=== PATIENT | female | born 1965 | race Two or more races ===

== ENCOUNTER 2020-08-03 12:34 | Inpatient (IN) | payer MEDICAID, OTHER ==
[~2020-08-03] VITALS: Ht 162.6 cm; Wt 56.2 kg
[2020-08-03] MEDS ORDERED: CALCIUM GLUC 4.65meq/50ml D5AE 50 ML IV ONE ×2 (13:00→14:00)
[2020-08-03 13:38] LABS: Basophils # (auto) 0.1 10 ^3/uL (0-0.2); Basophils % (auto) 0.8 % (0.0-2.0); Eosinophils # (auto) 0.1 10 ^3/uL (0-0.8); Eosinophils % (auto) 1.8 % (0.0-7.0); Hematocrit 29.5 % (36.0-46.0); Hemoglobin 10.2 g/dL (12.2-16.2); Lymphocytes # (auto) 1.1 10 ^3/uL (0.4-5.4); Lymphocytes % (auto) 14.4 % (10.0-50.0); Mean Corpuscular Hemoglobin 32.1 pg (28.0-32.0); Mean Corpuscular Hgb Conc. 34.4 g/dL (32.0-36.0); Mean Corpuscular Volume 93.3 fL (80.0-100.0); Monocytes # (auto) 0.3 10 ^3/uL (0-1.3); Monocytes % (auto) 4.4 % (0.0-12.0); Neutrophils # (auto) 5.7 10 ^3/uL (1.6-8.6); Neutrophils % (auto) 78.6 % (37.0-80.0); Nucleated Red Blood Cells % 0.1 %; Platelet Count (auto) 243 10^3/uL (140-450); Red Blood Cells 3.16 10^6/uL (4.0-5.20); Red Cell Distribution Width 13.4 % (11.8-14.3); White Blood Cell 7.3 10^3/uL (4.4-10.8)
[2020-08-03 13:45] LABS: Albumin 2.8 g/dL (3.4-5.0); Anion Gap 8 (5-15); Blood Urea Nitrogen 67 mg/dL (7-18); Calcium 8.3 mg/dL (8.5-10.1); Carbon Dioxide 32 mmol/L (21-32); Chloride 90 mmol/L (98-107); Glucose 251 mg/dL (74-106); Magnesium 3.6 mg/dL (1.6-2.6); Sodium 130 mmol/L (136-145)
[2020-08-03] MEDS ORDERED: DOPamine 1600MCG/ML D5W 250 ML IV ONE (13:45)
[2020-08-03 13:51] LABS: Alanine Aminotransferase 95 U/L (13-56); Alkaline Phosphatase 195 U/L (45-117); Aspartate Aminotransferase 140 U/L (15-37); BUN/Creatinine Ratio 8.8; Bilirubin, Total 0.4 mg/dL (0.2-1.0); GFR African American 7 mL/min; GFR Non-African American 6 mL/min; Lactic Acid w/Reflex 2.3 mmol/L (0.4-2.0); Phosphorus 6.3 mg/dL (2.5-4.90); Total Protein 6.8 g/dL (6.4-8.2)
[2020-08-03 13:56] LABS: INR 1.08 (0.9-1.15)
[2020-08-03 13:59] LABS: Potassium 6.8 mmol/L (3.5-5.1)
[2020-08-03] MEDS ORDERED: SODIUM CHLORIDE 0.9% 1,000 ML IV ONE (14:00)
[2020-08-03] MEDS ORDERED: InsuLIN REG 1unit/0.01ml Soln (100units/ml) IV ONE (14:00)
[2020-08-03] MEDS ORDERED: SODIUM BICARBONATE 8.4 % INJ 50ML VIAL IV ONE (14:00)
[2020-08-03] MEDS ORDERED: ATROPINE SULF 1 MG/10ml SYR IV ONE (14:00)
[2020-08-03] MEDS ORDERED: InsuLIN REG 1unit/0.01ml Soln (100units/ml) SC ONE (15:45)
[2020-08-03] MEDS ORDERED: cloNIDine HCL 0.1 MG TAB PO ONE (18:00)
[2020-08-03] MEDS ORDERED: hydrALAZINE HCL 20 MG/ML VL IV ONE (20:45)
[2020-08-03] MEDS ORDERED: MORPHINE SULF INJ 2 MG/ML SYRINGE 1ML IV PRN (21:15)
[2020-08-03] MEDS ORDERED: NITROGLYCERIN 0.4 MG SL TAB SL PRN (21:15)
[2020-08-03] MEDS ORDERED: DEXTROSE (50%) 50ML SYRG IV PRN (21:15)
[2020-08-03] MEDS: InsuLIN REG 1unit/0.01ml Soln (100units/ml) SC SCH (22:00)
[2020-08-03] MEDS: ACCU-CHEK COMFORT CURVE STRIP VI SCH (22:28)
[2020-08-03 23:21] LABS: BUN/Creatinine Ratio 7.8; Calcium 8.9 mg/dL (8.5-10.1); Potassium 4.4 mmol/L (3.5-5.1)
[2020-08-04] MEDS: hydrALAZINE HCL 20 MG/ML VL IV SCH ×4 (00:08→17:26)
[2020-08-04] MEDS: ACCU-CHEK COMFORT CURVE STRIP VI SCH ×4 (06:00→21:00)
[2020-08-04] MEDS: InsuLIN REG 1unit/0.01ml Soln (100units/ml) SC SCH ×4 (06:00→20:59)
[2020-08-04 06:49] LABS: Basophils # (auto) 0.1 10 ^3/uL (0-0.2); Basophils % (auto) 1.8 % (0.0-2.0); Eosinophils # (auto) 0.1 10 ^3/uL (0-0.8); Eosinophils % (auto) 1.3 % (0.0-7.0); Hemoglobin 11.2 g/dL (12.2-16.2); Lymphocytes # (auto) 1.3 10 ^3/uL (0.4-5.4); Lymphocytes % (auto) 24.8 % (10.0-50.0); Mean Corpuscular Hemoglobin 31.4 pg (28.0-32.0); Mean Corpuscular Hgb Conc. 33.8 g/dL (32.0-36.0); Mean Corpuscular Volume 92.9 fL (80.0-100.0); Monocytes # (auto) 0.5 10 ^3/uL (0-1.3); Monocytes % (auto) 9.7 % (0.0-12.0); Neutrophils # (auto) 3.2 10 ^3/uL (1.6-8.6); Neutrophils % (auto) 62.4 % (37.0-80.0); Nucleated Red Blood Cells % 0.2 %; Platelet Count (auto) 268 10^3/uL (140-450); Red Blood Cells 3.55 10^6/uL (4.0-5.20); Red Cell Distribution Width 13.6 % (11.8-14.3); White Blood Cell 5.2 10^3/uL (4.4-10.8)
[2020-08-04 07:07] LABS: Albumin 3.2 g/dL (3.4-5.0); Calcium 8.4 mg/dL (8.5-10.1); Potassium 4.6 mmol/L (3.5-5.1)
[2020-08-04 07:12] LABS: BUN/Creatinine Ratio 7.6; Bilirubin, Total 0.4 mg/dL (0.2-1.0); Total Protein 7.9 g/dL (6.4-8.2)
[2020-08-04] MEDS: PANTOPRAZOLE 40 MG TAB PO SCH (08:39)
[2020-08-04] MEDS: ACETAMINOPHEN 325 MG TAB PO PRN (10:31)
[2020-08-04] MEDS ORDERED: SODIUM BICARBONATE 8.4% INJ 50ML SYRINGE IV ONE (12:49)
[2020-08-04] MEDS ORDERED: CALCIUM CHLOR(10%) 100MG/ML 10ML SYRINGE IV ONE (12:49)
[2020-08-04] MEDS ORDERED: ATROPINE SULF 1 MG/10ml SYR IV ONE (12:49)
[2020-08-04] MEDS ORDERED: DOPamine 1600mCg/ml 400MG/250ml NSorD5 KIT/BAG IV ONE (12:49)
[2020-08-05] MEDS: hydrALAZINE HCL 20 MG/ML VL IV SCH ×4 (00:41→18:00)
[2020-08-05] MEDS: ACETAMINOPHEN 325 MG TAB PO PRN (03:09)
[2020-08-05] MEDS: ONDANSETRON HCL 4 MG/2 ML VIAL IV PRN ×2 (03:10→10:33)
[2020-08-05 04:17] VITALS: BP 116/56
[2020-08-05] MEDS ORDERED: HYDR10TA26 PO (04:43)
[2020-08-05] MEDS ORDERED: ASPI-543 PO (04:43)
[2020-08-05] MEDS ORDERED: CARV25TA55 PO (04:43)
[2020-08-05 05:21] VITALS: BP 116/56
[2020-08-05] MEDS: ACCU-CHEK COMFORT CURVE STRIP VI SCH ×4 (06:57→22:00)
[2020-08-05] MEDS ORDERED: SODIUM CHL 0.9% 1000 ML BAG XX ONE (07:00)
[2020-08-05] MEDS: InsuLIN REG 1unit/0.01ml Soln (100units/ml) SC SCH ×4 (07:00→22:00)
[2020-08-05 09:00] VITALS: BP 131/62
[2020-08-05] MEDS: PANTOPRAZOLE 40 MG TAB PO SCH (10:33)
[2020-08-05] MEDS ORDERED: ADENOSINE 47 MG in GIVE UN-DILUTED 0 ML IV STA (10:50)
[2020-08-05 13:30] VITALS: BP 144/70
[2020-08-05 16:46] VITALS: BP 111/58
[2020-08-05 22:30] VITALS: BP 139/75
[2020-08-06 06:00] VITALS: BP 140/65
[2020-08-06] MEDS: hydrALAZINE HCL 20 MG/ML VL IV SCH ×3 (06:00→12:00)
[2020-08-06] MEDS: InsuLIN REG 1unit/0.01ml Soln (100units/ml) SC SCH ×3 (07:00→17:00)
[2020-08-06] MEDS: ACCU-CHEK COMFORT CURVE STRIP VI SCH ×3 (07:00→17:00)
[2020-08-06 08:49] VITALS: BP 130/62
[2020-08-06] MEDS: ACETAMINOPHEN 325 MG TAB PO PRN (10:50)
[2020-08-06] MEDS: PANTOPRAZOLE 40 MG TAB PO SCH (10:50)
[2020-08-06 12:56] VITALS: BP 149/71
[2020-08-06 14:07] LABS: BUN/Creatinine Ratio 6.7; Calcium 7.7 mg/dL (8.5-10.1); Potassium 5.3 mmol/L (3.5-5.1)
[2020-08-06 17:00] VITALS: BP 181/83
[2020-08-06 18:00] VITALS: BP 116/58
[2020-08-06 18:07] VITALS: BP 130/62
== END 2020-08-06 19:22 | disposition home or self-care (01) | DRG 194 ==
LOC: ER 12:34 → TELE 21:08 → TELE-CENTR 08-05 04:05
PROVIDERS: ADMIT Nurse Practitioner; ATTEND Internal Medicine
PROC: 5A1D70Z Performance of Urinary Filtration, Intermittent, Less than 6 Hours Per Day (ICD-10-PCS; principal; 2020-08-03)
PROC: 5A1D70Z Performance of Urinary Filtration, Intermittent, Less than 6 Hours Per Day (ICD-10-PCS; 2020-08-05)
PROC: 5A1D70Z Performance of Urinary Filtration, Intermittent, Less than 6 Hours Per Day (ICD-10-PCS; 2020-08-06)
DX: I13.2 Hypertensive heart and chronic kidney disease with heart failure and with stage 5 chronic kidney disease, or end stage renal disease (principal); E87.5 Hyperkalemia; I44.2 Atrioventricular block, complete; R00.1 Bradycardia, unspecified; N18.6 End stage renal disease; D63.8 Anemia in other chronic diseases classified elsewhere; E87.1 Hypo-osmolality and hyponatremia; Z20.828 Contact with and (suspected) exposure to other viral communicable diseases; E11.22 Type 2 diabetes mellitus with diabetic chronic kidney disease; Z99.2 Dependence on renal dialysis; E44.0 Moderate protein-calorie malnutrition; I50.31 Acute diastolic (congestive) heart failure; R65.10 Systemic inflammatory response syndrome (SIRS) of non-infectious origin without acute organ dysfunction
CPT/HCPCS: 36415; 71045; 78452; 80048; 80053; 82962; 83605; 83735; 83880; 84100; 84484; 85025; 85610; 87081; 87426; 90935; 93017; 93306; 96365; 96375; 99291; G0378; J0153; J0610; J1815; J2405

== ENCOUNTER 2022-02-14 21:03 | Inpatient (IN) | payer MEDICAID ==
[~2022-02-14] VITALS: Ht 165.1 cm; Wt 56.7 kg
[~2022-02-14 21:03] MED LIST: ASPI-543 PO; CARV25TA55 PO; HYDR10TA26 PO
[2022-02-14 22:50] LABS: Basophils # (auto) 0.1 10 ^3/uL (0-0.2); Basophils % (auto) 1.4 % (0.0-2.0); Eosinophils # (auto) 0.1 10 ^3/uL (0-0.8); Eosinophils % (auto) 2.7 % (0.0-7.0); Hematocrit 34.4 % (36.0-46.0); Hemoglobin 11.6 g/dL (12.2-16.2); Lymphocytes # (auto) 1.2 10 ^3/uL (0.4-5.4); Lymphocytes % (auto) 23.1 % (10.0-50.0); Mean Corpuscular Hemoglobin 32.2 pg (28.0-32.0); Mean Corpuscular Hgb Conc. 33.6 g/dL (32.0-36.0); Mean Corpuscular Volume 95.7 fL (80.0-100.0); Monocytes # (auto) 0.4 10 ^3/uL (0-1.3); Monocytes % (auto) 8.2 % (0.0-12.0); Neutrophils # (auto) 3.4 10 ^3/uL (1.6-8.6); Neutrophils % (auto) 64.6 % (37.0-80.0); Nucleated Red Blood Cells % 0.1 %; Red Blood Cells 3.59 10^6/uL (4.0-5.20); White Blood Cell 5.3 10^3/uL (4.4-10.8)
[2022-02-14] MEDS ORDERED: ATROPINE SULFATE 1 MG/1 ML VIAL ONE (23:11)
[2022-02-14 23:13] LABS: Calcium 8.7 mg/dL (8.5-10.1)
[2022-02-14] MEDS ORDERED: DOPamine 1600MCG/ML D5W 250 ML IV ONE (23:15)
[2022-02-14 23:17] LABS: Albumin 3.1 g/dL (3.4-5.0); BUN/Creatinine Ratio 7.4
[2022-02-14 23:19] LABS: Bilirubin, Total 0.4 mg/dL (0.2-1.0); Total Protein 7.6 g/dL (6.4-8.2)
[2022-02-14 23:23] LABS: Potassium 6.4 mmol/L (3.5-5.1)
[2022-02-14] MEDS ORDERED: CALCIUM GLUC 1,000mg/50ml-NS 50 ML IV ONE (23:30)
[2022-02-14] MEDS ORDERED: FUROSEMIDE 20 MG/2 ML VIAL IV ONE (23:30)
[2022-02-14] MEDS ORDERED: DEXTROSE (50%) 50ML SYRG IV ONE (23:30)
[2022-02-14] MEDS ORDERED: ALBUTEROL SULF 2.5 MG/0.5ML(0.5%) NEB SOLN NEB ONE (23:30)
[2022-02-14] MEDS ORDERED: SODIUM ZIRCONIUM CYCL 10 GM PAK PO ONE (23:30)
[2022-02-14] MEDS ORDERED: ATROPINE SULF 1 MG/10ml SYR IV ONE (23:30)
[2022-02-14] MEDS ORDERED: InsuLIN REG 1unit/0.01ml Soln (100units/ml) IV ONE (23:30)
[2022-02-14] MEDS ORDERED: SODIUM BICARBONATE 8.4 % INJ 50ML VIAL IV ONE (23:45)
[2022-02-15] MEDS ORDERED: cloNIDine HCL 0.1 MG TAB PO ONE
[2022-02-15] MEDS ORDERED: cloNIDine HCL 0.1 MG TAB ONE (00:11)
[2022-02-15] MEDS ORDERED: hydrALAZINE HCL 20 MG/ML VL IV ONE (01:00)
[2022-02-15] MEDS ORDERED: NITROGLYCERIN 0.4 MG SL TAB SL PRN (04:45)
[2022-02-15] MEDS ORDERED: hydrALAZINE HCL 20 MG/ML VL IV PRN (04:45)
[2022-02-15] MEDS ORDERED: ONDANSETRON HCL 4 MG/2 ML VIAL IV PRN (04:45)
[2022-02-15] MEDS ORDERED: DEXTROSE (50%) 50ML SYRG IV PRN (04:45)
[2022-02-15] MEDS ORDERED: MORPHINE SULFATE INJ 2 MG/ml SYRG IV PRN ×2 (04:45)
[2022-02-15] MEDS ORDERED: hydrALAZINE HCL 10 MG TAB PO SCH (06:00)
[2022-02-15 06:01] LABS: BUN/Creatinine Ratio 8.1; Calcium 8.4 mg/dL (8.5-10.1); Potassium 5.4 mmol/L (3.5-5.1)
[2022-02-15] MEDS: InsuLIN REG 1unit/0.01ml Soln (100units/ml) SC SCH ×4 (06:20→22:00)
[2022-02-15] MEDS: ACCU-CHEK COMFORT CURVE STRIP VI SCH ×4 (06:20→22:00)
[2022-02-15] MEDS: SEVELAMER 800 MG TAB PO SCH ×3 (08:00→18:06)
[2022-02-15] MEDS ORDERED: SODIUM CHL 0.9% 1000 ML BAG XX ONE (08:30)
[2022-02-15] MEDS ORDERED: PATIENTS OWN MEDICATION (Carvedilol 25 MG) PO SCH (10:00)
[2022-02-15] MEDS ORDERED: CARVEDILOL 12.5 MG TAB PO SCH (10:00)
[2022-02-15] MEDS: BENAZEPRIL HCL 10 MG TAB PO SCH (12:46)
[2022-02-15] MEDS: ASPirin-EC 81 mg tab PO SCH ×2 (13:47→22:33)
[2022-02-15] MEDS: hydrALAZINE HCL 25 MG TAB PO SCH ×2 (14:31→22:33)
[2022-02-15 22:24] VITALS: BP 130/62
[2022-02-15 22:30] VITALS: BP 130/62
[2022-02-16 05:00] VITALS: BP 123/57
[2022-02-16] MEDS: hydrALAZINE HCL 25 MG TAB PO SCH ×2 (05:40→14:50)
[2022-02-16] MEDS: InsuLIN REG 1unit/0.01ml Soln (100units/ml) SC SCH ×3 (05:40→16:43)
[2022-02-16] MEDS: ACCU-CHEK COMFORT CURVE STRIP VI SCH ×3 (05:41→16:41)
[2022-02-16] MEDS ORDERED: ADENOSINE 48 MG in GIVE UN-DILUTED 0 ML IV STA ×2 (07:46→07:49)
[2022-02-16 08:00] VITALS: BP 136/63
[2022-02-16] MEDS: SEVELAMER 800 MG TAB PO SCH ×3 (08:00→18:00)
[2022-02-16 08:37] LABS: Basophils # (auto) 0.1 10 ^3/uL (0-0.2); Basophils % (auto) 1.3 % (0.0-2.0); Eosinophils # (auto) 0.2 10 ^3/uL (0-0.8); Hematocrit 33.9 % (36.0-46.0); Lymphocytes % (auto) 20.8 % (10.0-50.0); Mean Corpuscular Hemoglobin 31.1 pg (28.0-32.0); Mean Corpuscular Hgb Conc. 32.5 g/dL (32.0-36.0); Mean Corpuscular Volume 95.7 fL (80.0-100.0); Monocytes # (auto) 0.5 10 ^3/uL (0-1.3); Monocytes % (auto) 10.7 % (0.0-12.0); Neutrophils # (auto) 3.1 10 ^3/uL (1.6-8.6); Neutrophils % (auto) 62.2 % (37.0-80.0); Red Blood Cells 3.55 10^6/uL (4.0-5.20)
[2022-02-16 09:19] VITALS: BP 134/61
[2022-02-16 10:21] LABS: BUN/Creatinine Ratio 6.1; Calcium 8.4 mg/dL (8.5-10.1); Potassium 4.6 mmol/L (3.5-5.1)
[2022-02-16] MEDS: BENAZEPRIL HCL 10 MG TAB PO SCH (10:56)
[2022-02-16] MEDS: ASPirin-EC 81 mg tab PO SCH (10:56)
[2022-02-16 12:00] VITALS: BP 142/64
[2022-02-16 16:00] VITALS: BP 136/59
[2022-02-16 16:57] VITALS: BP 136/59
[2022-02-17] MEDS ORDERED: SODIUM CHL 0.9% 1000 ML BAG XX ONE (07:00)
== END 2022-02-16 18:15 | disposition home or self-care (01) | DRG 201 ==
LOC: ER 21:03 → TELE 02-15 04:38 → TELE-CENTR 02-15 22:10
PROVIDERS: ADMIT Hospitalist; ATTEND Internal Medicine
PROC: 5A1D70Z Performance of Urinary Filtration, Intermittent, Less than 6 Hours Per Day (ICD-10-PCS; principal; 2022-02-15)
DX: R00.1 Bradycardia, unspecified (principal); I12.0 Hypertensive chronic kidney disease with stage 5 chronic kidney disease or end stage renal disease; J90 Pleural effusion, not elsewhere classified; R18.8 Other ascites; N18.6 End stage renal disease; R07.9 Chest pain, unspecified; E87.5 Hyperkalemia; E11.22 Type 2 diabetes mellitus with diabetic chronic kidney disease; T50.905A Adverse effect of unspecified drugs, medicaments and biological substances, initial encounter; J47.9 Bronchiectasis, uncomplicated; J98.11 Atelectasis; Z20.822 Contact with and (suspected) exposure to COVID-19; K44.9 Diaphragmatic hernia without obstruction or gangrene; R91.1 Solitary pulmonary nodule; Y92.89 Other specified places as the place of occurrence of the external cause
CPT/HCPCS: 36415; 70450; 71045; 71250; 78452; 80048; 80053; 82962; 83880; 84132; 84484; 85025; 87340; 90935; 93005; 93017; 93306; 94644; 96365; 96366; 96368; 96372; 96375; 99291; G0378; J0153; J0461; J1815

== ENCOUNTER 2022-08-12 21:45 | Inpatient (IN) | payer MEDICAID ==
[~2022-08-12] VITALS: Ht 162.6 cm; Wt 61.8 kg
[2022-08-12] MEDS ORDERED: InsuLIN REG 1unit/0.01ml Soln (100units/ml) IV ONE (22:15)
[2022-08-12] MEDS ORDERED: InsuLIN REG 1unit/0.01ml Soln (100units/ml) ONE (22:15)
[2022-08-12 22:39] LABS: Basophils # (auto) 0 10 ^3/uL (0-0.2); Basophils % (auto) 0.6 % (0.0-2.0); Eosinophils # (auto) 0.2 10 ^3/uL (0-0.8); Eosinophils % (auto) 4.5 % (0.0-7.0); Hematocrit 36.7 % (36.0-46.0); Hemoglobin 12.3 g/dL (12.2-16.2); Lymphocytes # (auto) 1.2 10 ^3/uL (0.4-5.4); Lymphocytes % (auto) 22.1 % (10.0-50.0); Mean Corpuscular Hemoglobin 32.1 pg (28.0-32.0); Mean Corpuscular Hgb Conc. 33.5 g/dL (32.0-36.0); Mean Corpuscular Volume 95.7 fL (80.0-100.0); Monocytes # (auto) 0.1 10 ^3/uL (0-1.3); Neutrophils # (auto) 3.8 10 ^3/uL (1.6-8.6); Neutrophils % (auto) 70.8 % (37.0-80.0); Nucleated Red Blood Cells % 0.1 %; Red Blood Cells 3.83 10^6/uL (4.0-5.20); Red Cell Distribution Width 13.1 % (11.8-14.3); White Blood Cell 5.4 10^3/uL (4.4-10.8)
[2022-08-12 22:56] LABS: Albumin 3.2 g/dL (3.4-5.0); BUN/Creatinine Ratio 9.1; Calcium 11.9 mg/dL (8.5-10.1)
[2022-08-12 22:59] LABS: Bilirubin, Total 0.5 mg/dL (0.2-1.0); Total Protein 7.5 g/dL (6.4-8.2)
[2022-08-12 23:20] LABS: Potassium 6.4 mmol/L (3.5-5.1)
[2022-08-12] MEDS ORDERED: SODIUM BICARBONATE 8.4 % INJ 50ML VIAL IV ONE (23:30)
[2022-08-12] MEDS ORDERED: ALBUTEROL SULF 2.5 MG/0.5ML(0.5%) NEB SOLN NEB ONE (23:30)
[2022-08-12] MEDS ORDERED: ALBUTEROL MEDNEB 2.5 mg/3ml NEB ONE (23:34)
[2022-08-12] MEDS ORDERED: DOCUSATE SOD 100 MG CAP PO PRN (23:45)
[2022-08-12] MEDS ORDERED: DEXTROSE (50%) 50ML SYRG IV PRN (23:45)
[2022-08-12] MEDS ORDERED: TEMAZEPAM 15 MG CAP PO PRN (23:45)
[2022-08-12] MEDS ORDERED: LORazepam 0.5 MG TAB PO PRN (23:45)
[2022-08-12] MEDS ORDERED: NITROGLYCERIN 0.4 MG SL TAB SL PRN (23:45)
[2022-08-12] MEDS ORDERED: ACETAMINOPHEN 325 MG TAB PO PRN (23:45)
[2022-08-12] MEDS ORDERED: ONDANSETRON HCL 4 MG/2 ML VIAL IV PRN (23:45)
[2022-08-12] MEDS ORDERED: MORPHINE SULFATE INJ 2 MG/ml SYRG IV PRN ×2 (23:45)
[2022-08-13] MEDS: ACCU-CHEK COMFORT CURVE STRIP VI SCH ×6 (00:37→20:19)
[2022-08-13] MEDS: InsuLIN REG 1unit/0.01ml Soln (100units/ml) SC SCH ×6 (00:38→20:00)
[2022-08-13] MEDS: SODIUM CHLORIDE 0.9% 1,000 ML IV SCH ×2 (00:39→04:46)
[2022-08-13] MEDS: HYDROcodone-ACET 5/325MG TAB PO PRN ×2 (03:35→19:52)
[2022-08-13 07:26] LABS: Basophils # (auto) 0.1 10 ^3/uL (0-0.2); Basophils % (auto) 1.1 % (0.0-2.0); Eosinophils # (auto) 0.1 10 ^3/uL (0-0.8); Eosinophils % (auto) 1.7 % (0.0-7.0); Hematocrit 34.3 % (36.0-46.0); Hemoglobin 11.5 g/dL (12.2-16.2); Lymphocytes # (auto) 1.2 10 ^3/uL (0.4-5.4); Mean Corpuscular Hemoglobin 31.5 pg (28.0-32.0); Mean Corpuscular Hgb Conc. 33.4 g/dL (32.0-36.0); Mean Corpuscular Volume 94.3 fL (80.0-100.0); Monocytes # (auto) 0.5 10 ^3/uL (0-1.3); Monocytes % (auto) 8.7 % (0.0-12.0); Neutrophils # (auto) 4.1 10 ^3/uL (1.6-8.6); Neutrophils % (auto) 68.5 % (37.0-80.0); Red Blood Cells 3.64 10^6/uL (4.0-5.20); Red Cell Distribution Width 12.8 % (11.8-14.3)
[2022-08-13 07:45] LABS: BUN/Creatinine Ratio 9.6
[2022-08-13] MEDS ORDERED: SODIUM CHL 0.9% 1000 ML BAG XX ONE (09:30)
[2022-08-13 11:30] LABS: INR 1.06 (0.9-1.15); Partial Thromboplastin Time 30.6 sec (24.6-33.4)
[2022-08-13] MEDS ORDERED: ISOPROTERENOL HCL INJECTION 1 MG in D5W 5% 250 ML IV SCH (12:15)
[2022-08-13] MEDS ORDERED: SODIUM ZIRCONIUM CYCL 10 GM PAK PO ONE (12:15)
[2022-08-13] MEDS ORDERED: SODIUM BICARBONATE 8.4 % INJ 50ML VIAL IV ONE (12:15)
[2022-08-13] MEDS ORDERED: DEXTROSE (50%) 50ML SYRG IV ONE (12:15)
[2022-08-13] MEDS ORDERED: CALCIUM GLUC 1,000mg/50ml-NS 50 ML IV ONE (12:15)
[2022-08-13] MEDS ORDERED: DOPamine 1600MCG/ML D5W 250 ML IV SCH (13:00)
[2022-08-13] MEDS ORDERED: EPOETIN ALFA-EPBX 4,000 UNIT/ML VIAL SC ONE (21:00)
[2022-08-14] MEDS: InsuLIN REG 1unit/0.01ml Soln (100units/ml) SC SCH ×6 (00:48→20:00)
[2022-08-14] MEDS: ACCU-CHEK COMFORT CURVE STRIP VI SCH ×6 (04:00→20:00)
[2022-08-14 05:57] LABS: Basophils # (auto) 0.1 10 ^3/uL (0-0.2); Basophils % (auto) 1.3 % (0.0-2.0); Eosinophils # (auto) 0.2 10 ^3/uL (0-0.8); Eosinophils % (auto) 3.9 % (0.0-7.0); Hematocrit 36.3 % (36.0-46.0); Hemoglobin 11.8 g/dL (12.2-16.2); Lymphocytes # (auto) 0.9 10 ^3/uL (0.4-5.4); Lymphocytes % (auto) 17.2 % (10.0-50.0); Mean Corpuscular Hemoglobin 31.8 pg (28.0-32.0); Mean Corpuscular Hgb Conc. 32.6 g/dL (32.0-36.0); Mean Corpuscular Volume 97.5 fL (80.0-100.0); Monocytes # (auto) 0.5 10 ^3/uL (0-1.3); Monocytes % (auto) 10.3 % (0.0-12.0); Neutrophils # (auto) 3.5 10 ^3/uL (1.6-8.6); Neutrophils % (auto) 67.3 % (37.0-80.0); Nucleated Red Blood Cells % 0.1 %; Red Blood Cells 3.73 10^6/uL (4.0-5.20); White Blood Cell 5.2 10^3/uL (4.4-10.8)
[2022-08-14 06:12] LABS: Anion Gap 6 (5-15); Calcium 8.6 mg/dL (8.5-10.1); Carbon Dioxide 28 mmol/L (21-32); Chloride 99 mmol/L (98-107); Glucose 141 mg/dL (74-106); Potassium 4.2 mmol/L (3.5-5.1); Sodium 133 mmol/L (136-145)
[2022-08-14 06:18] LABS: BUN/Creatinine Ratio 6.7; Blood Urea Nitrogen 28 mg/dL (7-18); GFR African American 14 mL/min; GFR Non-African American 12 mL/min
[2022-08-14] MEDS ORDERED: CALCIUM CHLOR(10%) 100MG/ML 10ML SYRINGE IV ONE (11:25)
[2022-08-14 16:49] VITALS: BP 148/63
[2022-08-14] MEDS ORDERED: GLIP2.5T28 PO (19:06)
[2022-08-14] MEDS ORDERED: AMLO-496 PO (19:06)
[2022-08-14] MEDS ORDERED: SEVE800T20 PO (19:06)
[2022-08-14] MEDS ORDERED: CALC667C PO (19:06)
[2022-08-14] MEDS ORDERED: BENA40TA8 PO (19:06)
[2022-08-14 22:00] VITALS: BP 144/64
[2022-08-15] MEDS: ACCU-CHEK COMFORT CURVE STRIP VI SCH ×4 (04:00→12:10)
[2022-08-15] MEDS: InsuLIN REG 1unit/0.01ml Soln (100units/ml) SC SCH ×4 (04:00→12:12)
[2022-08-15 05:00] VITALS: BP 139/62
[2022-08-15 08:00] VITALS: BP 172/78
[2022-08-15 09:11] VITALS: BP 170/72
[2022-08-15 12:30] VITALS: BP 165/64
[2022-08-15 14:49] VITALS: BP 160/68
== END 2022-08-15 16:23 | disposition home or self-care (01) | DRG 201 ==
LOC: EDUNIT# 21:45 → ER 21:45 → OVERFLOW 23:45 → TELE-CENTR 08-14 15:57
PROVIDERS: ADMIT Hospitalist; ATTEND Student in an Organized Health Care Education/Training Program
PROC: 5A1D70Z Performance of Urinary Filtration, Intermittent, Less than 6 Hours Per Day (ICD-10-PCS; principal; 2022-08-13)
DX: R00.1 Bradycardia, unspecified (principal); I12.0 Hypertensive chronic kidney disease with stage 5 chronic kidney disease or end stage renal disease; E11.22 Type 2 diabetes mellitus with diabetic chronic kidney disease; T44.7X5A Adverse effect of beta-adrenoreceptor antagonists, initial encounter; N25.81 Secondary hyperparathyroidism of renal origin; N18.6 End stage renal disease; Z20.822 Contact with and (suspected) exposure to COVID-19; I16.0 Hypertensive urgency; E87.5 Hyperkalemia; Z79.4 Long term (current) use of insulin; Z99.2 Dependence on renal dialysis; Z82.49 Family history of ischemic heart disease and other diseases of the circulatory system; Y92.89 Other specified places as the place of occurrence of the external cause
CPT/HCPCS: 36415; 71045; 80048; 80053; 82962; 83735; 84443; 84484; 85025; 85610; 85730; 87081; 87426; 90935; 93005; 94640; 96374; 96375; 99291; 99292; G0378; J1815

== ENCOUNTER 2022-09-01 06:15 | Inpatient (IN) | payer MEDICAID, OTHER ==
[2022-09-01] VITALS (14 sets, daily range): BP systolic 111–194; BP diastolic 42–81
[~2022-09-01] VITALS: Ht 154.9 cm; Wt 69.5 kg
[~2022-09-01 06:15] MED LIST changes: +AMLO-496 PO; +BENA40TA8 PO; +CALC667C PO; +GLIP2.5T28 PO; +SEVE800T20 PO
[2022-09-01] MEDS ORDERED: InsuLIN REG 1unit/0.01ml Soln (100units/ml) ONE (06:31)
[2022-09-01] MEDS ORDERED: ONDANSETRON HCL 4 MG/2 ML VIAL ONE (06:31)
[2022-09-01] MEDS ORDERED: ALBUTEROL MEDNEB 2.5 mg/3ml NEB ONE (06:40)
[2022-09-01] MEDS ORDERED: ALBUTEROL SULF 2.5 MG/0.5ML(0.5%) NEB SOLN NEB ONE (06:45)
[2022-09-01] MEDS ORDERED: DEXTROSE (50%) 50ML SYRG IV ONE ×2 (06:45→08:45)
[2022-09-01] MEDS ORDERED: CALCIUM CHL 100MG/ML 1,000 MG in D5W 5% 100 ML IV ONE (06:45)
[2022-09-01] MEDS ORDERED: ATROPINE SULF 1 MG/10ml SYR IV ONE ×4 (06:45→11:00)
[2022-09-01 06:57] LABS: Basophils # (auto) 0.1 10 ^3/uL (0-0.2); Basophils % (auto) 1.1 % (0.0-2.0); Eosinophils # (auto) 0.2 10 ^3/uL (0-0.8); Eosinophils % (auto) 3.6 % (0.0-7.0); Hemoglobin 11.8 g/dL (12.2-16.2); Lymphocytes # (auto) 0.9 10 ^3/uL (0.4-5.4); Lymphocytes % (auto) 17.3 % (10.0-50.0); Mean Corpuscular Hemoglobin 31.3 pg (28.0-32.0); Mean Corpuscular Hgb Conc. 32.9 g/dL (32.0-36.0); Mean Corpuscular Volume 95.3 fL (80.0-100.0); Monocytes # (auto) 0.4 10 ^3/uL (0-1.3); Monocytes % (auto) 7.3 % (0.0-12.0); Neutrophils # (auto) 3.6 10 ^3/uL (1.6-8.6); Neutrophils % (auto) 70.7 % (37.0-80.0); Nucleated Red Blood Cells % 0.1 %; Red Blood Cells 3.78 10^6/uL (4.0-5.20); Red Cell Distribution Width 12.9 % (11.8-14.3)
[2022-09-01 07:08] LABS: Albumin 3.2 g/dL (3.4-5.0); BUN/Creatinine Ratio 10.1; Calcium 8.6 mg/dL (8.5-10.1); Magnesium 3.6 mg/dL (1.6-2.6)
[2022-09-01 07:10] LABS: Bilirubin, Total 0.5 mg/dL (0.2-1.0); Total Protein 7.5 g/dL (6.4-8.2)
[2022-09-01 07:13] LABS: Potassium 6.3 mmol/L (3.5-5.1)
[2022-09-01] MEDS ORDERED: DEXTROSE (50%) 50ML SYRG IV PRN (09:45)
[2022-09-01] MEDS ORDERED: ONDANSETRON HCL 4 MG/2 ML VIAL IV PRN (09:45)
[2022-09-01] MEDS ORDERED: MORPHINE SULFATE INJ 2 MG/ml SYRG IV PRN (09:45)
[2022-09-01] MEDS: HEPARIN SODIUM (PORCINE) 5000 UNITS/ML 1ML VIAL SC SCH ×2 (10:00→12:59)
[2022-09-01] MEDS ORDERED: ATROPINE SULFATE 1 MG/1 ML VIAL ONE ×2 (10:35→10:40)
[2022-09-01] MEDS ORDERED: EPINEPHrine HCL 250 ML IV ONE ×2 (10:44→10:45)
[2022-09-01] MEDS ORDERED: fentaNYL CITRATE 100 MCG/2 ML VL ONE ×2 (10:46→17:51)
[2022-09-01] MEDS ORDERED: D5W/SOD CHLO 0.9% 1,000 ML IV ONE (11:00)
[2022-09-01] MEDS ORDERED: DOPamine 1600MCG/ML D5W 250 ML IV ONE (11:00)
[2022-09-01] MEDS ORDERED: DOPamine 1600MCG/ML D5W 250 ML IV SCH (11:15)
[2022-09-01] MEDS ORDERED: GLUCAGON HYDROCHLORIDE (RDNA) 1 MG VIAL IV ONE ×2 (11:15)
[2022-09-01] MEDS: DOPamine 1600MCG/ML D5W 250 ML IV SCH (11:30)
[2022-09-01] MEDS: ACCU-CHEK COMFORT CURVE STRIP VI SCH ×3 (13:29→20:35)
[2022-09-01] MEDS: InsuLIN REG 1unit/0.01ml Soln (100units/ml) SC SCH ×3 (13:30→20:00)
[2022-09-01] MEDS: CALCIUM ACETATE 667 MG CAP PO SCH ×2 (14:00→22:00)
[2022-09-01] MEDS ORDERED: SEVELAMER 800 MG TAB PO SCH (14:00)
[2022-09-01] MEDS ORDERED: VANCOMYCIN 1GM/250ML 250 ML IV ONE (16:00)
[2022-09-01] MEDS ORDERED: SODIUM CHL 0.9% 1000 ML BAG XX ONE (16:15)
[2022-09-01 17:08] LABS: INR 1.03 (0.9-1.15); Partial Thromboplastin Time 29.9 sec (24.6-33.4)
[2022-09-01] MEDS ORDERED: LIDOCAINE 2%HCL (LOCAL ANESTH.) INJ 20ML MDV ONE (17:43)
[2022-09-01] MEDS ORDERED: VANCOMYCIN HCL 1000 MG VL ONE (17:50)
[2022-09-01] MEDS ORDERED: MIDAZOLAM HCL 2MG/2ML 2ml VIAL (1mg/ml) ONE (17:52)
[2022-09-01] MEDS ORDERED: methylPREDNISolone SOD SUCC 125 MG/2 ML VL ONE (18:05)
[2022-09-01] MEDS ORDERED: diphenhdrAMINE HCL 50 MG/1 ML VL ONE (18:05)
[2022-09-01] MEDS ORDERED: FAMOTIDINE (10MG/ML) 2ML VL IV ONE (18:05)
[2022-09-01] MEDS ORDERED: ceFAZolin 1GM VL ONE ×2 (18:12→18:13)
[2022-09-01] MEDS ORDERED: SODIUM CHL 0.9% 0 ML ONE (18:15)
[2022-09-01] MEDS ORDERED: IODIXANOL 320MG/ML 100ML BTL IV ONE (18:33)
[2022-09-01] MEDS ORDERED: hydrALAZINE HCL 20 MG/ML VL ONE (18:56)
[2022-09-02] MEDS: ACCU-CHEK COMFORT CURVE STRIP VI SCH ×5 (00:01→16:23)
[2022-09-02] MEDS: InsuLIN REG 1unit/0.01ml Soln (100units/ml) SC SCH ×5 (00:02→17:18)
[2022-09-02 01:15] VITALS: BP 157/62
[2022-09-02 05:00] VITALS: BP 116/47
[2022-09-02 05:26] LABS: Basophils # (auto) 0 10 ^3/uL (0-0.2); Basophils % (auto) 0.3 % (0.0-2.0); Eosinophils # (auto) 0 10 ^3/uL (0-0.8); Hematocrit 37.7 % (36.0-46.0); Hemoglobin 12.5 g/dL (12.2-16.2); Lymphocytes # (auto) 0.4 10 ^3/uL (0.4-5.4); Lymphocytes % (auto) 5.8 % (10.0-50.0); Mean Corpuscular Hemoglobin 31.4 pg (28.0-32.0); Monocytes # (auto) 0.1 10 ^3/uL (0-1.3); Monocytes % (auto) 1.3 % (0.0-12.0); Neutrophils # (auto) 6.1 10 ^3/uL (1.6-8.6); Neutrophils % (auto) 92.6 % (37.0-80.0); Nucleated Red Blood Cells % 0.1 %; Red Blood Cells 3.97 10^6/uL (4.0-5.20); White Blood Cell 6.5 10^3/uL (4.4-10.8)
[2022-09-02 05:45] LABS: Albumin 3.2 g/dL (3.4-5.0); BUN/Creatinine Ratio 10.9
[2022-09-02 05:47] LABS: Bilirubin, Total 0.6 mg/dL (0.2-1.0); Total Protein 7.4 g/dL (6.4-8.2)
[2022-09-02] MEDS: CALCIUM ACETATE 667 MG CAP PO SCH ×2 (06:00→15:03)
[2022-09-02 09:00] VITALS: BP 144/66
[2022-09-02] MEDS: SEVELAMER 800 MG TAB PO SCH ×3 (09:51→17:39)
[2022-09-02] MEDS: HEPARIN SODIUM (PORCINE) 5000 UNITS/ML 1ML VIAL SC SCH (09:52)
[2022-09-02] MEDS ORDERED: amLODIPine BESYLATE 5 MG TAB PO SCH (10:00)
[2022-09-02] MEDS ORDERED: ASPirin-EC 81 mg tab PO SCH (10:00)
[2022-09-02] MEDS ORDERED: PANTOPRAZOLE 40 MG/10 ML VIAL INJ IV SCH (10:00)
[2022-09-02] MEDS: DOPamine 1600MCG/ML D5W 250 ML IV SCH (10:01)
[2022-09-02] MEDS ORDERED: SODIUM ZIRCONIUM CYCL 10 GM PAK PO ONE ×2 (11:00→16:30)
[2022-09-02] MEDS ORDERED: ALBUTEROL SULF 2.5 MG/0.5ML(0.5%) NEB SOLN NEB ONE ×2 (11:00→18:42)
[2022-09-02 12:31] LABS: Calcium 8.7 mg/dL (8.5-10.1); Potassium 5.4 mmol/L (3.5-5.1)
[2022-09-02 12:34] LABS: BUN/Creatinine Ratio 9.6
[2022-09-02 12:36] LABS: Bilirubin, Total 0.5 mg/dL (0.2-1.0); Total Protein 7.1 g/dL (6.4-8.2)
[2022-09-02 13:00] VITALS: BP 123/51
[2022-09-02 14:44] LABS: BUN/Creatinine Ratio 9.1; Calcium 8.4 mg/dL (8.5-10.1); Potassium 5.5 mmol/L (3.5-5.1)
[2022-09-02 17:00] VITALS: BP 127/55
[2022-09-02 17:52] VITALS: BP 144/66
[2022-09-03] MEDS ORDERED: SODIUM CHL 0.9% 1000 ML BAG XX ONE (07:00)
== END 2022-09-02 18:43 | disposition home or self-care (01) | DRG 171 ==
LOC: ER 06:15 → EDUNIT# 06:15 → TELE 09:43 → TELE-CENTR 20:46
PROVIDERS: ADMIT Nurse Practitioner Family; ATTEND Internal Medicine
PROC: 0JH606Z Insertion of Pacemaker, Dual Chamber into Chest Subcutaneous Tissue and Fascia, Open Approach (ICD-10-PCS; 2022-09-01)
PROC: 02H63JZ Insertion of Pacemaker Lead into Right Atrium, Percutaneous Approach (ICD-10-PCS; 2022-09-01)
PROC: 02HK3JZ Insertion of Pacemaker Lead into Right Ventricle, Percutaneous Approach (ICD-10-PCS; 2022-09-01)
PROC: 5A1D70Z Performance of Urinary Filtration, Intermittent, Less than 6 Hours Per Day (ICD-10-PCS; principal; 2022-09-02)
DX: I49.5 Sick sinus syndrome (principal); R57.0 Cardiogenic shock; G93.41 Metabolic encephalopathy; E11.649 Type 2 diabetes mellitus with hypoglycemia without coma; D63.1 Anemia in chronic kidney disease; E83.41 Hypermagnesemia; I12.0 Hypertensive chronic kidney disease with stage 5 chronic kidney disease or end stage renal disease; Z20.822 Contact with and (suspected) exposure to COVID-19; E87.1 Hypo-osmolality and hyponatremia; E11.22 Type 2 diabetes mellitus with diabetic chronic kidney disease; K21.9 Gastro-esophageal reflux disease without esophagitis; E87.5 Hyperkalemia; I44.30 Unspecified atrioventricular block; N18.6 End stage renal disease; Z79.4 Long term (current) use of insulin; Z99.2 Dependence on renal dialysis
CPT/HCPCS: 33208; 36415; 36600; 71045; 80048; 80053; 82010; 82805; 82962; 83036; 83605; 83615; 83735; 83880; 84100; 84132; 84443; 84484; 85025; 85610; 85730; 87081; 87426; 87804; 90935; 93005; 93306; 94640; 94644; 96374; 96375; 96376; 97163; 99152; 99153; 99291; C1785; G0378; J0171; J0461; J0690; J1815; J2250; J2405; J3490; J7060; Q9967

== ENCOUNTER 2024-07-27 10:09 | Emergency (ER) | payer MEDICAID ==
[~2024-07-27] VITALS: Ht 165.1 cm; Wt 65.8 kg
[~2024-07-27 10:09] MED LIST changes: -AMLO-496 PO; +AMLO1TAB23 PO; -BENA40TA8 PO; -CARV25TA55 PO; -GLIP2.5T28 PO; +GLIP2.5T9 PO; +HYDR-2792 PO; -HYDR10TA26 PO
[2024-07-27 11:21] LABS: Basophils # (auto) 0.1 10 ^3/uL (0-0.2); Basophils % (auto) 1.3 % (0.0-2.0); Eosinophils # (auto) 0.2 10 ^3/uL (0-0.8); Eosinophils % (auto) 4.1 % (0.0-7.0); Hematocrit 29.6 % (36.0-46.0); Hemoglobin 9.7 g/dL (12.2-16.2); Lymphocytes # (auto) 0.9 10 ^3/uL (0.4-5.4); Lymphocytes % (auto) 18.5 % (10.0-50.0); Mean Corpuscular Hemoglobin 30.4 pg (28.0-32.0); Mean Corpuscular Hgb Conc. 32.8 g/dL (32.0-36.0); Mean Corpuscular Volume 92.8 fL (80.0-100.0); Monocytes # (auto) 0.4 10 ^3/uL (0-1.3); Monocytes % (auto) 8.5 % (0.0-12.0); Neutrophils # (auto) 3.4 10 ^3/uL (1.6-8.6); Neutrophils % (auto) 67.6 % (37.0-80.0); Platelet Count (auto) 293 10^3/uL (140-450); Red Blood Cells 3.19 10^6/uL (4.0-5.20); Red Cell Distribution Width 13.6 % (11.8-14.3); White Blood Cell 5.1 10^3/uL (4.4-10.8)
--- NOTE | 2024-07-27 11:24 | ED.PDOC ---
Eye-HPI HPI Comments HPI: Poor Historian. 58-year-old female accompanied by her daughter at bedside. History obtained from both. Patient is here for evaluation of left eye vision change and periorbital pain status post mechanical fall that happened on . Patient had fell and hit the left side of her temporal/zygomatic region against the flat part of the door. There was no loss of consciousness. Patient denies pain in her actual globe but complains of pain on the zygomatic region with noted bruising and swelling in the area. Patient also specifically complains of vision changes in the left eye as she can only see light when I shine a penlight in her left eye. VITALS: Temp: 98.2F RR: 16 02 sat : 96 % on room air HR: 72 BP: 157/70 PMH: diabetes, dialysis, liver cirrhosis PSH: pacemaker Social history: denies tobacco use, denies ETOH use, denies drug use Medications: Tylenol, aspirin Allergies: nkda REVIEW OF SYSTEMS: CONSTITUTIONAL: Denies acute: fever, diaphoresis, chills, generalized weakness. HEAD: Denies acute: photophobia Eyes: Denies acute: Double vision, eye discharge. EARS: Denies acute: tinnitus, hearing loss, ear discharge, ear pain, THROAT: Denies acute: sore throat, swelling, difficulty swallowing , pain with swallowing, change in voice. NECK: Denies acute: neck pain, neck swelling, stiff neck. HEART: Denies acute : chest pain, palpitations, LUNGS: Denies acute: SOB, wheezing, cough, hemoptysis ABDOMEN: Denies acute: abdominal pain, Nausea, Vomiting, diarrhea, melena , hematemesis, hematochezia SKIN: Denies acute: rash, redness, lesions, itchiness. EXTREMITIES: Denies acute: calf pain, numbness, tingling, weakness, denies pain in extremity. Denies acute: Low back pain. Neuro: Denies acute: focal neurological deficit, motor or sensory focal neurological deficit, tremors, seizure like activity, confusion, dizziness, change in mental status, loss of bowel or bladder function, cauda equina like symptoms. : Denies acute: dysuria, hematuria, flank pain, increase in urinary frequency. PSYCH: Denies acute: hallucination, suicidal ideation, homicidal ideation. FEMALE: Denies acute: abnormal vaginal bleeding, foul odor, unusual discharge. PHYSICAL EXAM: General: Mild acute distress, awake and alert. Head: normocephalic, atraumatic. Noted left periorbital and zygomatic region bruising contusion and minimal swelling. Area is tender to touch. Neck: supple, trachea is midline, no swelling. Throat: Normal phonation. Eyes:, left eye erythema, no purulent discharge, no proptosis, extraocular muscles are intact bilaterally. Pupils are symmetrical. Heart: regular rate, regular rhythm, no significant murmur appreciated. Lungs: no apparent respiratory distress, Able to speak in full sentences. No wheezing, no rhonchi, no crackles. No stridors Clear to auscultation bilaterally. Abdomen: non tender to palpation, non distended, soft, no guarding, no rebound, + bowel sounds. Neuro: Awake, Alert, oriented to name, self, situation, follows commands GCS=15. Speech is normal. Skin: no petechia, no purpura, no cyanosis, non-pale, not jaundice. Lower extremities: --3/4- Pitting edema no deformity, no focal swelling, no calf TTP. Makes eye contact. moves all four extremities. Face: no apparent facial droop. Chief Complaint: Eye Problem Time Seen by MD: 10:19 Primary Care Provider: NILE Sutton Notes: Allergies Allergies: Coded Allergies: NO KNOWN ALLERGIES (Unverified , 08/03/20) Home Meds Reported Medications Sevelamer Hydrochloride (Sevelamer Hydrochloride) 800 Mg Tab, 2 TAB PO TID 08/14/22 Glipizide (Glipizide Er) 2.5 Mg Tab, 1 TAB PO DAILY 08/14/22 Calcium Acetate (Phosphate Bin (Calcium Acetate) 667 Mg Cap, 2 CAP PO TID 08/14/22 Amlodipine Besylate (Amlodipine Besylate) 10 Mg Tab, 1 TAB PO DAILY 08/14/22 Aspirin (Aspir-Low) 81 Mg Tab, 81 MG PO DAILY for 30 Days, MG 08/05/20 Hydralazine Hcl (Hydralazine Hcl) 10 Mg Tab, 0 PO BID for 30 Days, MG 08/05/20 Information Source: Patient, Relative Mode of Arrival: Wheelchair Past Medical History PAST MEDICAL HISTORY: ESRD Surgical History: Denies all surgeries 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 Was a procedure done?: No X-Ray, Labs, Meds, VS Vital Signs Date Time Temp Pulse Resp B/P (MAP) Pulse Ox O2 Delivery O2 Flow Rate FiO2 07/27/24 12:42 99.2 68 18 127/57 (80) 91 99.2 07/27/24 12:42 Room Air* 0 21 07/27/24 10:26 68 07/27/24 10:21 98.2 72 16 157/70 (99) 96 Lab Test 07/27/24 13:51 07/27/24 11:00 Range/Units POC Glucose 484 *H 70-106 mg/dl White Blood Count 5.1 4.4-10.8 10^3/uL Red Blood Count 3.19 L 4.0-5.20 10^6/uL Hemoglobin 9.7 L 12.2-16.2 g/dL Hematocrit 29.6 L 36.0-46.0 % Mean Corpuscular Volume 92.8 80.0-100.0 fL Mean Corpuscular Hemoglobin 30.4 28.0-32.0 pg Mean Corpuscular Hemoglobin Concent 32.8 32.0-36.0 g/dL Red Cell Distribution Width 13.6 11.8-14.3 % Platelet Count 293 140-450 10^3/uL Mean Platelet Volume 8.6 6.9-10.8 fL Neutrophils (%) (Auto) 67.6 37.0-80.0 % Lymphocytes (%) (Auto) 18.5 10.0-50.0 % Monocytes (%) (Auto) 8.5 0.0-12.0 % Eosinophils (%) (Auto) 4.1 0.0-7.0 % Basophils (%) (Auto) 1.3 0.0-2.0 % Neutrophils # (Auto) 3.4 1.6-8.6 10 ^3/uL Lymphocytes # (Auto) 0.9 0.4-5.4 10 ^3/uL Monocytes # (Auto) 0.4 0-1.3 10 ^3/uL Eosinophils # (Auto) 0.2 0-0.8 10 ^3/uL Basophils # (Auto) 0.1 0-0.2 10 ^3/uL Nucleated Red Blood Cells 0.0 % Erythrocyte Sedimentation Rate 79 H 0-20 mm/hr Sodium Level 129 L 136-145 mmol/L Potassium Level 4.2 3.5-5.1 mmol/L Chloride Level 89 L 98-107 mmol/L Carbon Dioxide Level 33 H 20-31 mmol/L Anion Gap 7 5-15 Blood Urea Nitrogen 23 9-23 mg/dL Creatinine 3.77 H 0.550-1.02 mg/dL Glomerular Filtration Rate Calc 13 >90 mL/min BUN/Creatinine Ratio 6.1 L 10.0-20.0 Serum Glucose 569 *H 74-106 mg/dL Calcium Level 9.1 8.7-10.4 mg/dL Total Bilirubin 0.3 0.2-1.0 mg/dL Aspartate Amino Transferase (AST) 13 13-40 U/L Alanine Aminotransferase (ALT) < 9 7-40 U/L Alkaline Phosphatase 146 H 46-116 U/L Total Protein 7.7 5.7-8.2 g/dL Albumin 3.8 3.2-4.8 g/dL Current Medications Medications (Trade) Dose Ordered Sig/Raj Route Start Time Stop Time Status Last Admin Insulin Human Regular (InsuLIN R) 5 units ONCE ONCE IV 07/27/24 13:00 07/27/24 13:18 DC 07/27/24 13:55 [place] [address] Ph: [phone] DIAGNOSTIC IMAGING Diagnostic Imaging Report : [id number] Signed PATIENT: SONG REYEST: [id number] UNIT: [id number] : 1965 LOC: ER ROOM / BED: / AGE / SEX: 58 / F ADM STATUS: REG ER SERVICE 1044 ORDERING PHYSICIAN: VALENTIN AGUIRRE DO PROCEDURE(s): OB1CT - ORBITS WO CONTRAST REASON: fall, Eye injury ORDER NUMBER(s): [id number], ACCESSION NUMBER(s): [id number] CLINICAL INFORMATION: 58 years old, Female; fall, Eye injury. TECHNIQUE: Axial CT images of the orbits were obtained without contrast. Coronal and sagittal reformatted images were obtained, reviewed, and stored. One or more of the following dose reduction techniques were used: Automated exposure control. Adjustment of mA and/or kV according to patient size. CTDIvol = 65.68 mGy DLP = 613.07 mGy-cm COMPARISON: CT brain dated 07/27/2024. Prior CT brain dated 02/15/2022. FINDINGS: Mild right periorbital soft tissue swelling and stranding. Retrobulbar fat is within normal limits. No orbital hematoma. No significant proptosis. Sequelae of postsurgical changes along the lateral aspect of the left globe, unchanged compared to the prior CT exam from 2021. Postsurgical changes are seen with bilateral lens prosthesis in place. The extraocular muscles appear within normal limits. Orbital branch are intact. No evidence of acute fracture. IMPRESSION: 1. Mild soft tissue swelling in the right periorbital region. No orbital hemorrhage or other intraorbital abnormality identified. 2. No orbital wall fracture visualized. 3. Nonacute findings as described above. ATED BY: EFRAIN RANDOLPH DO DICTATED DATE/TIME: 07/27/24 131 SIGNED BY: EFRAIN RANDOLPH DO SIGNED DATE/TIME: 07/27/24 1313 CC: [place] [address] Ph: [phone] DIAGNOSTIC IMAGING Diagnostic Imaging Report : [id number] Signed PATIENT: SONG REYESCCT: [id number] UNIT: [id number] : 1965 LOC: ER ROOM / BED: / AGE / SEX: 58 / F ADM STATUS: REG ER SERVICE 1044 ORDERING PHYSICIAN: VALENTIN AGUIRRE DO PROCEDURE(s): HWOCT - HEAD WITHOUT CONTRAST REASON: fall, Eye injury ORDER NUMBER(s): [id number], ACCESSION NUMBER(s): [id number] CLINICAL INFORMATION: 58 years old, Female; fall, Eye injury. TECHNIQUE: Axial imaging was obtained through the brain without contrast. Coronal and sagittal reformatted images were obtained, reviewed, and stored. Images were reviewed in brain and bone windows. All CT scans at this medical facility are performed using dose modulation techniques as appropriate to a performed exam including the following: Automated exposure control was utilized; adjustment of the MA and/or KV according to patient size; and use of iterative reconstruction technique. CTDIvol = 57.31 mGy DLP = 915.85 mGy-cm COMPARISON: None FINDINGS: There is no acute intracranial hemorrhage or extraaxial fluid collection. No mass effect or midline shift. The ventricles and sulci are within normal limits in size for age. Basal cisterns are patent. The calvarium is unremarkable. Paranasal sinuses and mastoid air cells are clear. IMPRESSION: No CT evidence of acute intracranial abnormality. Refer to the separately dictated CT orbits report performed the same day for findings regarding the orbits. ATED BY: EFRAIN RANDOLPH DO DICTATED DATE/TIME: 07/27/24 130 SIGNED BY: EFRAIN RANDOLPH DO SIGNED DATE/TIME: 07/27/24 130 CC: Time of 1ST Reevaluation: 16:23 (We contacted [facility] but they are at capacity to transfer for higher level of care for ophthalmology evaluation. We contacted [facility]. Still waiting for the guard chief to call back. I updated the patient and the family. The patient at this time wants to leave against medical advice and she said she will drive herself to [facility] on Monday.) Reevaluation 1ST: Unchanged Patient Education/Counseling: Diagnosis, Treatment Family Education/Counseling: Diagnosis, Treatment Additional Information Patient presented with the above HPI.--eye problem -workup was initiated. patient was found with the above mentioned diagnosis. the following medications were ordered: none the following tests were ordered: ESR, CBC, CMP, orbits with contrast only, CT head without contrast, EKG X 1, Patient ED course and VS have been stabilized. Patient has been reassessed in the ED and remained in a stable condition. Patient has been observed in the ED adequate length of time to insure improvement/stability. Escalation of care considered: Consideration of escalation to observation or admission. patient was admitted to the medicine team for further evaluation and treatment of their presentation. patient was DISCHARGED after further evaluation and treatment of their presen tation. All the reports of any imaging studies that were ordered by myself were reviewed by myself. Departure 1 Departure Time of Disposition: 14:12 Impression: Primary Impression: Periorbital contusion of left eye Additional Impressions: Blurred vision, left eye Left against medical advice Disposition: 07 LEFT AGAINST MEDICAL ADVICE Condition: Guarded Additional Instructions: Additional discharge instructions: You MUST follow-up with your primary care/family doctor as soon as possible. If you are unable to see your primary care/family doctor, please return to our emergency room for re-assessment and re-evaluation as soon as possible. Return to the emergency room here in our facility or to the nearest ER [facility] if your symptoms change or worsen. CONSULTATIONS: you MUST Follow-up for consultation as soon as possible with: -ophthalmology as soon as possible. You MUST call the consultants office yourself to make an appointment. You may need to arrange that through your insurance and/or your primary/family doctor. If you are unable to see the internal audit consultant in 1 to 2 days, you must return to our emergency room (or any other ER of your choice) for re-assessment and re- evaluation. Adequate fluid hydration. Below is a copy of your radiological report for follow up: [place] [address] Ph: [phone] DIAGNOSTIC IMAGING Diagnostic Imaging Report : [id number] Signed PATIENT: TRISTA REYES ACCT: [id number] UNIT: [id number] : 1965 LOC: ER ROOM / BED: / AGE / SEX: 58 / F ADM STATUS: REG ER SERVICE 1044 ORDERING PHYSICIAN: VALENTIN AGUIRRE DO PROCEDURE(s): OB1CT - ORBITS WO CONTRAST REASON: fall, Eye injury ORDER NUMBER(s): [id number], ACCESSION NUMBER(s): [id number] CLINICAL INFORMATION: 58 years old, Female; fall, Eye injury. TECHNIQUE: Axial CT images of the orbits were obtained without contrast. Coronal and sagittal reformatted images were obtained, reviewed, and stored. One or more of the following dose reduction techniques were used: Automated exposure control. Adjustment of mA and/or kV according to patient size. CTDIvol = 65.68 mGy DLP = 613.07 mGy-cm COMPARISON: CT brain dated 07/27/2024. Prior CT brain dated 02/15/2022. FINDINGS: Mild right periorbital soft tissue swelling and stranding. Retrobulbar fat is within normal limits. No orbital hematoma. No significant proptosis. Sequelae of postsurgical changes along the lateral aspect of the left globe, unchanged compared to the prior CT exam from 2021. Postsurgical changes are seen with bilateral lens prosthesis in place. The extraocular muscles appear within normal limits. Orbital branch are intact. No evidence of acute fracture. IMPRESSION: 1. Mild soft tissue swelling in the right periorbital region. No orbital hemorrhage or other intraorbital abnormality identified. 2. No orbital wall fracture visualized. 3. Nonacute findings as described above. ATED BY: EFRAIN RANDOLPH DO DICTATED DATE/TIME: 07/27/24 131 SIGNED BY: EFRAIN RANDOLPH DO SIGNED DATE/TIME: 07/27/24 131 CC: [place] [address] Ph: [phone] DIAGNOSTIC IMAGING Diagnostic Imaging Report : [id number] Signed PATIENT: TRISTA REYES ACCT: [id number] UNIT: [id number] : 1965 LOC: ER ROOM / BED: / AGE / SEX: 58 / F ADM STATUS: REG ER SERVICE 1044 ORDERING PHYSICIAN: VALENTIN AGUIRRE DO PROCEDURE(s): HWOCT - HEAD WITHOUT CONTRAST REASON: fall, Eye injury ORDER NUMBER(s): [id number], ACCESSION NUMBER(s): [id number] CLINICAL INFORMATION: 58 years old, Female; fall, Eye injury. TECHNIQUE: Axial imaging was obtained through the brain without contrast. Coronal and sagittal reformatted images were obtained, reviewed, and stored. Images were reviewed in brain and bone windows. All CT scans at this medical facility are performed using dose modulation techniques as appropriate to a performed exam including the following: Automated exposure control was utilized; adjustment of the MA and/or KV according to patient size; and use of iterative reconstruction technique. CTDIvol = 57.31 mGy DLP = 915.85 mGy-cm COMPARISON: None FINDINGS: There is no acute intracranial hemorrhage or extraaxial fluid collection. No mass effect or midline shift. The ventricles and sulci are within normal limits in size for age. Basal cisterns are patent. The calvarium is unremarkable. Paranasal sinuses and mastoid air cells are clear. IMPRESSION: No CT evidence of acute intracranial abnormality. Refer to the separately dictated CT orbits report performed the same day for findings regarding the orbits. ATED BY: EFRAIN RANDOLPH DO DICTATED DATE/TIME: 07/27/24 1303 SIGNED BY: EFRAIN RANDOLPH DO SIGNED DATE/TIME: 07/27/24 1303 CC: Discharged With: Self, Relative I personally scribed for VALENTIN AGUIRRE DO ([email or web address]) on 07/27/24 at 11:24. Electronically submitted by Charly Dickey ([email or web address]). I personally scribed for VALENTIN AGUIRRE DO ([email or web address]) on 07/27/24 at 11:32. Electronically submitted by Charly Dickey ([email or web address]). I personally scribed for VALENTIN AGUIRRE DO ([email or web address]) on 07/27/24 at 11:34. Electronically submitted by Charly Dickey ([email or web address]). I personally scribed for VALENTIN AGUIRRE DO ([email or web address]) on 07/27/24 at 16:28. Electronically submitted by Charly Dickey ([email or web address]). VALENTIN AGUIRRE DO Jul 27, 2024 11:24
[2024-07-27 11:37] LABS: Albumin 3.8 g/dL (3.2-4.8); Anion Gap 7 (5-15); Aspartate Aminotransferase 13 U/L (13-40); BUN/Creatinine Ratio 6.1 (10.0-20.0); Blood Urea Nitrogen 23 mg/dL (9-23); Calcium 9.1 mg/dL (8.7-10.4); Potassium 4.2 mmol/L (3.5-5.1); Total Protein 7.7 g/dL (5.7-8.2)
[2024-07-27 11:41] LABS: Carbon Dioxide 33 mmol/L (20-31); Chloride 89 mmol/L (98-107); Sodium 129 mmol/L (136-145)
[2024-07-27 11:45] LABS: Alanine Aminotransferase < 9 U/L (7-40); Alkaline Phosphatase 146 U/L (46-116); Bilirubin, Total 0.3 mg/dL (0.2-1.0); Glucose 569 mg/dL (74-106)
[2024-07-27 11:57] LABS: Erythrocyte Sedimentation Rate 79 mm/hr (0-20)
[2024-07-27 12:42] VITALS: BP 127/57; PULSE 68; RESP 18; TEMP 99.2; O2SAT 91
--- NOTE | 2024-07-27 13:05 | DVH ---
CLINICAL INFORMATION: 58 years old, Female; fall, Eye injury. TECHNIQUE: Axial imaging was obtained through the brain without contrast. Coronal and sagittal refor matted images were obtained, reviewed, and stored. Images were reviewed in brain and bone windows. A ll CT scans at this medical facility are performed using dose modulation techniques as appropriate to a performed exam including the following: Automated exposure control was utilized; adjustment of the MA and/or KV according to patient size; and use of iterative reconstruction technique. CTDIvol = 57.31 mGy DLP = 915.85 mGy-cm COMPARISON: None FINDINGS: There is no acute intracranial hemorrhage or extraaxial fluid collection. No mass effect o r midline shift. The ventricles and sulci are within normal limits in size for age. Basal cisterns a re patent. The calvarium is unremarkable. Paranasal sinuses and mastoid air cells are clear. IMPRESSION: No CT evidence of acute intracranial abnormality. Refer to the separately dictated CT orbits report p erformed the same day for findings regarding the orbits.
--- NOTE | 2024-07-27 13:16 | DVH ---
CLINICAL INFORMATION: 58 years old, Female; fall, Eye injury. TECHNIQUE: Axial CT images of the orbits were obtained without contrast. Coronal and sagittal reforma tted images were obtained, reviewed, and stored. One or more of the following dose reduction techniqu es were used: Automated exposure control. Adjustment of mA and/or kV according to patient size. CTDIvol = 65.68 mGy DLP = 613.07 mGy-cm COMPARISON: CT brain dated 07/27/2024. Prior CT brain dated 02/15/2022. FINDINGS: Mild right periorbital soft tissue swelling and stranding. Retrobulbar fat is within lenard l limits. No orbital hematoma. No significant proptosis. Sequelae of postsurgical changes along the lateral aspect of the left globe, unchanged compared to the prior CT exam from 2021. Postsurgical dave nges are seen with bilateral lens prosthesis in place. The extraocular muscles appear within normal l imits. Orbital branch are intact. No evidence of acute fracture. IMPRESSION: 1. Mild soft tissue swelling in the right periorbital region. No orbital hemorrhage or other intraorb ital abnormality identified. 2. No orbital wall fracture visualized. 3. Nonacute findings as described above.
[2024-07-27] MEDS: InsuLIN REG 1unit/0.01ml Soln (100units/ml) IV ONE (13:55)
--- NOTE | 2024-07-30 14:45 | ECG ---
[facility] Test Date: 2024-07-27 Test Time: 10:26:07 Pat Name: TRISTA CABALLEROMOYA Department: ER Room: Gender: F Heel Shaper: KAMALJIT : 1965 Requested By: VALENTIN AGUIRRE Order Number: [id number] Reading MD: Measurements Intervals [place] Rate: 68 P: 0 KS: 0 QRS: -178 QRSD: 164 T: -22 QT: 489 QTc: 521 Interpretive Statements Atrial fibrillation RBBB and LPFB Baseline wander in lead(s) V3,V4 Please click the below link to view image of tracing.
== END 2024-07-27 16:25 | disposition left against medical advice (07) ==
LOC: ER 10:09
DX: S00.12XA Contusion of left eyelid and periocular area, initial encounter (principal); H53.8 Other visual disturbances; E11.22 Type 2 diabetes mellitus with diabetic chronic kidney disease; K74.60 Unspecified cirrhosis of liver; N18.6 End stage renal disease; I48.91 Unspecified atrial fibrillation; Z79.84 Long term (current) use of oral hypoglycemic drugs; Z95.0 Presence of cardiac pacemaker; Z99.2 Dependence on renal dialysis; W18.09XA Striking against other object with subsequent fall, initial encounter; Y93.89 Activity, other specified; Y92.89 Other specified places as the place of occurrence of the external cause; Y99.8 Other external cause status
CPT/HCPCS: 36415; 70450; 70480; 80053; 82962; 85025; 85652; 93005; 96374; 99285; J1815

== ENCOUNTER 2024-09-19 17:40 | Inpatient (IN) | payer MEDICAID ==
[~2024-09-19] VITALS: Ht 162.6 cm; Wt 69.5 kg
--- NOTE | 2024-09-19 18:09 | ED.PDOC ---
HPI Comments 58y F who presents to the ED for chief complaint of chest pain. Per daughter, pt was at [facility] and approx 1230 PM today after infusion, pt started to have diffuse chest pressure like pain. Pt states the pain was constant, radiating to the back, with no associated exacerbating or relieving factors. Pt has associated nausea, cough, and shortness of breath but denies any other associated symptoms. Pt daughter states pt has been having productive cough with phlegm for the past 8 days. Pt otherwise denies any other symptoms at this time. Chief Complaint: Chest Pain Time Seen by MD: 18:06 Primary Care Provider: NILE Sutton Notes: Nurses Notes, Medications, Allergies (No allergies to medications) Allergies: Coded Allergies: NO KNOWN ALLERGIES (Unverified , 08/03/20) Home Meds Reported Medications Sevelamer Hydrochloride (Sevelamer Hydrochloride) 800 Mg Tab, 2 TAB PO TID 08/14/22 Glipizide (Glipizide Er) 2.5 Mg Tab, 1 TAB PO DAILY 08/14/22 Calcium Acetate (Phosphate Bin (Calcium Acetate) 667 Mg Cap, 2 CAP PO TID 08/14/22 Amlodipine Besylate (Amlodipine Besylate) 10 Mg Tab, 1 TAB PO DAILY 08/14/22 Aspirin (Aspir-Low) 81 Mg Tab, 81 MG PO DAILY for 30 Days, MG 08/05/20 Hydralazine Hcl (Hydralazine Hcl) 10 Mg Tab, 0 PO BID for 30 Days, MG 08/05/20 Information Source: Patient, Relative Mode of Arrival: Wheelchair Brought in by: daughter Severity: Moderate Timing: Hours Duration: Since onset Prehospital treatment: None Location: Chest (R) Radiation: Neck Quality: Pressure Onset: At Rest Cardiac Risk Factors: HTN, Diabetes PE Risk Factors: None History of: Similar pain in past Modifying Factors: Coughing Associated Signs and Symptoms: N/V Past Medical History PAST MEDICAL HISTORY: DM, ESRD, HTN, Liver Surgical History: Pacemaker INTERNAL MEDICINE SPECIALIST History: Denies all INTERNAL MEDICINE SPECIALIST Hx Family History Family History: Reviewed,noncontributory to illness Social History Smoker: Non-Smoker Alcohol: Denies ETOH Use Drugs: Denies Drug Use Lives In: Home Constitutional: denies: chills, diaphoresis, fatigue, fever, malaise, sweats, weakness, others EENTM: reports: throat pain; denies: blurred vision, double vision, ear bleeding, ear discharge, ear drainage, ear pain, ear ringing, eye pain, eye redness, hearing loss, mouth pain, mouth swelling, nasal discharge, nose bleeding, nose congestion, nose pain, photophobia, tearing, throat swelling, voice changes, others Respiratory: reports: cough; denies: hemoptysis, orthopnea, SOB at rest, shortness of breath, SOB with excertion, stridor, wheezing, others Cardiovascular: reports: chest pain; denies: dizzy spells, diaphoresis, Dyspnea on exertion, edema, irregular heart beat, left arm pain, lightheadedness, palpitations, PND, syncope, others Gastrointestinal: reports: nausea; denies: abdomen distended, abdominal pain, blood streaked bowels, constipated, diarrhea, dysphagia, difficulty swallowing, hematemesis, melena, poor appetite, poor fluid intake, rectal bleeding, rectal pain, vomiting, others Genitourinary: denies: abnormal vagina bleeding, burning, dyspareunia, dysuria, flank pain, frequency, hematuria, incontinence, pain, , vagina discharge, urgency, others Neurological: denies: dizziness, fainting, headache, left sided numbness, left sided weakness, numbness, paresthesia, pre-existing deficit, right sided numbnes s, right sided weakness, seizure, speech problems, tingling, tremors, weakness, others Musculoskeletal: denies: back pain, gout, joint pain, joint swelling, muscle pain, muscle stiffness, neck pain, others Integumetry: denies: bruises, change in color, change in hair/nails, dryness, laceration, lesions, lumps, rash, wounds, others Allergic/Immunocompromised: denies: Difficulty Healing, Frequent Infections, Hives, Itching, others Hematologic/Lymphatic: denies: anemia, blood clots, easy bleeding, easy bruising, swollen glands, others Endocrine: denies: excessive hunger, excessive sweating, excessive thirst, excessive urination, flushing, intolerance to cold, intolerance to heat, unexplained weight gain, unexplained weight loss, others Psychiatric: denies: anxiety, bipolar disorder, depression, hopeless, panic disorder, schizophrenia, sleepless, suicidal, others All Other Systems: Reviewed and Negative Physical Exam General Appearance: Moderate Distress HEENT: Pale Conjuntivae (L), Pale Conjuntivae (R), Pharynx Normal, TMs Normal Neck: Full Range of Motion, Non-Tender, Normal, Normal Inspection Respiratory: Chest Non-Tender, Lungs Clear, No Accessory Muscle Use, No Respiratory Distress, Normal Breath Sounds Cardiovascular: No Edema, No JVD, No Murmur, No Gallop, Normal Peripheral Pulses, Regular Rate/Rhythm Breast Exam: Deferred Gastrointestinal: Distended, Hepatomegaly, Non Tender, No Pulsatile Mass, Normal Bowel Sounds Genitalia: Deferred Pelvic: Deferred Rectal: Deferred Extremities: No calf tenderness, Normal capillary refill, Normal inspection, Normal range of motion, Non-tender, No pedal edema Musculoskeletal : Apperance: Normal Neurologic: Alert, trimmer sawyer II-XII nml as Tested, Motor Weakness, Normal Affect, Normal Mood, No Sensory Deficits Cerebellar Function: Normal Reflexes: Normal Skin: Dry, Pallor, Warm Lymphatic: No Adenopathy EKG EKG : Pulse Rate (adult): 65 Grethel: Normal Cardiac Rhythm: Paced Block: None Hypertrophy: None ST: Normal Was a procedure done? Was a procedure done?: No CP Differential Dx Differential Diagnosis: A-fib, A-Flutter, Angina, Anxiety / Panic Attack, Electrolyte Disorder, Heart Failure, SD, Pulmonary Embolus, PVC's, Renal Failure Differential Diagnosis: HTN Essential, HTN Accelerated X-Ray, Labs, Meds, VS Vital Signs Date Time Temp Pulse Resp B/P (MAP) Pulse Ox O2 Delivery O2 Flow Rate FiO2 09/19/24 18:41 65 09/19/24 18:13 98.7 66 18 148/60 (89) 92 09/19/24 18:09 65 Lab Test 09/19/24 21:17 09/19/24 19:08 09/19/24 18:08 Range/Units Troponin I High Sensitivity Pending 30 27 </=34 ng/L White Blood Count 5.1 4.4-10.8 10^3/uL Red Blood Count 3.34 L 4.0-5.20 10^6/uL Hemoglobin 10.1 L 12.2-16.2 g/dL Hematocrit 30.6 L 36.0-46.0 % Mean Corpuscular Volume 91.9 80.0-100.0 fL Mean Corpuscular Hemoglobin 30.3 28.0-32.0 pg Mean Corpuscular Hemoglobin Concent 33.0 32.0-36.0 g/dL Red Cell Distribution Width 14.4 H 11.8-14.3 % Platelet Count 274 140-450 10^3/uL Mean Platelet Volume 8.9 6.9-10.8 fL Neutrophils (%) (Auto) 75.2 37.0-80.0 % Lymphocytes (%) (Auto) 14.4 10.0-50.0 % Monocytes (%) (Auto) 7.6 0.0-12.0 % Eosinophils (%) (Auto) 1.6 0.0-7.0 % Basophils (%) (Auto) 1.2 0.0-2.0 % Neutrophils # (Auto) 3.8 1.6-8.6 10 ^3/uL Lymphocytes # (Auto) 0.7 0.4-5.4 10 ^3/uL Monocytes # (Auto) 0.4 0-1.3 10 ^3/uL Eosinophils # (Auto) 0.1 0-0.8 10 ^3/uL Basophils # (Auto) 0.1 0-0.2 10 ^3/uL Nucleated Red Blood Cells 0.0 % Sodium Level 125 L 136-145 mmol/L Potassium Level 5.3 H 3.5-5.1 mmol/L Chloride Level 85 L 98-107 mmol/L Carbon Dioxide Level 32 H 20-31 mmol/L Anion Gap 8 5-15 Blood Urea Nitrogen 30 H 9-23 mg/dL Creatinine 4.27 H 0.550-1.02 mg/dL Glomerular Filtration Rate Calc 12 >90 mL/min BUN/Creatinine Ratio 7.0 L 10.0-20.0 Serum Glucose 637 *H 74-106 mg/dL Calcium Level 9.4 8.7-10.4 mg/dL Total Bilirubin 0.2 0.2-1.0 mg/dL Aspartate Amino Transferase (AST) 16 13-40 U/L Alanine Aminotransferase (ALT) < 9 7-40 U/L Alkaline Phosphatase 156 H 46-116 U/L Total Protein 8.4 H 5.7-8.2 g/dL Albumin 4.1 3.2-4.8 g/dL IV Hep-Lock was established The CBC is within normal limits except for anemia with a hemoglobin of 10.1 and hematocrit 30.6 The chemistry panel shows a potassium of 5.3 The BUN is 30 and the creatinine is 4.27 The patient was glucose is elevated at 637 The patient was given insulin IV push The patient was also given calcium as well as sodium bicarbonate for the hyper kalemia The patient was being admitted at this time The patient understands and agrees with the management. Images Reviewed?: Images reviewed and evaluated by me Time of 1ST Reevaluation: 18:40 Reevaluation 1ST: Unchanged Patient Education/Counseling: Diagnosis, Treatment, Prognosis Family Education/Counseling: Diagnosis, Treatment, Prognosis Departure 1 Departure Time of Disposition: 21:28 Impression: Primary Impression: ESRD (end stage renal disease) on dialysis Additional Impressions: Hyperkalemia Uncontrolled diabetes mellitus Qualified Codes: E08.65 - Diabetes mellitus due to underlying condition with hyperglycemia Disposition: ADMITTED INPATIENT Admit to: Tele Condition: Fair Critical Care Note Critical Care Time?: Yes (45 min-critical care time only) Stability Stability form required: Yes Unstable for transfer: Telemetry monitoring (Telemetry monitoring required), ED Physician Assesment (Clinical assesment) Heart Score Heart Score: Heart Score Response (Comments) Value History Moderate Suspicious 1 EKG Repolarization Disturb 1 Age 45-64 1 Risk Factors >3 or Hx ASHD 2 Troponin Normal limit 0 Total 5 I personally scribed for MARI ROSS MD ([email or web address]) on 09/19/24 at 18:09. Electronically submitted by Charly Dickey ([email or web address]). MARI ROSS MD Sep 19, 2024 18:09
[2024-09-19 18:24] LABS: Basophils # (auto) 0.1 10 ^3/uL (0-0.2); Basophils % (auto) 1.2 % (0.0-2.0); Eosinophils # (auto) 0.1 10 ^3/uL (0-0.8); Eosinophils % (auto) 1.6 % (0.0-7.0); Hematocrit 30.6 % (36.0-46.0); Hemoglobin 10.1 g/dL (12.2-16.2); Lymphocytes # (auto) 0.7 10 ^3/uL (0.4-5.4); Lymphocytes % (auto) 14.4 % (10.0-50.0); Mean Corpuscular Hemoglobin 30.3 pg (28.0-32.0); Mean Corpuscular Volume 91.9 fL (80.0-100.0); Monocytes # (auto) 0.4 10 ^3/uL (0-1.3); Monocytes % (auto) 7.6 % (0.0-12.0); Neutrophils # (auto) 3.8 10 ^3/uL (1.6-8.6); Neutrophils % (auto) 75.2 % (37.0-80.0); Platelet Count (auto) 274 10^3/uL (140-450); Red Blood Cells 3.34 10^6/uL (4.0-5.20); Red Cell Distribution Width 14.4 % (11.8-14.3); White Blood Cell 5.1 10^3/uL (4.4-10.8)
[2024-09-19 18:51] LABS: Alanine Aminotransferase < 9 U/L (7-40); Albumin 4.1 g/dL (3.2-4.8); Alkaline Phosphatase 156 U/L (46-116); Anion Gap 8 (5-15); Aspartate Aminotransferase 16 U/L (13-40); Bilirubin, Total 0.2 mg/dL (0.2-1.0); Blood Urea Nitrogen 30 mg/dL (9-23); Calcium 9.4 mg/dL (8.7-10.4); Carbon Dioxide 32 mmol/L (20-31); Chloride 85 mmol/L (98-107); Potassium 5.3 mmol/L (3.5-5.1); Sodium 125 mmol/L (136-145); Total Protein 8.4 g/dL (5.7-8.2)
[2024-09-19 18:52] LABS: Glucose 637 mg/dL (74-106)
--- NOTE | 2024-09-19 18:52 | DVH ---
EXAM: XR Chest, 1 View CLINICAL INDICATION: CHEST PAIN TECHNIQUE: Frontal view of the chest. COMPARISON: CHEST PORTABLE on DOS: 09/01/22, CXRP on DOS: 09/01/22, CHEST PORTABLE on DOS: 08/12/22, CXRP on DOS: 08/12/22, CXRP on DOS: 02/14/22 FINDINGS: LUNGS AND PLEURAL SPACES: See below. HEART: Cardiomegaly with mild congestion. Left cardiac. MEDIASTINUM: Unremarkable. Normal mediastinal contour. BONES/JOINTS: Unremarkable. No acute fracture. OTHER FINDINGS: . . . .. IMPRESSION: Cardiomegaly with mild congestion.
--- NOTE | 2024-09-19 19:12 | DVH ---
Exam: CT CT AB PEL WO CON-NO ORAL OR IV History: pain Comparison Study: None available at time of dictation. TECHNIQUE: Multidetector CT of the abdomen and pelvis without contrast. Axial, coronal and sagittal m ultiplanar reformats were obtained from the axial data set by the technologist. Radiation Dose Information: CT Dose: CTDI volume is 10.62 mGy. Dose-length product is 587.98 mGy*cm FINDINGS: Ground-glass opacities of the lung bases. Moderate cardiomegaly. Large volume ascites. Mild hepatomegaly with no focal hepatic lesions. Spleen, and adrenal glands are unremarkable. No panc reatic masses are noted. Possible sludge within the gallbladder with limited evaluation for perichole cystic inflammatory process given large volume ascites. Moderate atrophy of bilateral kidneys. Bilateral renal extensive vascular calcification is noted. No hydronephrosis bilaterally. Wall thickening of the minimally distended urinary bladder. Uterine wall calcifications are noted. Limited evaluation of bilateral adnexa. Mild wall thickening of the distal esophagus. Mild gastric wall thickening. Mild wall thickening of s mall-bowel loops within the left hemiabdomen. The remainder of the small bowel loops unremarkable. Ap pendix is unremarkable. Large bowel is unremarkable with large amount of fecal material within the as cending and transverse colons. No evidence of intraperitoneal free air. No evidence of aortic aneurysm. Mild atherosclerotic calcification of the aorta and bilateral iliacs . Limited evaluation for lymphadenopathy. Diffuse anasarca. No destructive osseous lesions are noted. IMPRESSION: Large volume ascites. Wall thickening of the urinary bladder. Correlate for cystitis. Mild wall thickening of the distal esophagus which may be due to inadequate distention with esophagit is not excluded. Mild wall thickening of proximal small bowel loops within the left hemiabdomen which may be due to in adequate distention or may be due to the surrounding ascites with enteritis not excluded. Diffuse anasarca. Moderate cardiomegaly with findings suggestive of mild pulmonary edema. Additional findings as above.
[2024-09-19 20:00] VITALS: PULSE 65; RESP 15; O2SAT 100
[2024-09-19] MEDS: SODIUM BICARB 8.4% 50Meq/50ml SYR Vial IV ONE (22:14)
[2024-09-19] MEDS: CALCIUM GLUC 1,000mg/50ml-NS 50 ML IV ONE (22:14)
[2024-09-19] MEDS: SODIUM CHLORIDE 0.9% 500 ML IV ONE (22:20)
[2024-09-19] MEDS: InsuLIN REG 1unit/0.01ml Soln (100units/ml) IV ONE (22:34)
--- NOTE | 2024-09-19 22:58 | DVHHP2 ---
History of Present Illness Reason for Visit: Generalized weakness History of Present Illness The patient is a 58 female with past medical history of DM, end-stage renal disease on hemodialysis, liver disease, and hypertension who presented to [facility] ED with complaint of chest pain. Patient reports symptoms progr essively get worse with diffuse pressure-like chest pain, radiating to the back, associated nausea, cough shortness of breaths, getting worse that prompted this visit. Patient was seen and evaluated in the ED, laboratory data shows WBC 5.1, hemoglobin 10.1, hematocrit 30.6, platelets 274, sodium 125, potassium 5.3, BUN 30, creatinine 4.27, GFR 12, glucose 637, troponin 31. Chest x-ray revealing cardiomegaly with mild congestion. Abdomen/pelvis CT revealing large volume ascites, wall thickening of the urinary bladder correlate for cystitis, mild pulmonary edema. Nephrology will follow the patient, please see medication orders section in the computer. On my assessment, patient denied chest pain, no headache, no dizziness, currently on oxygen, no abdominal pain, no nausea, no vomiting, no fever, no chills. Patient was admitted for further evaluation medical management. Past Medical History DM, ESRD, HTN, Liver Past Surgical History Pacemaker Family History Reviewed, noncontributory to the management of this case. Past Social History The patient lives at home, denies smoking, alcohol or illicit drugs abuse. Review of Systems Constitutional: Yes: Weakness; No: Fever, Chills, Sweats, Malaise, Other Eyes: No: Pain, Vision change, Conjunctivae inflammation, Eyelid inflammation, Other, Redness ENT: Throat pain; No: Ear pain, Ear discharge, Nose pain, Nose discharge, Nose congestion, Mouth pain, Mouth swelling, Throat swelling, Other Respiratory: Cough; No: Dry, Shortness of breath, SOB with excertion, Wheezing, Hemoptysis, Pleuritic Pain, Sputum, Wheezing, Other Cardiovascular: Chest Pain; No: Palpitations, Orthopnea, Paroxysmal Noc. Dyspnea, Edema, Lt Headedness, Other Gastrointestinal: Nausea; No: Vomiting, Abdominal Pain, Diarrhea, Constipation, Melena, Hematochezia, Other Genitourinary: No Dysuria, No Frequency, No Incontinence, No Hematuria, No Retention, No Other Musculoskeletal: No: other, neck pain, shoulder pain, arm pain, back pain, hand pain, leg pain, foot pain Skin: No: Rash, Lesions, Jaundice, Bruising, Other Neurological: No: Weakness, Numbness, Incoordination, Change in speech, Confusion, Seizures, Other Allergies: Coded Allergies: NO KNOWN ALLERGIES (Unverified , 08/03/20) Exam Vital Signs Vital Signs Date Time Temp Pulse Resp B/P (MAP) Pulse Ox O2 Delivery O2 Flow Rate FiO2 09/19/24 18:41 65 09/19/24 18:13 98.7 18 148/60 (89) 92 General Appearance: Alert, Oriented X3, Cooperative, No acute distress HEENT: Atraumatic, PERRLA, EOMI, Mucous membr. moist/pink Respiratory: Normal air movement, Other (Diminished breath sounds) Cardiovascular: Regular rate, Normal S1, Normal S2, No murmurs Abdominal: Normal bowel sounds, Soft, No tenderness, No hepatospenomegaly, No masses Extremities: No clubbing, No cyanosis, No edema, Normal pulses, No tenderness/swelling Skin: No rashes, No breakdown, No significant lesion Neuro: Normal speech, Normal tone, Sensation intact, Cranial nerves 3-12 NL, Reflexes 2+, Other (Generalized weakness) Psych/Mental Status: Mental status NL, Mood NL Labs/Xrays Labs Test 09/19/24 21:51 09/19/24 21:43 09/19/24 21:17 09/19/24 18:08 Range/Units Ammonia 14 11-32 umol/L POC Glucose 538 *H 70-106 mg/dl Troponin I High Sensitivity 31 </=34 ng/L White Blood Count 5.1 4.4-10.8 10^3/uL Red Blood Count 3.34 L 4.0-5.20 10^6/uL Hemoglobin 10.1 L 12.2-16.2 g/dL Hematocrit 30.6 L 36.0-46.0 % Mean Corpuscular Volume 91.9 80.0-100.0 fL Mean Corpuscular Hemoglobin 30.3 28.0-32.0 pg Mean Corpuscular Hemoglobin Concent 33.0 32.0-36.0 g/dL Red Cell Distribution Width 14.4 H 11.8-14.3 % Platelet Count 274 140-450 10^3/uL Mean Platelet Volume 8.9 6.9-10.8 fL Neutrophils (%) (Auto) 75.2 37.0-80.0 % Lymphocytes (%) (Auto) 14.4 10.0-50.0 % Monocytes (%) (Auto) 7.6 0.0-12.0 % Eosinophils (%) (Auto) 1.6 0.0-7.0 % Basophils (%) (Auto) 1.2 0.0-2.0 % Neutrophils # (Auto) 3.8 1.6-8.6 10 ^3/uL Lymphocytes # (Auto) 0.7 0.4-5.4 10 ^3/uL Monocytes # (Auto) 0.4 0-1.3 10 ^3/uL Eosinophils # (Auto) 0.1 0-0.8 10 ^3/uL Basophils # (Auto) 0.1 0-0.2 10 ^3/uL Nucleated Red Blood Cells 0.0 % Sodium Level 125 L 136-145 mmol/L Potassium Level 5.3 H 3.5-5.1 mmol/L Chloride Level 85 L 98-107 mmol/L Carbon Dioxide Level 32 H 20-31 mmol/L Anion Gap 8 5-15 Blood Urea Nitrogen 30 H 9-23 mg/dL Creatinine 4.27 H 0.550-1.02 mg/dL Glomerular Filtration Rate Calc 12 >90 mL/min BUN/Creatinine Ratio 7.0 L 10.0-20.0 Serum Glucose 637 *H 74-106 mg/dL Calcium Level 9.4 8.7-10.4 mg/dL Total Bilirubin 0.2 0.2-1.0 mg/dL Aspartate Amino Transferase (AST) 16 13-40 U/L Alanine Aminotransferase (ALT) < 9 7-40 U/L Alkaline Phosphatase 156 H 46-116 U/L Total Protein 8.4 H 5.7-8.2 g/dL Albumin 4.1 3.2-4.8 g/dL PATIENT: SONG REYEST: [id number] UNIT: [id number] : 1965 LOC: ER ROOM / BED: / AGE / SEX: 58 / F ADM STATUS: REG ER SERVICE [id number] ORDERING PHYSICIAN: MARI ROSS MD PROCEDURE(s): ABPL - CT AB PEL WO CON-NO ORAL OR IV REASON: pain ORDER NUMBER(s): [id number], ACCESSION NUMBER(s): [id number] Exam: CT CT AB PEL WO CON-NO ORAL OR IV History: pain Comparison Study: None available at time of dictation. TECHNIQUE: Multidetector CT of the abdomen and pelvis without contrast. Axial, coronal and sagittal multiplanar reformats were obtained from the axial data set by the technologist. Radiation Dose Information: CT Dose: CTDI volume is 10.62 mGy. Dose-length product is 587.98 mGy*cm FINDINGS: Ground-glass opacities of the lung bases. Moderate cardiomegaly. Large volume ascites. Mild hepatomegaly with no focal hepatic lesions. Spleen, and adrenal glands are unremarkable. No pancreatic masses are noted. Possible sludge within the gallbladder with limited evaluation for pericholecystic inflammatory process given large volume ascites. Moderate atrophy of bilateral kidneys. Bilateral renal extensive vascular calcification is noted. No hydronephrosis bilaterally. Wall thickening of the minimally distended urinary bladder. Uterine wall calcifications are noted. Limited evaluation of bilateral adnexa. Mild wall thickening of the distal esophagus. Mild gastric wall thickening. Mild wall thickening of small-bowel loops within the left hemiabdomen. The remainder of the small bowel loops unremarkable. Appendix is unremarkable. Large bowel is unremarkable with large amount of fecal material within the ascending and transverse colons. No evidence of intraperitoneal free air. No evidence of aortic aneurysm. Mild atherosclerotic calcification of the aorta and bilateral iliacs. Limited evaluation for lymphadenopathy. Diffuse anasarca. No destructive osseous lesions are noted. IMPRESSION: Large volume ascites. Wall thickening of the urinary bladder. Correlate for cystitis. Mild wall thickening of the distal esophagus which may be due to inadequate distention with esophagitis not excluded. Mild wall thickening of proximal small bowel loops within the left hemiabdomen which may be due to inadequate distention or may be due to the surrounding ascites with enteritis not excluded. Diffuse anasarca. Moderate cardiomegaly with findings suggestive of mild pulmonary edema. Additional findings as above. ORDERING PHYSICIAN: MARI ROSS MD PROCEDURE(s): CXRP - CHEST PORTABLE REASON: CHEST PAIN ORDER NUMBER(s): [id number], ACCESSION NUMBER(s): [id number] EXAM: XR Chest, 1 View CLINICAL INDICATION: CHEST PAIN TECHNIQUE: Frontal view of the chest. COMPARISON: CHEST PORTABLE on DOS: 09/01/22, CXRP on DOS: 09/01/22, CHEST PORTABLE on DOS: 08/12/22, CXRP on DOS: 08/12/22, CXRP on DOS: 02/14/22 FINDINGS: LUNGS AND PLEURAL SPACES: See below. HEART: Cardiomegaly with mild congestion. Left cardiac. MEDIASTINUM: Unremarkable. Normal mediastinal contour. BONES/JOINTS: Unremarkable. No acute fracture. OTHER FINDINGS: IMPRESSION: Cardiomegaly with mild congestion. Assessment/Plan Assessment/Plan End-stage renal disease on dialysis Hyperkalemia Uncontrolled diabetes mellitus Diabetes mellitus due to underlying condition with hyperglycemia Plan 1. Admit to telemetry unit 2. Breathing treatment 3. Pain control management 4. Management of fluids and electrolytes 5. Consultation for Nephrology 6. Diagnostic tests abdomen/pelvis CT 7. DVT prophylaxis-on aspirin 8. Repeat labs CBC, CMP in a.m. 9. Continue with current medical management 10. Treatment plan discussed with patient and RN. Patient verbalized understanding. Plan discussed with: Patient, Other (RN) My Orders Orders - PERCY KU DNP Procedure Category Date Status Time Consistent DIET 09/20/24 Verified Carb(Ccho)Diabetes Breakfast Amlodipine Tablet PHA 09/20/24 Verified (Norvasc Tablet) 10:00 Hydralazine Injection PHA 09/19/24 Verified (Apresoline Inject 23:00 * Cardiology Consult CONS 09/19/24 Transmitted 22:51 *[facility] CONS 09/19/24 Transmitted -[place] 22:51 B-Complex W/ C & PHA 09/20/24 Verified Folic Tablet 10:00 Sevelamer (Renagel) PHA 09/20/24 Verified 08:00 Aspirin Tablet PHA 09/20/24 Verified 10:00 Glucose Blood PHA 09/20/24 Verified (Accu-Chek Comfort 00:00 Agressive Insulin Ss PHA 09/20/24 Verified 00:00 Dextrose 50% Syringe PHA 09/19/24 Verified 23:00 Admit ADMIT 09/19/24 Verified 22:51 Allergies KEVIN 09/19/24 Verified 22:51 Code Status CODE 09/19/24 Verified 22:51 Renal DIET 09/20/24 Verified Standard(2gna,3gk,Lopho) Breakfast Sodium Chloride Lock PHA 09/20/24 Verified (Saline Lock Ns) 06:00 Oxygen Per Hour RT 09/19/24 Verified 22:51 Hydrocodone-Acet PHA 09/19/24 Verified 5/325mg Tab (Victor 23:00 Ondansetron Hcl PHA 09/19/24 Verified (Zofran) 23:00 Docusate Sodium PHA 09/19/24 Verified Capsule (Colace 23:00 Fall Risk Precautions KEVIN 09/19/[address] 22:51 Complete Blood Count LAB 09/20/24 Verified 04:00 Comprehensive LAB 09/20/24 Verified Metabolic Panel 04:00 Condition: Serious KEVIN 09/19/24 Verified 22:51 Acetaminophen Tablet PHA 09/19/24 Verified (Tylenol Tablet) 23:00 Sequential KEVIN 09/19/24 Verified Compression Device Nitroglycerin PHA 09/19/24 Verified Sublingual (Ntrostat 23:00 Morphine Sulfate PHA 09/19/24 Verified Injection 23:00 Notify Md Of Changes KEVIN 09/19/24 Verified From Base 22:51 [employer] For [facility] 09/19/24 Verified 24 Hours 22:51 Emergency Dysrhythmia KEVIN 09/19/24 Verified Protocol 22:51 Rhythm Strips Once [facility] 09/19/24 Verified Every Shift 22:51 Oxygen By Nasal RT 09/19/24 Verified Cannula 22:51 Problem List: (1) ESRD (end stage renal disease) on dialysis (2) Hyperkalemia (3) Uncontrolled diabetes mellitus (4) Diabetes mellitus due to underlying condition with hyperglycemia Date of Service: Sep 19, 2024 Billing Provider: PERCY KU DNP Common Visit Codes: 63915-[id number] INP/OBS CARE (HIGH) PERCY KU DNP Sep 19, 2024 22:57
[2024-09-19] MEDS ORDERED: HYDROcodone-ACET 5/325MG TAB PO PRN (23:00)
[2024-09-19] MEDS ORDERED: MORPHINE SULFATE INJ 2 MG/ml SYRG IV PRN (23:00)
[2024-09-19] MEDS ORDERED: ONDANSETRON HCL 4 MG/2 ML VIAL IV PRN (23:00)
[2024-09-19] MEDS ORDERED: NITROGLYCERIN 0.4 MG SL TAB SL PRN (23:00)
[2024-09-20] MEDS: ACCU-CHEK COMFORT CURVE STRIP VI SCH ×2 (01:42→16:00)
[2024-09-20] MEDS: InsuLIN REG 1unit/0.01ml Soln (100units/ml) SC SCH ×3 (01:48→16:00)
[2024-09-20] MEDS: SODIUM CHLOR 0.9% PF (SALINE LOCK) 10ML VIAL/SYR IV SCH (05:06)
[2024-09-20] MEDS: DEXTROSE (50%) 50ML SYRG IV PRN (06:36)
[2024-09-20 07:15] LABS: Basophils # (auto) 0.1 10 ^3/uL (0-0.2); Basophils % (auto) 0.8 % (0.0-2.0); Eosinophils # (auto) 0.1 10 ^3/uL (0-0.8); Eosinophils % (auto) 1.7 % (0.0-7.0); Hematocrit 30.3 % (36.0-46.0); Hemoglobin 10.2 g/dL (12.2-16.2); Lymphocytes # (auto) 1.6 10 ^3/uL (0.4-5.4); Lymphocytes % (auto) 18.6 % (10.0-50.0); Mean Corpuscular Hemoglobin 30.3 pg (28.0-32.0); Mean Corpuscular Hgb Conc. 33.9 g/dL (32.0-36.0); Mean Corpuscular Volume 89.4 fL (80.0-100.0); Monocytes # (auto) 0.8 10 ^3/uL (0-1.3); Monocytes % (auto) 9.5 % (0.0-12.0); Neutrophils # (auto) 6.1 10 ^3/uL (1.6-8.6); Neutrophils % (auto) 69.4 % (37.0-80.0); Platelet Count (auto) 304 10^3/uL (140-450); Red Blood Cells 3.39 10^6/uL (4.0-5.20); Red Cell Distribution Width 14.1 % (11.8-14.3); White Blood Cell 8.8 10^3/uL (4.4-10.8)
[2024-09-20 07:23] LABS: Alanine Aminotransferase 13 U/L (7-40); Albumin 4.4 g/dL (3.2-4.8); Anion Gap 11 (5-15); Aspartate Aminotransferase 14 U/L (13-40); BUN/Creatinine Ratio 7.5 (10.0-20.0); Calcium 10.1 mg/dL (8.7-10.4); Carbon Dioxide 31 mmol/L (20-31)
[2024-09-20 07:24] LABS: Alkaline Phosphatase 123 U/L (46-116); Blood Urea Nitrogen 34 mg/dL (9-23); Chloride 90 mmol/L (98-107); Glucose 56 mg/dL (74-106); Potassium 3.4 mmol/L (3.5-5.1); Sodium 132 mmol/L (136-145)
[2024-09-20 07:25] LABS: Bilirubin, Total 0.3 mg/dL (0.2-1.0); Total Protein 8.8 g/dL (5.7-8.2)
[2024-09-20 08:00] VITALS: PULSE 65; RESP 14; O2SAT 100
[2024-09-20] MEDS: POTASSIUM CHL 20 Meq TABLET PO ONE (08:10)
[2024-09-20] MEDS: MAGNESIUM SULFATE 1GM/100ML 100 ML IV ONE (08:10)
--- NOTE | 2024-09-20 08:20 | ECG ---
[facility] Test Date: 2024-09-19 Test Time: 17:51:29 Pat Name: TRISTA CABALLEROGRIFFIN Department: ER Room: [address] [place] [address] Gender: F D[employer] Department Manager: MARCO : 1965 Requested By: MARI ROSS Order Number: [id number] Reading MD: Duncan Patton Measurements Intervals Bryant Rate: 65 P: 73 SD: 200 QRS: -71 QRSD: 125 T: 116 QT: 483 QTc: 503 Interpretive Statements Ventricular-paced complexes No further rhythm analysis attempted due to paced rhythm Nonspecific IVCD with LAD LVH with secondary repolarization abnormality Anterolateral infarct, age indeterminate Baseline wander in lead(s) V1 Electronically Signed On 09-20-2024 12:11:25 PST by Duncan Patton Please click the below link to view image of tracing.
--- NOTE | 2024-09-20 08:22 | ECG ---
[facility] Test Date: 2024-09-19 Test Time: 18:39:31 Pat Name: TRISTA REYES Department: ED Room: [address] [place] [address] Gender: F Timekeeper: UTE : 1965 Requested By: MARI ROSS Order Number: [id number] Reading MD: Duncan Patton Measurements Intervals [place] Rate: 65 P: 35 NH: 203 QRS: -67 QRSD: 130 T: 118 QT: 487 QTc: 507 Interpretive Statements Sinus rhythm Borderline prolonged NH interval LVH with IVCD, LAD and secondary repol abnrm Inferior infarct, acute (RCA) Anterolateral infarct, old Probable RV involvement, suggest recording right precordial leads Baseline wander in lead(s) III Electronically Signed On 09-20-2024 12:11:29 PST by Duncan Patton Please click the below link to view image of tracing.
[2024-09-20] MEDS: SEVELAMER 800 MG TAB PO SCH (08:36)
[2024-09-20 09:18] LABS: Triglycerides 99 mg/dL (< 150)
[2024-09-20 09:19] LABS: Cholesterol 146 mg/dL (< 200); LDL Cholesterol 77 mg/dL (< 100)
[2024-09-20 09:20] LABS: HDL Cholesterol 44 mg/dL (40-59)
[2024-09-20] MEDS: ASPirin 81 mg TAB PO SCH (09:59)
[2024-09-20] MEDS: B-COMPLEX W/ C & FOLIC ACID(NEPHROVITE TAB) PO SCH (09:59)
[2024-09-20] MEDS: amLODIPine BESYLATE 5 MG TAB PO SCH (09:59)
--- NOTE | 2024-09-20 10:10 | DVHINCON2 ---
Date Seen: Sep 20, 2024 Referring Physician SCOTTY Ocasio Reason for Consultation Hypotension History of Present Illness This is a 58-year-old female patient who presents to the emergency room with chief complaint of chest pain, generalized weakness, and hypotension. The patient reports that she was receiving dialysis when suddenly she began experiencing these symptoms. She describes the chest pain as unprovoked, const ant, pressure-like in nature, midsternal with radiation across her entire chest and wrapping around her upper back. Associated symptoms include shortness of breath. Initial twelve lead electrocardiogram reveals paced rhythm with baseline wander. Initial troponin level of 27ng/L with flat trend thereafter. Significant past medical history includes hypertension, dyslipidemia, presence of permanent pacemaker (Biotronik), end-stage renal disease on hemodialysis, type 2 diabetes mellitus, liver cirrhosis, and GERD. The patient reports following up with a fire operations forester at [facility]. According to the patient and [id number] at bedside, the patient underwent a coronary angiogram with left heart catheterization in June 2024 without catheter based intervention. Past Medical History Past medical history reviewed. No other significant than mentioned above. Past Surgical History Permanent pacemaker insertion on 09/01/2022 Family History: Diabetes mellitus G8 FATHER Family History Family history reviewed. Social History Denies the use of tobacco, alcohol or illicit drugs. Allergies: Coded Allergies: NO KNOWN ALLERGIES (Unverified , 08/03/20) Home Meds Reported Medications Sevelamer Hydrochloride (Sevelamer Hydrochloride) 800 Mg Tab, 2 TAB PO TID 08/14/22 Glipizide (Glipizide Er) 2.5 Mg Tab, 1 TAB PO DAILY 08/14/22 Calcium Acetate (Phosphate Bin (Calcium Acetate) 667 Mg Cap, 2 CAP PO TID 08/14/22 Amlodipine Besylate (Amlodipine Besylate) 10 Mg Tab, 1 TAB PO DAILY 08/14/22 Aspirin (Aspir-Low) 81 Mg Tab, 81 MG PO DAILY for 30 Days, MG 08/05/20 Hydralazine Hcl (Hydralazine Hcl) 10 Mg Tab, 0 PO BID for 30 Days, MG 08/05/20 Home Meds Home medications reviewed. Current Medications Current Medications Medications (Trade) Dose Ordered Sig/Raj Route PRN Reason Start Time Stop Time Status Last Admin Amlodipine Besylate (Norvasc Tablet) 5 mg DAILY PO 09/20/24 10:00 09/20/24 09:59 Hydralazine HCl (Apresoline Injection) 10 mg Q6HP PRN IV SBP>150 09/19/24 23:00 Multivit/Ca Carb/ B Cmplx/FA/Prenat (Nephro-Elie Tablet) 1 tab DAILY PO 09/20/24 10:00 09/20/24 09:59 Sevelamer HCl (Renagel) 800 mg TIDWM PO 09/20/24 08:00 09/20/24 08:36 Aspirin 81 mg DAILY PO 09/20/24 10:00 09/20/24 09:59 Diagnostic Test (Pha) (Accu-Chek Comfort Curve T) 1 strip IQ4HR 09/20/24 00:00 09/20/24 08:11 Insulin Human Regular (InsuLIN R) IQ4HR SC 09/20/24 00:00 09/20/24 07:43 DC 09/20/24 04:30 Dextrose 50 ml UD PRN IV Blood Sugar LESS THAN 60 09/19/24 23:00 09/20/24 06:36 Sodium Chloride (Saline Lock Ns) 10 ml Q8HR IV 09/20/24 06:00 09/20/24 05:06 Acetaminophen/ Hydrocodone Bitart ([place] 5/325MG Tab) 1 tab Q4HP PRN PO MODERATE PAIN (4-6 PAIN SCALE) 09/19/24 23:00 Ondansetron HCl (Zofran) 4 mg Q4HP PRN IV NAUSEA / VOMITING 09/19/24 23:00 Docusate Sodium (Colace Capsule) 100 mg BIDPRN PRN PO FOR CONSTIPATION 09/19/24 23:00 Acetaminophen (Tylenol Tablet) 650 mg Q6HP PRN PO PAIN SCALE 1-3 OR TEMP>100.4 09/19/24 23:00 Nitroglycerin (Ntrostat Sublingual) 0.4 mg Q5MINP PRN SL FOR CHEST PAIN 09/19/24 23:00 Morphine Sulfate 2 mg Q30M PRN IV FOR CHEST PAIN 09/19/24 23:00 Insulin Human Regular (InsuLIN R) IQ4HR SC 09/20/24 08:00 Review of Systems Constitutional: Generalized weakness Ears, Nose, & Throat: No symptom reported Eyes: No symptom reported Neurological: No symptoms reported Pulmonary/Respiratory: No symptoms reported Cardiovascular: Chest pain Gastrointestinal: No symptom reported Genitourinary: No symptom reported Musculoskeletal: No symptom reported Skin: No symptom reported Psychiatric: No symptom reported Endocrine: No symptom reported Hematologic/Lymphatic: No symptom reported Vital Signs Vital Signs Date Time Temp Pulse Resp B/P (MAP) Pulse Ox O2 Delivery O2 Flow Rate FiO2 09/20/24 09:59 152/55 09/20/24 08:00 65 14 100 09/20/24 08:00 Nasal Cannula* 2 28 09/19/24 18:13 98.7 Physical Exam General Appearance: Cooperative. Well-developed. Well-nourished. No acute distress. Pulmonary/Respiratory: Clear, bilateral breaths sounds. Cardiovascular/Chest: Regular rate and rhythm. Peripheral Pulses: 2+ Radial (R). 2+ Radial (L). 2+ Pedal (R). 2+ Pedal (L) Abdominal Exam: Normal bowel sounds. Ankle Exam: Negative ankle edema Lower extremities: Negative lower extremity edema Neuro/Mental Status: A/OX4, coherent. Thoughts/Psych: Normal thought pattern. Appropriate mood and affect. Good judgment and insight. Appearance: No acute distress. Skin Exam: Normal inspection. Normal color. Warm and dry. Labs/Diagnostic Data Labs Test 09/20/24 07:58 09/20/24 06:24 09/19/24 21:51 09/19/24 21:17 Range/Units POC Glucose 165 H 70-106 mg/dl White Blood Count 8.8 # 4.4-10.8 10^3/uL Red Blood Count 3.39 L 4.0-5.20 10^6/uL Hemoglobin 10.2 L 12.2-16.2 g/dL Hematocrit 30.3 L 36.0-46.0 % Mean Corpuscular Volume 89.4 80.0-100.0 fL Mean Corpuscular Hemoglobin 30.3 28.0-32.0 pg Mean Corpuscular Hemoglobin Concent 33.9 32.0-36.0 g/dL Red Cell Distribution Width 14.1 11.8-14.3 % Platelet Count 304 140-450 10^3/uL Mean Platelet Volume 9.0 6.9-10.8 fL Neutrophils (%) (Auto) 69.4 37.0-80.0 % Lymphocytes (%) (Auto) 18.6 10.0-50.0 % Monocytes (%) (Auto) 9.5 0.0-12.0 % Eosinophils (%) (Auto) 1.7 0.0-7.0 % Basophils (%) (Auto) 0.8 0.0-2.0 % Neutrophils # (Auto) 6.1 1.6-8.6 10 ^3/uL Lymphocytes # (Auto) 1.6 0.4-5.4 10 ^3/uL Monocytes # (Auto) 0.8 0-1.3 10 ^3/uL Eosinophils # (Auto) 0.1 0-0.8 10 ^3/uL Basophils # (Auto) 0.1 0-0.2 10 ^3/uL Nucleated Red Blood Cells 0.0 % Sodium Level 132 #L 136-145 mmol/L Potassium Level 3.4 L 3.5-5.1 mmol/L Chloride Level 90 L 98-107 mmol/L Carbon Dioxide Level 31 20-31 mmol/L Anion Gap 11 5-15 Blood Urea Nitrogen 34 H 9-23 mg/dL Creatinine 4.53 H 0.550-1.02 mg/dL Glomerular Filtration Rate Calc 11 >90 mL/min BUN/Creatinine Ratio 7.5 L 10.0-20.0 Serum Glucose 56 L 74-106 mg/dL Calcium Level 10.1 8.7-10.4 mg/dL Magnesium Level 2.8 H 1.6-2.6 mg/dL Total Bilirubin 0.3 0.2-1.0 mg/dL Aspartate Amino Transferase (AST) 14 13-40 U/L Alanine Aminotransferase (ALT) 13 7-40 U/L Alkaline Phosphatase 123 H 46-116 U/L Total Protein 8.8 H 5.7-8.2 g/dL Albumin 4.4 3.2-4.8 g/dL Triglycerides Level 99 < 150 mg/dL Cholesterol Level 146 < 200 mg/dL LDL Cholesterol 77 < 100 mg/dL HDL Cholesterol 44 40-59 mg/dL Thyroid Stimulating Hormone (TSH) 3.11 0.55-4.78 uIU/mL Ammonia 14 11-32 umol/L Troponin I High Sensitivity 31 </=34 ng/L Assessment Chest pain likely in the setting of hypotension History of hypertension Dyslipidemia Presence of permanent pacemaker (Biotronik) End-stage renal disease on hemodialysis Type 2 diabetes mellitus Plan/Recommendation We will continue with the following plan/recommendations (Dr. Gustafson): Patient seen and examined at bedside with . We will proceed with obtaining an echocardiogram to evaluate cardiac function. Plan of care discussed with the patient and MD. Given the patient's clinical presentation, negative troponin level, and unremarkable twelve lead electrocardiogram, doubt ACS. Chest pain likely secondary to decreased perfusion during hypotensive episode. Continue with close cardiac surveillance. At this time, we will continue with medical management. Of note, the patient also mentions recently undergoing a coronary angiogram in June 2024 without catheter based intervention. We will try to obtain records from [facility] to confirm this. Further recommendations per clinical course and progression. Thank you for allowing us to care for this patient. Please call with any questions or concerns. Critical care time spent: 42 minutes This medical document was created using an electronic medical record system with voice recognition software and computerized dictation system. Although this document has been carefully reviewed, there might still be some phonetic and typographical errors. Occasional wrong-word or ``sound-alike substitutions may have occurred due to the inherent limitations of voice recognition software. These areas are purely typographical due to imperfections of the software programs and do not reflect any compromise in the patient's medical care. Please read the chart carefully and recognize, using context, where these substitutions have occurred. Plan discussed with: Patient NYHA Physical activity limitations: NA Date of Service: Sep 20, 2024 Billing Provider: KIMBERLEY BURGESS Cardiology Common Codes: 50712-[id number] INP/OBS CARE (High) Cardiology Consultation Codes: 55634-VGUTHPRNW CONSULT <45MIN KIMBERLEY BURGESS Sep 20, 2024 10:10
[2024-09-20] MEDS ORDERED: DEXTROSE (50%) 50ML SYRG IV PRN ×2 (12:30→12:45)
--- NOTE | 2024-09-20 12:30 | DVHPN2 ---
Reviewed: Care Plan, H&P, Labs, Medications, Previous Orders, Radiology Changes from previous H/P or p: No Changes Eyes: No Pain, No Vision change, No Conjunctivae inflammation, No Eyelid inflammation, No Other, No Redness ENT: No Ear pain, No Ear discharge, No Nose pain, No Nose discharge, No Nose congestion, No Mouth pain, No Mouth swelling; Throat pain; No Throat swelling, No Other Cardiovascular: Chest Pain; No Palpitations, No Orthopnea, No Paroxysmal Noc. Dyspnea, No Edema, No Lt Headedness, No Other Respiratory: Cough; No Dry, No Shortness of breath, No SOB with excertion, No Wheezing, No Hemoptysis, No Pleuritic Pain, No Sputum, No Other Gastrointestinal: Nausea; No Vomiting, No Abdominal Pain, No Diarrhea, No Constipation, No Melena, No Hematochezia, No Other Genitourinary: No Dysuria, No Frequency, No Incontinence, No Hematuria, No Retention, No Other Musculoskeletal: No other, No neck pain, No shoulder pain, No arm pain, No back pain, No hand pain, No leg pain, No foot pain Skin: No Rash, No Lesions, No Jaundice, No Bruising, No Other Objective Vitals Vital Signs Date Time Temp Pulse Resp B/P (MAP) Pulse Ox O2 Delivery O2 Flow Rate FiO2 09/20/24 10:00 65 14 154/59 (90) 100 09/20/24 08:00 Nasal Cannula* 2 28 09/19/24 18:13 98.7 Medications Current Medications Medications Dose Ordered Sig/Raj Route Start Time Stop Time Status Last Admin Dose Admin Amlodipine Besylate 5 mg DAILY PO 09/20/24 10:00 09/20/24 09:59 5 MG Hydralazine HCl 10 mg Q6HP PRN IV 09/19/24 23:00 Multivit/Ca Carb/ B Cmplx/FA/Prenat 1 tab DAILY PO 09/20/24 10:00 09/20/24 09:59 1 TAB Sevelamer HCl 800 mg TIDWM PO 09/20/24 08:00 09/20/24 12:04 800 MG Aspirin 81 mg DAILY PO 09/20/24 10:00 09/20/24 09:59 81 MG Diagnostic Test (Pha) 1 strip IQ4HR 09/20/24 00:00 09/20/24 12:00 1 STRIP Dextrose 50 ml UD PRN IV 09/19/24 23:00 09/20/24 06:36 50 ML Sodium Chloride 10 ml Q8HR IV 09/20/24 06:00 09/20/24 05:06 10 ML Acetaminophen/ Hydrocodone Bitart 1 tab Q4HP PRN PO 09/19/24 23:00 Ondansetron HCl 4 mg Q4HP PRN IV 09/19/24 23:00 Docusate Sodium 100 mg BIDPRN PRN PO 09/19/24 23:00 Acetaminophen 650 mg Q6HP PRN PO 09/19/24 23:00 Nitroglycerin 0.4 mg Q5MINP PRN SL 09/19/24 23:00 Morphine Sulfate 2 mg Q30M PRN IV 09/19/24 23:00 Diagnostic Test (Pha) 1 strip IQ4HR 09/20/24 16:00 UNV Insulin Human Regular IQ4HR SC 09/20/24 16:00 UNV Dextrose 50 ml UD PRN IV 09/20/24 12:30 UNV Insulin Glargine 30 units HS SC 09/20/24 22:00 UNV Laboratory Results Laboratory Tests 09/20/24 06:24 Chemistry Test 09/19/24 18:08 09/20/24 06:24 Albumin 4.1 g/dL (3.2-4.8) 4.4 g/dL (3.2-4.8) Calcium Level 9.4 mg/dL (8.7-10.4) 10.1 mg/dL (8.7-10.4) Total Protein 8.4 g/dL (5.7-8.2) H 8.8 g/dL (5.7-8.2) H Magnesium Level 2.8 mg/dL (1.6-2.6) H Lipid panel Test 09/20/24 06:24 Cholesterol Level 146 mg/dL (< 200) HDL Cholesterol 44 mg/dL (40-59) Triglycerides Level 99 mg/dL (< 150) LFT Test 09/19/24 18:08 09/20/24 06:24 Alanine Aminotransferase (ALT) < 9 U/L (7-40) 13 U/L (7-40) Alkaline Phosphatase 156 U/L (46-116) H 123 U/L (46-116) H Aspartate Amino Transferase (AST) 16 U/L (13-40) 14 U/L (13-40) Total Bilirubin 0.2 mg/dL (0.2-1.0) 0.3 mg/dL (0.2-1.0) HgA1c, TSH Test 09/20/24 06:24 Hemoglobin A1c > 14.0 % A1C (<5.7) H Thyroid Stimulating Hormone (TSH) 3.11 uIU/mL (0.55-4.78) Labs and/or images reviewed: Labs reviewed by me, Image(s) reviewed by me Assessment/Plan Assessment/Plan Acute chest pain rule out coronary artery disease troponin negative x3, cardiology consult, treatment per ACS protocol ESRD on hemodialysis consult for Dr. Bautista Hypertension Uncontrolled diabetes type 2 with blood glucose 534 A1c 14: Aggressive insulin sliding scale Lantus 30 units HS diabetic education Liver disease Time spent 45 minutes Condition guarded Advanced care planning time 20 minutes Patient is full code Plan discussed with: Patient My Orders Orders - ELIZABETH DERAS MD Procedure Category Date Status Time Glucose Blood PHA 09/20/24 Logged (Accu-Chek Comfort 16:00 Insulin R (Human) PHA 09/20/24 Logged (Insulin R) 16:00 Dextrose 50% Syringe PHA 09/20/24 Logged 12:30 Insulin Lantus PHA 09/20/24 Logged (Glargine) (Lantus) 22:00 Date of Service: Sep 20, 2024 Billing Provider: ELIZABETH DERAS MD Common Visit Codes: [id number] INP/OBS CARE(HIGH) Secondary Visit Codes: [id number] CARE PLAN 30 MINUTES ELIZABETH DERAS MD Sep 20, 2024 12:30
--- NOTE | 2024-09-20 15:09 | DVHINCON2 ---
Date of service: Sep 20, [address] White Reason for Consultation Dialysis History of Present Illness 58 Y/O F with history of ESRD on HD via left arm AVF,DM,HTN, and hyperphosphatemia presented with chief complaint of chest pain radiating to the back. Her last dialysis at [facility] was yesterday. Troponin is negative x3. Nephrology consulted for maintenance of dialysis. Past Medical History ESRD on HD DM HTN Hyperphosphatemia Secondary hyperparathyroidism Past Surgical History AVF creation Allergies: Coded Allergies: NO KNOWN ALLERGIES (Unverified , 08/03/20) Home Meds Reported Medications Sevelamer Hydrochloride (Sevelamer Hydrochloride) 800 Mg Tab, 2 TAB PO TID 08/14/22 Glipizide (Glipizide Er) 2.5 Mg Tab, 1 TAB PO DAILY 08/14/22 Calcium Acetate (Phosphate Bin (Calcium Acetate) 667 Mg Cap, 2 CAP PO TID 08/14/22 Amlodipine Besylate (Amlodipine Besylate) 10 Mg Tab, 1 TAB PO DAILY 08/14/22 Aspirin (Aspir-Low) 81 Mg Tab, 81 MG PO DAILY for 30 Days, MG 08/05/20 Hydralazine Hcl (Hydralazine Hcl) 10 Mg Tab, 0 PO BID for 30 Days, MG 08/05/20 Current Medications Current Medications Medications (Trade) Dose Ordered Sig/Raj Route PRN Reason Start Time Stop Time Status Last Admin Amlodipine Besylate (Norvasc Tablet) 5 mg DAILY PO 09/20/24 10:00 09/20/24 09:59 Hydralazine HCl (Apresoline Injection) 10 mg Q6HP PRN IV SBP>150 09/19/24 23:00 Multivit/Ca Carb/ B Cmplx/FA/Prenat (Nephro-Elie Tablet) 1 tab DAILY PO 09/20/24 10:00 09/20/24 09:59 Sevelamer HCl (Renagel) 800 mg TIDWM PO 09/20/24 08:00 09/20/24 12:04 Aspirin 81 mg DAILY PO 09/20/24 10:00 09/20/24 09:59 Diagnostic Test (Pha) (Accu-Chek Comfort Curve T) 1 strip IQ4HR 09/20/24 00:00 09/20/24 12:42 DC 09/20/24 12:00 Insulin Human Regular (InsuLIN R) IQ4HR SC 09/20/24 00:00 09/20/24 07:43 DC 09/20/24 04:30 Dextrose 50 ml UD PRN IV Blood Sugar LESS THAN 60 09/19/24 23:00 09/20/24 12:42 DC 09/20/24 06:36 Sodium Chloride (Saline Lock Ns) 10 ml Q8HR IV 09/20/24 06:00 09/20/24 14:11 Acetaminophen/ Hydrocodone Bitart ([place] 5/325MG Tab) 1 tab Q4HP PRN PO MODERATE PAIN (4-6 PAIN SCALE) 09/19/24 23:00 Ondansetron HCl (Zofran) 4 mg Q4HP PRN IV NAUSEA / VOMITING 09/19/24 23:00 Docusate Sodium (Colace Capsule) 100 mg BIDPRN PRN PO FOR CONSTIPATION 09/19/24 23:00 Acetaminophen (Tylenol Tablet) 650 mg Q6HP PRN PO PAIN SCALE 1-3 OR TEMP>100.4 09/19/24 23:00 Nitroglycerin (Ntrostat Sublingual) 0.4 mg Q5MINP PRN SL FOR CHEST PAIN 09/19/24 23:00 Morphine Sulfate 2 mg Q30M PRN IV FOR CHEST PAIN 09/19/24 23:00 Insulin Human Regular (InsuLIN R) IQ4HR SC 09/20/24 08:00 09/20/24 12:25 DC Diagnostic Test (Pha) (Accu-Chek Comfort Curve T) 1 strip IQ4HR 09/20/24 16:00 09/20/24 12:42 DC Insulin Human Regular (InsuLIN R) IQ4HR SC 09/20/24 16:00 09/20/24 12:42 DC Dextrose 50 ml UD PRN IV Blood Sugar LESS THAN 60 09/20/24 12:30 09/20/24 12:42 DC Insulin Glargine (Lantus) 30 units HS SC 09/20/24 22:00 Diagnostic Test (Pha) (Accu-Chek Comfort Curve T) 1 strip IQ4HR 09/20/24 16:00 Insulin Human Regular (InsuLIN R) IQ4HR SC 09/20/24 16:00 Dextrose 50 ml UD PRN IV Blood Sugar LESS THAN 60 09/20/24 12:45 Family History: Diabetes mellitus G8 FATHER Review of Systems As per HPI, all other systems were reviewed and are negative. H&P Exam Vital Signs/I&O Vital Sign Date Time Temp Pulse Resp B/P (MAP) Pulse Ox O2 Delivery O2 Flow Rate FiO2 09/20/24 12:58 65 14 150/49 (82) 99 09/20/24 08:00 Nasal Cannula* 2 28 09/19/24 18:13 98.7 Physical Exam Gen: NAD, AAOx3 HEENT: NC,AT Cardiac: RRR, no murmur Lungs: crackles lung bases Abd: soft, no distention Ext: no edema + left arm AVF Labs/Diagnostic Data Labs/Diagnostic Data Laboratory Tests Test 09/20/24 07:58 09/20/24 06:56 09/20/24 06:24 09/20/24 05:42 Range/Units POC Glucose 165 H 187 H 50 L 70-106 mg/dl White Blood Count 8.8 # 4.4-10.8 10^3/uL Red Blood Count 3.39 L 4.0-5.20 10^6/uL Hemoglobin 10.2 L 12.2-16.2 g/dL Hematocrit 30.3 L 36.0-46.0 % Mean Corpuscular Volume 89.4 80.0-100.0 fL Mean Corpuscular Hemoglobin 30.3 28.0-32.0 pg Mean Corpuscular Hemoglobin Concent 33.9 32.0-36.0 g/dL Red Cell Distribution Width 14.1 11.8-14.3 % Platelet Count 304 140-450 10^3/uL Mean Platelet Volume 9.0 6.9-10.8 fL Neutrophils (%) (Auto) 69.4 37.0-80.0 % Lymphocytes (%) (Auto) 18.6 10.0-50.0 % Monocytes (%) (Auto) 9.5 0.0-12.0 % Eosinophils (%) (Auto) 1.7 0.0-7.0 % Basophils (%) (Auto) 0.8 0.0-2.0 % Neutrophils # (Auto) 6.1 1.6-8.6 10 ^3/uL Lymphocytes # (Auto) 1.6 0.4-5.4 10 ^3/uL Monocytes # (Auto) 0.8 0-1.3 10 ^3/uL Eosinophils # (Auto) 0.1 0-0.8 10 ^3/uL Basophils # (Auto) 0.1 0-0.2 10 ^3/uL Nucleated Red Blood Cells 0.0 % Sodium Level 132 #L 136-145 mmol/L Potassium Level 3.4 L 3.5-5.1 mmol/L Chloride Level 90 L 98-107 mmol/L Carbon Dioxide Level 31 20-31 mmol/L Anion Gap 11 5-15 Blood Urea Nitrogen 34 H 9-23 mg/dL Creatinine 4.53 H 0.550-1.02 mg/dL Glomerular Filtration Rate Calc 11 >90 mL/min BUN/Creatinine Ratio 7.5 L 10.0-20.0 Serum Glucose 56 L 74-106 mg/dL Hemoglobin A1c > 14.0 H <5.7 % A1C Calcium Level 10.1 8.7-10.4 mg/dL Magnesium Level 2.8 H 1.6-2.6 mg/dL Total Bilirubin 0.3 0.2-1.0 mg/dL Aspartate Amino Transferase (AST) 14 13-40 U/L Alanine Aminotransferase (ALT) 13 7-40 U/L Alkaline Phosphatase 123 H 46-116 U/L Total Protein 8.8 H 5.7-8.2 g/dL Albumin 4.4 3.2-4.8 g/dL Triglycerides Level 99 < 150 mg/dL Cholesterol Level 146 < 200 mg/dL LDL Cholesterol 77 < 100 mg/dL HDL Cholesterol 44 40-59 mg/dL Thyroid Stimulating Hormone (TSH) 3.11 0.55-4.78 uIU/mL Test 09/20/24 04:14 09/20/24 01:39 09/19/24 21:51 09/19/24 21:43 Range/Units POC Glucose 148 H 389 H 538 *H 70-106 mg/dl Ammonia 14 11-32 umol/L Test 09/19/24 21:17 09/19/24 19:08 09/19/24 18:08 Range/Units Troponin I High Sensitivity 31 30 27 </=34 ng/L White Blood Count 5.1 4.4-10.8 10^3/uL Red Blood Count 3.34 L 4.0-5.20 10^6/uL Hemoglobin 10.1 L 12.2-16.2 g/dL Hematocrit 30.6 L 36.0-46.0 % Mean Corpuscular Volume 91.9 80.0-100.0 fL Mean Corpuscular Hemoglobin 30.3 28.0-32.0 pg Mean Corpuscular Hemoglobin Concent 33.0 32.0-36.0 g/dL Red Cell Distribution Width 14.4 H 11.8-14.3 % Platelet Count 274 140-450 10^3/uL Mean Platelet Volume 8.9 6.9-10.8 fL Neutrophils (%) (Auto) 75.2 37.0-80.0 % Lymphocytes (%) (Auto) 14.4 10.0-50.0 % Monocytes (%) (Auto) 7.6 0.0-12.0 % Eosinophils (%) (Auto) 1.6 0.0-7.0 % Basophils (%) (Auto) 1.2 0.0-2.0 % Neutrophils # (Auto) 3.8 1.6-8.6 10 ^3/uL Lymphocytes # (Auto) 0.7 0.4-5.4 10 ^3/uL Monocytes # (Auto) 0.4 0-1.3 10 ^3/uL Eosinophils # (Auto) 0.1 0-0.8 10 ^3/uL Basophils # (Auto) 0.1 0-0.2 10 ^3/uL Nucleated Red Blood Cells 0.0 % Sodium Level 125 L 136-145 mmol/L Potassium Level 5.3 H 3.5-5.1 mmol/L Chloride Level 85 L 98-107 mmol/L Carbon Dioxide Level 32 H 20-31 mmol/L Anion Gap 8 5-15 Blood Urea Nitrogen 30 H 9-23 mg/dL Creatinine 4.27 H 0.550-1.02 mg/dL Glomerular Filtration Rate Calc 12 >90 mL/min BUN/Creatinine Ratio 7.0 L 10.0-20.0 Serum Glucose 637 *H 74-106 mg/dL Calcium Level 9.4 8.7-10.4 mg/dL Total Bilirubin 0.2 0.2-1.0 mg/dL Aspartate Amino Transferase (AST) 16 13-40 U/L Alanine Aminotransferase (ALT) < 9 7-40 U/L Alkaline Phosphatase 156 H 46-116 U/L Total Protein 8.4 H 5.7-8.2 g/dL Albumin 4.1 3.2-4.8 g/dL Assessment Assessment: ESRD on HD DM with hyperglycemia HTN Hyperphosphatemia Secondary hyperparathyroidism Metabolic acidosis Plan: HD today rather than tomorrow due to scheduling difficulty for HD for tomorrow cardiology consult Continue Renvela with meals [place]AN[place] post HD as needed. Plan discussed with: Patient, Other MANDI MORRIS MD Sep 20, 2024 15:09
[2024-09-20] MEDS: SODIUM CHL 0.9% 1000 ML BAG XX ONE (15:12)
[2024-09-20] MEDS ORDERED: ACCU-CHEK COMFORT CURVE STRIP VI SCH (16:00)
[2024-09-20] MEDS ORDERED: InsuLIN REG 1unit/0.01ml Soln (100units/ml) SC SCH (16:00)
[2024-09-20] MEDS: INSULIN LANTUS (GLARGINE) 1 /0.01ml (100units/ml) SC SCH (22:39)
--- NOTE | 2024-09-20 23:29 | DVHINCON2 ---
Date Seen: Sep 20, 2024 Referring Physician SCOTTY Ocasio Reason for Consultation Hypotension History of Present Illness This is a 58-year-old female with a past medical history of hypertension, dyslipidemia, presence of permanent pacemaker (Biotronik), end-stage renal disease on hemodialysis, type 2 diabetes mellitus, liver cirrhosis, and GERD who presented to the ED with complaints of chest pain, generalized weakness, and h ypotension. Patient reports that she was receiving dialysis when suddenly she began experiencing these symptoms. She describes the chest pain as unprovoked, constant, pressure-like in nature, midsternal with radiation across her entire chest and wrapping around her upper back. Associated symptoms include shortness of breath. Initial twelve lead electrocardiogram reveals paced rhythm with baseline wander. Initial troponin level of 27ng/L with flat trend thereafter. Chest x-ray shows cardiomegaly with mild congestion. CT ABD PEL showed large volume ascites. Wall thickening of the urinary bladder. Mild wall thickening of the distal esophagus which may be due to inadequate distention with esophagitis not excluded. Mild wall thickening of proximal small bowel loops within the left hemiabdomen which may be due to inadequate distention or may be due to the surrounding ascites with enteritis not excluded. Diffuse anasarca. Moderate cardiomegaly with findings suggestive of mild pulmonary edema. The patient reports following up with a trommel tender at [facility]. According to the patient and [id number] at bedside, the patient underwent a coronary angiogram with left heart catheterization in June 2024 without catheter based intervention. Patient was admitted to the hospital. I am asked to consult on this patient. Family History: Diabetes mellitus G8 FATHER Allergies: Coded Allergies: NO KNOWN ALLERGIES (Unverified , 08/03/20) Home Meds Reported Medications Sevelamer Hydrochloride (Sevelamer Hydrochloride) 800 Mg Tab, 2 TAB PO TID 08/14/22 Glipizide (Glipizide Er) 2.5 Mg Tab, 1 TAB PO DAILY 08/14/22 Calcium Acetate (Phosphate Bin (Calcium Acetate) 667 Mg Cap, 2 CAP PO TID 08/14/22 Amlodipine Besylate (Amlodipine Besylate) 10 Mg Tab, 1 TAB PO DAILY 08/14/22 Aspirin (Aspir-Low) 81 Mg Tab, 81 MG PO DAILY for 30 Days, MG 08/05/20 Hydralazine Hcl (Hydralazine Hcl) 10 Mg Tab, 0 PO BID for 30 Days, MG 08/05/20 Current Medications Current Medications Medications (Trade) Dose Ordered Sig/Raj Route PRN Reason Start Time Stop Time Status Last Admin Amlodipine Besylate (Norvasc Tablet) 5 mg DAILY PO 09/20/24 10:00 09/20/24 09:59 Hydralazine HCl (Apresoline Injection) 10 mg Q6HP PRN IV SBP>150 09/19/24 23:00 Multivit/Ca Carb/ B Cmplx/FA/Prenat (Nephro-Elie Tablet) 1 tab DAILY PO 09/20/24 10:00 09/20/24 09:59 Sevelamer HCl (Renagel) 800 mg TIDWM PO 09/20/24 08:00 09/20/24 12:04 Aspirin 81 mg DAILY PO 09/20/24 10:00 09/20/24 09:59 Diagnostic Test (Pha) (Accu-Chek Comfort Curve T) 1 strip IQ4HR 09/20/24 00:00 09/20/24 12:42 DC 09/20/24 12:00 Insulin Human Regular (InsuLIN R) IQ4HR SC 09/20/24 00:00 09/20/24 07:43 DC 09/20/24 04:30 Dextrose 50 ml UD PRN IV Blood Sugar LESS THAN 60 09/19/24 23:00 09/20/24 12:42 DC 09/20/24 06:36 Sodium Chloride (Saline Lock Ns) 10 ml Q8HR IV 09/20/24 06:00 09/20/24 14:11 Acetaminophen/ Hydrocodone Bitart (Erwin 5/325MG Tab) 1 tab Q4HP PRN PO MODERATE PAIN (4-6 PAIN SCALE) 09/19/24 23:00 Ondansetron HCl (Zofran) 4 mg Q4HP PRN IV NAUSEA / VOMITING 09/19/24 23:00 Docusate Sodium (Colace Capsule) 100 mg BIDPRN PRN PO FOR CONSTIPATION 09/19/24 23:00 Acetaminophen (Tylenol Tablet) 650 mg Q6HP PRN PO PAIN SCALE 1-3 OR TEMP>100.4 09/19/24 23:00 Nitroglycerin (Ntrostat Sublingual) 0.4 mg Q5MINP PRN SL FOR CHEST PAIN 09/19/24 23:00 Morphine Sulfate 2 mg Q30M PRN IV FOR CHEST PAIN 09/19/24 23:00 Insulin Human Regular (InsuLIN R) IQ4HR SC 09/20/24 08:00 09/20/24 12:25 DC Diagnostic Test (Pha) (Accu-Chek Comfort Curve T) 1 strip IQ4HR 09/20/24 16:00 09/20/24 12:42 DC Insulin Human Regular (InsuLIN R) IQ4HR SC 09/20/24 16:00 09/20/24 12:42 DC Dextrose 50 ml UD PRN IV Blood Sugar LESS THAN 60 09/20/24 12:30 09/20/24 12:42 DC Insulin Glargine (Lantus) 30 units HS SC 09/20/24 22:00 Diagnostic Test (Pha) (Accu-Chek Comfort Curve T) 1 strip IQ4HR 09/20/24 16:00 09/20/24 20:22 Insulin Human Regular (InsuLIN R) IQ4HR SC 09/20/24 16:00 09/20/24 20:20 Dextrose 50 ml UD PRN IV Blood Sugar LESS THAN 60 09/20/24 12:45 Review of Systems Constitutional: Generalized weakness Ears, Nose, & Throat: No symptom reported Eyes: No symptom reported Neurological: No symptoms reported Pulmonary/Respiratory: No symptoms reported Cardiovascular: Chest pain Gastrointestinal: No symptom reported Genitourinary: No symptom reported Musculoskeletal: No symptom reported Skin: No symptom reported Psychiatric: No symptom reported Endocrine: No symptom reported Hematologic/Lymphatic: No symptom reported Vital Signs Vital Signs Date Time Temp Pulse Resp B/P (MAP) Pulse Ox O2 Delivery O2 Flow Rate FiO2 09/20/24 20:00 68 09/20/24 19:30 98.2 16 155/52 (86) 100 98.2 09/20/24 08:00 Nasal Cannula* 2 28 Physical Exam GENERAL: Awake, alert, oriented. LUNGS: Clear. CARDIOVASCULAR: Heart sounds are good. ABDOMEN: Soft. Labs/Diagnostic Data Labs Test 09/20/24 20:17 09/20/24 06:24 09/19/24 21:51 09/19/24 21:17 Range/Units POC Glucose 191 H 70-106 mg/dl White Blood Count 8.8 # 4.4-10.8 10^3/uL Red Blood Count 3.39 L 4.0-5.20 10^6/uL Hemoglobin 10.2 L 12.2-16.2 g/dL Hematocrit 30.3 L 36.0-46.0 % Mean Corpuscular Volume 89.4 80.0-100.0 fL Mean Corpuscular Hemoglobin 30.3 28.0-32.0 pg Mean Corpuscular Hemoglobin Concent 33.9 32.0-36.0 g/dL Red Cell Distribution Width 14.1 11.8-14.3 % Platelet Count 304 140-450 10^3/uL Mean Platelet Volume 9.0 6.9-10.8 fL Neutrophils (%) (Auto) 69.4 37.0-80.0 % Lymphocytes (%) (Auto) 18.6 10.0-50.0 % Monocytes (%) (Auto) 9.5 0.0-12.0 % Eosinophils (%) (Auto) 1.7 0.0-7.0 % Basophils (%) (Auto) 0.8 0.0-2.0 % Neutrophils # (Auto) 6.1 1.6-8.6 10 ^3/uL Lymphocytes # (Auto) 1.6 0.4-5.4 10 ^3/uL Monocytes # (Auto) 0.8 0-1.3 10 ^3/uL Eosinophils # (Auto) 0.1 0-0.8 10 ^3/uL Basophils # (Auto) 0.1 0-0.2 10 ^3/uL Nucleated Red Blood Cells 0.0 % Sodium Level 132 #L 136-145 mmol/L Potassium Level 3.4 L 3.5-5.1 mmol/L Chloride Level 90 L 98-107 mmol/L Carbon Dioxide Level 31 20-31 mmol/L Anion Gap 11 5-15 Blood Urea Nitrogen 34 H 9-23 mg/dL Creatinine 4.53 H 0.550-1.02 mg/dL Glomerular Filtration Rate Calc 11 >90 mL/min BUN/Creatinine Ratio 7.5 L 10.0-20.0 Serum Glucose 56 L 74-106 mg/dL Hemoglobin A1c > 14.0 H <5.7 % A1C Calcium Level 10.1 8.7-10.4 mg/dL Magnesium Level 2.8 H 1.6-2.6 mg/dL Total Bilirubin 0.3 0.2-1.0 mg/dL Aspartate Amino Transferase (AST) 14 13-40 U/L Alanine Aminotransferase (ALT) 13 7-40 U/L Alkaline Phosphatase 123 H 46-116 U/L Total Protein 8.8 H 5.7-8.2 g/dL Albumin 4.4 3.2-4.8 g/dL Triglycerides Level 99 < 150 mg/dL Cholesterol Level 146 < 200 mg/dL LDL Cholesterol 77 < 100 mg/dL HDL Cholesterol 44 40-59 mg/dL Thyroid Stimulating Hormone (TSH) 3.11 0.55-4.78 uIU/mL Ammonia 14 11-32 umol/L Troponin I High Sensitivity 31 </=34 ng/L Assessment Chest pain likely in the setting of hypotension. History of hypertension. Dyslipidemia. Presence of permanent pacemaker (Biotronik). End-stage renal disease on hemodialysis. Type 2 diabetes mellitus. Plan/Recommendation I agree with your ongoing assessment and care of plan. Patient has been seen by Ida Gomez NP on my behalf, her and I discussed the plan with the patient. Telemetry reviewed. We will proceed with obtaining an echocardiogram to evaluate cardiac function. Plan of care discussed with the patient and MD. Given the patient's clinical presentation, negative troponin level, and unremarkable twelve lead electrocardiogram, doubt ACS. Chest pain likely secondary to decreased perfusion during hypotensive episode. Continue with close cardiac surveillance. At this time, we will continue with medical management. Of note, the patient also mentions recently undergoing a coronary angiogram in June 2024 without catheter based intervention. We will try to obtain records from [facility] to confirm this. Additional plan as per the hospital course. Plan discussed with: Patient NYHA Physical activity limitations: NA Date of Service: Sep 20, 2024 Billing Provider: AUDELIA SOL MD Cardiology Common Codes: [id number] INP/OBS CARE (High) Cardiology Consultation Codes: [id number] CONSULT <45MIN AUDELIA SOL MD Sep 20, 2024 22:20
[2024-09-20 23:59] VITALS: BP 128/53; PULSE 65; RESP 18; TEMP 98.6; O2SAT 100
[2024-09-21] VITALS (8 sets, daily range): BP systolic 107–153; BP diastolic 33–56; PULSE 65–68; RESP 16–18; TEMP 97.3–97.9; O2SAT 96–100
[2024-09-21] MEDS: hydrALAZINE HCL 20 MG/ML VL IV PRN (04:18)
--- NOTE | 2024-09-21 09:44 | DVHPN2 ---
Reviewed: Care Plan, H&P, Labs, Medications, Previous Orders, Radiology Changes from previous H/P or p: No Changes Eyes: No Pain, No Vision change, No Conjunctivae inflammation, No Eyelid inflammation, No Other, No Redness ENT: No Ear pain, No Ear discharge, No Nose pain, No Nose discharge, No Nose congestion, No Mouth pain, No Mouth swelling; Throat pain; No Throat swelling, No Other Cardiovascular: Chest Pain; No Palpitations, No Orthopnea, No Paroxysmal Noc. Dyspnea, No Edema, No Lt Headedness, No Other Respiratory: Cough; No Dry, No Shortness of breath, No SOB with excertion, No Wheezing, No Hemoptysis, No Pleuritic Pain, No Sputum, No Other Gastrointestinal: Nausea; No Vomiting, No Abdominal Pain, No Diarrhea, No Constipation, No Melena, No Hematochezia, No Other Genitourinary: No Dysuria, No Frequency, No Incontinence, No Hematuria, No Retention, No Other Musculoskeletal: No other, No neck pain, No shoulder pain, No arm pain, No back pain, No hand pain, No leg pain, No foot pain Skin: No Rash, No Lesions, No Jaundice, No Bruising, No Other Objective Vitals Vital Signs Date Time Temp Pulse Resp B/P (MAP) Pulse Ox O2 Delivery O2 Flow Rate FiO2 09/21/24 08:35 146/67 09/21/24 05:00 97.8 65 16 100 97.8 09/21/24 01:23 Nasal Cannula* 2 28 Intake/Output Intake and Output 09/21/24 07:00 Intake Total 1300 ml Balance 1300 ml Intake Oral 1200 ml IV Total 100 ml # Bowel Movements 1 Medications Current Medications Medications Dose Ordered Sig/Raj Route Start Time Stop Time Status Last Admin Dose Admin Amlodipine Besylate 5 mg DAILY PO 09/20/24 10:00 09/21/24 08:35 5 MG Hydralazine HCl 10 mg Q6HP PRN IV 09/19/24 23:00 09/21/24 04:18 10 MG Multivit/Ca Carb/ B Cmplx/FA/Prenat 1 tab DAILY PO 09/20/24 10:00 09/21/24 08:33 1 TAB Sevelamer HCl 800 mg TIDWM PO 09/20/24 08:00 09/21/24 08:33 800 MG Aspirin 81 mg DAILY PO 09/20/24 10:00 09/21/24 08:33 81 MG Sodium Chloride 10 ml Q8HR IV 09/20/24 06:00 09/21/24 05:16 10 ML Acetaminophen/ Hydrocodone Bitart 1 tab Q4HP PRN PO 09/19/24 23:00 Ondansetron HCl 4 mg Q4HP PRN IV 09/19/24 23:00 Docusate Sodium 100 mg BIDPRN PRN PO 09/19/24 23:00 Acetaminophen 650 mg Q6HP PRN PO 09/19/24 23:00 Nitroglycerin 0.4 mg Q5MINP PRN SL 09/19/24 23:00 Morphine Sulfate 2 mg Q30M PRN IV 09/19/24 23:00 Insulin Glargine 30 units HS SC 09/20/24 22:00 09/20/24 22:39 30 UNITS Diagnostic Test (Pha) 1 strip IQ4HR 09/20/24 16:00 09/21/24 08:38 1 STRIP Insulin Human Regular IQ4HR SC 09/20/24 16:00 09/21/24 00:15 4 UNITS Dextrose 50 ml UD PRN IV 09/20/24 12:45 Laboratory Results Laboratory Tests 09/20/24 06:24 Labs and/or images reviewed: Labs reviewed by me, Image(s) reviewed by me Assessment/Plan Assessment/Plan Acute chest pain rule out coronary artery disease troponin negative x3, cardiology consult, treatment per ACS protocol ESRD on hemodialysis consult for Dr. Bautista Hypertension Uncontrolled diabetes type 2 with blood glucose 534 A1c 14: Aggressive insulin sliding scale Lantus 30 units HS diabetic education Liver disease Time spent 45 minutes Condition guarded Advanced care planning time 20 minutes Patient is full code Plan discussed with: Patient My Orders Orders - ELIZABETH DERAS MD Procedure Category Date Status Time Insulin Lantus PHA 09/20/24 In Process (Glargine) (Lantus) 22:00 Glucose Blood PHA 09/20/24 In Process (Accu-Chek Comfort 16:00 Insulin R (Human) PHA 09/20/24 In Process (Insulin R) 16:00 Dextrose 50% Syringe PHA 09/20/24 In Process 12:45 Date of Service: Sep 21, 2024 Billing Provider: ELIZABETH DERAS MD Common Visit Codes: [id number] INP/OBS CARE(HIGH) ELIZABETH DERAS MD Sep 21, 2024 09:44
--- NOTE | 2024-09-21 13:59 | DVHPN2 ---
Progress Note - Dictate Date Seen: Sep 21, 2024 Medical Necessity Reason Pt with a Central, PICC or Fol: No vital signs Vital Sign Date Time Temp Pulse Resp B/P (MAP) Pulse Ox O2 Delivery O2 Flow Rate FiO2 09/21/24 13:00 97.6 65 17 107/55 (72) 99 97.6 09/21/24 08:00 Room Air* 0 21 Total Intake and Output 09/20/24 09/20/24 09/21/24 15:00 23:00 07:00 Intake Total 100 ml 1200 ml Balance 100 ml 1200 ml medications Current Medications Medications Dose Ordered Sig/Raj Route Start Time Stop Time Status Last Admin Dose Admin Amlodipine Besylate 5 mg DAILY PO 09/20/24 10:00 09/21/24 08:35 5 MG Hydralazine HCl 10 mg Q6HP PRN IV 09/19/24 23:00 09/21/24 04:18 10 MG Multivit/Ca Carb/ B Cmplx/FA/Prenat 1 tab DAILY PO 09/20/24 10:00 09/21/24 08:33 1 TAB Sevelamer HCl 800 mg TIDWM PO 09/20/24 08:00 09/21/24 11:27 800 MG Aspirin 81 mg DAILY PO 09/20/24 10:00 09/21/24 08:33 81 MG Sodium Chloride 10 ml Q8HR IV 09/20/24 06:00 09/21/24 05:16 10 ML Acetaminophen/ Hydrocodone Bitart 1 tab Q4HP PRN PO 09/19/24 23:00 Ondansetron HCl 4 mg Q4HP PRN IV 09/19/24 23:00 Docusate Sodium 100 mg BIDPRN PRN PO 09/19/24 23:00 Acetaminophen 650 mg Q6HP PRN PO 09/19/24 23:00 Nitroglycerin 0.4 mg Q5MINP PRN SL 09/19/24 23:00 Morphine Sulfate 2 mg Q30M PRN IV 09/19/24 23:00 Insulin Glargine 30 units HS SC 09/20/24 22:00 09/20/24 22:39 30 UNITS Diagnostic Test (Pha) 1 strip IQ4HR 09/20/24 16:00 09/21/24 11:29 1 STRIP Insulin Human Regular IQ4HR SC 09/20/24 16:00 2/8/25 11:28 2 UNITS Dextrose 50 ml UD PRN IV 09/20/24 12:45 objective Gen: NAD, AAOx3 HEENT: NC,AT Cardiac: RRR, no murmur Lungs: crackles lung bases Abd: soft, no distention Ext: no edema + left arm AVF laboratory and microbiology Laboratory Tests 09/20/24 06:24 Test 09/20/24 06:24 Range/Units Serum Glucose 56 L 74-106 mg/dL Assessment/Plan Assessment: ESRD on HD DM with hyperglycemia Chest pain r/o ACS HTN Hyperphosphatemia Secondary hyperparathyroidism Metabolic acidosis Plan: s/p HD Monday Next HD on Monday cardiology consult Continue Renvela with meals FRANCHESKA post HD as needed. Plan discussed with: Patient MANDI MORRIS MD Sep 21, 2024 13:59
--- NOTE | 2024-09-21 23:20 | DVHPN2 ---
Progress Note - Dictate Date Seen: Sep 21, 2024 Medical Necessity Reason Pt with a Central, PICC or Fol: No Subjective Patient was seen and evaluated in follow up. Patient is complaining of generalized pain. BS are WNL. Echocardiogram is pending. Telemetry reviewed. vital signs Vital Sign Date Time Temp Pulse Resp B/P (MAP) Pulse Ox O2 Delivery O2 Flow Rate FiO2 09/21/24 21:00 97.3 65 18 145/56 (85) 100 97.3 09/21/24 08:00 Room Air* 0 21 Total Intake and Output 09/20/24 09/20/24 09/21/24 15:00 23:00 07:00 Intake Total 100 ml 1200 ml Balance 100 ml 1200 ml medications Current Medications Medications Dose Ordered Sig/Raj Route Start Time Stop Time Status Last Admin Dose Admin Amlodipine Besylate 5 mg DAILY PO 09/20/24 10:00 09/21/24 08:35 5 MG Hydralazine HCl 10 mg Q6HP PRN IV 09/19/24 23:00 09/21/24 04:18 10 MG Multivit/Ca Carb/ B Cmplx/FA/Prenat 1 tab DAILY PO 09/20/24 10:00 09/21/24 08:33 1 TAB Sevelamer HCl 800 mg TIDWM PO 09/20/24 08:00 09/21/24 17:10 800 MG Aspirin 81 mg DAILY PO 09/20/24 10:00 09/21/24 08:33 81 MG Sodium Chloride 10 ml Q8HR IV 09/20/24 06:00 09/21/24 14:29 10 ML Acetaminophen/ Hydrocodone Bitart 1 tab Q4HP PRN PO 09/19/24 23:00 Ondansetron HCl 4 mg Q4HP PRN IV 09/19/24 23:00 Docusate Sodium 100 mg BIDPRN PRN PO 09/19/24 23:00 Acetaminophen 650 mg Q6HP PRN PO 09/19/24 23:00 Nitroglycerin 0.4 mg Q5MINP PRN SL 09/19/24 23:00 Morphine Sulfate 2 mg Q30M PRN IV 09/19/24 23:00 Insulin Glargine 30 units HS SC 09/20/24 22:00 09/20/24 22:39 30 UNITS Diagnostic Test (Pha) 1 strip IQ4HR 09/20/24 16:00 09/21/24 20:00 1 STRIP Insulin Human Regular IQ4HR SC 09/20/24 16:00 09/21/24 11:28 2 UNITS Dextrose 50 ml UD PRN IV 09/20/24 12:45 objective GENERAL: Awake, alert, oriented. LUNGS: Clear. CARDIOVASCULAR: Heart sounds are good. ABDOMEN: Soft. laboratory and microbiology Laboratory Tests 09/20/24 06:24 Test 09/20/24 06:24 Range/Units Serum Glucose 56 L 74-106 mg/dL Problem List Chest pain likely in the setting of hypotension. History of hypertension. Dyslipidemia. Presence of permanent pacemaker (Biotronik). End-stage renal disease on hemodialysis. Type 2 diabetes mellitus. Assessment/Plan Continued all current supportive medical care. Echocardiogram. Morphine and [place] for pain management. Amlodipine. Aspirin. IV Hydralazine for an SBP >150. Additional plan as per the hospital course. Plan discussed with: Patient AUDELIA SOL MD Sep 21, 2024 22:12
[2024-09-22] VITALS (8 sets, daily range): BP systolic 130–143; BP diastolic 37–65; PULSE 65–69; RESP 17–18; TEMP 97.6–98.7; O2SAT 94–100
--- NOTE | 2024-09-22 00:38 | DVHSR ---
APPROVED REPORT EXAM: Two-dimensional and M-mode echocardiogram with Doppler and color Doppler. Blood Pressure: 133/33 mmHg INDICATION Evaluate cardiac function Surgery/Intervention Pacemaker: RISK FACTORS Height: 5'4", Weight: 147 DIMENSIONS LVDd4.4 (3.8-5.7cm)LA (2D)4.0 (1.9-4.0cm)Aortic Root2.9 (2.0-3.7cm) LVDs2.8 (2.5-4.0cm)LA (MM) (1.9-4.0cm)Aortic Cusp Exc1.5 (1.5-2.0cm) EF (%) 65.0 (55-70%)Rt. Atrium4.5 (1.9-4.0cm)Asc. Aorta cm IVSd1.3 (0.7-1.1cm)RV (D)4.2 (1.8-2.4cm) PWd1.2 (0.7-1.1cm) Mitral Valve MitralMitral Stenosis E wave1.13m/sMV Mean GR.mmHg A wave0.63m/sMV Peak GR.mmHg E/A ratio1.82D MVAcm2 DECEL [id number] 1/2 Timems Aortic Valve Aortic ValveAortic Stenosis V11.08m/Sadie Mean GR.6mmHg V21.74m/Sadie Peak GR.12mmHg LVOT Diameter1.9 (1.8-2.4cm)Doppler AVA1.76cm2 Pulmonic Valve V21.01m/s Tricuspid Valve TR Velocity3.76m/s [id number] Conclusion MILD LVH AND MILD LV DIASTOLIC DYSFUNCTION LV EF IS 65% NORMAL VALVES NO EFFUSION SEVERE PULMONARY HYPERTENSION RVSP IS 65 MM OF HG AND IS VERY HIGH
--- NOTE | 2024-09-22 10:57 | DVHPN2 ---
Reviewed: Care Plan, H&P, Labs, Medications, Previous Orders, Radiology Changes from previous H/P or p: No Changes Eyes: No Pain, No Vision change, No Conjunctivae inflammation, No Eyelid inflammation, No Other, No Redness ENT: No Ear pain, No Ear discharge, No Nose pain, No Nose discharge, No Nose congestion, No Mouth pain, No Mouth swelling; Throat pain; No Throat swelling, No Other Cardiovascular: Chest Pain; No Palpitations, No Orthopnea, No Paroxysmal Noc. Dyspnea, No Edema, No Lt Headedness, No Other Respiratory: Cough; No Dry, No Shortness of breath, No SOB with excertion, No Wheezing, No Hemoptysis, No Pleuritic Pain, No Sputum, No Other Gastrointestinal: Nausea; No Vomiting, No Abdominal Pain, No Diarrhea, No Constipation, No Melena, No Hematochezia, No Other Genitourinary: No Dysuria, No Frequency, No Incontinence, No Hematuria, No Retention, No Other Musculoskeletal: No other, No neck pain, No shoulder pain, No arm pain, No back pain, No hand pain, No leg pain, No foot pain Skin: No Rash, No Lesions, No Jaundice, No Bruising, No Other Objective Vitals Vital Signs Date Time Temp Pulse Resp B/P (MAP) Pulse Ox O2 Delivery O2 Flow Rate FiO2 09/22/24 09:00 98.7 65 17 143/53 (83) 100 98.7 09/22/24 08:05 Room Air* 0 21 Intake/Output Intake and Output 09/22/24 07:00 Intake Total 1095 ml Output Total 0 ml Balance 1095 ml Intake Oral 1095 ml Output Urine Total 0 ml # Voids 2 # Bowel Movements 1 Medications Current Medications Medications Dose Ordered Sig/Raj Route Start Time Stop Time Status Last Admin Dose Admin Amlodipine Besylate 5 mg DAILY PO 09/20/24 10:00 09/22/24 08:49 5 MG Hydralazine HCl 10 mg Q6HP PRN IV 09/19/24 23:00 09/21/24 04:18 10 MG Multivit/Ca Carb/ B Cmplx/FA/Prenat 1 tab DAILY PO 09/20/24 10:00 09/22/24 08:46 1 TAB Sevelamer HCl 800 mg TIDWM PO 09/20/24 08:00 09/22/24 08:47 800 MG Aspirin 81 mg DAILY PO 09/20/24 10:00 09/22/24 08:46 81 MG Sodium Chloride 10 ml Q8HR IV 09/20/24 06:00 09/22/24 05:28 10 ML Acetaminophen/ Hydrocodone Bitart 1 tab Q4HP PRN PO 09/19/24 23:00 Ondansetron HCl 4 mg Q4HP PRN IV 09/19/24 23:00 Docusate Sodium 100 mg BIDPRN PRN PO 09/19/24 23:00 Acetaminophen 650 mg Q6HP PRN PO 09/19/24 23:00 Nitroglycerin 0.4 mg Q5MINP PRN SL 09/19/24 23:00 Morphine Sulfate 2 mg Q30M PRN IV 09/19/24 23:00 Insulin Glargine 30 units HS SC 09/20/24 22:00 09/20/24 22:39 30 UNITS Diagnostic Test (Pha) 1 strip IQ4HR 09/20/24 16:00 09/22/24 08:48 1 STRIP Insulin Human Regular IQ4HR SC 09/20/24 16:00 09/21/24 11:28 2 UNITS Dextrose 50 ml UD PRN IV 09/20/24 12:45 Laboratory Results Laboratory Tests 09/20/24 06:24 Labs and/or images reviewed: Labs reviewed by me, Image(s) reviewed by me Assessment/Plan Assessment/Plan Acute chest pain coronary artery disease ruled out troponin negative x3, cardiology consult by Dr Gustafson appreciated, treatment per ACS protocol ESRD on hemodialysis consult for Dr. Bautista, patient getting dialysis tomorrow Hypertension Uncontrolled diabetes type 2 with blood glucose 534 A1c 14: Aggressive insulin sliding scale Lantus 30 units HS diabetic education Liver disease Time spent 45 minutes Condition guarded Advanced care planning time 20 minutes Patient is full code Plan discussed with: Patient Date of Service: Sep 22, 2024 Billing Provider: ELIZABETH DERAS MD Common Visit Codes: [id number] INP/OBS CARE(HIGH) ELIZABETH DERAS MD Sep 22, 2024 10:57
--- NOTE | 2024-09-22 15:21 | DVHPN2 ---
Progress Note - Dictate Date Seen: Sep 22, 2024 Medical Necessity Reason Pt with a Central, PICC or Fol: No Subjective no new symptoms vital signs Vital Sign Date Time Temp Pulse Resp B/P (MAP) Pulse Ox O2 Delivery O2 Flow Rate FiO2 09/22/24 13:30 98.6 69 17 138/65 (89) 96 98.6 09/22/24 08:05 Room Air* 0 21 Total Intake and Output 09/21/24 09/21/24 09/22/24 15:00 23:00 07:00 Intake Total 625 ml 470 ml Output Total 0 ml Balance 625 ml 470 ml medications Current Medications Medications Dose Ordered Sig/Raj Route Start Time Stop Time Status Last Admin Dose Admin Amlodipine Besylate 5 mg DAILY PO 09/20/24 10:00 09/22/24 08:49 5 MG Hydralazine HCl 10 mg Q6HP PRN IV 09/19/24 23:00 09/21/24 04:18 10 MG Multivit/Ca Carb/ B Cmplx/FA/Prenat 1 tab DAILY PO 09/20/24 10:00 09/22/24 08:46 1 TAB Sevelamer HCl 800 mg TIDWM PO 09/20/24 08:00 09/22/24 11:46 800 MG Aspirin 81 mg DAILY PO 09/20/24 10:00 09/22/24 08:46 81 MG Sodium Chloride 10 ml Q8HR IV 09/20/24 06:00 09/22/24 05:28 10 ML Acetaminophen/ Hydrocodone Bitart 1 tab Q4HP PRN PO 09/19/24 23:00 Ondansetron HCl 4 mg Q4HP PRN IV 09/19/24 23:00 Docusate Sodium 100 mg BIDPRN PRN PO 09/19/24 23:00 Acetaminophen 650 mg Q6HP PRN PO 09/19/24 23:00 Nitroglycerin 0.4 mg Q5MINP PRN SL 09/19/24 23:00 Morphine Sulfate 2 mg Q30M PRN IV 09/19/24 23:00 Insulin Glargine 30 units HS SC 09/20/24 22:00 09/20/24 22:39 30 UNITS Diagnostic Test (Pha) 1 strip IQ4HR 09/20/24 16:00 09/22/24 11:46 1 STRIP Insulin Human Regular IQ4HR SC 09/20/24 16:00 09/21/24 11:28 2 UNITS Dextrose 50 ml UD PRN IV 09/20/24 12:45 objective Gen: NAD, AAOx3 HEENT: NC,AT Cardiac: RRR, no murmur Lungs: crackles lung bases Abd: soft, no distention Ext: no edema + left arm AVF laboratory and microbiology Laboratory Tests 09/20/24 06:24 Test 09/20/24 06:24 Range/Units Serum Glucose 56 L 74-106 mg/dL Assessment/Plan Assessment: ESRD on HD DM with hyperglycemia Chest pain r/o ACS HTN Hyperphosphatemia Secondary hyperparathyroidism Metabolic acidosis Plan: s/p HD Monday Next HD on Monday cardiology consult Continue Renvela with meals FRAN[place]ES[place] post HD as needed. Plan discussed with: Patient MANDI MORRIS MD Sep 22, 2024 15:21
[2024-09-22] MEDS: DOCUSATE SOD 100 MG CAP PO PRN (21:18)
--- NOTE | 2024-09-22 23:21 | DVHPN2 ---
Progress Note - Dictate Date Seen: Sep 22, 2024 Medical Necessity Reason Pt with a Central, PICC or Fol: No Subjective Patient was seen and evaluated in follow up. Patient is complaining of generalized pain. Echocardiogram showed an EF of 65%. BS remain WNL. Telemetry reviewed. vital signs Vital Sign Date Time Temp Pulse Resp B/P (MAP) Pulse Ox O2 Delivery O2 Flow Rate FiO2 09/22/24 13:30 98.6 69 17 138/65 (89) 96 98.6 09/22/24 08:05 Room Air* 0 21 Total Intake and Output 09/21/24 09/21/24 09/22/24 15:00 23:00 07:00 Intake Total 625 ml 470 ml Output Total 0 ml Balance 625 ml 470 ml medications Current Medications Medications Dose Ordered Sig/Raj Route Start Time Stop Time Status Last Admin Dose Admin Amlodipine Besylate 5 mg DAILY PO 09/20/24 10:00 09/22/24 08:49 5 MG Hydralazine HCl 10 mg Q6HP PRN IV 09/19/24 23:00 09/21/24 04:18 10 MG Multivit/Ca Carb/ B Cmplx/FA/Prenat 1 tab DAILY PO 09/20/24 10:00 09/22/24 08:46 1 TAB Sevelamer HCl 800 mg TIDWM PO 09/20/24 08:00 09/22/24 11:46 800 MG Aspirin 81 mg DAILY PO 09/20/24 10:00 09/22/24 08:46 81 MG Sodium Chloride 10 ml Q8HR IV 09/20/24 06:00 09/22/24 05:28 10 ML Acetaminophen/ Hydrocodone Bitart 1 tab Q4HP PRN PO 09/19/24 23:00 Ondansetron HCl 4 mg Q4HP PRN IV 09/19/24 23:00 Docusate Sodium 100 mg BIDPRN PRN PO 09/19/24 23:00 Acetaminophen 650 mg Q6HP PRN PO 09/19/24 23:00 Nitroglycerin 0.4 mg Q5MINP PRN SL 09/19/24 23:00 Morphine Sulfate 2 mg Q30M PRN IV 09/19/24 23:00 Insulin Glargine 30 units HS SC 09/20/24 22:00 09/20/24 22:39 30 UNITS Diagnostic Test (Pha) 1 strip IQ4HR 09/20/24 16:00 09/22/24 11:46 1 STRIP Insulin Human Regular IQ4HR SC 09/20/24 16:00 09/21/24 11:28 2 UNITS Dextrose 50 ml UD PRN IV 09/20/24 12:45 objective GENERAL: Awake, alert, oriented. LUNGS: Clear. CARDIOVASCULAR: Heart sounds are good. ABDOMEN: Soft. laboratory and microbiology Laboratory Tests 09/20/24 06:24 Test 09/20/24 06:24 Range/Units Serum Glucose 56 L 74-106 mg/dL Problem List Chest pain likely in the setting of hypotension. History of hypertension. Dyslipidemia. Presence of permanent pacemaker (Biotronik). End-stage renal disease on hemodialysis. Type 2 diabetes mellitus. Assessment/Plan Continued all current supportive medical care. Morphine and [place] for pain management. Amlodipine. Aspirin. IV Hydralazine for an SBP >150. Additional plan as per the hospital course. Plan discussed with: Patient AUDELIA SOL MD Sep 22, 2024 16:43
[2024-09-23] VITALS (10 sets, daily range): BP systolic 101–163; BP diastolic 44–77; PULSE 64–66; RESP 17–19; TEMP 97.9–98.9; O2SAT 93–100
[2024-09-23] MEDS ORDERED: SODIUM CHL 0.9% 1000 ML BAG XX ONE (07:00)
[2024-09-23 09:00] LABS: Hepatitis B Surface Antigen Negative (Negative)
[2024-09-23 09:18] LABS: Hepatitis C Antibody Negative (Negative)
--- NOTE | 2024-09-23 12:49 | DVHPN2 ---
Reviewed: Care Plan, H&P, Labs, Medications, Previous Orders, Radiology Changes from previous H/P or p: No Changes Eyes: No Pain, No Vision change, No Conjunctivae inflammation, No Eyelid inflammation, No Other, No Redness ENT: No Ear pain, No Ear discharge, No Nose pain, No Nose discharge, No Nose congestion, No Mouth pain, No Mouth swelling; Throat pain; No Throat swelling, No Other Cardiovascular: Chest Pain; No Palpitations, No Orthopnea, No Paroxysmal Noc. Dyspnea, No Edema, No Lt Headedness, No Other Respiratory: Cough; No Dry, No Shortness of breath, No SOB with excertion, No Wheezing, No Hemoptysis, No Pleuritic Pain, No Sputum, No Other Gastrointestinal: Nausea; No Vomiting, No Abdominal Pain, No Diarrhea, No Constipation, No Melena, No Hematochezia, No Other Genitourinary: No Dysuria, No Frequency, No Incontinence, No Hematuria, No Retention, No Other Musculoskeletal: No other, No neck pain, No shoulder pain, No arm pain, No back pain, No hand pain, No leg pain, No foot pain Skin: No Rash, No Lesions, No Jaundice, No Bruising, No Other Objective Vitals Vital Signs Date Time Temp Pulse Resp B/P (MAP) Pulse Ox O2 Delivery O2 Flow Rate FiO2 09/23/24 10:26 98.8 65 17 96 09/23/24 09:00 127/49 (75) 09/23/24 08:25 Room Air* 0 21 Intake/Output Intake and Output 09/23/24 07:00 Intake Total 1475 ml Balance 1475 ml Intake Oral 1475 ml # Voids 5 Medications Current Medications Medications Dose Ordered Sig/Raj Route Start Time Stop Time Status Last Admin Dose Admin Amlodipine Besylate 5 mg DAILY PO 09/20/24 10:00 09/23/24 08:42 5 MG Hydralazine HCl 10 mg Q6HP PRN IV 09/19/24 23:00 09/21/24 04:18 10 MG Multivit/Ca Carb/ B Cmplx/FA/Prenat 1 tab DAILY PO 09/20/24 10:00 09/23/24 08:41 1 TAB Sevelamer HCl 800 mg TIDWM PO 09/20/24 08:00 09/23/24 12:12 800 MG Aspirin 81 mg DAILY PO 09/20/24 10:00 09/23/24 08:41 81 MG Sodium Chloride 10 ml Q8HR IV 09/20/24 06:00 09/22/24 20:37 10 ML Acetaminophen/ Hydrocodone Bitart 1 tab Q4HP PRN PO 09/19/24 23:00 Ondansetron HCl 4 mg Q4HP PRN IV 09/19/24 23:00 Docusate Sodium 100 mg BIDPRN PRN PO 09/19/24 23:00 09/22/24 21:18 100 MG Acetaminophen 650 mg Q6HP PRN PO 09/19/24 23:00 Nitroglycerin 0.4 mg Q5MINP PRN SL 09/19/24 23:00 Morphine Sulfate 2 mg Q30M PRN IV 09/19/24 23:00 Insulin Glargine 30 units HS SC 09/20/24 22:00 09/20/24 22:39 30 UNITS Diagnostic Test (Pha) 1 strip IQ4HR 09/20/24 16:00 09/23/24 12:13 1 STRIP Insulin Human Regular IQ4HR SC 09/20/24 16:00 09/23/24 12:13 3 UNITS Dextrose 50 ml UD PRN IV 09/20/24 12:45 Laboratory Results Laboratory Tests 09/20/24 06:24 Microbiology Microbiology Date/Time Source Procedure Growth Status 09/22/24 03:05 Nose MRSA Screen - Final Complete Labs and/or images reviewed: Labs reviewed by me, Image(s) reviewed by me Assessment/Plan Assessment/Plan Acute chest pain coronary artery disease ruled out troponin negative x3, cardiology consult by Dr Gustafson appreciated, treatment per ACS protocol ESRD on hemodialysis consult for Dr. Bautista, patient getting dialysis tomorrow Hypertension Uncontrolled diabetes type 2 with blood glucose 534 A1c 14: Aggressive insulin sliding scale Lantus 30 units HS diabetic education Liver disease Time spent 45 minutes Condition guarded Advanced care planning time 20 minutes Patient is full code Plan discussed with: Patient Date of Service: Sep 23, 2024 Billing Provider: ELIZABETH DERAS MD Common Visit Codes: [id number] INP/OBS CARE(HIGH) ELIZABETH DERAS MD Sep 23, 2024 12:49
--- NOTE | 2024-09-23 12:53 | DVHDS2 ---
Discharge Summary Date of Admission Sep 19, 2024 at 22:51 Date of Discharge: Sep 23, 2024 Admitting Diagnosis Chest pain Wounds: None Labs/Diagnostic Data: Laboratory Results Test 09/23/24 11:56 09/21/24 06:35 09/20/24 06:24 09/19/24 21:51 POC Glucose 183 mg/dl (70-106) Hepatitis B Surface Antigen Negative (Negative) Hepatitis C Antibody Negative (Negative) White Blood Count 8.8 10^3/uL (4.4-10.8) Red Blood Count 3.39 10^6/uL (4.0-5.20) Hemoglobin 10.2 g/dL (12.2-16.2) Hematocrit 30.3 % (36.0-46.0) Mean Corpuscular Volume 89.4 fL (80.0-100.0) Mean Corpuscular Hemoglobin 30.3 pg (28.0-32.0) Mean Corpuscular Hemoglobin Concent 33.9 g/dL (32.0-36.0) Red Cell Distribution Width 14.1 % (11.8-14.3) Platelet Count 304 10^3/uL (140-450) Mean Platelet Volume 9.0 fL (6.9-10.8) Neutrophils (%) (Auto) 69.4 % (37.0-80.0) Lymphocytes (%) (Auto) 18.6 % (10.0-50.0) Monocytes (%) (Auto) 9.5 % (0.0-12.0) Eosinophils (%) (Auto) 1.7 % (0.0-7.0) Basophils (%) (Auto) 0.8 % (0.0-2.0) Neutrophils # (Auto) 6.1 10 ^3/uL (1.6-8.6) Lymphocytes # (Auto) 1.6 10 ^3/uL (0.4-5.4) Monocytes # (Auto) 0.8 10 ^3/uL (0-1.3) Eosinophils # (Auto) 0.1 10 ^3/uL (0-0.8) Basophils # (Auto) 0.1 10 ^3/uL (0-0.2) Nucleated Red Blood Cells 0.0 % Sodium Level 132 mmol/L (136-145) Potassium Level 3.4 mmol/L (3.5-5.1) Chloride Level 90 mmol/L (98-107) Carbon Dioxide Level 31 mmol/L (20-31) Anion Gap 11 (5-15) Blood Urea Nitrogen 34 mg/dL (9-23) Creatinine 4.53 mg/dL (0.550-1.02) Glomerular Filtration Rate Calc 11 mL/min (>90) BUN/Creatinine Ratio 7.5 (10.0-20.0) Serum Glucose 56 mg/dL (74-106) Hemoglobin A1c > 14.0 % A1C (<5.7) Calcium Level 10.1 mg/dL (8.7-10.4) Magnesium Level 2.8 mg/dL (1.6-2.6) Total Bilirubin 0.3 mg/dL (0.2-1.0) Aspartate Amino Transferase (AST) 14 U/L (13-40) Alanine Aminotransferase (ALT) 13 U/L (7-40) Alkaline Phosphatase 123 U/L (46-116) Total Protein 8.8 g/dL (5.7-8.2) Albumin 4.4 g/dL (3.2-4.8) Triglycerides Level 99 mg/dL (< 150) Cholesterol Level 146 mg/dL (< 200) LDL Cholesterol 77 mg/dL (< 100) HDL Cholesterol 44 mg/dL (40-59) Thyroid Stimulating Hormone (TSH) 3.11 uIU/mL (0.55-4.78) Ammonia 14 umol/L (11-32) Test 09/19/24 21:17 Troponin I High Sensitivity 31 ng/L (</=34) Other Laboratory Tests 09/20/24 06:24 Brief Hx & Hospital Course: 71-year-old female on dialysis history of hypertension diabetes liver disease came in complaining of chest pain troponin negative x3 treated per ACS protocol cardiology consult by Dr. Gustafson no further cardiac workup patient received hemodialysis by Dr. Lily il patient had uncontrolled diabetes with a A1c 14 and blood sugar of 534 patient will put on aggressive sliding scale and also added on Lantus at the time of discharge blood sugars are stable discharged home she will continue all her home medication follow up with the primary Dr and shoe repairman for dialysis Consults/Reason for consult Cardiology Dr. Gustafson Nephrology Operations or Procedures Echocardiogram Hemodialysis Condition at Discharge: Fair Final Diagnosis/Problems List Acute chest pain coronary artery disease ruled out troponin negative x3, cardiology consult by Dr Gustafson appreciated, treatment per ACS protocol ESRD on hemodialysis consult for Dr. Bautista, patient getting dialysis Hypertension Uncontrolled diabetes type 2 with blood glucose 534 A1c 14: Aggressive insulin sliding scale Lantus 30 units HS diabetic education Liver disease Discharge Disposition: Home Discharge Instruct/Medications Diet: Renal Activity: Light activity Follow Up/Referral: Resume all previous home medications Follow up with your primary Follow up with your shoe repairman for Del 35 (Time Taken for discharge summary 35 minutes) Discharge Statement: "Patient was advised to return to the ER or call 911 if any headaches, dizziness, shortness of breath, chest pain, abdominal pain, bleeding, fevers, or worsening of medical condition. Patient was counseled about treatment plan, medications, possible side effects, patientverbalized understanding. All questions were answered to the best of my ability. This discharge took greater then 30 minutes in planning, reviewing documentation, counseling the patient, and discussing with other team members." ASSESSMENT ASSESSMENT Hospital Course Uneventful Assessment Acute chest pain coronary artery disease ruled out troponin negative x3, cardiology consult by Dr Gustafson appreciated, treatment per ACS protocol ESRD on hemodialysis consult for Dr. Bautista, patient getting dialysis Hypertension Uncontrolled diabetes type 2 with blood glucose 534 A1c 14: Aggressive insulin sliding scale Lantus 30 units HS diabetic education Liver disease Date of Service: Sep 23, 2024 Billing Provider: ELIZABETH DERAS MD Common Visit Codes: [id number] DISCH DAY >30min ELIZABETH DERAS MD Sep 23, 2024 12:53
--- NOTE | 2024-09-23 13:17 | DVHPN2 ---
Progress Note - Dictate Date Seen: Sep 23, 2024 Medical Necessity Reason Pt with a Central, PICC or Fol: No Subjective Shortness of breath reported. vital signs Vital Sign Date Time Temp Pulse Resp B/P (MAP) Pulse Ox O2 Delivery O2 Flow Rate FiO2 09/23/24 10:26 98.8 65 17 96 09/23/24 09:00 127/49 (75) 09/23/24 08:25 Room Air* 0 21 Total Intake and Output 09/22/24 09/22/24 09/23/24 15:00 23:00 07:00 Intake Total 675 ml 800 ml Balance 675 ml 800 ml medications Current Medications Medications Dose Ordered Sig/Raj Route Start Time Stop Time Status Last Admin Dose Admin Amlodipine Besylate 5 mg DAILY PO 09/20/24 10:00 09/23/24 08:42 5 MG Hydralazine HCl 10 mg Q6HP PRN IV 09/19/24 23:00 09/21/24 04:18 10 MG Multivit/Ca Carb/ B Cmplx/FA/Prenat 1 tab DAILY PO 09/20/24 10:00 09/23/24 08:41 1 TAB Sevelamer HCl 800 mg TIDWM PO 09/20/24 08:00 09/23/24 12:12 800 MG Aspirin 81 mg DAILY PO 09/20/24 10:00 09/23/24 08:41 81 MG Sodium Chloride 10 ml Q8HR IV 09/20/24 06:00 09/22/24 20:37 10 ML Acetaminophen/ Hydrocodone Bitart 1 tab Q4HP PRN PO 09/19/24 23:00 Ondansetron HCl 4 mg Q4HP PRN IV 09/19/24 23:00 Docusate Sodium 100 mg BIDPRN PRN PO 09/19/24 23:00 09/22/24 21:18 100 MG Acetaminophen 650 mg Q6HP PRN PO 09/19/24 23:00 Nitroglycerin 0.4 mg Q5MINP PRN SL 09/19/24 23:00 Morphine Sulfate 2 mg Q30M PRN IV 09/19/24 23:00 Insulin Glargine 30 units HS SC 09/20/24 22:00 09/20/24 22:39 30 UNITS Diagnostic Test (Pha) 1 strip IQ4HR 09/20/24 16:00 09/23/24 12:13 1 STRIP Insulin Human Regular IQ4HR SC 09/20/24 16:00 09/23/24 12:13 3 UNITS Dextrose 50 ml UD PRN IV 09/20/24 12:45 objective Gen: NAD, AAOx3 HEENT: NC,AT Cardiac: RRR, no murmur Lungs: crackles lung bases Abd: soft, no distention Ext: no edema + left arm AVF laboratory and microbiology Laboratory Tests 09/20/24 06:24 Test 09/20/24 06:24 Range/Units Serum Glucose 56 L 74-106 mg/dL Assessment/Plan Assessment: ESRD on HD DM with hyperglycemia Chest pain r/o ACS HTN Hyperphosphatemia Secondary hyperparathyroidism Metabolic acidosis Plan: HD today. Case discussed with [facility] HD. Cardiology consult. Continue Renvela with meals [place] post HD as needed. Plan discussed with: Patient NIKOLAS ENGLE MD Sep 23, 2024 13:16
[2024-09-23] MEDS: ACETAMINOPHEN 325 MG TAB PO PRN (21:27)
--- NOTE | 2024-09-23 22:07 | DVHPN2 ---
Progress Note - Dictate Date Seen: Sep 23, 2024 Medical Necessity Reason Pt with a Central, PICC or Fol: No Subjective Patient was seen and evaluated in follow up. Patient complains of mild SOB and headache. MRSA is negative. Awaiting to receive dialysis. Telemetry reviewed. vital signs Vital Sign Date Time Temp Pulse Resp B/P (MAP) Pulse Ox O2 Delivery O2 Flow Rate FiO2 09/23/24 21:28 180/60 09/23/24 21:00 97.9 64 18 100 97.9 09/23/24 08:25 Room Air* 0 21 Total Intake and Output 09/22/24 09/22/24 09/23/24 15:00 23:00 07:00 Intake Total 675 ml 800 ml Balance 675 ml 800 ml medications Current Medications Medications Dose Ordered Sig/Raj Route Start Time Stop Time Status Last Admin Dose Admin Amlodipine Besylate 5 mg DAILY PO 09/20/24 10:00 09/23/24 08:42 5 MG Hydralazine HCl 10 mg Q6HP PRN IV 09/19/24 23:00 09/23/24 21:28 10 MG Multivit/Ca Carb/ B Cmplx/FA/Prenat 1 tab DAILY PO 09/20/24 10:00 09/23/24 08:41 1 TAB Sevelamer HCl 800 mg TIDWM PO 09/20/24 08:00 09/23/24 18:21 800 MG Aspirin 81 mg DAILY PO 09/20/24 10:00 09/23/24 08:41 81 MG Sodium Chloride 10 ml Q8HR IV 09/20/24 06:00 09/23/24 18:25 10 ML Acetaminophen/ Hydrocodone Bitart 1 tab Q4HP PRN PO 09/19/24 23:00 Ondansetron HCl 4 mg Q4HP PRN IV 09/19/24 23:00 Docusate Sodium 100 mg BIDPRN PRN PO 09/19/24 23:00 09/22/24 21:18 100 MG Acetaminophen 650 mg Q6HP PRN PO 09/19/24 23:00 09/23/24 21:27 650 MG Nitroglycerin 0.4 mg Q5MINP PRN SL 09/19/24 23:00 Morphine Sulfate 2 mg Q30M PRN IV 09/19/24 23:00 Insulin Glargine 30 units HS SC 09/20/24 22:00 09/20/24 22:39 30 UNITS Diagnostic Test (Pha) 1 strip IQ4HR 09/20/24 16:00 09/23/24 20:00 1 STRIP Insulin Human Regular IQ4HR SC 09/20/24 16:00 09/23/24 12:13 3 UNITS Dextrose 50 ml UD PRN IV 09/20/24 12:45 objective GENERAL: Awake, alert, oriented. LUNGS: Clear. CARDIOVASCULAR: Heart sounds are good. ABDOMEN: Soft. laboratory and microbiology Laboratory Tests 09/20/24 06:24 Test 09/20/24 06:24 Range/Units Serum Glucose 56 L 74-106 mg/dL Problem List Chest pain likely in the setting of hypotension. History of hypertension. Dyslipidemia. Presence of permanent pacemaker (Biotronik). End-stage renal disease on hemodialysis. Type 2 diabetes mellitus. Assessment/Plan Continued all current supportive medical care. Morphine and [place] for pain management. Amlodipine. Aspirin. IV Hydralazine for an SBP >150. Additional plan as per the hospital course. Plan discussed with: Patient AUDELIA SOL MD Sep 23, 2024 22:07
== END 2024-09-23 23:05 | disposition home or self-care (01) | DRG 199 ==
LOC: ER 17:40 → TELE 22:51 → TELE-EAST 09-20 23:51
PROVIDERS: ADMIT Nurse Practitioner Family; ATTEND Family Medicine
PROC: 5A1D70Z Performance of Urinary Filtration, Intermittent, Less than 6 Hours Per Day (ICD-10-PCS; principal; 2024-09-20)
PROC: 5A1D70Z Performance of Urinary Filtration, Intermittent, Less than 6 Hours Per Day (ICD-10-PCS; 2024-09-23)
DX: I16.0 Hypertensive urgency (principal); I95.9 Hypotension, unspecified; E87.20 Acidosis, unspecified; E83.39 Other disorders of phosphorus metabolism; N18.6 End stage renal disease; K74.60 Unspecified cirrhosis of liver; I12.0 Hypertensive chronic kidney disease with stage 5 chronic kidney disease or end stage renal disease; E87.5 Hyperkalemia; N25.81 Secondary hyperparathyroidism of renal origin; E11.65 Type 2 diabetes mellitus with hyperglycemia; E78.5 Hyperlipidemia, unspecified; K21.9 Gastro-esophageal reflux disease without esophagitis; Z79.4 Long term (current) use of insulin; Z83.3 Family history of diabetes mellitus; Z95.0 Presence of cardiac pacemaker; Z99.2 Dependence on renal dialysis; Z79.82 Long term (current) use of aspirin; Z79.899 Other long term (current) drug therapy
CPT/HCPCS: 36415; 71045; 74176; 80053; 80061; 82140; 82962; 83036; 83735; 84443; 84484; 85025; 86803; 87081; 87340; 90935; 93005; 93306; 96365; 96375; 99291; G0378; J1815

== ENCOUNTER 2025-01-27 18:06 | Inpatient (IN) | payer MEDICAID ==
[~2025-01-27] VITALS: Ht 165.1 cm; Wt 105.8 kg
--- NOTE | 2025-01-27 18:55 | ED.PDOC ---
Musculoskeletal HPI Comments 59 year old female presents to the ED with a chief complaint of LT foot wound onset 1 week. Patient had a small cut on LT foot, was not healing, decided to dip foot in hot water. Patient states she has neuropathy, did not feel the water was boiling hot, has cordova to LT foot. She applied Maranda dye, has tried cleaning wound, wound has been worsening as well as pain. Current pain is 10/10, BP at home has been 200 systolic. Patient goes to dialysis Monday, , Monday. PMHx ESRD, DM, HTN, liver cirrhosis,neuropathy. Denies fevers, chills, nausea, vomiting, chest pain, dizziness, shortness of breath. No other symptoms or modifying factors present at this time. Chief Complaint: Wound Check Time Seen by MD: 18:25 Primary Care Provider: KRYSTA Reviewed Notes: Medications, Allergies Allergies: Coded Allergies: NO KNOWN ALLERGIES (Unverified , 08/03/20) Home Meds Reported Medications Sevelamer Hydrochloride (Sevelamer Hydrochloride) 800 Mg Tab, 2 TAB PO TID 08/14/22 Glipizide (Glipizide Er) 2.5 Mg Tab, 1 TAB PO DAILY 08/14/22 Calcium Acetate (Phosphate Bin (Calcium Acetate) 667 Mg Cap, 2 CAP PO TID 08/14/22 Amlodipine Besylate (Amlodipine Besylate) 10 Mg Tab, 1 TAB PO DAILY 08/14/22 Aspirin (Aspir-Low) 81 Mg Tab, 81 MG PO DAILY for 30 Days, MG 08/05/20 Hydralazine Hcl (Hydralazine Hcl) 10 Mg Tab, 0 PO BID for 30 Days, MG 08/05/20 Information Source: Patient, Relative Mode of Arrival: Ambulatory Location: Left Extremity Location: Foot Timing: Weeks Severity: Moderate Able to Move Extremity: Yes Bear Weight: Limited Pain: Moderate Past Medical History PAST MEDICAL HISTORY: DM, ESRD, HTN, Liver Past Medical History (Other): neuropathy Surgical History: Pacemaker LEGAL ANALYST History: Denies all LEGAL ANALYST Hx Family History Family History: Reviewed,noncontributory to illness Social History Smoker: Non-Smoker Alcohol: Denies ETOH Use Drugs: Denies Drug Use Lives In: Home Constitutional: denies: chills, diaphoresis, fatigue, fever, malaise, sweats, weakness, others EENTM: denies: blurred vision, double vision, ear bleeding, ear discharge, ear drainage, ear pain, ear ringing, eye pain, eye redness, hearing loss, mouth pain, mouth swelling, nasal discharge, nose bleeding, nose congestion, nose pain, photophobia, tearing, throat pain, throat swelling, voice changes, others Respiratory: denies: cough, hemoptysis, orthopnea, SOB at rest, shortness of breath, SOB with excertion, stridor, wheezing, others Cardiovascular: denies: chest pain, dizzy spells, diaphoresis, Dyspnea on exertion, edema, irregular heart beat, left arm pain, lightheadedness, palpitations, PND, syncope, others Gastrointestinal: denies: abdomen distended, abdominal pain, blood streaked bowels, constipated, diarrhea, dysphagia, difficulty swallowing, hematemesis, me sandra, nausea, poor appetite, poor fluid intake, rectal bleeding, rectal pain, vomiting, others Genitourinary: denies: abnormal vagina bleeding, burning, dyspareunia, dysuria, flank pain, frequency, hematuria, incontinence, pain, , vagina discharge, urgency, others Neurological: denies: dizziness, fainting, headache, left sided numbness, left sided weakness, numbness, paresthesia, pre-existing deficit, right sided numbness, right sided weakness, seizure, speech problems, tingling, tremors, weakness, others Musculoskeletal: reports: others (Lt foot pain, wound); denies: back pain, gout, joint pain, joint swelling, muscle pain, muscle stiffness, neck pain Integumetry: reports: change in color (LT foot), dryness, wounds (LT foot); denies: bruises, change in hair/nails, laceration, lesions, lumps, rash, others Allergic/Immunocompromised: denies: Difficulty Healing, Frequent Infections, Hives, Itching, others Hematologic/Lymphatic: denies: anemia, blood clots, easy bleeding, easy bruising, swollen glands, others Endocrine: denies: excessive hunger, excessive sweating, excessive thirst, excessive urination, flushing, intolerance to cold, intolerance to heat, unexplained weight gain, unexplained weight loss, others Psychiatric: denies: anxiety, bipolar disorder, depression, hopeless, panic disorder, schizophrenia, sleepless, suicidal, others All Other Systems: Reviewed and Negative Physical Exam General Appearance: Normal HEENT: Normal ENT Inspection, Pharynx Normal, TMs Normal Neck: Full Range of Motion, Non-Tender, Normal, Normal Inspection Respiratory: Chest Non-Tender, Lungs Clear, No Accessory Muscle Use, No Respiratory Distress, Normal Breath Sounds Cardiovascular: No Edema, No JVD, No Murmur, No Gallop, Normal Peripheral Pulses, Regular Rate/Rhythm Breast Exam: Deferred Gastrointestinal: No Organomegaly, Non Tender, No Pulsatile Mass, Normal Bowel Sounds, Soft Genitalia: Deferred Pelvic: Deferred Rectal: Deferred Extremities: No calf tenderness, Normal capillary refill, Normal inspection, Normal range of motion, Non-tender, No pedal edema Musculoskeletal : Apperance: Normal Neurologic: Alert, pressroom supervisor II-XII nml as Tested, No Motor Deficits, Normal Affect, Normal Mood, No Sensory Deficits Cerebellar Function: Normal Reflexes: Normal Skin: Dry, Normal Color, Warm Lymphatic: No Adenopathy Was a procedure done? Was a procedure done?: No Differential Diagnosis EXT Differential Diagnosis: Cellulitis, Compartment Syndrome, Fracture, Sprain, Dislocation, DJD, Septic, Neurovascular injury, Arthritis, Bursitis, Other X-Ray, Labs, Meds, VS Vital Signs Date Time Temp Pulse Resp B/P (MAP) Pulse Ox O2 Delivery O2 Flow Rate FiO2 01/27/25 18:24 97.9 65 18 152/79 (103) 96 97.9 Lab Test 01/27/25 19:40 Range/Units White Blood Count 8.3 4.4-10.8 10^3/uL Red Blood Count 4.50 4.0-5.20 10^6/uL Hemoglobin 12.7 12.2-16.2 g/dL Hematocrit 38.6 36.0-46.0 % Mean Corpuscular Volume 85.7 80.0-100.0 fL Mean Corpuscular Hemoglobin 28.2 28.0-32.0 pg Mean Corpuscular Hemoglobin Concent 32.9 32.0-36.0 g/dL Red Cell Distribution Width 16.7 H 11.8-14.3 % Platelet Count 389 140-450 10^3/uL Mean Platelet Volume 7.5 6.9-10.8 fL Neutrophils (%) (Auto) 75.4 37.0-80.0 % Lymphocytes (%) (Auto) 14.5 10.0-50.0 % Monocytes (%) (Auto) 7.5 0.0-12.0 % Eosinophils (%) (Auto) 1.5 0.0-7.0 % Basophils (%) (Auto) 1.1 0.0-2.0 % Neutrophils # (Auto) 6.2 1.6-8.6 10 ^3/uL Lymphocytes # (Auto) 1.2 0.4-5.4 10 ^3/uL Monocytes # (Auto) 0.6 0-1.3 10 ^3/uL Eosinophils # (Auto) 0.1 0-0.8 10 ^3/uL Basophils # (Auto) 0.1 0-0.2 10 ^3/uL Nucleated Red Blood Cells 0.2 % Prothrombin Time 10.8 9.3-11.8 sec Prothrombin Time INR 1.02 0.9-1.15 Activated Partial Thromboplast Time 29.9 24.5-34.5 SEC Sodium Level 130 L 136-145 mmol/L Potassium Level 5.5 H 3.5-5.1 mmol/L Chloride Level 88 L 98-107 mmol/L Carbon Dioxide Level 28 20-31 mmol/L Anion Gap 14 5-15 Blood Urea Nitrogen 67 H 9-23 mg/dL Creatinine 6.92 H 0.550-1.02 mg/dL Glomerular Filtration Rate Calc 6 >90 mL/min BUN/Creatinine Ratio 9.7 L 10.0-20.0 Serum Glucose 208 H 74-106 mg/dL Lactic Acid Level 0.6 0.4-2.0 mmol/L Calcium Level 9.7 8.7-10.4 mg/dL Total Bilirubin 0.3 0.2-1.0 mg/dL Aspartate Amino Transferase (AST) 19 <34 U/L Alanine Aminotransferase (ALT) 15 7-40 U/L Alkaline Phosphatase 227 H 46-116 U/L Total Protein 8.9 H 5.7-8.2 g/dL Albumin 4.4 3.2-4.8 g/dL [address] [address] Ph: [phone] DIAGNOSTIC IMAGING Diagnostic Imaging Report : [id number] Signed PATIENT: ENTERPRISE MOYASONG JONESCCT: [id number] UNIT: [id number] : 1965 LOC: ER ROOM / BED: / AGE / SEX: 59 / F ADM STATUS: REG ER SERVICE 35 ORDERING PHYSICIAN: CHERRI GRAHAM MD PROCEDURE(s): LFOT2 - L FOOT 2 VIEW XRAY REASON: pain / swelling wound ORDER NUMBER(s): [id number], ACCESSION NUMBER(s): [id number] EXAM: XY L FOOT 2 VIEW XRAY CLINICAL INDICATION: pain / swelling wound TECHNIQUE: XY L FOOT 2 VIEW XRAY Comparison: None FINDINGS/IMPRESSION: There is no evidence of acute fracture or dislocation. If high suspisicion for osteo, consider MRI, diffuse swelling The alignment is anatomical. There is no radiopaque foreign body. ATED BY: PONCHO LINDO MD DICTATED DATE/TIME: 01/27/251923 SIGNED BY: PONCHO LINDO MD SIGNED DATE/TIME: 01/27/251923 CC: [place] [id number] Ph: [phone] DIAGNOSTIC IMAGING Diagnostic Imaging Report : [id number] Signed PATIENT: SONG AGUILARCCT: [id number] UNIT: [id number] : 1965 LOC: ER ROOM / BED: / AGE / SEX: 59 / F ADM STATUS: REG ER SERVICE 35 ORDERING PHYSICIAN: CHERRI GRAHAM MD PROCEDURE(s): CXR1 - CHEST XRAY 1 VIEW REASON: dialysis weakness ORDER NUMBER(s): [id number], ACCESSION NUMBER(s): [id number] CHEST XRAY: 1 view(s) was obtained HISTORY: dialysis weakness COMPARISON: XY CHEST PORTABLE on DOS: 09/19/24, CHEST PORTABLE on DOS: 09/01/22, CXRP on DOS: 09/01/22, CHEST PORTABLE on DOS: 08/12/22, CXRP on DOS: 08/12/22 FINDINGS: Expansion: Normal. Lungs parenchyma: Please note, the matm-kdqogoo-nicc-right lung apex is partly excluded from cutoa-po-mzcb. The lungs are clear. Pleura: There is blunting of the right costophrenic angle. Mediastinum: Heart size is normal. There is a left-sided dual-chamber pacemaker. Chest Wall, Upper Abdomen and Lower Neck: Unremarkable. IMPRESSION: 1. Blunting of the right costophrenic angle, which may be due to pleural thickening or a small right pleural effusion. ATED BY: PONCHO LINDO MD DICTATED DATE/TIME: 01/27/251909 SIGNED BY: PONCHO LINDO MD SIGNED DATE/TIME: 01/27/251909 CC: Time of 1ST Reevaluation: 18:55 Reevaluation 1ST: Unchanged Patient Education/Counseling: Diagnosis, Treatment, Prognosis Family Education/Counseling: Diagnosis, Treatment, Prognosis Sepsis Sepsis Reasesment Focused Exam Orders: Laboratory Tests 01/27/25 19:40: Lactic Acid Level 0.6 Departure 1 Departure Time of Disposition: 21:03 Impression: Primary Impression: ESRD (end stage renal disease) on dialysis Additional Impressions: Hyperkalemia Cellulitis of left foot Disposition: ADMITTED INPATIENT Condition: Guarded Discharged With: Self Comments Left Foot Wound with Cellulitis in ESRD Patient Chief Complaint: Left foot wound with pain History of Present Illness: Patient is a 59-year-old female with a history of diabetes mellitus and end- stage renal disease (ESRD) on hemodialysis three times weekly (Monday, , Monday). She presents today with complaints of a wound and pain in her left foot. The patient reports that she initially had a small cut on her left foot and attempted to treat it by soaking in hot water. Subsequently, she developed a larger wound involving the distal toes of the left foot with progressive swelling over the past week. The area has become increasingly painful, prompting her to seek medical attention today. Review of Systems: Constitutional: No fever reported. Cardiovascular: No chest pain, palpitations, or edema noted. Respiratory: No shortness of breath, cough, or hemoptysis. Gastrointestinal: Not reported. Genitourinary: Patient with ESRD on regular hemodialysis. Musculoskeletal: Left foot pain and swelling as described in HPI. Skin: Left foot wound with surrounding erythema and possible gangrene. Neurological: No focal neurological deficits reported. Psychiatric: Not reported. Medications: Hemodialysis regimen (details not specified) Likely on diabetic medications (specific agents not mentioned) Other home medications not specified in dietary tech Past Medical History: Diabetes mellitus End-stage renal disease on hemodialysis (Monday, , Monday) Likely hypertension (common in ESRD, though not explicitly stated) Physical Exam: General: Not specified in dietary tech HEENT: Not specified in dietary tech Cardiovascular: Left forearm AV shunt with good thrill Respiratory: Not specified in dietary tech Abdomen: Not specified in dietary tech Extremities: Left foot with skin breakdown of distal foot and toes, surrounding erythema and swelling. Evidence of darkening skin consistent with dry gangrene. Neurological: Not specified in dietary tech Lab Results: WBC: 8.3 (normal) Lactic acid: 0.6 (normal) BUN: 67 (elevated) Creatinine: 6.92 (elevated, consistent with ESRD) Potassium: 5.5 (hyperkalemia) Sodium: 130 (hyponatremia) Chloride: 88 (hypochloremia) Imaging and Other Relevant Results: Left foot X-ray: Significant soft tissue swelling. Radiology recommends MRI to rule out osteomyelitis. Chest X-ray: Possible small right pleural effusion. Medical Decision Making: Summary Statement: 59-year-old female with diabetes and ESRD on hemodialysis presenting with progressive left foot wound, erythema, and swelling after attempting to self-treat a small cut. Physical exam and imaging suggest cellulitis with possible gangrene and underlying osteomyelitis. Problem List: 1. Left foot cellulitis with possible gangrene 2. Suspected osteomyelitis of left foot 3. End-stage renal disease on hemodialysis 4. Hyperkalemia 5. Possible fluid overload with small right pleural effusion 6. Diabetes mellitus Differential Diagnosis: Left foot: Cellulitis, diabetic foot ulcer with secondary infection, osteomyelitis, peripheral vascular disease with gangrene, necrotizing fasciitis. Hyperkalemia: ESRD-related, medication effect, acidosis, tissue breakdown. ED Course: Patient evaluated for left foot infection. Laboratory studies revealed normal WBC but electrolyte abnormalities consistent with ESRD. Imaging showed soft tissue swelling of left foot and possible right pleural effusion. Patient started on IV antibiotics (cefazolin and vancomycin) for broad-spectrum coverage. Decision made to admit for further management. Assessment and Plan: 1. Left Foot Cellulitis with Possible Gangrene: - Initiated IV antibiotics with cefazolin and vancomycin for broad-spectrum coverage - Will continue IV antibiotics during admission - Elevate affected extremity - Wound care consultation - Vascular surgery consultation to evaluate for possible gangrene 2. Suspected Osteomyelitis: - Will arrange for MRI of left foot as recommended by radiology - Infectious disease consultation if MRI confirms osteomyelitis 3. End-Stage Renal Disease: - Continue scheduled hemodialysis - Medication dosing adjusted for renal function - Monitor fluid status 4. Hyperkalemia (K+ 5.5): - Monitor potassium levels closely - Treat with dialysis as needed 5. Possible Fluid Overload with Small Right Pleural Effusion: - Monitor respiratory status - Address with dialysis as needed 6. Diabetes Mellitus: - Continue home diabetic regimen with appropriate adjustments during hospitalization - Monitor blood glucose levels Disposition: Admit to medicine service for management of left foot infection and associated complications in the setting of ESRD and diabetes. Additional Notes: Patient requires admission for management of left foot cellulitis with possible gangrene and osteomyelitis in the setting of ESRD. Billing Information: ICD-10: L03.115 - Cellulitis of left lower limb ICD-10: I96 - Gangrene, not elsewhere classified ICD-10: M86.671 - Other osteomyelitis, right ankle and foot ICD-10: N18.6 - End stage renal disease ICD-10: E87.5 - Hyperkalemia Critical Care Note Critical Care Time?: Yes (35 min-critical care time only) Critical care comment: Total critical care time: Approximately 36 minutes Due to a high probability of clinically significant, life threatening deterioration, the patient required my highest level of preparedness to intervene emergently and I personally spent this critical care time directly and personally managing the patient. This critical care time included obtaining a history; examining the patient; pulse oximetry; ordering and review of studies; arranging urgent treatment with development of a management plan; evaluation of patient's response to treatment; frequent reassessment; and, discussions with other providers. This critical care time was performed to assess and manage the high probability of imminent, life-threatening deterioration that could result in multi-organ failure. It was exclusive of separately billable procedures and treating other patients. Stability Stability form required: No I personally scribed for CHERRI GRAHAM MD ([email or web address]) on 01/27/25 at 18:54. Electronically submitted by Fina Angulo ([email or web address]). I personally scribed for CHERRI GRAHAM MD ([email or web address]) on 01/27/25 at 19:29. Electronically submitted by Fina Angulo ([email or web address]). CHERRI GRAHAM MD Jan 27, 2025 18:54
--- NOTE | 2025-01-27 19:12 | DVH ---
CHEST XRAY: 1 view(s) was obtained HISTORY: dialysis weakness COMPARISON: XY CHEST PORTABLE on DOS: 09/19/24, CHEST PORTABLE on DOS: 09/01/22, CXRP on DOS: 09/01/22, C HEST PORTABLE on DOS: 08/12/22, CXRP on DOS: 08/12/22 FINDINGS: Expansion: Normal. Lungs parenchyma: Please note, the ulgm-qenlyrz-tkqy-right lung apex is partly excluded from field-of -view. The lungs are clear. Pleura: There is blunting of the right costophrenic angle. Mediastinum: Heart size is normal. There is a left-sided dual-chamber pacemaker. Chest Wall, Upper Abdomen and Lower Neck: Unremarkable. IMPRESSION: 1. Blunting of the right costophrenic angle, which may be due to pleural thickening or a small right pl eural effusion.
--- NOTE | 2025-01-27 19:26 | DVH ---
EXAM: XY L FOOT 2 VIEW XRAY CLINICAL INDICATION: pain / swelling wound TECHNIQUE: XY L FOOT 2 VIEW XRAY Comparison: None FINDINGS/IMPRESSION: There is no evidence of acute fracture or dislocation. Diffuse soft tissue swelling. If high clinical suspicion for osteomyelitis, consider MRI examination.
[2025-01-27 20:08] LABS: Basophils # (auto) 0.1 10 ^3/uL (0-0.2); Basophils % (auto) 1.1 % (0.0-2.0); Eosinophils # (auto) 0.1 10 ^3/uL (0-0.8); Eosinophils % (auto) 1.5 % (0.0-7.0); Hematocrit 38.6 % (36.0-46.0); Hemoglobin 12.7 g/dL (12.2-16.2); Lymphocytes # (auto) 1.2 10 ^3/uL (0.4-5.4); Lymphocytes % (auto) 14.5 % (10.0-50.0); Mean Corpuscular Hemoglobin 28.2 pg (28.0-32.0); Mean Corpuscular Hgb Conc. 32.9 g/dL (32.0-36.0); Mean Corpuscular Volume 85.7 fL (80.0-100.0); Monocytes # (auto) 0.6 10 ^3/uL (0-1.3); Monocytes % (auto) 7.5 % (0.0-12.0); Neutrophils # (auto) 6.2 10 ^3/uL (1.6-8.6); Neutrophils % (auto) 75.4 % (37.0-80.0); Nucleated Red Blood Cells % 0.2 %; Platelet Count (auto) 389 10^3/uL (140-450); Red Cell Distribution Width 16.7 % (11.8-14.3); White Blood Cell 8.3 10^3/uL (4.4-10.8)
[2025-01-27 20:22] LABS: Alanine Aminotransferase 15 U/L (7-40); Albumin 4.4 g/dL (3.2-4.8); Anion Gap 14 (5-15); Aspartate Aminotransferase 19 U/L (<34); BUN/Creatinine Ratio 9.7 (10.0-20.0); Calcium 9.7 mg/dL (8.7-10.4); Carbon Dioxide 28 mmol/L (20-31)
[2025-01-27 20:23] LABS: Alkaline Phosphatase 227 U/L (46-116); Bilirubin, Total 0.3 mg/dL (0.2-1.0); Blood Urea Nitrogen 67 mg/dL (9-23); Chloride 88 mmol/L (98-107); Glucose 208 mg/dL (74-106); Potassium 5.5 mmol/L (3.5-5.1); Sodium 130 mmol/L (136-145); Total Protein 8.9 g/dL (5.7-8.2)
[2025-01-27 20:28] LABS: INR 1.02 (0.9-1.15); Partial Thromboplastin Time 29.9 SEC (24.5-34.5); Prothrombin Time 10.8 sec (9.3-11.8)
[2025-01-27] MEDS ORDERED: NITROGLYCERIN 0.4 MG SL TAB SL PRN (21:15)
[2025-01-27] MEDS ORDERED: DOCUSATE SOD 100 MG CAP PO PRN (21:15)
[2025-01-27] MEDS ORDERED: ACETAMINOPHEN 325 MG TAB PO PRN (21:15)
[2025-01-27] MEDS ORDERED: ONDANSETRON HCL 4 MG/2 ML VIAL IV PRN (21:15)
[2025-01-27] MEDS ORDERED: MORPHINE SULFATE INJ 2 MG/ml SYRG IV PRN (21:15)
[2025-01-27] MEDS: ceFAZolin 1GM/50ML 50 ML IV ONE (22:27)
[2025-01-27] MEDS: MORPHINE SULFATE INJ 2 MG/ml SYRG IV PRN (22:27)
[2025-01-27] MEDS: SODIUM CHLORIDE 0.9% 1,000 ML IV SCH (22:29)
--- NOTE | 2025-01-27 23:02 | DVHHPRES ---
History of Present Illness Resident Creating Document: NBA MANDEL RESIDENT History of Present Illness Daquan Welch, 59-year-old female with a history of diabetes mellitus (DM), end-stage renal disease (ESRD) on hemodialysis (//Sat. Dr. Bautista), hypertension (HTN), liver cirrhosis, and peripheral neuropathy presents to the ED with a worsening left foot wound. The wound began as a small cut one week ago and has progressively worsened. The patient attempted to treat it by soaking her foot in hot water but sustained cordova due to her neuropathy and inability to feel the temperature. She applied toy dye and attempted wound care at home without improvement. She reports severe pain (10/10) and limited ability to bear weight. Home blood pressure readings have been elevated (systolic ~200 mmHg). She denies systemic symptoms such as fever, chills, nausea, vomiting, chest pain, dizziness, or shortness of breath. Past Medical History diabetes mellitus (DM), end-stage renal disease (ESRD) on hemodialysis (//Sat. Dr. Bautista), hypertension (HTN), liver cirrhosis, and peripheral neuropathy Past Surgical History cardiac device implant, left forearm fistula Family History: None, DM, Hypertension Family History Non contributory Smoke: No ALCOHOL: none Drugs: None Lives: with Family Domestic Violence: Neg Review of Systems Constitutional: Yes: Chills, Malaise; No: Fever, Sweats, Weakness, Other Eyes: No: Pain, Vision change, Conjunctivae inflammation, Eyelid inflammation, Other, Redness ENT: No: Ear pain, Ear discharge, Nose pain, Nose discharge, Nose congestion, Mouth pain, Mouth swelling, Throat pain, Throat swelling, Other Respiratory: No: Cough, Dry, Shortness of breath, SOB with excertion, Wheezing, Hemoptysis, Pleuritic Pain, Sputum, Wheezing, Other Cardiovascular: Chest Pain; No: Palpitations, Orthopnea, Paroxysmal Noc. Dyspnea, Edema, Lt Headedness, Other Gastrointestinal: No: Nausea, Vomiting, Abdominal Pain, Diarrhea, Constipation, Melena, Hematochezia, Other Genitourinary: No Dysuria, No Frequency, No Incontinence, No Hematuria, No Retention, No Other Musculoskeletal: leg pain, foot pain; No: other, neck pain, shoulder pain, arm pain, back pain, hand pain Skin: Lesions; No: Rash, Jaundice, Bruising, Other Neurological: No: Weakness, Numbness, Incoordination, Change in speech, Confusion, Seizures, Other Allergies: Coded Allergies: NO KNOWN ALLERGIES (Unverified , 08/03/20) Medications Current Medications Medications Dose Ordered Sig/Raj Route Start Time Stop Time Status Last Admin Dose Admin Sodium Chloride 1,000 ml @ 120 mls/hr Q8H20M IV 01/27/25 21:15 Ondansetron HCl 4 mg Q4HP PRN IV 01/27/25 21:15 Docusate Sodium 100 mg BIDPRN PRN PO 01/27/25 21:15 Acetaminophen 650 mg Q6HP PRN PO 01/27/25 21:15 Morphine Sulfate 2 mg Q4HPRN PRN IV 01/27/25 21:15 01/27/25 22:27 2 MG Nitroglycerin 0.4 mg Q5MINP PRN SL 01/27/25 21:15 Morphine Sulfate 2 mg Q30M PRN IV 01/27/25 21:15 Exam Vital Signs Vital Signs Date Time Temp Pulse Resp B/P (MAP) Pulse Ox O2 Delivery O2 Flow Rate FiO2 01/27/25 22:27 63 21 162/58 01/27/25 22:15 94 Room Air 01/27/25 22:15 98.4 98.4 01/27/25 22:06 0 21 General Appearance: Alert Labs/Xrays Labs Test 01/27/25 19:40 Range/Units White Blood Count 8.3 4.4-10.8 10^3/uL Red Blood Count 4.50 4.0-5.20 10^6/uL Hemoglobin 12.7 12.2-16.2 g/dL Hematocrit 38.6 36.0-46.0 % Mean Corpuscular Volume 85.7 80.0-100.0 fL Mean Corpuscular Hemoglobin 28.2 28.0-32.0 pg Mean Corpuscular Hemoglobin Concent 32.9 32.0-36.0 g/dL Red Cell Distribution Width 16.7 H 11.8-14.3 % Platelet Count 389 140-450 10^3/uL Mean Platelet Volume 7.5 6.9-10.8 fL Neutrophils (%) (Auto) 75.4 37.0-80.0 % Lymphocytes (%) (Auto) 14.5 10.0-50.0 % Monocytes (%) (Auto) 7.5 0.0-12.0 % Eosinophils (%) (Auto) 1.5 0.0-7.0 % Basophils (%) (Auto) 1.1 0.0-2.0 % Neutrophils # (Auto) 6.2 1.6-8.6 10 ^3/uL Lymphocytes # (Auto) 1.2 0.4-5.4 10 ^3/uL Monocytes # (Auto) 0.6 0-1.3 10 ^3/uL Eosinophils # (Auto) 0.1 0-0.8 10 ^3/uL Basophils # (Auto) 0.1 0-0.2 10 ^3/uL Nucleated Red Blood Cells 0.2 % Prothrombin Time 10.8 9.3-11.8 sec Prothrombin Time INR 1.02 0.9-1.15 Activated Partial Thromboplast Time 29.9 24.5-34.5 SEC Sodium Level 130 L 136-145 mmol/L Potassium Level 5.5 H 3.5-5.1 mmol/L Chloride Level 88 L 98-107 mmol/L Carbon Dioxide Level 28 20-31 mmol/L Anion Gap 14 5-15 Blood Urea Nitrogen 67 H 9-23 mg/dL Creatinine 6.92 H 0.550-1.02 mg/dL Glomerular Filtration Rate Calc 6 >90 mL/min BUN/Creatinine Ratio 9.7 L 10.0-20.0 Serum Glucose 208 H 74-106 mg/dL Lactic Acid Level 0.6 0.4-2.0 mmol/L Calcium Level 9.7 8.7-10.4 mg/dL Total Bilirubin 0.3 0.2-1.0 mg/dL Aspartate Amino Transferase (AST) 19 <34 U/L Alanine Aminotransferase (ALT) 15 7-40 U/L Alkaline Phosphatase 227 H 46-116 U/L Total Protein 8.9 H 5.7-8.2 g/dL Albumin 4.4 3.2-4.8 g/dL Assessment/Plan Assessment/Plan #Left foot wound, likely polymicrobial, esr, crp, MRI and IV abx #Skin and Soft tissue infection with Gram +ve -ve and anaerobes, blood culture. #Likely osteomyelitis, consider MRI examination, xray -ve esr crp #Sick sinus syndrome s/p Biotronik dual lead pacemaker #HFpEF , LVEF on TTE 65% #Severe Pulmonary HTN RVSP IS 65 mm #ESRD on HD TTS, last 01/[address] Bautista. CBC, CMP #Hyperkalemia due to above 5.5, EKG, tele, hyperkalemia protocol #Uncontrolled HTN BP target 130/80 or below, amlodipine 10 mg #A small right pleural effusion, likely due to fluid overload, in room air, rule out #Uncontrolled DM HbA1c > 14, on insulin, repeat, optimal coverage #Hiatal Hernia stable, PPi #Moderate amount of ascites, likely stable. #Mild ascites, likely due to ESRD, no abdominal tenderness. #Mild hyponatremia, hypervolemic, trend Na #Galu[place] Dorzolamide HCl/Timolol 1 mL + Latanoprost 0.005% Solution stable #Poor Medical Adherence' PCP: Ld Specialist Relevant To Admission: Nephrology Dr. Bautista. Case discussed with Dr. Alfonso. Code Status: Full Code. Discussion needed total 39 minutes bedside with the help of a data miner. Plan of care discussed. Plan discussed with: Patient, Son, Other (daughter in law ) My Orders Orders - NBA MANDEL RESIDENT Procedure Category Date Status Time Admit ADMIT 01/27/25 Transmitted 21:14 Allergies KEVIN 01/27/25 In Process 21:14 Code Status CODE 01/27/25 Transmitted 21:14 Sodium Chloride 0.9% PHA 01/27/25 In Process 21:15 Ondansetron Hcl PHA 01/27/25 In Process (Zofran) 21:15 Docusate Sodium PHA 01/27/25 In Process Capsule (Colace 21:15 Complete Blood Count LAB 01/28/25 Verified 04:00 Comprehensive LAB 01/28/25 Verified Metabolic Panel 04:00 Npo (Nothing By DIET 01/28/25 Transmitted Mouth) Diet Breakfast Pt Request For Service PT 01/27/25 Logged 21:14 Condition: Fair KEVIN 01/27/25 In Process 21:14 Acetaminophen Tablet PHA 01/27/25 In Process (Tylenol Tablet) 21:15 Morphine Sulfate PHA 01/27/25 In Process Injection 21:15 Sequential KEVIN 01/27/25 In Process Compression Device Nitroglycerin PHA 01/27/25 In Process Sublingual (Ntrostat 21:15 Morphine Sulfate PHA 01/27/25 In Process Injection 21:15 Oxygen By Nasal RT 01/27/25 Transmitted Cannula 21:14 Stat Ekg For Chest [facility] 01/27/25 In Process Pain 21:14 Notify Md Of Changes [facility] 01/27/25 In Process From Base 21:14 Hand Baseball Sewer For [facility] 01/27/25 In Process 24 Hours 21:14 Emergency Dysrhythmia [facility] 01/27/25 In Process Protocol 21:14 Rhythm Strips Once KEVIN 01/27/25 In Process Every Shift 21:14 Complete Blood Count LAB 01/27/25 Logged 22:39 Comprehensive LAB 01/27/25 Logged Metabolic Panel 22:39 *Dr. Bautista [facility] -[facility] 01/27/25 Transmitted Jossie 22:39 Date of Service: Jan 27, 2025 Billing Provider: GIUSEPPE ALFONSO MD Common Visit Codes: [id number] INP/OBS CARE (HIGH) Secondary Visit Codes: [id number] CARE PLAN 30 MINUTES NBA MANDEL RESIDENT Jan 27, 2025 23:02
[2025-01-27] MEDS: SODIUM BICARB 8.4% 50Meq/50ml SYR INJ IV ONE (23:15)
[2025-01-27] MEDS: FUROSEMIDE 20 MG/2 ML VIAL IV ONE (23:15)
[2025-01-27] MEDS: DEXTROSE (50%) 50ML SYRG IV ONE (23:15)
[2025-01-27] MEDS: amLODIPine BESYLATE 5 MG TAB PO ONE (23:15)
[2025-01-27] MEDS: InsuLIN REG 1unit/0.01ml Soln (100units/ml) IV ONE (23:15)
[2025-01-27] MEDS ORDERED: VANCOMYCIN PER PHARMACY 0 MG IV SCH (23:15)
[2025-01-27] MEDS: PANTOPRAZOLE 40 MG/10 ML VIAL INJ IV ONE (23:15)
[2025-01-27 23:22] LABS: Basophils # (auto) 0.1 10 ^3/uL (0-0.2); Basophils % (auto) 0.9 % (0.0-2.0); Eosinophils # (auto) 0.1 10 ^3/uL (0-0.8); Eosinophils % (auto) 1.5 % (0.0-7.0); Hematocrit 34.5 % (36.0-46.0); Hemoglobin 11.6 g/dL (12.2-16.2); Lymphocytes % (auto) 11.8 % (10.0-50.0); Mean Corpuscular Hemoglobin 28.8 pg (28.0-32.0); Mean Corpuscular Hgb Conc. 33.6 g/dL (32.0-36.0); Mean Corpuscular Volume 85.6 fL (80.0-100.0); Monocytes # (auto) 0.7 10 ^3/uL (0-1.3); Monocytes % (auto) 8.1 % (0.0-12.0); Neutrophils # (auto) 6.7 10 ^3/uL (1.6-8.6); Neutrophils % (auto) 77.7 % (37.0-80.0); Platelet Count (auto) 354 10^3/uL (140-450); Red Blood Cells 4.03 10^6/uL (4.0-5.20); Red Cell Distribution Width 16.6 % (11.8-14.3); White Blood Cell 8.6 10^3/uL (4.4-10.8)
[2025-01-27 23:36] LABS: Alanine Aminotransferase 15 U/L (7-40); Anion Gap 15 (5-15); Aspartate Aminotransferase 17 U/L (<34); BUN/Creatinine Ratio 9.9 (10.0-20.0); Calcium 9.5 mg/dL (8.7-10.4); Carbon Dioxide 26 mmol/L (20-31); Total Protein 8.1 g/dL (5.7-8.2)
[2025-01-27 23:38] LABS: Alkaline Phosphatase 217 U/L (46-116); Bilirubin, Total 0.2 mg/dL (0.2-1.0); Blood Urea Nitrogen 70 mg/dL (9-23); Chloride 88 mmol/L (98-107); Glucose 257 mg/dL (74-106); Sodium 129 mmol/L (136-145)
[2025-01-27 23:40] LABS: Potassium 5.6 mmol/L (3.5-5.1)
[2025-01-27] MEDS: CALCIUM GLUC 1,000mg/50ml-NS 50 ML IV ONE (23:45)
[2025-01-27 23:50] LABS: CRP High Sensitivity 3.18 mg/dL (<1.0)
[2025-01-27 23:51] LABS: Erythrocyte Sedimentation Rate 75 mm/hr (0-20)
[2025-01-28] VITALS (9 sets, daily range): BP systolic 119–138; BP diastolic 59–73; PULSE 65–103; RESP 16–20; TEMP 97.9–100; O2SAT 92–97
[2025-01-28] MEDS: VANCOMYCIN 1GM/200ML PM 200 ML IV ONE (00:05)
[2025-01-28] MEDS: SODIUM ZIRCONIUM CYCL 10 GM PAK PO SCH (06:40)
[2025-01-28] MEDS: SEVELAMER 800 MG TAB PO SCH (08:00)
[2025-01-28 09:35] LABS: Basophils # (auto) 0.1 10 ^3/uL (0-0.2); Basophils % (auto) 1.2 % (0.0-2.0); Eosinophils # (auto) 0.2 10 ^3/uL (0-0.8); Eosinophils % (auto) 3.3 % (0.0-7.0); Hematocrit 34.7 % (36.0-46.0); Hemoglobin 11.5 g/dL (12.2-16.2); Lymphocytes # (auto) 1.1 10 ^3/uL (0.4-5.4); Lymphocytes % (auto) 15.6 % (10.0-50.0); Mean Corpuscular Hemoglobin 28.4 pg (28.0-32.0); Mean Corpuscular Hgb Conc. 33.1 g/dL (32.0-36.0); Mean Corpuscular Volume 85.9 fL (80.0-100.0); Monocytes # (auto) 0.7 10 ^3/uL (0-1.3); Monocytes % (auto) 9.4 % (0.0-12.0); Neutrophils % (auto) 70.5 % (37.0-80.0); Nucleated Red Blood Cells % 0.1 %; Platelet Count (auto) 346 10^3/uL (140-450); Red Blood Cells 4.04 10^6/uL (4.0-5.20); Red Cell Distribution Width 16.9 % (11.8-14.3); White Blood Cell 7.1 10^3/uL (4.4-10.8)
[2025-01-28 09:56] LABS: Albumin 3.7 g/dL (3.2-4.8); Anion Gap 13 (5-15); Aspartate Aminotransferase 16 U/L (<34); BUN/Creatinine Ratio 10.2 (10.0-20.0); Calcium 9.2 mg/dL (8.7-10.4); Carbon Dioxide 28 mmol/L (20-31); Total Protein 7.6 g/dL (5.7-8.2)
[2025-01-28] MEDS: CEFEPIME 1GM/ 50ML 50 ML IV SCH (10:15)
[2025-01-28] MEDS: amLODIPine BESYLATE 5 MG TAB PO SCH (10:16)
[2025-01-28] MEDS: PANTOPRAZOLE 40 MG/10 ML VIAL INJ IV SCH (10:16)
[2025-01-28] MEDS: diphenhdrAMINE HCL 50 MG/1 ML VL IV ONE (10:16)
[2025-01-28 10:18] LABS: Alanine Aminotransferase 9 U/L (7-40); Alkaline Phosphatase 185 U/L (46-116); Bilirubin, Total 0.3 mg/dL (0.2-1.0); Blood Urea Nitrogen 74 mg/dL (9-23); Chloride 90 mmol/L (98-107); Glucose 175 mg/dL (74-106); Potassium 5.3 mmol/L (3.5-5.1); Sodium 131 mmol/L (136-145)
--- NOTE | 2025-01-28 13:27 | DVHINCON2 ---
Date Seen: Jan 28, 2025 Reason for Consultation Left foot wound History of Present Illness Daquan Welch, 59-year-old female with a history of diabetes mellitus (DM), end-stage renal disease (ESRD) on hemodialysis (//Sat. Dr. Bautista), hypertension (HTN), liver cirrhosis, and peripheral neuropathy presents to the ED with a worsening left foot wound. The wound began as a small cut one week ago and has progressively worsened. The patient attempted to treat it by soaking her foot in hot water but sustained cordova due to her neuropathy and inability to feel the temperature. She applied toy dye and attempted wound care at home without improvement. She reports severe pain (10/10) and limited ability to bear weight. Home blood pressure readings have been elevated (systolic ~200 mmHg). She denies systemic symptoms such as fever, chills, nausea, vomiting, chest pain, dizziness, or shortness of breath Past Medical History See H&P Past Surgical History See H&P Family History: Diabetes mellitus Allergies: Coded Allergies: NO KNOWN ALLERGIES (Unverified , 08/03/20) Home Meds Reported Medications Sevelamer Hydrochloride (Sevelamer Hydrochloride) 800 Mg Tab, 2 TAB PO TID 08/14/22 Glipizide (Glipizide Er) 2.5 Mg Tab, 1 TAB PO DAILY 08/14/22 Calcium Acetate (Phosphate Bin (Calcium Acetate) 667 Mg Cap, 2 CAP PO TID 08/14/22 Amlodipine Besylate (Amlodipine Besylate) 10 Mg Tab, 1 TAB PO DAILY 08/14/22 Aspirin (Aspir-Low) 81 Mg Tab, 81 MG PO DAILY for 30 Days, MG 08/05/20 Hydralazine Hcl (Hydralazine Hcl) 10 Mg Tab, 0 PO BID for 30 Days, MG 08/05/20 Current Medications Current Medications Medications (Trade) Dose Ordered Sig/Raj Route PRN Reason Start Time Stop Time Status Last Admin Sodium Chloride 1,000 ml @ 120 mls/hr Q8H20M IV 01/27/25 21:15 01/28/25 05:37 DC 01/28/25 01:50 Ondansetron HCl (Zofran) 4 mg Q4HP PRN IV NAUSEA / VOMITING 01/27/25 21:15 Docusate Sodium (Colace Capsule) 100 mg BIDPRN PRN PO FOR CONSTIPATION 01/27/25 21:15 Acetaminophen (Tylenol Tablet) 650 mg Q6HP PRN PO PAIN SCALE 1-3 OR TEMP>100.4 01/27/25 21:15 Morphine Sulfate 2 mg Q4HPRN PRN IV SEVERE PAIN (7-10 PAIN SCALE) 01/27/25 21:15 01/27/25 22:27 Nitroglycerin (Ntrostat Sublingual) 0.4 mg Q5MINP PRN SL FOR CHEST PAIN 01/27/25 21:15 Morphine Sulfate 2 mg Q30M PRN IV FOR CHEST PAIN 01/27/25 21:15 Zirconium Oxide (Lokelma) 10 gm TID PO 01/28/25 06:00 01/29/25 22:01 01/28/25 13:07 Amlodipine Besylate (Norvasc Tablet) 5 mg DAILY PO 01/28/25 10:00 01/28/25 10:16 Pantoprazole Sodium (Protonix) 40 mg DAILY IV 01/28/25 10:00 01/28/25 10:16 Vancomycin HCl 0 ml @ 0 mls/hr UD IV 01/27/25 23:15 Cefepime HCl 50 ml @ 12.5 mls/hr DAILY IV 01/28/25 10:00 01/28/25 10:15 Sevelamer HCl (Renagel) 800 mg TIDWM PO 01/28/25 08:00 Diagnostic Test (Pha) (Accu-Chek Comfort Curve T) 1 strip ACHS 01/28/25 17:00 UNV Insulin Human Regular (InsuLIN R) ACHS SC 01/28/25 17:00 UNV Dextrose 50 ml UD PRN IV Blood Sugar LESS THAN 60 01/28/25 13:30 UNV Vital Signs Vital Signs Date Time Temp Pulse Resp B/P (MAP) Pulse Ox O2 Delivery O2 Flow Rate FiO2 01/28/25 10:16 138/65 01/28/25 09:11 98.6 65 16 95 98.6 01/28/25 02:37 Room Air* 0 21 Physical Exam Dermatological: Skin is dry with mild erythema and some maceration around the wound site No gross deformities noted Mild non-pitting edema present bilaterally Superficial full-thickness ulcerations of the distal toes and plantar foot Vascular: Dorsalis pedis and posterior tibial pulses are 1+ bilaterally Capillary refill is under 2 seconds Skin temperature is warm bilaterally Neurologic: Protective sensation is absent on the plantar forefoot bilaterally Monofilament testing reveals decreased sensation in multiple plantar sites Musculoskeletal: Range of motion at the ankle and MTP joints is within normal limits. Strength is 5/5 in all tested muscle groups. Gait is antalgic due to offloading of the affected limb. Labs/Diagnostic Data Labs Test 01/28/25 09:06 01/28/25 02:02 01/27/25 23:07 01/27/25 19:40 Range/Units White Blood Count 7.1 4.4-10.8 10^3/uL Red Blood Count 4.04 4.0-5.20 10^6/uL Hemoglobin 11.5 L 12.2-16.2 g/dL Hematocrit 34.7 L 36.0-46.0 % Mean Corpuscular Volume 85.9 80.0-100.0 fL Mean Corpuscular Hemoglobin 28.4 28.0-32.0 pg Mean Corpuscular Hemoglobin Concent 33.1 32.0-36.0 g/dL Red Cell Distribution Width 16.9 H 11.8-14.3 % Platelet Count 346 140-450 10^3/uL Mean Platelet Volume 7.4 6.9-10.8 fL Neutrophils (%) (Auto) 70.5 37.0-80.0 % Lymphocytes (%) (Auto) 15.6 10.0-50.0 % Monocytes (%) (Auto) 9.4 0.0-12.0 % Eosinophils (%) (Auto) 3.3 0.0-7.0 % Basophils (%) (Auto) 1.2 0.0-2.0 % Neutrophils # (Auto) 5.0 1.6-8.6 10 ^3/uL Lymphocytes # (Auto) 1.1 0.4-5.4 10 ^3/uL Monocytes # (Auto) 0.7 0-1.3 10 ^3/uL Eosinophils # (Auto) 0.2 0-0.8 10 ^3/uL Basophils # (Auto) 0.1 0-0.2 10 ^3/uL Nucleated Red Blood Cells 0.1 % Sodium Level 131 L 136-145 mmol/L Potassium Level 5.3 H 3.5-5.1 mmol/L Chloride Level 90 L 98-107 mmol/L Carbon Dioxide Level 28 20-31 mmol/L Anion Gap 13 5-15 Blood Urea Nitrogen 74 H 9-23 mg/dL Creatinine 7.27 H 0.550-1.02 mg/dL Glomerular Filtration Rate Calc 6 >90 mL/min BUN/Creatinine Ratio 10.2 10.0-20.0 Serum Glucose 175 H 74-106 mg/dL Calcium Level 9.2 8.7-10.4 mg/dL Total Bilirubin 0.3 0.2-1.0 mg/dL Aspartate Amino Transferase (AST) 16 <34 U/L Alanine Aminotransferase (ALT) 9 7-40 U/L Alkaline Phosphatase 185 H 46-116 U/L Total Protein 7.6 5.7-8.2 g/dL Albumin 3.7 3.2-4.8 g/dL Magnesium Level 3.3 H 1.6-2.6 mg/dL Troponin I High Sensitivity 25 </=34 ng/L Thyroid Stimulating Hormone (TSH) 2.56 0.55-4.78 uIU/mL Hemoglobin A1c 9.5 H <5.7 % A1C C-Reactive Protein High Sensitivity 3.18 H <1.0 mg/dL Erythrocyte Sedimentation Rate 75 H 0-20 mm/hr Prothrombin Time 10.8 9.3-11.8 sec Prothrombin Time INR 1.02 0.9-1.15 Activated Partial Thromboplast Time 29.9 24.5-34.5 SEC Lactic Acid Level 0.6 0.4-2.0 mmol/L Problems(with codes): (1) Bradycardia (2) HTN (hypertension) (3) Renal failure (4) Hypotension (5) Symptomatic bradycardia (6) Hyperkalemia (7) History of renal failure (8) Bradycardia (9) Hypotension (10) History of renal dialysis (11) Anemia (12) Hyperglycemia (13) Chronic kidney disease (14) Blurred vision, left eye (15) Periorbital contusion of left eye (16) Left against medical advice (17) Uncontrolled diabetes mellitus (18) Diabetes mellitus due to underlying condition with hyperglycemia (19) Cellulitis of left foot (20) Hyperkalemia (21) ESRD (end stage renal disease) on dialysis Plan/Recommendation ASSESSMENT: Patient is a 59 year old seen on the floor for a worsening ulcer PLAN: - The patients chart was reviewed, clinical findings were discussed with the patient, the etiologies of the conditions were discussed in detail, and a treatment plan was agreed to at this time, with both oral and written instructions provided. - reviewed advanced imaging - discussed that the wound appears to be superficial at this point = recommend that we get TORRI and vascular studies to rule out any worsening vasculopathy - if blood flow sufficient would be able to heal with outpatient wound care - recommend Silvadene on the wounds - can follow up as an outpatient if blood flow is adequate All questions were answered and concerns addressed to the patient's satisfaction. The patient was given the phone number to the clinic and was told how to make contact with the clinic should any concerns or questions arise. Patient understands that if any questions or concerns arise prior to the next appointment, we should be contacted immediately. FOLLOW-UP: Continue to follow while inpatient Plan discussed with: Patient Date of Service: Jan 28, 2025 Billing Provider: WILFRID RENTERIA DPM Common Visit Codes: CONSULT ONLY Consultation Codes: [id number] CONSULT <80MIN WILFRID RENETRIA DPM Jan 28, 2025 13:27
[2025-01-28] MEDS ORDERED: DEXTROSE (50%) 50ML SYRG IV PRN (13:30)
--- NOTE | 2025-01-28 15:27 | DVH ---
DUPLEX BILATERAL LOWER EXTREMITY ARTERIAL ULTRASOUND WITH TORRI: HISTORY: r/o PAD COMPARISON: None TECHNIQUE: Real-time grayscale, color-flow and doppler ultrasound evaluation of the bilateral lower e xtremity arteries. Spectral wave forms are obtained. FINDINGS: RIGHT: Triphasic waveforms in the common femoral artery, profunda femoris artery, superficial femoral artery , and popiteal artery. Monophasic waveforms within the posterior tibial artery. Triphasic waveforms i n the anterior tibial artery. LEFT: Biphasic waveforms in the common femoral artery, profunda femoris artery, triphasic waveforms in the superficial femoral artery, and popiteal artery. Monophasic waveforms within the dorsalis pedis arter y and posterior tibial artery. IMPRESSION: 1. No evidence of aortoiliac or femoral-popiteal disease 2. 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
[2025-01-28] MEDS: ACCU-CHEK COMFORT CURVE STRIP VI SCH (16:32)
[2025-01-28] MEDS: InsuLIN REG 1unit/0.01ml Soln (100units/ml) SC SCH (16:43)
--- NOTE | 2025-01-28 16:54 | DVH ---
EXAM: MRI MRI L FOOT WO CONTRAST INDICATION: rule out osteomyeltis TECHNIQUE: Multiplanar, multisequence imaging of the left foot without contrast COMPARISON: None FINDINGS: BONES: Early osteomyelitis with low T2 signal without significant decreased T1 signal of the 4th prox imal to distal phalanx with relative sparing of the 4th proximal phalangeal base. MUSCLES: Subacute on chronic denervation with diffuse edematous appearance and minimal fatty infiltra tion TENDONS: Intact. LIGAMENTS: Intact. JOINT SPACES: No joint effusion. NEUROVASCULAR: Normal. OTHER: None. IMPRESSION: 1. Question early osteomyelitis with low T2 signal without significant decreased T1 signal of the 4th proximal to distal phalanx with relative sparing of the 4th proximal phalangeal base.
--- NOTE | 2025-01-28 17:05 | DVHPNRES ---
Progress Note Date Seen: Jan 28, 2025 Resident Creating Document: MAXI HOLLY RESIDENT Medical Necessity Reason Pt with a Central, PICC or Fol: No Subjective Review of Systems Daquan Welch, 59-year-old female with a history of diabetes mellitus (DM), end-stage renal disease (ESRD) on hemodialysis (//Sat. Dr. Bautista), hypertension (HTN), liver cirrhosis, and peripheral neuropathy presents to the ED with a worsening left foot wound. The wound began as a small cut one week ago and has progressively worsened. The patient attempted to treat it by soaking her foot in hot water but sustained cordova due to her neuropathy and inability to feel the temperature. She applied toy dye and attempted wound care at home without improvement. She reports severe pain (10/10) and limited ability to bear weight. Home blood pressure readings have been elevated (systolic ~200 mmHg). She denies systemic symptoms such as fever, chills, nausea, vomiting, chest pain, dizziness, or shortness of breath. Past medical/surgical history: diabetes mellitus (DM), end-stage renal disease (ESRD) on hemodialysis (//Sat. Dr. Bautista), hypertension (HTN), liver cirrhosis, and peripheral neuropathy, cardiac device implant, left forearm fistula Family History: None, DM, Hypertension Social history: Denies smoking/alcohol/drug use. Lives with family Patient seen and examined at the bedside. Podiatry consulted, recommended TORRI. Left toes have dry gangrene. Wound care consulted. Objective vital signs Vital Sign Date Time Temp Pulse Resp B/P (MAP) Pulse Ox O2 Delivery O2 Flow Rate FiO2 01/28/25 13:00 97.9 65 16 133/63 (86) 94 97.9 01/28/25 08:00 Nasal Cannula* 3 32 Total Intake and Output 01/27/25 01/27/25 01/28/25 15:00 23:00 07:00 Intake Total 120 ml Balance 120 ml medications Current Medications Medications Dose Ordered Sig/Raj Route Start Time Stop Time Status Last Admin Dose Admin Ondansetron HCl 4 mg Q4HP PRN IV 01/27/25 21:15 Docusate Sodium 100 mg BIDPRN PRN PO 01/27/25 21:15 Acetaminophen 650 mg Q6HP PRN PO 01/27/25 21:15 Morphine Sulfate 2 mg Q4HPRN PRN IV 01/27/25 21:15 01/27/25 22:27 2 MG Nitroglycerin 0.4 mg Q5MINP PRN SL 01/27/25 21:15 Morphine Sulfate 2 mg Q30M PRN IV 01/27/25 21:15 Zirconium Oxide 10 gm TID PO 01/28/25 06:00 01/29/25 22:01 01/28/25 13:07 10 GM Amlodipine Besylate 5 mg DAILY PO 01/28/25 10:00 01/28/25 10:16 5 MG Pantoprazole Sodium 40 mg DAILY IV 01/28/25 10:00 01/28/25 10:16 40 MG Vancomycin HCl 0 ml @ 0 mls/hr UD IV 01/27/25 23:15 Cefepime HCl 50 ml @ 12.5 mls/hr DAILY IV 01/28/25 10:00 01/28/25 10:15 12.5 MLS/HR Sevelamer HCl 800 mg TIDWM PO 01/28/25 08:00 Diagnostic Test (Pha) 1 strip ACHS 01/28/25 17:00 01/28/25 16:32 1 STRIP Insulin Human Regular ACHS SC 01/28/25 17:00 01/28/25 16:43 3 UNITS Dextrose 50 ml UD PRN IV 01/28/25 13:30 Examination Patient lying in bed, in no acute distress General: Well-built, afebrile, palor, mucosae are moist Cardiovascular: Regular S1 and S2. No murmurs, gallops or rubs. No JVD elevation. No pedal edema Respiratory: Normal B/L air entry on room air. Clear lung sounds on auscultation Abdomen: Soft, nontender, nondistended, normoactive bowel sounds, no rebound tenderness, no organomegaly, no masses Genitourinary: Deferred MSK/skin: Mobilizes 4 limbs. Dressing removed, Left feet, toes have dry gangrene. Open wound on the sole of the 2nd 3rd and 4th MTP. Draining purulent substance. Neurological: No motor, no sensitive deficits, normal speech. Pupils are isocoric and reactive. Psych/Mental Status: A/Ox3 laboratory and microbiology Laboratory Tests 01/28/25 09:06 Test 01/28/25 09:06 Range/Units Serum Glucose 175 H 74-106 mg/dL Labs and/or images reviewed: Labs reviewed by me, Image(s) reviewed by me Problem List/Assessment/Plan Problem List/Assessment/Plan Left foot gangrene, rule out vascular insufficiency Probable osteomyelitis left foot Soft tissue infection Gram-positive, negative and anaerobes IV vancomycin and IV cefepime starting 01/28 Received IV fluids Podiatry on board-monitor appears to be superficial. Silvadene on the wounds. Foot MRI shows Question early osteomyelitis with low T2 signal without significant decreased T1 signal of the 4th proximal to distal phalanx with relative sparing of the 4th proximal phalangeal base. 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 Lily Alcala 10 g TID for 6 doses Right-sided pleural effusion Patient is on room air Outpatient workup Uncontrolled type 2 diabetes mellitus-hemoglobin A1c greater than 14 Continue ISS Carbohydrate diet History of hiatal hernia Pantoprazole daily Moderate ascites Stable Mild hyponatremia, hypervolemic Monitor sodium History of glaucoma Monitor Plan discussed with patient in which all questions have been answered Goals of care discussed for the patient: 29 minutes, full code status Case discussed with Dr. Tucker Plan discussed with: Patient My Orders My Orders Orders - MAXI HOLLY Procedure Category Date Status Time Vitamin D, 25-Hydroxy LAB 01/28/25 In Process 08:48 Vitamin B12 LAB 01/28/25 In Process 08:48 Drug Screen LAB 01/28/25 Logged 08:48 Cleanse Wound With Ns KEVIN 01/28/25 In Process 08:50 Soft Diet DIET 01/28/25 Transmitted Lunch Glucose Blood PHA 01/28/25 In Process (Accu-Chek Comfort 17:00 Insulin R (Human) PHA 01/28/25 In Process (Insulin R) 17:00 Dextrose 50% Syringe PHA 01/28/25 In Process 13:30 Date of Service: Jan 28, 2025 Billing Provider: LEO FREEDMAN MD Common Visit Codes: [id number] INP/OBS CARE(HIGH) MAXI HOLLY RESIDENT Jan 28, 2025 17:05 LEO FREEDMAN MD Feb 03, 2025 10:20
[2025-01-28] MEDS ORDERED: ASPirin 81 mg TAB PO ONE (18:15)
--- NOTE | 2025-01-28 18:40 | DVHINCON2 ---
Date of service: Jan 28, [address] Gonzalez Reason for Consultation ESRD History of Present Illness 59 years old patient with end-stage renal disease (ESRD) on hemodialysis (//Mon), DM2, hypertension (HTN), liver cirrhosis, and peripheral neuropathy presents to the ED with a worsening left foot wound. Despite keflex for a week. The patient attempted to treat it by soaking her foot in hot water but sustained cordova due to her neuropathy and inability to feel the temperature. She applied toy dye and attempted wound care at home without improvement. Hypertensive, denies fevers or chills. Labs showed consistent with ESRD and hyperkalemia treated with lokelma Past Medical History DM2, HTN ESRD Past Surgical History AVF creation Allergies: Coded Allergies: NO KNOWN ALLERGIES (Unverified , 08/03/20) Home Meds Reported Medications Sevelamer Hydrochloride (Sevelamer Hydrochloride) 800 Mg Tab, 2 TAB PO TID 08/14/22 Glipizide (Glipizide Er) 2.5 Mg Tab, 1 TAB PO DAILY 08/14/22 Calcium Acetate (Phosphate Bin (Calcium Acetate) 667 Mg Cap, 2 CAP PO TID 08/14/22 Amlodipine Besylate (Amlodipine Besylate) 10 Mg Tab, 1 TAB PO DAILY 08/14/22 Aspirin (Aspir-Low) 81 Mg Tab, 81 MG PO DAILY for 30 Days, MG 08/05/20 Hydralazine Hcl (Hydralazine Hcl) 10 Mg Tab, 0 PO BID for 30 Days, MG 08/05/20 Current Medications Current Medications Medications (Trade) Dose Ordered Sig/Raj Route PRN Reason Start Time Stop Time Status Last Admin Zirconium Oxide (Lokelma) 10 gm TID PO 01/28/25 06:00 01/29/25 22:01 01/28/25 21:05 Amlodipine Besylate (Norvasc Tablet) 5 mg DAILY PO 01/28/25 10:00 01/28/25 10:16 Pantoprazole Sodium (Protonix) 40 mg DAILY IV 01/28/25 10:00 01/28/25 10:16 Vancomycin HCl 0 ml @ 0 mls/hr UD IV 01/27/25 23:15 Cefepime HCl 50 ml @ 12.5 mls/hr DAILY IV 01/28/25 10:00 01/28/25 10:15 Sevelamer HCl (Renagel) 800 mg TIDWM PO 01/28/25 08:00 01/28/25 17:50 Diagnostic Test (Pha) (Accu-Chek Comfort Curve T) 1 strip ACHS 01/28/25 17:00 01/28/25 16:32 Insulin Human Regular (InsuLIN R) ACHS SC 01/28/25 17:00 01/28/25 16:43 Dextrose 50 ml UD PRN IV Blood Sugar LESS THAN 60 01/28/25 13:30 Aspirin 81 mg DAILY PO 01/29/25 10:00 01/28/25 18:27 DC Atorvastatin Calcium (Lipitor) 40 mg HS PO 01/28/25 22:00 01/28/25 18:27 DC Aspirin (Ecotrin Enteric Coated Tablet) 81 mg DAILY PO 01/29/25 10:00 Atorvastatin Calcium (Lipitor) 40 mg HS PO 01/28/25 22:00 01/28/25 21:06 Family History: Diabetes mellitus Family History HTN and DM in mother Social History Denies smoking, alcohol or drug abuse Review of Systems Constitutional: Yes: Chills, Malaise; No: Fever, Sweats, Weakness, Other Eyes: No: Pain, Vision change, Conjunctivae inflammation, Eyelid inflammation, Other, Redness ENT: No: Ear pain, Ear discharge, Nose pain, Nose discharge, Nose congestion, Mouth pain, Mouth swelling, Throat pain, Throat swelling, Other Respiratory: No: Cough, Dry, Shortness of breath, aroxysmal Noc. Dyspnea, Edema, Lt Headedness, Other Gastrointestinal: No: Nausea, Vomiting, Abdominal Pain, Diarrhea, Constipation, Melena, Hematochezia, Other Genitourinary: No Dysuria, No Frequency, No Incontinence, No Hematuria, No Retention, No Other Musculoskeletal: leg pain, foot pain; No: other, neck pain, shoulder pain, arm pain, back pain, hand pain Skin: Lesions; Wound left foot Neurological: No: Weakness, Numbness, Incoordination, Change in speech, Conf usion, Seizures, Other H&P Exam Vital Signs/I&O Vital Sign Date Time Temp Pulse Resp B/P (MAP) Pulse Ox O2 Delivery O2 Flow Rate FiO2 01/28/25 21:00 98.3 65 16 129/59 (82) 97 98.3 01/28/25 08:00 Nasal Cannula* 3 32 Intake and Output 01/27/25 01/28/25 19:00 07:00 Intake Total 120 ml Balance 120 ml Intake Oral 120 ml Physical Exam HEENT: No oral lesions. maceration around the wound site No gross deformities noted Mild non-pitting edema present bilaterally Superficial full-thickness ulcerations of the distal toes and plantar foot Lungs: Clear Heart RRR Abdomen soft. Neuro: Alert and oriented Access: + bruit and thrill. Labs/Diagnostic Data Labs/Diagnostic Data Laboratory Tests Test 01/28/25 16:38 01/28/25 09:06 01/28/25 02:02 01/28/25 00:23 Range/Units POC Glucose 179 H 70-106 mg/dl White Blood Count 7.1 4.4-10.8 10^3/uL Red Blood Count 4.04 4.0-5.20 10^6/uL Hemoglobin 11.5 L 12.2-16.2 g/dL Hematocrit 34.7 L 36.0-46.0 % Mean Corpuscular Volume 85.9 80.0-100.0 fL Mean Corpuscular Hemoglobin 28.4 28.0-32.0 pg Mean Corpuscular Hemoglobin Concent 33.1 32.0-36.0 g/dL Red Cell Distribution Width 16.9 H 11.8-14.3 % Platelet Count 346 140-450 10^3/uL Mean Platelet Volume 7.4 6.9-10.8 fL Neutrophils (%) (Auto) 70.5 37.0-80.0 % Lymphocytes (%) (Auto) 15.6 10.0-50.0 % Monocytes (%) (Auto) 9.4 0.0-12.0 % Eosinophils (%) (Auto) 3.3 0.0-7.0 % Basophils (%) (Auto) 1.2 0.0-2.0 % Neutrophils # (Auto) 5.0 1.6-8.6 10 ^3/uL Lymphocytes # (Auto) 1.1 0.4-5.4 10 ^3/uL Monocytes # (Auto) 0.7 0-1.3 10 ^3/uL Eosinophils # (Auto) 0.2 0-0.8 10 ^3/uL Basophils # (Auto) 0.1 0-0.2 10 ^3/uL Nucleated Red Blood Cells 0.1 % Sodium Level 131 L 136-145 mmol/L Potassium Level 5.3 H 3.5-5.1 mmol/L Chloride Level 90 L 98-107 mmol/L Carbon Dioxide Level 28 20-31 mmol/L Anion Gap 13 5-15 Blood Urea Nitrogen 74 H 9-23 mg/dL Creatinine 7.27 H 0.550-1.02 mg/dL Glomerular Filtration Rate Calc 6 >90 mL/min BUN/Creatinine Ratio 10.2 10.0-20.0 Serum Glucose 175 H 74-106 mg/dL Calcium Level 9.2 8.7-10.4 mg/dL Total Bilirubin 0.3 0.2-1.0 mg/dL Aspartate Amino Transferase (AST) 16 <34 U/L Alanine Aminotransferase (ALT) 9 7-40 U/L Alkaline Phosphatase 185 H 46-116 U/L Total Protein 7.6 5.7-8.2 g/dL Albumin 3.7 3.2-4.8 g/dL Magnesium Level 3.3 H 1.6-2.6 mg/dL Troponin I High Sensitivity 25 25 </=34 ng/L Thyroid Stimulating Hormone (TSH) 2.56 0.55-4.78 uIU/mL Test 01/27/25 23:07 01/27/25 19:40 Range/Units White Blood Count 8.6 8.3 4.4-10.8 10^3/uL Red Blood Count 4.03 4.50 4.0-5.20 10^6/uL Hemoglobin 11.6 L 12.7 12.2-16.2 g/dL Hematocrit 34.5 #L 38.6 36.0-46.0 % Mean Corpuscular Volume 85.6 85.7 80.0-100.0 fL Mean Corpuscular Hemoglobin 28.8 28.2 28.0-32.0 pg Mean Corpuscular Hemoglobin Concent 33.6 32.9 32.0-36.0 g/dL Red Cell Distribution Width 16.6 H 16.7 H 11.8-14.3 % Platelet Count 354 389 140-450 10^3/uL Mean Platelet Volume 7.5 7.5 6.9-10.8 fL Neutrophils (%) (Auto) 77.7 75.4 37.0-80.0 % Lymphocytes (%) (Auto) 11.8 14.5 10.0-50.0 % Monocytes (%) (Auto) 8.1 7.5 0.0-12.0 % Eosinophils (%) (Auto) 1.5 1.5 0.0-7.0 % Basophils (%) (Auto) 0.9 1.1 0.0-2.0 % Neutrophils # (Auto) 6.7 6.2 1.6-8.6 10 ^3/uL Lymphocytes # (Auto) 1.0 1.2 0.4-5.4 10 ^3/uL Monocytes # (Auto) 0.7 0.6 0-1.3 10 ^3/uL Eosinophils # (Auto) 0.1 0.1 0-0.8 10 ^3/uL Basophils # (Auto) 0.1 0.1 0-0.2 10 ^3/uL Nucleated Red Blood Cells 0.0 0.2 % Sodium Level 129 L 130 L 136-145 mmol/L Potassium Level 5.6 *H 5.5 H 3.5-5.1 mmol/L Chloride Level 88 L 88 L 98-107 mmol/L Carbon Dioxide Level 26 28 20-31 mmol/L Anion Gap 15 14 5-15 Blood Urea Nitrogen 70 H 67 H 9-23 mg/dL Creatinine 7.07 H 6.92 H 0.550-1.02 mg/dL Glomerular Filtration Rate Calc 6 6 >90 mL/min BUN/Creatinine Ratio 9.9 L 9.7 L 10.0-20.0 Serum Glucose 257 H 208 H 74-106 mg/dL Hemoglobin A1c 9.5 H <5.7 % A1C Calcium Level 9.5 9.7 8.7-10.4 mg/dL Total Bilirubin 0.2 0.3 0.2-1.0 mg/dL Aspartate Amino Transferase (AST) 17 19 <34 U/L Alanine Aminotransferase (ALT) 15 15 7-40 U/L Alkaline Phosphatase 217 H 227 H 46-116 U/L Troponin I High Sensitivity 24 </=34 ng/L C-Reactive Protein High Sensitivity 3.18 H <1.0 mg/dL Total Protein 8.1 8.9 H 5.7-8.2 g/dL Albumin 4.0 4.4 3.2-4.8 g/dL Thyroid Stimulating Hormone (TSH) 2.66 0.55-4.78 uIU/mL Erythrocyte Sedimentation Rate 75 H 0-20 mm/hr Prothrombin Time 10.8 9.3-11.8 sec Prothrombin Time INR 1.02 0.9-1.15 Activated Partial Thromboplast Time 29.9 24.5-34.5 SEC Lactic Acid Level 0.6 0.4-2.0 mmol/L Assessment Assessment: 1. ESRD on HD 2. Non healing wound of foot. 3. Anemia of ESRD 4. Hyperkalemia 5. Metabolic acidosis 6. HTN 7.Hyponatremia Plan: HD Today, and TTS Continue antibiotics renally dosed. Continue antihypertensive meds. FRANCHESKA for goal Hb 10-11 gr/dl. Lather Apprentice consult appreciated. Thank you. Plan discussed with: Patient, Spouse NIKOLAS ENGLE MD Jan 28, 2025 18:40
[2025-01-28] MEDS: SODIUM CHL 0.9% 1000 ML BAG XX ONE (18:45)
[2025-01-28] MEDS: ASPirin-EC 81 mg tab PO ONE (21:06)
[2025-01-28] MEDS: ATORVASTATIN 20 MG TAB PO SCH (21:06)
[2025-01-28] MEDS ORDERED: ATORVASTATIN 20 MG TAB PO SCH (22:00)
[2025-01-29] VITALS (7 sets, daily range): BP systolic 121–142; BP diastolic 48–76; PULSE 65; RESP 16–19; TEMP 98.3–98.8; O2SAT 90–99
[2025-01-29 06:45] LABS: Basophils # (auto) 0.1 10 ^3/uL (0-0.2); Basophils % (auto) 1.1 % (0.0-2.0); Eosinophils # (auto) 0.2 10 ^3/uL (0-0.8); Eosinophils % (auto) 3.2 % (0.0-7.0); Hematocrit 33.4 % (36.0-46.0); Hemoglobin 11.2 g/dL (12.2-16.2); Lymphocytes # (auto) 0.9 10 ^3/uL (0.4-5.4); Mean Corpuscular Hemoglobin 28.7 pg (28.0-32.0); Mean Corpuscular Hgb Conc. 33.3 g/dL (32.0-36.0); Monocytes # (auto) 0.6 10 ^3/uL (0-1.3); Monocytes % (auto) 9.9 % (0.0-12.0); Neutrophils # (auto) 4.6 10 ^3/uL (1.6-8.6); Neutrophils % (auto) 71.8 % (37.0-80.0); Nucleated Red Blood Cells % 0.1 %; Platelet Count (auto) 354 10^3/uL (140-450); Red Blood Cells 3.89 10^6/uL (4.0-5.20); Red Cell Distribution Width 16.6 % (11.8-14.3); White Blood Cell 6.4 10^3/uL (4.4-10.8)
[2025-01-29 07:03] LABS: Anion Gap 14 (5-15); Carbon Dioxide 27 mmol/L (20-31)
[2025-01-29 07:08] LABS: BUN/Creatinine Ratio 8.1 (10.0-20.0)
[2025-01-29 07:10] LABS: Blood Urea Nitrogen 46 mg/dL (9-23); Calcium 8.5 mg/dL (8.7-10.4); Chloride 91 mmol/L (98-107); Glucose 177 mg/dL (74-106); Sodium 132 mmol/L (136-145)
[2025-01-29] MEDS: ASPirin-EC 81 mg tab PO SCH (08:25)
[2025-01-29] MEDS ORDERED: ASPirin 81 mg TAB PO SCH (10:00)
[2025-01-29 11:39] LABS: Hepatitis A Ab IgM Negative; Hepatitis B Core IgM Negative (Negative); Hepatitis B Surface Antigen Negative (Negative); Hepatitis C Antibody Negative (Negative)
[2025-01-29] MEDS ORDERED: LINE1TAB6 PO (14:25)
[2025-01-29] MEDS ORDERED: ATOR40TA52 PO (14:25)
[2025-01-29] MEDS ORDERED: DOXY150C6 PO (14:25)
[2025-01-29] MEDS ORDERED: SILV1CRE82 TOP (14:25)
--- NOTE | 2025-01-29 14:29 | DVHDSRES ---
Discharge Summary Date of Admission Resident Creating Document: MAXI HOLLY RESIDENT Jan 27, 2025 at 21:14 Date of Discharge: Jan 29, 2025 Labs/Diagnostic Data: Laboratory Results Test 01/29/25 11:22 01/29/25 05:50 01/28/25 09:06 01/28/25 02:02 POC Glucose 247 mg/dl (70-106) White Blood Count 6.4 10^3/uL (4.4-10.8) Red Blood Count 3.89 10^6/uL (4.0-5.20) Hemoglobin 11.2 g/dL (12.2-16.2) Hematocrit 33.4 % (36.0-46.0) Mean Corpuscular Volume 86.0 fL (80.0-100.0) Mean Corpuscular Hemoglobin 28.7 pg (28.0-32.0) Mean Corpuscular Hemoglobin Concent 33.3 g/dL (32.0-36.0) Red Cell Distribution Width 16.6 % (11.8-14.3) Platelet Count 354 10^3/uL (140-450) Mean Platelet Volume 7.7 fL (6.9-10.8) Neutrophils (%) (Auto) 71.8 % (37.0-80.0) Lymphocytes (%) (Auto) 14.0 % (10.0-50.0) Monocytes (%) (Auto) 9.9 % (0.0-12.0) Eosinophils (%) (Auto) 3.2 % (0.0-7.0) Basophils (%) (Auto) 1.1 % (0.0-2.0) Neutrophils # (Auto) 4.6 10 ^3/uL (1.6-8.6) Lymphocytes # (Auto) 0.9 10 ^3/uL (0.4-5.4) Monocytes # (Auto) 0.6 10 ^3/uL (0-1.3) Eosinophils # (Auto) 0.2 10 ^3/uL (0-0.8) Basophils # (Auto) 0.1 10 ^3/uL (0-0.2) Nucleated Red Blood Cells 0.1 % Sodium Level 132 mmol/L (136-145) Potassium Level 4.0 mmol/L (3.5-5.1) Chloride Level 91 mmol/L (98-107) Carbon Dioxide Level 27 mmol/L (20-31) Anion Gap 14 (5-15) Blood Urea Nitrogen 46 mg/dL (9-23) Creatinine 5.66 mg/dL (0.550-1.02) Glomerular Filtration Rate Calc 8 mL/min (>90) BUN/Creatinine Ratio 8.1 (10.0-20.0) Serum Glucose 177 mg/dL (74-106) Calcium Level 8.5 mg/dL (8.7-10.4) Random Vancomycin Level 11.7 ug/mL (5-10) Total Bilirubin 0.3 mg/dL (0.2-1.0) Aspartate Amino Transferase (AST) 16 U/L (<34) Alanine Aminotransferase (ALT) 9 U/L (7-40) Alkaline Phosphatase 185 U/L (46-116) Total Protein 7.6 g/dL (5.7-8.2) Albumin 3.7 g/dL (3.2-4.8) Vitamin D 25-Hydroxy 38.1 ng/mL (30.0-100) Hepatitis A IgM Antibody Negative Hepatitis B Surface Antigen Negative (Negative) Hepatitis B Core IgM Antibody Negative (Negative) Hepatitis C Antibody Negative (Negative) Magnesium Level 3.3 mg/dL (1.6-2.6) Troponin I High Sensitivity 25 ng/L (</=34) Thyroid Stimulating Hormone (TSH) 2.56 uIU/mL (0.55-4.78) Test 01/27/25 23:07 01/27/25 19:40 Hemoglobin A1c 9.5 % A1C (<5.7) C-Reactive Protein High Sensitivity 3.18 mg/dL (<1.0) Erythrocyte Sedimentation Rate 75 mm/hr (0-20) Prothrombin Time 10.8 sec (9.3-11.8) Prothrombin Time INR 1.02 (0.9-1.15) Activated Partial Thromboplast Time 29.9 SEC (24.5-34.5) Lactic Acid Level 0.6 mmol/L (0.4-2.0) Other Laboratory Tests 01/29/25 05:50 Brief Hx & Hospital Course: Daquan Welch, 59-year-old female with a history of diabetes mellitus (DM), end-stage renal disease (ESRD) on hemodialysis (//Sat. Dr. Bautista), hypertension (HTN), liver cirrhosis, and peripheral neuropathy presents to the ED with a worsening left foot wound. The wound began as a small cut one week ago and has progressively worsened. The patient attempted to treat it by soaking her foot in hot water but sustained cordova due to her neuropathy and inability to feel the temperature. She applied toy dye and attempted wound care at home without improvement. She reports severe pain (10/10) and limited ability to bear weight. Home blood pressure readings have been elevated (systolic ~200 mmHg). She denies systemic symptoms such as fever, chills, nausea, vomiting, chest pain, dizziness, or shortness of breath. Past medical/surgical history: diabetes mellitus (DM), end-stage renal disease (ESRD) on hemodialysis (//Mon. Dr. Bautista), hypertension (HTN), liver cirrhosis, and peripheral neuropathy, cardiac device implant, left forearm fistula Family History: None, DM, Hypertension Social history: Denies smoking/alcohol/drug use. Lives with family During the hospitalization, patient dressing was removed, Left feet, toes have dry gangrene. Open wound on the sole of the 2nd 3rd and 4th MTP. Draining purulent substance. Foot MRI shows Question early osteomyelitis with low T2 signal without significant decreased T1 signal of the 4th proximal to distal phalanx with relative sparing of the 4th proximal phalangeal base. ESR 75, patient was started on IV fluids, IV vancomycin and cefepime, elevator operator service consulted.Duplex ultrasound shows no evidence of aortoiliac or femoropopliteal disease, mild right and moderate left tibial artery disease. We started on aspirin and atorvastatin daily. For her ESRD, we consulted Nephrology and patient underwent hemodialysis 01/28, 3 L taken out, we resumed patient on medication sevelamer and patient received Lokelma initially for hypokalemia. Patient was kept on carbohydrate diet and we continued insulin sliding scale during the stay. Patient reported chest pain, nonradiating, sharp, right-sided, patient had palpable chest tenderness. EKG and troponin unremarkable. Cardiology consulted recommended to continue aspirin and atorvastatin. Chest x-ray showed right pleural effusion which was very small. Outpatient workup advised. Per elevator operator service-patient's wound appears to be superficial at this point. He recommended outpatient wound care and p.o. antibiotics. Recommended Silvadene on the wounds. Consulted vascular surgeon-recommended no acute intervention needed at this time. Therefore the patient was discharged on 01/29 on p.o. antibiotics. Discharge plan: Follow up with elevator operator service as outpatient within 7 days Follow up with home health for wound care Follow up with primary care physician within 7 days Follow up with [facility] within 7 day Tablet linezolid 600 mg twice daily for next 10 days Tablet doxycycline 100 mg twice daily for next 14 days Continue aspirin 81 mg daily, atorvastatin 40 mg daily HS Silvadene topical ointment as needed Discharge planning was completed at bedside, along with patient nurse. Patient agreed to the discharge planning. Consults/Reason for consult Vascular surgeon consultation for peripheral arterial disease Podiatry is consulted for foot wound Operations or Procedures EXAM: MRI MRI L FOOT WO CONTRAST INDICATION: rule out osteomyeltis TECHNIQUE: Multiplanar, multisequence imaging of the left foot without contrast COMPARISON: None FINDINGS: BONES: Early osteomyelitis with low T2 signal without significant decreased T1 signal of the 4th proximal to distal phalanx with relative sparing of the 4th proximal phalangeal base. MUSCLES: Subacute on chronic denervation with diffuse edematous appearance and minimal fatty infiltration TENDONS: Intact. LIGAMENTS: Intact. JOINT SPACES: No joint effusion. NEUROVASCULAR: Normal. OTHER: None. IMPRESSION: 1. Question early osteomyelitis with low T2 signal without significant decreased T1 signal of the 4th proximal to distal phalanx with relative sparing of the 4th proximal phalangeal base. ATED BY: PONCHO LINDO MD DICTATED DATE/TIME: 01/28/251651 SIGNED BY: PONCHO LINDO MD SIGNED DATE/TIME: 01/28/25 165 CC: DUPLEX BILATERAL LOWER EXTREMITY ARTERIAL ULTRASOUND WITH TORRI: HISTORY: r/o PAD COMPARISON: None TECHNIQUE: Real-time grayscale, color-flow and doppler ultrasound evaluation of the bilateral lower extremity arteries. Spectral wave forms are obtained. FINDINGS: RIGHT: Triphasic waveforms in the common femoral artery, profunda femoris artery, superficial femoral artery, and popiteal artery. Monophasic waveforms within the posterior tibial artery. Triphasic waveforms in the anterior tibial artery. LEFT: Biphasic waveforms in the common femoral artery, profunda femoris artery, triphasic waveforms in the superficial femoral artery, and popiteal artery. Monophasic waveforms within the dorsalis pedis artery and posterior tibial artery. IMPRESSION: 1. No evidence of aortoiliac or femoral-popiteal disease 2. 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 ATED BY: PONCHO LINDO MD DICTATED DATE/TIME: 01/28/25 152 SIGNED BY: PONCHO LINDO MD SIGNED DATE/TIME: 01/28/25 1525 CC: Condition at Discharge: Fair Final Diagnosis/Problems List Left foot wound, likely early osteomyelitis Dry gangrene Peripheral arterial disease Chest pain, likely musculoskeletal. Ruled out ACS Soft tissue infection, Gram-positive, negative and anaerobes Sick sinus syndrome status post Biotronik dual lead pacemaker Heart failure with preserved ejection fraction-LVEF on TTE 65% Hypotension Severe pulmonary hypertension RVSP 65 mmHg ESRD on hemodialysis with [facility] Anemia likely normocytic due to ESRD Hyperkalemia secondary to above Right-sided pleural effusion-small Uncontrolled type 2 diabetes mellitus-hemoglobin A1c 9.5 History of hiatal hernia Mild hyponatremia History of glaucoma Discharge Disposition: Home Discharge Instruct/Medications Diet: Consistent carbohydrate Activity: Light activity Follow Up/Referral: Follow up with elevator operator service as outpatient within 7 days Follow up with home health for wound care Follow up with primary care physician within 7 days Follow up with [facility] clinic within 7 days Medications: Tablet linezolid 600 mg twice daily for next 10 days Tablet doxycycline 100 mg twice daily for next 14 days Silvadene topical ointment as needed Discharge Statement: "Patient was advised to return to the ER or call 911 if any headaches, dizziness, shortness of breath, chest pain, abdominal pain, bleeding, fevers, or worsening of medical condition. Patient was counseled about treatment plan, medications, possible side effects, patientverbalized understanding. All questions were answered to the best of my ability. This discharge took greater then 30 minutes in planning, reviewing documentation, counseling the patient, and discussing with other team members." ASSESSMENT ASSESSMENT Assessment Left foot wound, likely early osteomyelitis Dry gangrene Peripheral arterial disease Date of Service: Jan 29, 2025 Billing Provider: LEO FREEDMAN MD Common Visit Codes: 11158-GJW/OBS DISCH DAY >30min MAXI HOLLY RESIDENT Jan 29, 2025 14:29 LEO FREEDMAN MD Feb 04, 2025 09:36
[2025-01-29] MEDS: VANCOMYCIN 750mg/150ml 150 ML IV ONE (16:14)
--- NOTE | 2025-01-29 16:33 | DVHPN2 ---
Progress Note - Dictate Date Seen: Jan 29, 2025 Medical Necessity Reason Pt with a Central, PICC or Fol: No Subjective Patient feels much better denies any acute symptoms at this time. vital signs Vital Sign Date Time Temp Pulse Resp B/P (MAP) Pulse Ox O2 Delivery O2 Flow Rate FiO2 01/29/25 12:33 98.8 65 17 123/53 (76) 90 98.8 01/29/25 08:00 Room Air* 0 N/A Nasal Cannula* Total Intake and Output 01/28/25 01/28/25 01/29/25 15:00 23:00 07:00 Intake Total 225 ml 800 ml Balance 225 ml 800 ml medications Current Medications Medications Dose Ordered Sig/Raj Route Start Time Stop Time Status Last Admin Dose Admin Ondansetron HCl 4 mg Q4HP PRN IV 01/27/25 21:15 Docusate Sodium 100 mg BIDPRN PRN PO 01/27/25 21:15 Acetaminophen 650 mg Q6HP PRN PO 01/27/25 21:15 Morphine Sulfate 2 mg Q4HPRN PRN IV 01/27/25 21:15 01/27/25 22:27 2 MG Nitroglycerin 0.4 mg Q5MINP PRN SL 01/27/25 21:15 Morphine Sulfate 2 mg Q30M PRN IV 01/27/25 21:15 Zirconium Oxide 10 gm TID PO 01/28/25 06:00 01/29/25 22:01 01/29/25 13:46 10 GM Amlodipine Besylate 5 mg DAILY PO 01/28/25 10:00 01/29/25 08:26 5 MG Pantoprazole Sodium 40 mg DAILY IV 01/28/25 10:00 01/29/25 08:26 40 MG Vancomycin HCl 0 ml @ 0 mls/hr UD IV 01/27/25 23:15 Cefepime HCl 50 ml @ 12.5 mls/hr DAILY IV 01/28/25 10:00 01/29/25 08:25 12.5 MLS/HR Sevelamer HCl 800 mg TIDWM PO 01/28/25 08:00 01/29/25 11:44 800 MG Diagnostic Test (Pha) 1 strip ACHS 01/28/25 17:00 01/29/25 11:52 1 STRIP Insulin Human Regular ACHS SC 01/28/25 17:00 01/29/25 11:51 4 UNITS Dextrose 50 ml UD PRN IV 01/28/25 13:30 Aspirin 81 mg DAILY PO 01/29/25 10:00 01/29/25 08:25 81 MG Atorvastatin Calcium 40 mg HS PO 01/28/25 22:00 01/28/25 21:06 40 MG objective HEENT: No evidence of JVD, no oral ulcers. Pulmonary: Lungs are clear on auscultation bilaterally Cardiovascular S1-S2, no S3 or S4 Abdomen: Bowel sounds positive, soft no rebound tenderness Skin: No rash Neurological: Alert, oriented, no focal weakness laboratory and microbiology Laboratory Tests 01/29/25 05:50 Test 01/29/25 05:50 Range/Units Serum Glucose 177 H 74-106 mg/dL Assessment/Plan Assessment: 1. ESRD on HD 2. Non healing wound of foot possible early osteomyelitis on MRI 3. Anemia of ESRD 4. Hyperkalemia 5. Metabolic acidosis 6. HTN 7.Hyponatremia Plan: Hemodialysis completed yesterday with no issues, continue TTS Continue antibiotics renally dosed. Continue antihypertensive meds. FRANCHESKA for goal Hb 10-11 gr/dl. Single Needle Tufting Machine Operator consult appreciated. Okay to discharge from Nephrology perspective Thank you. Dietary Evaluation Review Comments: Nutrition recommendation 1) Pro-stat 1 pk Daily 2) Nephro-Elie 1 tab daily, [place] 1 pk daily 3) Refer CDE on DC 4) Monitor wt trend, wound healing, I/O, lab values Expected Outcomes/Goals: left foot wound to improve adequate protein intake fu 3-5 days Plan discussed with: Patient NIKOLAS ENGLE MD Jan 29, 2025 16:33
[2025-01-29] MEDS: NITROGLYCERIN 0.4 MG SL TAB SL ONE (18:15)
--- NOTE | 2025-01-29 18:56 | DVHINCON2 ---
Consultation - Surgical Date Seen: Jan 29, 2025 Referring Physician Referring Physician er Reason for Consultation pad History of Present Illness History of Present Illness Daquan Welch, 59-year-old female with a history of diabetes mellitus (DM), end-stage renal disease (ESRD) on hemodialysis (//Sat. Dr. Bautista), hypertension (HTN), liver cirrhosis, and peripheral neuropathy presents to the ED with a worsening left foot wound. The wound began as a small cut one week ago and has progressively worsened. The patient attempted to treat it by soaking her foot in hot water but sustained cordova due to her neuropathy and inability to feel the temperature. She applied toy dye and attempted wound care at home without improvement. She reports severe pain (10/10) and limited ability to bear weight. Home blood pressure readings have been elevated (systolic ~200 mmHg). She denies systemic symptoms such as fever, chills, nausea, vomiting, chest pain, dizziness, or shortness of breath. Asked to see patient regarding ability heel wounds based on her circulation. Patient denies any claudication or rest pain symptoms. Past Medical/Surgical History Past Medical/Surgical History diabetes mellitus (DM), end-stage renal disease (ESRD) on hemodialysis (//Sat. Dr. Bautista), hypertension (HTN), liver cirrhosis, and peripheral neuropathy Allergies and medications Allergies: Coded Allergies: NO KNOWN ALLERGIES (Unverified , 08/03/20) Home Meds Active Scripts Atorvastatin Calcium (ATORVASTATIN CALCIUM) 40 Mg Tab, 40 MG PO DAILY for 30 Days, #30 TAB 0 Refills Prov:MAXI HOLLY RESIDENT 01/29/25 Silver Sulfadiazine (Silvadene) 1 % Cre, 1 APPLIC TOP DAILY for 10 Days, #50 GRAMS 0 Refills Prov:MAXI HOLLY [facility] 01/29/25 Doxycycline (Monohydrate) (DOXYCYCLINE) 150 Mg Cap, 100 MG PO BID for 10 Days, #20 CAP 0 Refills Prov:[facility] 01/29/25 Linezolid (Zyvox) 600 Mg Tab, 600 MG PO BID for 14 Days, #28 TAB 0 Refills Prov:MAXI HOLLY [facility] 01/29/25 Reported Medications Sevelamer Hydrochloride (Sevelamer Hydrochloride) 800 Mg Tab, 2 TAB PO TID 08/14/22 Glipizide (Glipizide Er) 2.5 Mg Tab, 1 TAB PO DAILY 08/14/22 Calcium Acetate (Phosphate Bin (Calcium Acetate) 667 Mg Cap, 2 CAP PO TID 08/14/22 Amlodipine Besylate (Amlodipine Besylate) 10 Mg Tab, 1 TAB PO DAILY 08/14/22 Aspirin (Aspir-Low) 81 Mg Tab, 81 MG PO DAILY for 30 Days, MG 08/05/20 Hydralazine Hcl (Hydralazine Hcl) 10 Mg Tab, 0 PO BID for 30 Days, MG 08/05/20 Review of systems Review of Systems: HEENT:Normal, CVS:Normal, RESPIRATORY:Normal, GI:Normal, :Abnormal (End-stage renal disease), MSK:Abnormal Examination Vital signs Vital Signs Date Time Temp Pulse Resp B/P (MAP) Pulse Ox O2 Delivery O2 Flow Rate FiO2 01/29/25 18:15 142/76 01/29/25 17:50 65 01/29/25 16:42 98.8 18 99 98.8 01/29/25 08:00 Room Air* 0 N/A Nasal Cannula* Medications Current Medications Medications (Trade) Dose Ordered Sig/Raj Route PRN Reason Start Time Stop Time Status Last Admin Aspirin 81 mg DAILY PO 01/29/25 10:00 01/28/25 18:27 DC Atorvastatin Calcium (Lipitor) 40 mg HS PO 01/28/25 22:00 01/28/25 18:27 DC Aspirin (Ecotrin Enteric Coated Tablet) 81 mg DAILY PO 01/29/25 10:00 01/29/25 08:25 Atorvastatin Calcium (Lipitor) 40 mg HS PO 01/28/25 22:00 01/28/25 21:06 Laboratory Labs Test 01/29/25 18:27 01/29/25 16:31 01/29/25 05:50 01/28/25 09:06 Range/Units POC Glucose 212 H 70-106 mg/dl White Blood Count 6.4 4.4-10.8 10^3/uL Red Blood Count 3.89 L 4.0-5.20 10^6/uL Hemoglobin 11.2 L 12.2-16.2 g/dL Hematocrit 33.4 L 36.0-46.0 % Mean Corpuscular Volume 86.0 80.0-100.0 fL Mean Corpuscular Hemoglobin 28.7 28.0-32.0 pg Mean Corpuscular Hemoglobin Concent 33.3 32.0-36.0 g/dL Red Cell Distribution Width 16.6 H 11.8-14.3 % Platelet Count 354 140-450 10^3/uL Mean Platelet Volume 7.7 6.9-10.8 fL Neutrophils (%) (Auto) 71.8 37.0-80.0 % Lymphocytes (%) (Auto) 14.0 10.0-50.0 % Monocytes (%) (Auto) 9.9 0.0-12.0 % Eosinophils (%) (Auto) 3.2 0.0-7.0 % Basophils (%) (Auto) 1.1 0.0-2.0 % Neutrophils # (Auto) 4.6 1.6-8.6 10 ^3/uL Lymphocytes # (Auto) 0.9 0.4-5.4 10 ^3/uL Monocytes # (Auto) 0.6 0-1.3 10 ^3/uL Eosinophils # (Auto) 0.2 0-0.8 10 ^3/uL Basophils # (Auto) 0.1 0-0.2 10 ^3/uL Nucleated Red Blood Cells 0.1 % Sodium Level 132 L 136-145 mmol/L Potassium Level 4.0 3.5-5.1 mmol/L Chloride Level 91 L 98-107 mmol/L Carbon Dioxide Level 27 20-31 mmol/L Anion Gap 14 5-15 Blood Urea Nitrogen 46 #H 9-23 mg/dL Creatinine 5.66 H 0.550-1.02 mg/dL Glomerular Filtration Rate Calc 8 >90 mL/min BUN/Creatinine Ratio 8.1 L 10.0-20.0 Serum Glucose 177 H 74-106 mg/dL Calcium Level 8.5 L 8.7-10.4 mg/dL Random Vancomycin Level 11.7 H 5-10 ug/mL Total Bilirubin 0.3 0.2-1.0 mg/dL Aspartate Amino Transferase (AST) 16 <34 U/L Alanine Aminotransferase (ALT) 9 7-40 U/L Alkaline Phosphatase 185 H 46-116 U/L Total Protein 7.6 5.7-8.2 g/dL Albumin 3.7 3.2-4.8 g/dL Vitamin B12 Level 3422 H 211-911 pg/mL Vitamin D 25-Hydroxy 38.1 30.0-100 ng/mL Hepatitis A IgM Antibody Negative Hepatitis B Surface Antigen Negative Negative Hepatitis B Core IgM Antibody Negative Negative Hepatitis C Antibody Negative Negative Test 01/28/25 02:02 01/27/25 23:07 01/27/25 19:40 Range/Units Magnesium Level 3.3 H 1.6-2.6 mg/dL Thyroid Stimulating Hormone (TSH) 2.56 0.55-4.78 uIU/mL Hemoglobin A1c 9.5 H <5.7 % A1C C-Reactive Protein High Sensitivity 3.18 H <1.0 mg/dL Erythrocyte Sedimentation Rate 75 H 0-20 mm/hr Prothrombin Time 10.8 9.3-11.8 sec Prothrombin Time INR 1.02 0.9-1.15 Activated Partial Thromboplast Time 29.9 24.5-34.5 SEC Lactic Acid Level 0.6 0.4-2.0 mmol/L Microbiology Date/Time Source Procedure Growth Status 01/28/25 10:45 Leg Gram Stain - Final Resulted 01/28/25 10:45 Leg Wound Culture - Preliminary Resulted 01/27/25 19:46 Blood Blood Culture - Preliminary NO GROWTH AFTER 24 HOURS OF INCUBATION. Resulted DUPLEX BILATERAL LOWER EXTREMITY ARTERIAL ULTRASOUND WITH TORRI: HISTORY: r/o PAD COMPARISON: None TECHNIQUE: Real-time grayscale, color-flow and doppler ultrasound evaluation of the bilateral lower extremity arteries. Spectral wave forms are obtained. FINDINGS: RIGHT: Triphasic waveforms in the common femoral artery, profunda femoris artery, superficial femoral artery, and popiteal artery. Monophasic waveforms within the posterior tibial artery. Triphasic waveforms in the anterior tibial artery. LEFT: Biphasic waveforms in the common femoral artery, profunda femoris artery, triphasic waveforms in the superficial femoral artery, and popiteal artery. Monophasic waveforms within the dorsalis pedis artery and posterior tibial artery. IMPRESSION: 1. No evidence of aortoiliac or femoral-popiteal disease 2. 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 Recommend follow up with Podiatry. Plan discussed with Plan discussed with: Patient Visit Coding Surgery Date of Service if different f: Jan 29, 2025 Surgery Visit Codes: 82229 - INP CONSULT <80 MIN ALICIA CALL Jr., MD Jan 29, 2025 18:56
--- NOTE | 2025-01-29 21:32 | DVHINCON2 ---
Date of service: Jan 29, 2025 Referring Physician Subhash Reason for Consultation Chest pain, T wave inversions on EKG History of Present Illness Debra is a 59 year old female with a PMH of ESRD, DM, HTN, liver cirrhosis,neuropathy who presents to the ED on 01/27/25 with complaints of left foot wound x 1 week. The wound began as a small cut one week ago and has progressively worsened. The patient attempted to treat it by soaking her foot in hot water but sustained cordova due to her neuropathy and inability to feel the temperature. She applied toy dye and attempted wound care at home without improvement. Patient reports uncontrolled HTN at home. Chest x-ray: NAD. Left foot x-ray shows no evidence of acute fracture or dislocation. Diffuse soft tissue swelling. BLE Arterial US shows no evidence of aortoiliac or femoral- popiteal disease. 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 Left foot MRI had question early osteomyelitis with low T2 signal without significant decreased T1 signal of the 4th proximal to distal phalanx with relative sparing of the 4th proximal phalangeal base. Patient was admitted to the hospital. Patient developed chest pain, therefore I am asked to consult on this patient. Family History: Diabetes mellitus Allergies: Coded Allergies: NO KNOWN ALLERGIES (Unverified , 08/03/20) Home Meds Active Scripts Atorvastatin Calcium (ATORVASTATIN CALCIUM) 40 Mg Tab, 40 MG PO DAILY for 30 Days, #30 TAB 0 Refills Prov:MAXI HOLLY RESIDENT 01/29/25 Silver Sulfadiazine (Silvadene) 1 % Cre, 1 APPLIC TOP DAILY for 10 Days, #50 GRAMS 0 Refills Prov:MAXI HOLLY 01/29/25 Doxycycline (Monohydrate) (DOXYCYCLINE) 150 Mg Cap, 100 MG PO BID for 10 Days, #20 CAP 0 Refills Prov:MAXI HOLLY 01/29/25 Linezolid (Zyvox) 600 Mg Tab, 600 MG PO BID for 14 Days, #28 TAB 0 Refills Prov:MAXI HOLLY 01/29/25 Reported Medications Sevelamer Hydrochloride (Sevelamer Hydrochloride) 800 Mg Tab, 2 TAB PO TID 08/14/22 Glipizide (Glipizide Er) 2.5 Mg Tab, 1 TAB PO DAILY 08/14/22 Calcium Acetate (Phosphate Bin (Calcium Acetate) 667 Mg Cap, 2 CAP PO TID 08/14/22 Amlodipine Besylate (Amlodipine Besylate) 10 Mg Tab, 1 TAB PO DAILY 08/14/22 Aspirin (Aspir-Low) 81 Mg Tab, 81 MG PO DAILY for 30 Days, MG 08/05/20 Hydralazine Hcl (Hydralazine Hcl) 10 Mg Tab, 0 PO BID for 30 Days, MG 08/05/20 Current Medications Current Medications Medications (Trade) Dose Ordered Sig/Raj Route PRN Reason Start Time Stop Time Status Last Admin Aspirin 81 mg DAILY PO 01/29/25 10:00 01/28/25 18:27 DC Atorvastatin Calcium (Lipitor) 40 mg HS PO 01/28/25 22:00 01/28/25 18:27 DC Aspirin (Ecotrin Enteric Coated Tablet) 81 mg DAILY PO 01/29/25 10:00 01/29/25 08:25 Atorvastatin Calcium (Lipitor) 40 mg HS PO 01/28/25 22:00 01/28/25 21:06 Review of Systems Constitutional: denies: chills, diaphoresis, fatigue, fever, malaise, sweats, weakness, others EENTM: denies: blurred vision, double vision, ear bleeding, ear discharge, ear drainage, ear pain, ear ringing, eye pain, eye redness, hearing loss, mouth pain, mouth swelling, nasal discharge, nose bleeding, nose congestion, nose pain, photophobia, tearing, throat pain, throat swelling, voice changes, others Respiratory: denies: cough, hemoptysis, orthopnea, SOB at rest, shortness of breath, SOB with excertion, stridor, wheezing, others Cardiovascular: denies: chest pain, dizzy spells, diaphoresis, Dyspnea on exertion, edema, irregular heart beat, left arm pain, lightheadedness, palpitations, PND, syncope, others Gastrointestinal: denies: abdomen distended, abdominal pain, blood streaked bowels, constipated, diarrhea, dysphagia, difficulty swallowing, hematemesis, melena, nausea, poor appetite, poor fluid intake, rectal bleeding, rectal pain, vomiting, others Genitourinary: denies: abnormal vagina bleeding, burning, dyspareunia, dysuria, flank pain, frequency, hematuria, incontinence, pain, , vagina discharge, urgency, others Neurological: denies: dizziness, fainting, headache, left sided numbness, left sided weakness, numbness, paresthesia, pre-existing deficit, right sided numbness, right sided weakness, seizure, speech problems, tingling, tremors, weakness, others Musculoskeletal: reports: others (Lt foot pain, wound); denies: back pain, gout, joint pain, joint swelling, muscle pain, muscle stiffness, neck pain Integumetry: reports: change in color (LT foot), dryness, wounds (LT foot); denies: bruises, change in hair/nails, laceration, lesions, lumps, rash, others Allergic/Immunocompromised: denies: Difficulty Healing, Frequent Infections, Hives, Itching, others Hematologic/Lymphatic: denies: anemia, blood clots, easy bleeding, easy bruising, swollen glands, others Endocrine: denies: excessive hunger, excessive sweating, excessive thirst, excessive urination, flushing, intolerance to cold, intolerance to heat, unexplained weight gain, unexplained weight loss, others Psychiatric: denies: anxiety, bipolar disorder, depression, hopeless, panic disorder, schizophrenia, sleepless, suicidal, others All Other Systems: Reviewed and Negative Vital Signs Vital Signs Date Time Temp Pulse Resp B/P (MAP) Pulse Ox O2 Delivery O2 Flow Rate FiO2 01/29/25 20:00 Room Air* 0 N/A Nasal Cannula* 01/29/25 18:15 142/76 01/29/25 17:50 65 01/29/25 16:42 98.8 18 99 98.8 Physical Exam GENERAL: Alert and oriented x 3. No acute distress. EYES: PERRL, EOMI. Anicteric. HENT: Moist mucous membranes. LUNGS: Clear to auscultation bilaterally. CARDIOVASCULAR: Regular rate and rhythm. ABDOMEN: Soft, nontender and nondistended. EXTREMITIES: No edema. NEUROLOGIC: No focal neurological deficits. SKIN: Left feet, toes have dry gangrene. Open wound on the sole of the 2nd 3rd and 4th MTP. Draining purulent substance. Labs/Diagnostic Data Labs Test 01/29/25 18:27 01/29/25 16:31 01/29/25 05:50 01/28/25 09:06 Range/Units Troponin I High Sensitivity 23 </=34 ng/L POC Glucose 212 H 70-106 mg/dl White Blood Count 6.4 4.4-10.8 10^3/uL Red Blood Count 3.89 L 4.0-5.20 10^6/uL Hemoglobin 11.2 L 12.2-16.2 g/dL Hematocrit 33.4 L 36.0-46.0 % Mean Corpuscular Volume 86.0 80.0-100.0 fL Mean Corpuscular Hemoglobin 28.7 28.0-32.0 pg Mean Corpuscular Hemoglobin Concent 33.3 32.0-36.0 g/dL Red Cell Distribution Width 16.6 H 11.8-14.3 % Platelet Count 354 140-450 10^3/uL Mean Platelet Volume 7.7 6.9-10.8 fL Neutrophils (%) (Auto) 71.8 37.0-80.0 % Lymphocytes (%) (Auto) 14.0 10.0-50.0 % Monocytes (%) (Auto) 9.9 0.0-12.0 % Eosinophils (%) (Auto) 3.2 0.0-7.0 % Basophils (%) (Auto) 1.1 0.0-2.0 % Neutrophils # (Auto) 4.6 1.6-8.6 10 ^3/uL Lymphocytes # (Auto) 0.9 0.4-5.4 10 ^3/uL Monocytes # (Auto) 0.6 0-1.3 10 ^3/uL Eosinophils # (Auto) 0.2 0-0.8 10 ^3/uL Basophils # (Auto) 0.1 0-0.2 10 ^3/uL Nucleated Red Blood Cells 0.1 % Sodium Level 132 L 136-145 mmol/L Potassium Level 4.0 3.5-5.1 mmol/L Chloride Level 91 L 98-107 mmol/L Carbon Dioxide Level 27 20-31 mmol/L Anion Gap 14 5-15 Blood Urea Nitrogen 46 #H 9-23 mg/dL Creatinine 5.66 H 0.550-1.02 mg/dL Glomerular Filtration Rate Calc 8 >90 mL/min BUN/Creatinine Ratio 8.1 L 10.0-20.0 Serum Glucose 177 H 74-106 mg/dL Calcium Level 8.5 L 8.7-10.4 mg/dL Random Vancomycin Level 11.7 H 5-10 ug/mL Total Bilirubin 0.3 0.2-1.0 mg/dL Aspartate Amino Transferase (AST) 16 <34 U/L Alanine Aminotransferase (ALT) 9 7-40 U/L Alkaline Phosphatase 185 H 46-116 U/L Total Protein 7.6 5.7-8.2 g/dL Albumin 3.7 3.2-4.8 g/dL Vitamin B12 Level 3422 H 211-911 pg/mL Vitamin D 25-Hydroxy 38.1 30.0-100 ng/mL Hepatitis A IgM Antibody Negative Hepatitis B Surface Antigen Negative Negative Hepatitis B Core IgM Antibody Negative Negative Hepatitis C Antibody Negative Negative Test 01/28/25 02:02 01/27/25 23:07 01/27/25 19:40 Range/Units Magnesium Level 3.3 H 1.6-2.6 mg/dL Thyroid Stimulating Hormone (TSH) 2.56 0.55-4.78 uIU/mL Hemoglobin A1c 9.5 H <5.7 % A1C C-Reactive Protein High Sensitivity 3.18 H <1.0 mg/dL Erythrocyte Sedimentation Rate 75 H 0-20 mm/hr Prothrombin Time 10.8 9.3-11.8 sec Prothrombin Time INR 1.02 0.9-1.15 Activated Partial Thromboplast Time 29.9 24.5-34.5 SEC Lactic Acid Level 0.6 0.4-2.0 mmol/L Microbiology Date/Time Source Procedure Growth Status 01/28/25 10:45 Leg Gram Stain - Final Resulted 01/28/25 10:45 Leg Wound Culture - Preliminary Resulted 01/27/25 19:46 Blood Blood Culture - Preliminary NO GROWTH AFTER 48 HOURS OF INCUBATION. Resulted Assessment Left foot gangrene. Soft tissue infection Gram-positive, negative and anaerobes. Sick sinus syndrome status post Biotronik dual lead pacemaker. Heart failure with preserved ejection fraction-LVEF on TTE 65%. Severe pulmonary hypertension. Hypertension. ESRD on hemodialysis. Anemia. Hyperkalemia. Right-sided pleural effusion. Uncontrolled type 2 diabetes mellitus. Moderate ascites. Hyponatremia. History of hiatal hernia. History of glaucoma. Plan/Recommendation I agree with your ongoing assessment and care of plan. Telemetry reviewed. Amlodipine. Aspirin, Lipitor. IV antibiotics as ordered. Morphine for pain management. Nitro SL. GI prophylactics. Additional plan as per the hospital course. A total of 45 minutes was spent reviewing the patient record, examining the patient, making a diagnostic and therapeutic plan, discussing this plan with medical personnel, following up on diagnostic studies and following the patient for clinical stability excluding any and all procedures. At least 50% of this time was spent in direct, [id number] contact. Plan discussed with: Patient AUDELIA SOL MD Jan 29, 2025 20:53
[2025-01-30 01:00] VITALS: BP 137/62; PULSE 66; RESP 16; TEMP 98.4; O2SAT 95
[2025-01-30 05:00] VITALS: BP 140/64; PULSE 64; RESP 16; TEMP 98.2; O2SAT 99
--- NOTE | 2025-01-30 07:13 | DVHPNRES ---
Progress Note Date Seen: Jan 30, 2025 Resident Creating Document: MAXI HOLLY RESIDENT Medical Necessity Reason Pt with a Central, PICC or Fol: No Subjective Review of Systems Daquan Welch, 59-year-old female with a history of diabetes mellitus (DM), end-stage renal disease (ESRD) on hemodialysis (//Sat. Dr. Bautista), hypertension (HTN), liver cirrhosis, and peripheral neuropathy presents to the ED with a worsening left foot wound. The wound began as a small cut one week ago and has progressively worsened. The patient attempted to treat it by soaking her foot in hot water but sustained cordova due to her neuropathy and inability to feel the temperature. She applied toy dye and attempted wound care at home without improvement. She reports severe pain (10/10) and limited ability to bear weight. Home blood pressure readings have been elevated (systolic ~200 mmHg). She denies systemic symptoms such as fever, chills, nausea, vomiting, chest pain, dizziness, or shortness of breath. Past medical/surgical history: diabetes mellitus (DM), end-stage renal disease (ESRD) on hemodialysis (//Sat. Dr. Bautista), hypertension (HTN), liver cirrhosis, and peripheral neuropathy, cardiac device implant, left forearm fistula Family History: None, DM, Hypertension Social history: Denies smoking/alcohol/drug use. Lives with family 01/28 = Patient seen and examined at the bedside. Podiatry consulted, recommended TORRI. Left toes have dry gangrene. Wound care consulted. 01/29-patient seen and examined, reports chest pain, nonradiating, right-sided, sharp, cardiology consulted, troponin unremarkable, EKG unremarkable. 01/30-patient seen and examined, patient has full chest tenderness on the right side, telemetry unremarkable. Discharging patient. Objective vital signs Vital Sign Date Time Temp Pulse Resp B/P (MAP) Pulse Ox O2 Delivery O2 Flow Rate FiO2 01/30/25 05:00 98.2 64 16 140/64 (89) 99 98.2 01/29/25 20:00 Room Air* 0 N/A Nasal Cannula* Total Intake and Output 01/29/25 01/29/25 01/30/25 15:00 23:00 07:00 Intake Total 50 ml 1130 ml 240 ml Balance 50 ml 1130 ml 240 ml medications Current Medications Medications Dose Ordered Sig/Raj Route Start Time Stop Time Status Last Admin Dose Admin Ondansetron HCl 4 mg Q4HP PRN IV 01/27/25 21:15 Docusate Sodium 100 mg BIDPRN PRN PO 01/27/25 21:15 Acetaminophen 650 mg Q6HP PRN PO 01/27/25 21:15 Morphine Sulfate 2 mg Q4HPRN PRN IV 01/27/25 21:15 01/27/25 22:27 2 MG Nitroglycerin 0.4 mg Q5MINP PRN SL 01/27/25 21:15 Morphine Sulfate 2 mg Q30M PRN IV 01/27/25 21:15 Amlodipine Besylate 5 mg DAILY PO 01/28/25 10:00 01/29/25 08:26 5 MG Pantoprazole Sodium 40 mg DAILY IV 01/28/25 10:00 01/29/25 08:26 40 MG Vancomycin HCl 0 ml @ 0 mls/hr UD IV 01/27/25 23:15 Cefepime HCl 50 ml @ 12.5 mls/hr DAILY IV 01/28/25 10:00 01/29/25 08:25 12.5 MLS/HR Sevelamer HCl 800 mg TIDWM PO 01/28/25 08:00 01/29/25 17:15 800 MG Diagnostic Test (Pha) 1 strip ACHS 01/28/25 17:00 01/30/25 06:41 1 STRIP Insulin Human Regular ACHS SC 01/28/25 17:00 01/30/25 06:41 3 UNITS Dextrose 50 ml UD PRN IV 01/28/25 13:30 Aspirin 81 mg DAILY PO 01/29/25 10:00 01/29/25 08:25 81 MG Atorvastatin Calcium 40 mg HS PO 01/28/25 22:00 01/29/25 22:02 40 MG Examination Patient lying in bed, in no acute distress General: Well-built, afebrile, palor, mucosae are moist Cardiovascular: Regular S1 and S2. No murmurs, gallops or rubs. No JVD elevation. No pedal edema. Patient has palpable chest tenderness on the right Respiratory: Normal B/L air entry on room air. Clear lung sounds on auscultation Abdomen: Soft, nontender, nondistended, normoactive bowel sounds, no rebound tenderness, no organomegaly, no masses Genitourinary: Deferred MSK/skin: Mobilizes 4 limbs. Dressing removed, Left feet, toes have dry gangrene. Open wound on the sole of the 2nd 3rd and 4th MTP. Draining purulent substance. Neurological: No motor, no sensitive deficits, normal speech. Pupils are isocoric and reactive. Psych/Mental Status: A/Ox3 laboratory and microbiology Laboratory Tests 01/29/25 05:50 Test 01/29/25 05:50 Range/Units Serum Glucose 177 H 74-106 mg/dL Microbiology Date/Time Source Procedure Growth Status 01/28/25 10:45 Leg Gram Stain - Final Resulted 01/28/25 10:45 Leg Wound Culture - Preliminary Resulted 01/27/25 19:46 Blood Blood Culture - Preliminary NO GROWTH AFTER 48 HOURS OF INCUBATION. Resulted Labs and/or images reviewed: Labs reviewed by me, Image(s) reviewed by me Problem List/Assessment/Plan Problem List/Assessment/Plan Left foot gangrene, rule out vascular insufficiency Probable osteomyelitis left foot Soft tissue infection Gram-positive, negative and anaerobes IV vancomycin and IV cefepime starting 01/28 Received IV fluids Podiatry on board-monitor appears to be superficial. Silvadene on the wounds. Foot MRI shows Question early osteomyelitis with low T2 signal without significant decreased T1 signal of the 4th proximal to distal phalanx with relative sparing of the 4th proximal phalangeal base. 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 Lily Alcala 10 g TID for 6 doses Right-sided pleural effusion Patient is on room air Outpatient workup Uncontrolled type 2 diabetes mellitus-hemoglobin A1c greater than 14 Continue ISS Carbohydrate diet History of hiatal hernia Pantoprazole daily Moderate ascites Stable Mild hyponatremia, hypervolemic Monitor sodium History of glaucoma Monitor Plan discussed with patient in which all questions have been answered Goals of care discussed for the patient: 29 minutes, full code status Case discussed with Dr. Tucker Plan discussed with: Patient My Orders My Orders Orders - MAXI HOLLY Procedure Category Date Status Time Consult CONS 01/29/25 Transmitted Vascular/Endovascular 11:56 * Clinical Nursing Assistant CONS 01/29/25 Transmitted Consult Schedule For Dc KEVIN 01/29/25 In Process Clinic F/U 14:25 * Cardiology Consult CONS 01/29/25 Transmitted 17:49 Electrocardigram EKG 01/29/25 Logged 17:52 Transfer Orders XFER 01/29/25 Transmitted 17:53 Dietary Evaluation Review Comments: Nutrition recommendation 1) Pro-stat 1 pk Daily 2) Nephro-Elie 1 tab daily, Corby 1 pk daily 3) Refer CDE on DC 4) Monitor wt trend, wound healing, I/O, lab values Expected Outcomes/Goals: left foot wound to improve adequate protein intake fu 3-5 days Date of Service: Jan 30, 2025 Billing Provider: LEO FREEDMAN MD Common Visit Codes: 83905-EOHEIFLERK INP/OBS CARE(HIGH) MAXI HOLLY Jan 30, 2025 07:13 LEO FREEDMAN MD Feb 03, 2025 10:01
[2025-01-30 07:35] LABS: Basophils # (auto) 0.1 10 ^3/uL (0-0.2); Basophils % (auto) 0.8 % (0.0-2.0); Eosinophils # (auto) 0.2 10 ^3/uL (0-0.8); Eosinophils % (auto) 3.6 % (0.0-7.0); Hematocrit 33.6 % (36.0-46.0); Hemoglobin 11.1 g/dL (12.2-16.2); Lymphocytes # (auto) 1.2 10 ^3/uL (0.4-5.4); Lymphocytes % (auto) 18.5 % (10.0-50.0); Mean Corpuscular Hemoglobin 28.3 pg (28.0-32.0); Mean Corpuscular Hgb Conc. 33.1 g/dL (32.0-36.0); Mean Corpuscular Volume 85.5 fL (80.0-100.0); Monocytes # (auto) 0.8 10 ^3/uL (0-1.3); Monocytes % (auto) 11.4 % (0.0-12.0); Neutrophils # (auto) 4.4 10 ^3/uL (1.6-8.6); Neutrophils % (auto) 65.7 % (37.0-80.0); Nucleated Red Blood Cells % 0.1 %; Platelet Count (auto) 340 10^3/uL (140-450); Red Blood Cells 3.93 10^6/uL (4.0-5.20); Red Cell Distribution Width 16.5 % (11.8-14.3); White Blood Cell 6.8 10^3/uL (4.4-10.8)
--- NOTE | 2025-01-30 07:44 | ECG ---
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
[2025-01-30 08:41] VITALS: BP 136/64; PULSE 65; RESP 20; TEMP 98.6; O2SAT 97
[2025-01-30 12:50] VITALS: BP 143/64; PULSE 66; RESP 20; TEMP 98.3; O2SAT 96
--- NOTE | 2025-01-30 15:05 | DVHPN2 ---
Progress Note - Dictate Date Seen: Jan 30, 2025 Medical Necessity Reason Pt with a Central, PICC or Fol: No Subjective Patient feels well she wants to go home vital signs Vital Sign Date Time Temp Pulse Resp B/P (MAP) Pulse Ox O2 Delivery O2 Flow Rate FiO2 01/30/25 12:50 98.3 66 20 143/64 (90) 96 98.3 01/29/25 20:00 Room Air* 0 N/A Nasal Cannula* Total Intake and Output 01/29/25 01/29/25 01/30/25 15:00 23:00 07:00 Intake Total 50 ml 1130 ml 240 ml Balance 50 ml 1130 ml 240 ml medications Current Medications Medications Dose Ordered Sig/Raj Route Start Time Stop Time Status Last Admin Dose Admin Ondansetron HCl 4 mg Q4HP PRN IV 01/27/25 21:15 Docusate Sodium 100 mg BIDPRN PRN PO 01/27/25 21:15 Acetaminophen 650 mg Q6HP PRN PO 01/27/25 21:15 Morphine Sulfate 2 mg Q4HPRN PRN IV 01/27/25 21:15 01/27/25 22:27 2 MG Nitroglycerin 0.4 mg Q5MINP PRN SL 01/27/25 21:15 Morphine Sulfate 2 mg Q30M PRN IV 01/27/25 21:15 Amlodipine Besylate 5 mg DAILY PO 01/28/25 10:00 01/30/25 09:57 5 MG Pantoprazole Sodium 40 mg DAILY IV 01/28/25 10:00 01/30/25 09:57 40 MG Vancomycin HCl 0 ml @ 0 mls/hr UD IV 01/27/25 23:15 Cefepime HCl 50 ml @ 12.5 mls/hr DAILY IV 01/28/25 10:00 01/30/25 09:56 12.5 MLS/HR Sevelamer HCl 800 mg TIDWM PO 01/28/25 08:00 01/30/25 11:54 800 MG Diagnostic Test (Pha) 1 strip ACHS 01/28/25 17:00 01/30/25 11:49 1 STRIP Insulin Human Regular ACHS SC 01/28/25 17:00 01/30/25 11:48 4 UNITS Dextrose 50 ml UD PRN IV 01/28/25 13:30 Aspirin 81 mg DAILY PO 01/29/25 10:00 01/30/25 09:57 81 MG Atorvastatin Calcium 40 mg HS PO 01/28/25 22:00 01/29/25 22:02 40 MG objective HEENT: No evidence of JVD, no oral ulcers. Pulmonary: Lungs are clear on auscultation bilaterally Cardiovascular S1-S2, no S3 or S4 Abdomen: Bowel sounds positive, soft no rebound tenderness Skin: No rash Neurological: Alert, oriented, no focal weakness laboratory and microbiology Laboratory Tests 01/30/25 06:48 01/29/25 05:50 Test 01/29/25 05:50 Range/Units Serum Glucose 177 H 74-106 mg/dL Assessment/Plan Assessment: 1. ESRD on HD 2. Non healing wound of foot possible early osteomyelitis on MRI 3. Anemia of ESRD 4. Hyperkalemia 5. Metabolic acidosis 6. HTN 7.Hyponatremia Plan: Dialysis today. Continue antibiotics renally dosed. Continue antihypertensive meds. FRANCHESKA for goal Hb 10-11 gr/dl. Supervisor Solder Making consult appreciated. Okay to discharge from Nephrology perspective Thank you. Dietary Evaluation Review Comments: Nutrition recommendation 1) Pro-stat 1 pk Daily 2) Nephro-Elie 1 tab daily, Corby 1 pk daily 3) Refer CDE on DC 4) Monitor wt trend, wound healing, I/O, lab values Expected Outcomes/Goals: left foot wound to improve adequate protein intake fu 3-5 days Plan discussed with: Patient NIKOLAS ENGLE MD Jan 30, 2025 15:05
[2025-01-30] MEDS ORDERED: LEVO750T40 PO (16:55)
[2025-01-30 17:05] VITALS: BP 158/78; PULSE 66; RESP 20; TEMP 97.9; O2SAT 99
--- NOTE | 2025-01-30 22:56 | DVHPN2 ---
Progress Note - Dictate Date Seen: Jan 30, 2025 Medical Necessity Reason Pt with a Central, PICC or Fol: No Subjective Patient was seen and evaluated in follow up. Patient is complaining of right sided chest tenderness. 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 Patient is cardiac stable for discharge. Telemetry reviewed. vital signs Vital Sign Date Time Temp Pulse Resp B/P (MAP) Pulse Ox O2 Delivery O2 Flow Rate FiO2 01/30/25 12:50 98.3 66 20 143/64 (90) 96 98.3 01/29/25 20:00 Room Air* 0 N/A Nasal Cannula* Total Intake and Output 01/29/25 01/29/25 01/30/25 15:00 23:00 07:00 Intake Total 50 ml 1130 ml 240 ml Balance 50 ml 1130 ml 240 ml medications Current Medications Medications Dose Ordered Sig/Raj Route Start Time Stop Time Status Last Admin Dose Admin Ondansetron HCl 4 mg Q4HP PRN IV 01/27/25 21:15 Docusate Sodium 100 mg BIDPRN PRN PO 01/27/25 21:15 Acetaminophen 650 mg Q6HP PRN PO 01/27/25 21:15 Morphine Sulfate 2 mg Q4HPRN PRN IV 01/27/25 21:15 01/27/25 22:27 2 MG Nitroglycerin 0.4 mg Q5MINP PRN SL 01/27/25 21:15 Morphine Sulfate 2 mg Q30M PRN IV 01/27/25 21:15 Amlodipine Besylate 5 mg DAILY PO 01/28/25 10:00 01/30/25 09:57 5 MG Pantoprazole Sodium 40 mg DAILY IV 01/28/25 10:00 01/30/25 09:57 40 MG Vancomycin HCl 0 ml @ 0 mls/hr UD IV 01/27/25 23:15 Cefepime HCl 50 ml @ 12.5 mls/hr DAILY IV 01/28/25 10:00 01/30/25 09:56 12.5 MLS/HR Sevelamer HCl 800 mg TIDWM PO 01/28/25 08:00 01/30/25 11:54 800 MG Diagnostic Test (Pha) 1 strip ACHS 01/28/25 17:00 01/30/25 11:49 1 STRIP Insulin Human Regular ACHS SC 01/28/25 17:00 01/30/25 11:48 4 UNITS Dextrose 50 ml UD PRN IV 01/28/25 13:30 Aspirin 81 mg DAILY PO 01/29/25 10:00 01/30/25 09:57 81 MG Atorvastatin Calcium 40 mg HS PO 01/28/25 22:00 01/29/25 22:02 40 MG objective GENERAL: Alert and oriented x 3. No acute distress. EYES: PERRL, EOMI. Anicteric. HENT: Moist mucous membranes. LUNGS: Clear to auscultation bilaterally. CARDIOVASCULAR: Regular rate and rhythm. ABDOMEN: Soft, nontender and nondistended. EXTREMITIES: No edema. NEUROLOGIC: No focal neurological deficits. SKIN: Left feet, toes have dry gangrene. Open wound on the sole of the 2nd 3rd and 4th MTP. Draining purulent substance. laboratory and microbiology Laboratory Tests 01/30/25 06:48 01/29/25 05:50 Test 01/29/25 05:50 Range/Units Serum Glucose 177 H 74-106 mg/dL Problem List Left foot gangrene. Soft tissue infection Gram-positive, negative and anaerobes. Sick sinus syndrome status post Biotronik dual lead pacemaker. Heart failure with preserved ejection fraction-LVEF on TTE 65%. Severe pulmonary hypertension. Hypertension. ESRD on hemodialysis. Anemia. Hyperkalemia. Right-sided pleural effusion. Uncontrolled type 2 diabetes mellitus. Moderate ascites. Hyponatremia. History of hiatal hernia. History of glaucoma. Assessment/Plan Continued all current supportive medical care. Amlodipine. Aspirin, Lipitor. IV antibiotics as ordered. Morphine for pain management. Nitro SL. GI prophylactics. Additional plan as per the hospital course. Dietary Evaluation Review Comments: Nutrition recommendation 1) Pro-stat 1 pk Daily 2) Nephro-Elie 1 tab daily, Corby 1 pk daily 3) Refer CDE on DC 4) Monitor wt trend, wound healing, I/O, lab values Expected Outcomes/Goals: left foot wound to improve adequate protein intake fu 3-5 days Plan discussed with: Patient AUDELIA SOL MD Jan 30, 2025 14:39
== END 2025-01-30 19:45 | disposition home health service (06) | DRG 344 ==
LOC: ER 18:06 → OVERFLOW 21:14 → WEST WING 01-28 03:45 → TELE-WESTW 01-29 18:09
PROVIDERS: ADMIT Student in an Organized Health Care Education/Training Program; ATTEND Emergency Medicine
PROC: 5A1D70Z Performance of Urinary Filtration, Intermittent, Less than 6 Hours Per Day (ICD-10-PCS; principal; 2025-01-28)
PROC: 5A1D70Z Performance of Urinary Filtration, Intermittent, Less than 6 Hours Per Day (ICD-10-PCS; 2025-01-30)
DX: E11.69 Type 2 diabetes mellitus with other specified complication (principal); M86.8X7 Other osteomyelitis, ankle and foot; E11.52 Type 2 diabetes mellitus with diabetic peripheral angiopathy with gangrene; E87.20 Acidosis, unspecified; I13.2 Hypertensive heart and chronic kidney disease with heart failure and with stage 5 chronic kidney disease, or end stage renal disease; R18.8 Other ascites; N18.6 End stage renal disease; D63.1 Anemia in chronic kidney disease; E87.1 Hypo-osmolality and hyponatremia; I27.20 Pulmonary hypertension, unspecified; I50.30 Unspecified diastolic (congestive) heart failure; L03.116 Cellulitis of left lower limb; K74.60 Unspecified cirrhosis of liver; R07.89 Other chest pain; E11.42 Type 2 diabetes mellitus with diabetic polyneuropathy; E11.22 Type 2 diabetes mellitus with diabetic chronic kidney disease; Z99.2 Dependence on renal dialysis; E87.5 Hyperkalemia; K44.9 Diaphragmatic hernia without obstruction or gangrene; I99.8 Other disorder of circulatory system; Z83.3 Family history of diabetes mellitus; Z82.49 Family history of ischemic heart disease and other diseases of the circulatory system
CPT/HCPCS: 36415; 71045; 73620; 73718; 80048; 80053; 80074; 80202; 82306; 82565; 82607; 82962; 83036; 83605; 83735; 84443; 84484; 85025; 85610; 85652; 85730; 86141; 86850; 86900; 86901; 87040; 87077; 87186; 87205; 90935; 93005; 93925; 96365; 96375; 97110; 97116; 97163; 97530; 99291; G0378; J1815; J2470

== ENCOUNTER 2025-02-16 18:10 | Inpatient (IN) | payer MEDICAID ==
[~2025-02-16] VITALS: Ht 165.1 cm; Wt 69.0 kg
[~2025-02-16 18:10] MED LIST changes: +ATOR40TA52 PO; +DOXY150C6 PO; +LEVO750T40 PO; +SILV1CRE82 TOP
--- NOTE | 2025-02-16 18:44 | ED.PDOC ---
History of Present Illness(SKN HPI Comments 59-year-old female with a history of DM, ESRD on hemodialysis (//Mon. Dr. Bautista), HTN, liver cirrhosis, and peripheral neuropathy presents to the ED for a chief complaint of ongoing left foot pain described as a throbbing sensation. The wound began as a small cut one week ago and has progressively worsened. The patient attempted to treat it by soaking her foot in hot water but sustained cordova due to her neuropathy and inability to feel the temperature. She applied toy dye and attempted wound care at home without improvement. She reports severe pain (10/10) and limited ability to bear weight. Patient was seen at his ED around 01/28/25 and discharged 3 days after with home health nurse to help clean wound. Family member who brought patient in today states health nurse was only present for 5 days and is trying to get extended care but as of right now, patient has been continuing to attempt wound care at home with that toy dye. Patient reports throbbing sensation is worse today, states she was prescribed doxycycline, in which she has been on for 10 days and developed nausea, vomiting and diarrhea. Patient reports today had multiple episodes of non bloody emesis. Patient denies any fever, chills, chest pain, SOB, open wounds, abrasions to foot site, abdominal pain. Time Seen by MD: 18:31 Primary Care Provider: HISHAM History of Present Illness: Nurses Notes, Medications, Allergies Allergies: Coded Allergies: NO KNOWN ALLERGIES (Unverified , 08/03/20) Home Meds Active Scripts Levofloxacin Hemihydrate (LEVOFLOXACIN) 750 Mg Tab, 750 MG PO DAILY for 45 Days, #45 TAB 0 Refills Prov:MAXI HOLLY RESIDENT 01/30/25 Atorvastatin Calcium (ATORVASTATIN CALCIUM) 40 Mg Tab, 40 MG PO DAILY for 30 Days, #30 TAB 0 Refills Prov:MAXI HOLLY RESIDENT 01/29/25 Silver Sulfadiazine (Silvadene) 1 % Cre, 1 APPLIC TOP DAILY for 10 Days, #50 GRAMS 0 Refills Prov:MAXI HOLLY RESIDENT 01/29/25 Doxycycline (Monohydrate) (DOXYCYCLINE) 150 Mg Cap, 100 MG PO BID for 10 Days, #20 CAP 0 Refills Prov:MAXI HOLLY RESIDENT 01/29/25 Reported Medications Sevelamer Hydrochloride (Sevelamer Hydrochloride) 800 Mg Tab, 2 TAB PO TID 08/14/22 Glipizide (Glipizide Er) 2.5 Mg Tab, 1 TAB PO DAILY 08/14/22 Calcium Acetate (Phosphate Bin (Calcium Acetate) 667 Mg Cap, 2 CAP PO TID 08/14/22 Amlodipine Besylate (Amlodipine Besylate) 10 Mg Tab, 1 TAB PO DAILY 08/14/22 Aspirin (Aspir-Low) 81 Mg Tab, 81 MG PO DAILY for 30 Days, MG 08/05/20 Hydralazine Hcl (Hydralazine Hcl) 10 Mg Tab, 0 PO BID for 30 Days, MG 08/05/20 Information Source: Patient, Relative Mode of Arrival: Wheelchair Severity: Moderate Timing: Came on: Gradually Duration: Since onset Location: Foot (left ) Mechanism: Preceding Wound Object: None Condition of Object: None Tetanus: UTD History of: Diabetes Associated Signs and Symptoms: Pain Past Medical History PAST MEDICAL HISTORY: DM, ESRD, HTN, Liver Surgical History: Pacemaker SURGICAL ASSISTANT History: Denies all SURGICAL ASSISTANT Hx Family History Family History: Reviewed,noncontributory to illness Social History Smoker: Non-Smoker Alcohol: Denies ETOH Use Drugs: Denies Drug Use Lives In: Home Constitutional: denies: chills, diaphoresis, fatigue, fever, malaise, sweats, weakness, others EENTM: denies: blurred vision, double vision, ear bleeding, ear discharge, ear drainage, ear pain, ear ringing, eye pain, eye redness, hearing loss, mouth pain, mouth swelling, nasal discharge, nose bleeding, nose congestion, nose pain, photophobia, tearing, throat pain, throat swelling, voice changes, others Respiratory: denies: cough, hemoptysis, orthopnea, SOB at rest, shortness of breath, SOB with excertion, stridor, wheezing, others Gastrointestinal: reports: diarrhea, nausea, vomiting; denies: abdomen distended, abdominal pain, blood streaked bowels, constipated, dysphagia, difficulty swallowing, hematemesis, melena, poor appetite, poor fluid intake, rectal bleeding, rectal pain, others Genitourinary: denies: abnormal vagina bleeding, burning, dyspareunia, dysuria, flank pain, frequency, hematuria, incontinence, pain, , vagina discharge, urgency, others Neurological: denies: dizziness, fainting, headache, left sided numbness, left sided weakness, numbness, paresthesia, pre-existing deficit, right sided numbness, right sided weakness, seizure, speech problems, tingling, tremors, weakness, others Musculoskeletal: denies: back pain, gout, joint pain, joint swelling, muscle pain, muscle stiffness, neck pain, others Integumetry: reports: wounds (left foot wound with pain ); denies: bruises, change in color, change in hair/nails, dryness, laceration, lesions, lumps, rash, others Allergic/Immunocompromised: denies: Difficulty Healing, Frequent Infections, Hives, Itching, others Hematologic/Lymphatic: denies: anemia, blood clots, easy bleeding, easy bruising, swollen glands, others Endocrine: denies: excessive hunger, excessive sweating, excessive thirst, excessive urination, flushing, intolerance to cold, intolerance to heat, unex plained weight gain, unexplained weight loss, others Psychiatric: denies: anxiety, bipolar disorder, depression, hopeless, panic disorder, schizophrenia, sleepless, suicidal, others All Other Systems: Reviewed and Negative Physical Exam General Appearance: Moderate Distress HEENT: Normal ENT Inspection, Pharynx Normal, TMs Normal Neck: Full Range of Motion, Non-Tender, Normal, Normal Inspection Respiratory: Chest Non-Tender, Lungs Clear, No Accessory Muscle Use, No Respiratory Distress, Normal Breath Sounds Cardiovascular: No Edema, No JVD, No Murmur, No Gallop, Normal Peripheral Pulses, Regular Rate/Rhythm Breast Exam: Deferred Gastrointestinal: Diffuse, No Organomegaly, No Pulsatile Mass, Normal Bowel Sounds, Soft, Tenderness Genitalia: Deferred Pelvic: Deferred Rectal: Deferred Extremities: No calf tenderness, Normal capillary refill, Normal inspection, Normal range of motion, Non-tender, No pedal edema Musculoskeletal : Apperance: Normal Neurologic: Alert, salt lifter II-XII nml as Tested, Motor Weakness, Normal Affect, Normal Mood, No Sensory Deficits Cerebellar Function: Normal Reflexes: Normal Skin: Dry, Normal Color, Warm Lymphatic: No Adenopathy Was a procedure done? Was a procedure done?: No Differential Diagnosis (INTG) Differential Diagnosis: N/A Differential Diagnosis: Osteomyelitis Abscess: Bacteremia, Erysipelas, Felon, Gas Gangrene X-Ray, Labs, Meds, VS Vital Signs Date Time Temp Pulse Resp B/P (MAP) Pulse Ox O2 Delivery O2 Flow Rate FiO2 02/16/25 19:13 98.0 72 18 135/60 (85) 97 98.0 02/16/25 19:13 Room Air* 0 21 02/16/25 18:24 98.3 65 18 131/53 (79) 97 98.3 Lab Test 02/16/25 18:50 02/16/25 18:39 Range/Units White Blood Count 7.4 4.4-10.8 10^3/uL Red Blood Count 3.12 L 4.0-5.20 10^6/uL Hemoglobin 8.8 L 12.2-16.2 g/dL Hematocrit 26.8 L 36.0-46.0 % Mean Corpuscular Volume 86.1 80.0-100.0 fL Mean Corpuscular Hemoglobin 28.4 28.0-32.0 pg Mean Corpuscular Hemoglobin Concent 32.9 32.0-36.0 g/dL Red Cell Distribution Width 16.4 H 11.8-14.3 % Platelet Count 237 140-450 10^3/uL Mean Platelet Volume 7.2 6.9-10.8 fL Neutrophils (%) (Auto) 79.1 37.0-80.0 % Lymphocytes (%) (Auto) 11.9 10.0-50.0 % Monocytes (%) (Auto) 7.4 0.0-12.0 % Eosinophils (%) (Auto) 1.1 0.0-7.0 % Basophils (%) (Auto) 0.5 0.0-2.0 % Neutrophils # (Auto) 5.9 1.6-8.6 10 ^3/uL Lymphocytes # (Auto) 0.9 0.4-5.4 10 ^3/uL Monocytes # (Auto) 0.5 0-1.3 10 ^3/uL Eosinophils # (Auto) 0.1 0-0.8 10 ^3/uL Basophils # (Auto) 0 0-0.2 10 ^3/uL Nucleated Red Blood Cells 0.0 % Sodium Level 127 L 136-145 mmol/L Potassium Level 5.5 H 3.5-5.1 mmol/L Chloride Level 87 L 98-107 mmol/L Carbon Dioxide Level 29 20-31 mmol/L Anion Gap 11 5-15 Blood Urea Nitrogen 58 H 9-23 mg/dL Creatinine 4.91 H 0.550-1.02 mg/dL Glomerular Filtration Rate Calc 10 >90 mL/min BUN/Creatinine Ratio 11.8 10.0-20.0 Serum Glucose 131 H 74-106 mg/dL Lactic Acid Level 0.9 0.4-2.0 mmol/L Calcium Level 9.4 8.7-10.4 mg/dL Total Bilirubin 0.3 0.2-1.0 mg/dL Aspartate Amino Transferase (AST) 35 13-40 U/L Alanine Aminotransferase (ALT) 13 7-40 U/L Alkaline Phosphatase 143 H 46-116 U/L Ammonia 12 11-32 umol/L Total Protein 7.5 5.7-8.2 g/dL Albumin 4.0 3.2-4.8 g/dL POC Glucose 125 H 70-106 mg/dl Current Medications Medications (Trade) Dose Ordered Sig/Raj Route Start Time Stop Time Status Last Admin Sodium Chloride 500 ml @ 500 mls/hr Q1H ONCE IV 02/16/25 18:45 02/16/25 19:44 DC 02/16/25 19:15 CAT scan of the left foot shows: IMPRESSION: 1. No acute abnormality 2. Severe vascular calcification CBC is within normal limits except for hemoglobin of 8.8 and hematocrit of 26.8 indicating significant anemia but this could also be consistent with a renal failure Chemistry panel shows hyponatremia. The potassium is 5.5 The patient's BUN is 58 and creatinine is 4.91 The patient's glucose is 131 indicating hyperglycemia The ammonia level is within normal limits At this time, the patient is being admitted to the hospitalist At this time we are getting a Nephrology consult The patient is being started on insulin, dextrose, calcium and sodium bicarbonate for the elevated potassium Images Reviewed?: Images reviewed and evaluated by me Time of 1ST Reevaluation: 18:37 Reevaluation 1ST: Unchanged Patient Education/Counseling: Diagnosis, Treatment, Prognosis Family Education/Counseling: Diagnosis, Treatment, Prognosis SEPSIS Sepsis Screen Physician Orders Urinalysis (02/16/25 18:35) Heplock Iv (02/16/25 18:35) Cloth Grader (02/16/25 18:35) Blood Pressure (02/16/25 18:35) Pulse Oximetry (02/16/25 18:35) Blood Culture (02/16/25 18:35) Ct L Foot Wo Contrast (02/16/25 18:35) Calcium Ivpb (02/16/25 20:30) Sodium Bicarb 50meq/50ml Vial (02/16/25 20:30) Insulin R (Human) (Insulin R) (02/16/25 20:30) Dextrose 50% Syringe (02/16/25 20:30) Vital Signs Date Time Temp Pulse Resp B/P (MAP) Pulse Ox O2 Delivery O2 Flow Rate FiO2 02/16/25 19:13 98.0 72 18 135/60 (85) 97 98.0 02/16/25 19:13 Room Air* 0 21 02/16/25 18:24 98.3 65 18 131/53 (79) 97 98.3 Laboratory Tests Test 02/16/25 18:50 Lactic Acid Level 0.9 mmol/L (0.4-2.0) White Blood Count 7.4 10^3/uL (4.4-10.8) Medications Medications Dose Ordered Sig/Raj Route Start Time Stop Time Status Last Admin Dose Admin Sodium Chloride 500 ml @ 500 mls/hr Q1H ONCE IV 02/16/25 18:45 02/16/25 19:44 DC 02/16/25 19:15 Departure 1 Departure Time of Disposition: 20:23 Impression: Primary Impression: ESRD (end stage renal disease) on dialysis Additional Impressions: Intractable abdominal pain Vomiting Qualified Codes: R11.14 - Bilious vomiting Left foot infection Disposition: ADMITTED INPATIENT Admit to: Tele Condition: Fair Critical Care Note Critical Care Time?: Yes (45 min-critical care time only) Stability Stability form required: Yes Unstable for transfer: Telemetry monitoring (Telemetry monitoring required), ED Physician Assesment (Clinical assesment) I personally scribed for MARI ROSS MD ([email or web address]) on 02/16/25 at 18:44. Electronically submitted by Annamarie Villagran ([facility]). MARI ROSS MD Feb 16, 2025 18:44
[2025-02-16 19:14] LABS: Hematocrit 26.8 % (36.0-46.0); Hemoglobin 8.8 g/dL (12.2-16.2); Mean Corpuscular Hemoglobin 28.4 pg (28.0-32.0); Mean Corpuscular Volume 86.1 fL (80.0-100.0); Nucleated Red Blood Cells % 0.0 %
[2025-02-16] MEDS: SODIUM CHLORIDE 0.9% 500 ML IV ONE (19:15)
[2025-02-16 19:32] LABS: Alanine Aminotransferase 13 U/L (7-40); Albumin 4.0 g/dL (3.2-4.8); Anion Gap 11 (5-15); BUN/Creatinine Ratio 11.8 (10.0-20.0); Calcium 9.4 mg/dL (8.7-10.4); Carbon Dioxide 29 mmol/L (20-31); Total Protein 7.5 g/dL (5.7-8.2)
[2025-02-16 19:36] LABS: Alkaline Phosphatase 143 U/L (46-116); Bilirubin, Total 0.3 mg/dL (0.2-1.0); Blood Urea Nitrogen 58 mg/dL (9-23); Chloride 87 mmol/L (98-107); Glucose 131 mg/dL (74-106); Potassium 5.5 mmol/L (3.5-5.1); Sodium 127 mmol/L (136-145)
--- NOTE | 2025-02-16 20:10 | DVH ---
EXAM: CT CT L FOOT WO CONTRAST HISTORY: pain COMPARISON: MRI MRI L FOOT WO CONTRAST on DOS: 01/28/25 TECHNIQUE: Noncontrast axial CT images of the left foot were performed. Sagittal and coronal reformat lani images were obtained. This CT exam was performed using one or more of the following dose reductio n techniques: Automated exposure control, adjustment of the mA and/or kv according to patient size, o r the use of iterative reconstruction techniques. Radiation Dose Information: CT Dose: CTDI volume is 7.75 mGy. Dose-length product is 188.35 mGy*cm FINDINGS: No acute fracture or dislocation are identified about the left foot. There are mild interphalangeal j oint degenerative changes. Vascular calcifications are noted. No significant soft tissue abnormality. IMPRESSION: 1. No acute abnormality 2. Severe vascular calcification
[2025-02-16] MEDS: DEXTROSE (50%) 50ML SYRG IV ONE (21:39)
[2025-02-16] MEDS: SODIUM BICARB 8.4% 50Meq/50ml SYR Vial IV ONE (21:39)
[2025-02-16] MEDS: SODIUM ZIRCONIUM CYCL 10 GM PAK PO ONE (21:39)
[2025-02-16] MEDS: InsuLIN REG 1unit/0.01ml Soln (100units/ml) IV ONE (21:41)
[2025-02-16] MEDS: CALCIUM GLUC 1,000mg/50ml-NS 50 ML IV ONE (22:36)
--- NOTE | 2025-02-16 23:05 | DVHHP2 ---
History of Present Illness History of Present Illness Patient is 59 years old female with past medical history of hypertension, diabetes mellitus type 2, peripheral artery disease, pacemaker due to cardiac arrhythmia, ESRD on hemodialysis Monday//Monday- , cirrhosis of liver, peripheral neuropathy, severe pulmonary hypertension- RVSP 65, left foot wound was brought in to the hospital due to diarrhea and vomiting. As per patient she has been having nausea and vomiting for last 10 days, vomitus wqs food and watery, no blood. Patient also endorsed having diarrhea for last 2 days, about 5 times a day, no blood. Patient also complained of left foot pain, sharp, throbbing in nature, 10/10, decreased weight-bearing. Patient was recently discharged from [facility] after being treated for left foot wound, early possible osteomyelitis. Post discharged Patient was on antibiotic doxycycline for 10 days and linezolid 600 mg b.i.d. for 14 days. Patient denied any fever, of breath, dysarthria, palpitation, change in vision. Initial lab workup revealed hemoglobin 8.8, RDW 16.4, sodium 127, , potassium 5.5, BNP 1576, serum creatinine 4.91, BUN 58, lactic acid 0.9, alkaline phosphatase 143, AST/ALT within normal limit, ammonia 12 serum iron 119, ferritin 1032. TIBC 191, CT Scan of the left foot revealed no acute abnormality, severe vascular calcification. CXR revealed mild cardiomegaly, bilateral pulmonary congestion Past Medical History hypertension, diabetes mellitus type 2, peripheral artery disease, pacemaker due to cardiac arrhythmia, ESRD on hemodialysis Monday//Monday- , cirrhosis of liver, peripheral neuropathy, severe pulmonary hypertension- RVSP 65, left foot wound Past Surgical History Pacemaker placement Family History Mom had diabetes mellitus Past Social History Denies smoking/alcoholism/drug abuse, lives with son Review of Systems Review of Systems Allergy- NKDA Patient was seen today at the bedside. Cardiovascular- deny acute chest pain or shortness of breath or cough or palpitation Respiratory denies cough or short of breath or wheezing Musculoskeletal-denies acute joint swelling or tenderness or redness Neurological- denies acute dysarthria, dysphagia, change in vision Psychiatry- denies depression or SI or HI Skin- denies acute rash or purpura Allergies: Coded Allergies: NO KNOWN ALLERGIES (Unverified , 08/03/20) Exam Vital Signs Vital Signs Date Time Temp Pulse Resp B/P (MAP) Pulse Ox O2 Delivery O2 Flow Rate FiO2 02/16/25 19:13 98.0 72 18 135/60 (85) 97 98.0 02/16/25 19:13 Room Air* 0 21 Exam General examination- awake, alert, oriented HEENT- PEERLA, no acute nasal discharge Cardiovascular- S1-S2 audible, rate and rhythm regular, no murmur Respiratory- bilateral lung crackles+ Gastrointestinal-nontender, bowel sound+. Nondistended Musculoskeletal-no acute joint swelling or tenderness or redness Digital rectal examination in presence of title one teacher PARMINDER Guevara-no hemorrhoids or rectal mass noted Lower extremity-wound on the left foot on the plantar surface especially around little toe, toy color dye on the foot Neurological- cranial nerves intact, no acute dysarthria or dysphagia Psychiatry- denies depression or SI or HI Skin- no acute rash or purpura Labs/Xrays Labs Test 02/16/25 21:41 02/16/25 18:50 Range/Units POC Glucose 140 H 70-106 mg/dl White Blood Count 7.4 4.4-10.8 10^3/uL Red Blood Count 3.12 L 4.0-5.20 10^6/uL Hemoglobin 8.8 L 12.2-16.2 g/dL Hematocrit 26.8 L 36.0-46.0 % Mean Corpuscular Volume 86.1 80.0-100.0 fL Mean Corpuscular Hemoglobin 28.4 28.0-32.0 pg Mean Corpuscular Hemoglobin Concent 32.9 32.0-36.0 g/dL Red Cell Distribution Width 16.4 H 11.8-14.3 % Platelet Count 237 140-450 10^3/uL Mean Platelet Volume 7.2 6.9-10.8 fL Neutrophils (%) (Auto) 79.1 37.0-80.0 % Lymphocytes (%) (Auto) 11.9 10.0-50.0 % Monocytes (%) (Auto) 7.4 0.0-12.0 % Eosinophils (%) (Auto) 1.1 0.0-7.0 % Basophils (%) (Auto) 0.5 0.0-2.0 % Neutrophils # (Auto) 5.9 1.6-8.6 10 ^3/uL Lymphocytes # (Auto) 0.9 0.4-5.4 10 ^3/uL Monocytes # (Auto) 0.5 0-1.3 10 ^3/uL Eosinophils # (Auto) 0.1 0-0.8 10 ^3/uL Basophils # (Auto) 0 0-0.2 10 ^3/uL Nucleated Red Blood Cells 0.0 % Sodium Level 127 L 136-145 mmol/L Potassium Level 5.5 H 3.5-5.1 mmol/L Chloride Level 87 L 98-107 mmol/L Carbon Dioxide Level 29 20-31 mmol/L Anion Gap 11 5-15 Blood Urea Nitrogen 58 H 9-23 mg/dL Creatinine 4.91 H 0.550-1.02 mg/dL Glomerular Filtration Rate Calc 10 >90 mL/min BUN/Creatinine Ratio 11.8 10.0-20.0 Serum Glucose 131 H 74-106 mg/dL Lactic Acid Level 0.9 0.4-2.0 mmol/L Calcium Level 9.4 8.7-10.4 mg/dL Total Bilirubin 0.3 0.2-1.0 mg/dL Aspartate Amino Transferase (AST) 35 13-40 U/L Alanine Aminotransferase (ALT) 13 7-40 U/L Alkaline Phosphatase 143 H 46-116 U/L Ammonia 12 11-32 umol/L Total Protein 7.5 5.7-8.2 g/dL Albumin 4.0 3.2-4.8 g/dL Assessment/Plan Assessment/Plan Assessment and plan #Acute gastroenteritis, rule out C diff -status post recent antibiotic therapy with doxycycline and linezolid for left foot wound -oral hydration -pending stool for C diff, stool ova and parasite, stool culture, stool occult blood # Left foot wound -CT scan of the left foot revealed no acute abnormality, severe vascular calcification -ordered podiatry consult for further evaluation and care -pending wound culture -patient recently had antibiotic therapy with doxycycline and linezolid # acute hypoxic respiratory failure likely due to acute on chronic HFpEF/fluid overload -BNP 1576 -continue Lasix 40 mg IV b.i.d. # acute on chronic heart failure.HFpEF- 65% -BNP 1576 -on 09/21/24 echo 2D revealed LVEF 65% RVSP 64 -continue Lasix 40 mg IV b.i.d. # bilateral leg edema likely due to acute on chronic CHF/volume overload due to ESRD -continue Lasix 40 mg IV b.i.d. # Hypertension -continue Lasix 40 mg IV b.i.d. -continue hydralazine 10 mg p.o. b.i.d. #Diabetes mellitus type 2 -HGB A1c on 04/29/2025 9.5 -continue insulin sliding scale as prescribed # anemia likely due to anemia of chronic disease -monitor CBC #Peripheral arterial disease -aspirin 81 mg p.o. daily #ESRD- on hemodialysis Monday//Monday [facility] -ordered nephrology consult for further evaluation and care # pulmonary hypertension # peroneal neuropathy # on pacemaker # cirrhosis of liver -avoid dehydration and constipation Goals of care, Code status full code ; discussed with >15 minutes PUD prophylaxis: famotidine DVT prophylaxis: Lovenox Plan discussed with Dr. Clayton , nursing staff, Total time spent on patient evaluation, chart review, assessment and plan, discussion discussion >35 minutes Plan discussed with: Patient, Daughter, Other (RN) My Orders Orders - EULALIA FERRARO Procedure Category Date Status Time Admit ADMIT 02/16/25 Verified 23:03 Code Status CODE 02/16/25 Verified 23:03 Hydrocodone-Acet PHA 02/16/25 Verified 5/325mg Tab ([place] 23:15 Ondansetron Hcl PHA 02/16/25 Verified (Zofran) 23:15 Complete Blood Count LAB 02/17/25 Verified 04:00 Comprehensive LAB 02/17/25 Verified Metabolic Panel 04:00 Npo (Nothing By DIET 02/17/25 Verified Mouth) Diet Breakfast Enoxaparin Sodium PHA 02/17/25 Verified (Lovenox) 10:00 Acetaminophen Tablet PHA 02/16/25 Verified (Tylenol Tablet) 23:15 Nitroglycerin PHA 02/16/25 Verified Sublingual (Ntrostat 23:15 Notify Of Changes [facility] 02/16/25 Verified From Base 23:03 Lumber Sorter For [facility] 02/16/25 Verified 24 Hours 23:03 Date of Service: Feb 16, 2025 Billing Provider: GIUSEPPE CLAYTON MD Common Visit Codes: 88998-BHCTCGD INP/OBS CARE (HIGH) Secondary Visit Codes: 21618-[id number] CARE PLAN 30 MINUTES EULALIA FERRARO Feb 16, 2025 23:05
[2025-02-16] MEDS ORDERED: HYDROcodone-ACET 5/325MG TAB PO PRN (23:15)
[2025-02-16] MEDS ORDERED: NITROGLYCERIN 0.4 MG SL TAB SL PRN (23:15)
--- NOTE | 2025-02-16 23:50 | DVH ---
CHEST RADIOGRAPH Indication: CHF Technique: Single frontal view of the chest was obtained COMPARISON: XY CHEST XRAY 1 VIEW on DOS: 01/27/25 FINDINGS: Lines and Tubes: Dual-;ead pacemaker again noted overlying left chest wall. Lungs: No pulmonary infiltrates noted. Mild pulmonary vascular congestion. Pleura: No effusion. No pneumothorax. Cardiomediastinal contours: Mild cardiomegaly. IMPRESSION: Mild cardiomegaly and pulmonary vascular congestion.
[2025-02-17 00:09] LABS: Iron 119.0 ug/dL (50-170)
[2025-02-17] MEDS: ONDANSETRON HCL 4 MG/2 ML VIAL IV ONE (00:29)
[2025-02-17 00:41] LABS: Total Iron Binding Capacity 191.0 ug/dL (250-425)
[2025-02-17] MEDS: ONDANSETRON HCL 4 MG/2 ML VIAL ONE (00:47)
[2025-02-17] MEDS: SODIUM ZIRCONIUM CYCL 10 GM PAK PO ONE (00:50)
[2025-02-17] MEDS: FUROSEMIDE 40 MG/4 ML VIAL IV ONE (00:50)
[2025-02-17 00:53] LABS: Anion Gap 10 (5-15); Carbon Dioxide 30 mmol/L (20-31)
[2025-02-17 00:54] LABS: Calcium 8.9 mg/dL (8.7-10.4)
[2025-02-17 00:56] LABS: Chloride 88 mmol/L (98-107); Potassium 5.1 mmol/L (3.5-5.1); Sodium 128 mmol/L (136-145)
[2025-02-17 00:59] LABS: BUN/Creatinine Ratio 12.3 (10.0-20.0)
[2025-02-17 01:04] LABS: Blood Urea Nitrogen 58 mg/dL (9-23); Glucose 114 mg/dL (74-106)
[2025-02-17] MEDS: HYDROcodone-ACET 5/325MG TAB PO PRN (02:23)
[2025-02-17] MEDS: HYDROcodone-ACET 5/325MG TAB ONE (02:23)
[2025-02-17] MEDS ORDERED: DEXTROSE (50%) 50ML SYRG IV PRN (04:15)
[2025-02-17] MEDS: FUROSEMIDE 40 MG/4 ML VIAL IV SCH (05:57)
[2025-02-17] MEDS: SEVELAMER 800 MG TAB PO SCH (06:00)
[2025-02-17] MEDS: ACCU-CHEK COMFORT CURVE STRIP VI SCH (06:35)
[2025-02-17] MEDS: InsuLIN REG 1unit/0.01ml Soln (100units/ml) SC SCH (06:36)
--- NOTE | 2025-02-17 06:36 | DVH ---
ABDOMINAL RADIOGRAPH Indication: Diarrhea Technique: Single frontal view of the abdomen was obtained Comparison: None FINDINGS: Lines and tubes: None There is a nonobstructive bowel gas pattern. Diffuse stool throughout the colon. No supine radiograph ic evidence of pneumoperitoneum. Bony structures unremarkable. IMPRESSION: 1. Nonobstructive bowel gas pattern. Stool throughout the colon.
[2025-02-17 08:37] VITALS: PULSE 65; RESP 17; O2SAT 100
[2025-02-17] MEDS ORDERED: ATORVASTATIN 20 MG TAB PO SCH (10:00)
[2025-02-17] MEDS ORDERED: ASPirin-EC 81 mg tab PO SCH (10:00)
[2025-02-17] MEDS ORDERED: DOXYCYCLINE 100 MG TAB/CAP PO SCH ×2 (10:00)
[2025-02-17] MEDS: ENOXAPARIN SOD 30 MG/0.3 ML SYRINGE SC SCH (11:25)
[2025-02-17] MEDS: ATORVASTATIN 20 MG TAB PO SCH (11:26)
--- NOTE | 2025-02-17 13:34 | DVHPNRES ---
Progress Note Date Seen: Feb 17, 2025 Resident Creating Document: ASHLEY VALENCIA RESIDENT Medical Necessity Reason Pt with a Central, PICC or Fol: No Subjective Review of Systems Patient is 59 years old female with past medical history of hypertension, diabetes mellitus type 2, peripheral artery disease, pacemaker due to cardiac arrhythmia, ESRD on hemodialysis Monday//Monday- [place], cirrhosis of liver, peripheral neuropathy, severe pulmonary hypertension- RVSP 65. She is brought to the ED with chief complaint of diarrhea and vomiting, pain in left foot wound. She had diarrhea for last 2 days, about 5 times a day, no blood. Associated with nausea, vomiting. She also complained of some chest pain on right side. Patient also complained of left foot pain, sharp, throbbing in nature, 10/10, decreased weight-bearing. She was taking antibiotics for osteomyelitis of left foot. She was discharged with doxycycline, levofloxacin and linezolid. Yesterday she finished her 2 week antibiotic course. Patient denied any fever, shortness of breath. Initial lab workup revealed hemoglobin 8.8, RDW 16.4, sodium 127, potassium 5.5, BNP 1576, serum creatinine 4.91, BUN 58, lactic acid 0.9, alkaline phosphatase 143, AST/ALT within normal limit, ammonia 12 serum iron 119, ferritin 1032. TIBC 191, CT Scan of the left foot revealed no acute abnormality, severe vascular calcification. CXR revealed mild cardiomegaly, bilateral pulmonary congestion. Abdominal x-ray shows nonobstructive bowel gas pattern. 02/17/25: Patient is seen at bedside. He is currently comfortable. She has not had diarrhea episodes since morning today. Past Medical History: Pacemaker due to cardiac arrhythmia, hyperlipidemia, hyperchloremia, hypertension, diabetes mellitus, CRF, cirrhosis. ROS: Constitutional: Denies weight loss, fever and chills. HEENT: Denies changes in vision and hearing. Respiratory: Denies shortness of breath and cough Cardiovascular: Complains of right-sided chest pain. GI: Abdominal distress associated with nausea, vomiting and diarrhea. : On dialysis. Musculoskeletal: Denies myalgias and joint pain Neurological: Denies dizziness, headache, vision or hearing problems Objective vital signs Vital Sign Date Time Temp Pulse Resp B/P (MAP) Pulse Ox O2 Delivery O2 Flow Rate FiO2 02/17/25 11:30 65 20 140/62 (88) 99 02/17/25 08:37 Room Air* 0 21 02/17/25 08:18 98.4 98.4 Total Intake and Output 02/16/25 02/16/25 02/17/25 15:00 23:00 07:00 Intake Total 500 ml 50 ml Balance 500 ml 50 ml medications Current Medications Medications Dose Ordered Sig/Raj Route Start Time Stop Time Status Last Admin Dose Admin Ondansetron HCl 4 mg Q4HP PRN IV 02/16/25 23:15 Enoxaparin Sodium 30 mg DAILY SC 02/17/25 10:00 02/17/25 11:25 30 MG Acetaminophen 650 mg Q6HP PRN PO 02/16/25 23:15 Nitroglycerin 0.4 mg Q5MINP PRN SL 02/16/25 23:15 Aspirin 81 mg DAILY PO 02/17/25 10:00 Cancel Sevelamer HCl 1,600 mg TID PO 02/17/25 06:00 Hydralazine HCl 10 mg BID PO 02/17/25 10:00 02/17/25 11:25 10 MG Atorvastatin Calcium 40 mg DAILY PO 02/17/25 10:00 02/17/25 11:26 40 MG Furosemide 40 mg BIDD IV 02/17/25 06:00 02/17/25 05:57 40 MG Acetaminophen/ Hydrocodone Bitart 1 tab Q4HP PRN PO 02/17/25 02:30 02/17/25 02:23 1 TAB Diagnostic Test (Pha) 1 strip ACHS 02/17/25 07:00 02/17/25 11:51 1 STRIP Insulin Human Regular ACHS SC 02/17/25 07:00 Dextrose 50 ml UD PRN IV 02/17/25 04:15 Examination General examination- Awake, alert, oriented HEENT- PEERLA, no acute nasal discharge Cardiovascular- Faint diastolic murmur heard in the mitral area. Respiratory- Faint bilateral lung crackles. Gastrointestinal- Nontender, bowel sound reduced. Nondistended Musculoskeletal-no acute joint swelling or tenderness or redness Extremity examination- dry wound dressing on left foot. Weak dorsalis pedis felt it right foot, toes in right foot cooler than left foot. Neurological- cranial nerves intact, no acute dysarthria or dysphagia laboratory and microbiology Laboratory Tests 02/17/25 00:22 02/16/25 18:50 Test 02/17/25 00:22 Range/Units Serum Glucose 114 H 74-106 mg/dL Microbiology Date/Time Source Procedure Growth Status 02/17/25 00:18 Stool Stool Culture Pending Resulted 02/17/25 00:18 Stool Shiga Toxin I & II Pending Resulted 02/17/25 00:18 Stool Clostridium difficile Toxin Assay - Final Resulted Problem List/Assessment/Plan Problem List/Assessment/Plan 1. Acute diarrhea, likely infectious etiology 2. Possible gastroenteritis 3. Rule out C difficile - Will order a CT abdomen tomorrow if is abdominal pain persist - Stool culture still pending - Start Famotidine in 20 mg daily - Start Carafate suspension BID 3. Acute hypoxic respiratory failure, likely due to volume overload - Tachypnea. O2 2 L supplementation. - CXR shows Cardiomegaly and pulmonary vascular congestion. 4. Osteomyelitis left foot, DFU - Wound culture ended - Completed antibiotics course. 5. End-stage renal disease on hemodialysis - Nephrology consulted, possible hemodialysis tomorrow. 6. Hypertension - Currently hypotensive. Discontinued hydralazine. - Administer 250 mL NS bolus 7 Anemia 8. History of pacemaker placement for cardiac bradyarrhythmias 10.Acute on chronic diastolic heart failure, likely due to volume overload 11. Diabetes mellitus 12. Peripheral arterial disease - Foot CT shows Severe vascular calcification Goals of care discussion at bedside with patient's for more than 35 minutes Full code Plan discussed with Dr. Tucker Plan discussed with: Daughter Date of Service: Feb 17, 2025 Billing Provider: LEO FREEDMAN MD Common Visit Codes: [id number] INP/OBS CARE(HIGH) ASHLEY VALENCIA RESIDENT Feb 17, 2025 13:34 LEO FREEDMAN MD Feb 24, 2025 02:22
[2025-02-17] MEDS: ONDANSETRON HCL 4 MG/2 ML VIAL IV PRN (14:11)
--- NOTE | 2025-02-17 14:56 | ECG ---
[facility] Test Date: 2025-02-17 Test Time: 14:38:15 Pat Name: TRISTA AGUILAR Department: ED Room: 0273T Gender: F Patient Access Director: david : 1965 Requested By: MARI ROSS Order Number: [id number] Reading MD: Duncan Patton Measurements Intervals [place] Rate: 65 P: 46 IN: 241 QRS: -31 QRSD: 149 T: -4 QT: 473 QTc: 492 Interpretive Statements Sinus rhythm Prolonged IN interval Right bundle branch block Electronically Signed On 02-20-2025 18:58:10 PDT by Duncan Patton Please click the below link to view image of tracing.
[2025-02-17] MEDS: SODIUM CHLORIDE 0.9% 1,000 ML IV ONE (15:00)
--- NOTE | 2025-02-17 15:23 | DVHINCON2 ---
Date of service: Feb 17, [address] Hairston Reason for Consultation End-stage renal disease. History of Present Illness 59-year-old patient with significant history of end-stage renal disease on hemodialysis TTS with last dialysis on Monday, hypertension, diabetes type 2, cirrhosis of the liver, peripheral neuropathy, CHF, pulmonary hypertension RVSP of 65, foot infection, left who was recently admitted to the hospital and sent home on oral antibiotics last month which she has completed and for the last several days she is having diarrhea associated for vomiting worse for the last three days associated with generalized weakness, no melena no hematochezia, fevers or chills but endorses left foot pain which is sharp about 10/10 worsening from before unable to weight-bearing. On admission findings were of end-stage renal disease status in addition to mild pulmonary vascular congestion. Past Medical History End-stage renal disease, Hypertension, diabetes type 2, left foot infection, CHF . Past Surgical History Hemodialysis access creation. Allergies: Coded Allergies: NO KNOWN ALLERGIES (Unverified , 08/03/20) Home Meds Active Scripts Levofloxacin Hemihydrate (LEVOFLOXACIN) 750 Mg Tab, 750 MG PO DAILY for 45 Days, #45 TAB 0 Refills Prov:AVNIMAXI RESIDENT 01/30/25 Atorvastatin Calcium (ATORVASTATIN CALCIUM) 40 Mg Tab, 40 MG PO DAILY for 30 Days, #30 TAB 0 [facility] 01/29/25 Silver Sulfadiazine (Silvadene) 1 % Cre, 1 APPLIC TOP DAILY for 10 Days, #50 GRAMS 0 [facility] 01/29/25 Doxycycline (Monohydrate) (DOXYCYCLINE) 150 Mg Cap, 100 MG PO BID for 10 Days, #20 CAP 0 [facility] 01/29/25 Reported Medications Sevelamer Hydrochloride (Sevelamer Hydrochloride) 800 Mg Tab, 2 TAB PO TID 08/14/22 Glipizide (Glipizide Er) 2.5 Mg Tab, 1 TAB PO DAILY 08/14/22 Calcium Acetate (Phosphate Bin (Calcium Acetate) 667 Mg Cap, 2 CAP PO TID 08/14/22 Amlodipine Besylate (Amlodipine Besylate) 10 Mg Tab, 1 TAB PO DAILY 08/14/22 Aspirin (Aspir-Low) 81 Mg Tab, 81 MG PO DAILY for 30 Days, MG 08/05/20 Hydralazine Hcl (Hydralazine Hcl) 10 Mg Tab, 0 PO BID for 30 Days, MG 08/05/20 Current Medications Current Medications Medications (Trade) Dose Ordered Sig/Raj Route PRN Reason Start Time Stop Time Status Last Admin Acetaminophen/ Hydrocodone Bitart ([place] 5/325MG Tab) 1 tab Q4HP PRN PO MODERATE PAIN (4-6 PAIN SCALE) 02/16/25 23:15 02/17/25 02:20 DC Ondansetron HCl (Zofran) 4 mg Q4HP PRN IV NAUSEA / VOMITING 02/16/25 23:15 02/17/25 14:11 Enoxaparin Sodium (Lovenox) 30 mg DAILY SC 02/17/25 10:00 02/17/25 11:25 Acetaminophen (Tylenol Tablet) 650 mg Q6HP PRN PO PAIN SCALE 1-3 OR TEMP>100.4 02/16/25 23:15 Nitroglycerin (Ntrostat Sublingual) 0.4 mg Q5MINP PRN SL FOR CHEST PAIN 02/16/25 23:15 Aspirin (Ecotrin Enteric Coated Tablet) 81 mg DAILY PO 02/17/25 10:00 Cancel Hydralazine HCl (Apresoline Tablet) 25 mg BID PO 02/17/25 10:00 02/16/25 23:12 DC Sevelamer HCl (Renagel) 1,600 mg TID PO 02/17/25 06:00 Amlodipine Besylate (Norvasc Tablet) 10 mg DAILY PO 02/17/25 10:00 02/16/25 23:14 DC 02/17/25 11:26 Atorvastatin Calcium (Lipitor) 40 mg DAILY PO 02/17/25 10:00 02/16/25 23:14 DC Doxycycline Monohydrate (Vibramycin Tablet) 100 mg BID PO 02/17/25 10:00 02/16/25 23:15 DC Hydralazine HCl (Apresoline Tablet) 10 mg BID PO 02/17/25 10:00 02/17/25 14:50 DC 02/17/25 11:25 Atorvastatin Calcium (Lipitor) 40 mg DAILY PO 02/17/25 10:00 02/17/25 11:26 Doxycycline Monohydrate (Vibramycin Tablet) 100 mg BID PO 02/17/25 10:00 02/16/25 23:50 DC Furosemide (Lasix Injection) 40 mg BIDD IV 02/17/25 06:00 02/17/25 05:57 Acetaminophen/ Hydrocodone Bitart ([place] 5/325MG Tab) 1 tab Q4HP PRN PO MODERATE PAIN (4-6 PAIN SCALE) 02/17/25 02:30 02/17/25 02:23 Diagnostic Test (Pha) (Accu-Chek Comfort Curve T) 1 strip ACHS 02/17/25 07:00 02/17/25 11:51 Insulin Human Regular (InsuLIN R) ACHS SC 02/17/25 07:00 Dextrose 50 ml UD PRN IV Blood Sugar LESS THAN 60 02/17/25 04:15 Family History: Diabetes mellitus Family History Diabetes type 2 in the mother Social History Patient denies smoking alcohol or drug abuse. Review of Systems HEENT: Oral mucosa dry Neck no JVD Cardiovascular: Denies for chest pain denies orthopnea or PND Respiratory: Denies cough or shortness of breath Gastrointestinal: Positive for diarrhea Musculoskeletal: Left foot pain Neurological: Denies focal weakness Dermatological: Denies any rash The rest of the review of systems were reviewed pertinent positives and pertinent negatives are as per HPI up to 12 points review of systems H&P Exam Vital Signs/I&O Vital Sign Date Time Temp Pulse Resp B/P (MAP) Pulse Ox O2 Delivery O2 Flow Rate FiO2 02/17/25 14:33 65 14 93/45 (61) 100 02/17/25 08:37 Room Air* 0 21 02/17/25 08:18 98.4 98.4 Intake and Output 02/16/25 02/17/25 19:00 07:00 Intake Total 550 ml Balance 550 ml Intake IV Total 550 ml Physical Exam HEENT: No evidence of JVD, no oral ulcers. Pulmonary: Lungs are clear on auscultation bilaterally Cardiovascular S1-S2, no S3 or S4 Abdomen: Bowel sounds positive, soft no rebound tenderness Skin: No rash Neurological: Alert, oriented, no focal weakness Extremities: Left foot dressed, tender to touch Labs/Diagnostic Data Labs/Diagnostic Data Laboratory Tests Test 02/17/25 11:38 02/17/25 06:35 02/17/25 04:33 02/17/25 02:18 Range/Units POC Glucose 123 H 116 H 70-106 mg/dl Vitamin B12 Level 3549 H 211-911 pg/mL Vitamin D 25-Hydroxy 54.5 30.0-100 ng/mL Folic Acid 20.73 >5.38 ng/mL Troponin I High Sensitivity 32 </=34 ng/L Test 02/17/25 00:46 02/17/25 00:22 02/17/25 00:18 02/16/25 21:41 Range/Units POC Glucose 115 H 140 H 70-106 mg/dl Sodium Level 128 L 136-145 mmol/L Potassium Level 5.1 3.5-5.1 mmol/L Chloride Level 88 L 98-107 mmol/L Carbon Dioxide Level 30 20-31 mmol/L Anion Gap 10 5-15 Blood Urea Nitrogen 58 H 9-23 mg/dL Creatinine 4.72 H 0.550-1.02 mg/dL Glomerular Filtration Rate Calc 10 >90 mL/min BUN/Creatinine Ratio 12.3 10.0-20.0 Serum Glucose 114 H 74-106 mg/dL Calcium Level 8.9 8.7-10.4 mg/dL Troponin I High Sensitivity 30 </=34 ng/L Stool Occult Blood Positive Negative Stool Occult Blood Sample #3 Negative Stool for White Cells None seen Test 02/16/25 18:50 02/16/25 18:39 Range/Units White Blood Count 7.4 4.4-10.8 10^3/uL Red Blood Count 3.12 L 4.0-5.20 10^6/uL Hemoglobin 8.8 L 12.2-16.2 g/dL Hematocrit 26.8 L 36.0-46.0 % Mean Corpuscular Volume 86.1 80.0-100.0 fL Mean Corpuscular Hemoglobin 28.4 28.0-32.0 pg Mean Corpuscular Hemoglobin Concent 32.9 32.0-36.0 g/dL Red Cell Distribution Width 16.4 H 11.8-14.3 % Platelet Count 237 140-450 10^3/uL Mean Platelet Volume 7.2 6.9-10.8 fL Neutrophils (%) (Auto) 79.1 37.0-80.0 % Lymphocytes (%) (Auto) 11.9 10.0-50.0 % Monocytes (%) (Auto) 7.4 0.0-12.0 % Eosinophils (%) (Auto) 1.1 0.0-7.0 % Basophils (%) (Auto) 0.5 0.0-2.0 % Neutrophils # (Auto) 5.9 1.6-8.6 10 ^3/uL Lymphocytes # (Auto) 0.9 0.4-5.4 10 ^3/uL Monocytes # (Auto) 0.5 0-1.3 10 ^3/uL Eosinophils # (Auto) 0.1 0-0.8 10 ^3/uL Basophils # (Auto) 0 0-0.2 10 ^3/uL Nucleated Red Blood Cells 0.0 % Sodium Level 127 L 136-145 mmol/L Potassium Level 5.5 H 3.5-5.1 mmol/L Chloride Level 87 L 98-107 mmol/L Carbon Dioxide Level 29 20-31 mmol/L Anion Gap 11 5-15 Blood Urea Nitrogen 58 H 9-23 mg/dL Creatinine 4.91 H 0.550-1.02 mg/dL Glomerular Filtration Rate Calc 10 >90 mL/min BUN/Creatinine Ratio 11.8 10.0-20.0 Serum Glucose 131 H 74-106 mg/dL Lactic Acid Level 0.9 0.4-2.0 mmol/L Calcium Level 9.4 8.7-10.4 mg/dL Magnesium Level 2.5 1.6-2.6 mg/dL Iron Level 119 50-170 ug/dL Total Iron Binding Capacity 191 L 250-425 ug/dL Percent Iron Saturation 62.3 H 15-50 % Ferritin 1032.9 H 10-291 ng/mL Total Bilirubin 0.3 0.2-1.0 mg/dL Aspartate Amino Transferase (AST) 35 13-40 U/L Alanine Aminotransferase (ALT) 13 7-40 U/L Alkaline Phosphatase 143 H 46-116 U/L Ammonia 12 11-32 umol/L Troponin I High Sensitivity 29 </=34 ng/L B-Type Natriuretic Peptide 1576.82 0-100 pg/mL Total Protein 7.5 5.7-8.2 g/dL Albumin 4.0 3.2-4.8 g/dL POC Glucose 125 H 70-106 mg/dl Chest x-ray shows pulmonary vascular congestion. Foot CT shows no acute abnormality except for severe calcification of the vasculature Assessment Assessment: 1. End-stage renal disease on hemodialysis TTS 2. Hyperkalemia managed with dialysis 3. Diarrhea rule out C diff 4. Hypertension 5. Anemia of end-stage renal disease 6. CHF 7. Pulmonary hypertension Plan: Dialysis tomorrow and TTS Rule out C diff Antibiotics Antiemetics p.r.n. Rui for goal hemoglobin 10 to 11 grams/deciliter Check phos level Thank you very much for allowing us to participate in the care of this patient please contact if you have any questions. Plan discussed with: Patient NIKOLAS ENGLE MD Feb 17, 2025 15:23
[2025-02-17] MEDS: ACETAMINOPHEN 325 MG TAB PO PRN (17:34)
[2025-02-17] MEDS: FAMOTIDINE 20 MG TAB PO SCH (18:26)
[2025-02-17 19:30] VITALS: PULSE 65; RESP 11; O2SAT 100
[2025-02-17 22:23] VITALS: BP 110/62; PULSE 66; RESP 16; TEMP 98.6; O2SAT 96
[2025-02-17] MEDS: SUCRALFATE 1 GM/10 ML ORAL SUSP GT SCH (22:52)
[2025-02-17 23:39] VITALS: PULSE 66; RESP 18; O2SAT 96
[2025-02-18] VITALS (8 sets, daily range): BP systolic 112–143; BP diastolic 59–67; PULSE 64–66; RESP 16–18; TEMP 97.6–98.5; O2SAT 95–100
[2025-02-18 05:59] LABS: Hemoglobin 7.5 g/dL (12.2-16.2)
[2025-02-18 06:01] LABS: Hematocrit 22.3 % (36.0-46.0); Mean Corpuscular Hemoglobin 28.9 pg (28.0-32.0); Mean Corpuscular Volume 85.6 fL (80.0-100.0); Nucleated Red Blood Cells % 0.0 %
[2025-02-18 06:31] LABS: Alanine Aminotransferase 12 U/L (7-40); Alkaline Phosphatase 110 U/L (46-116); Anion Gap 12 (5-15); BUN/Creatinine Ratio 12.6 (10.0-20.0); Carbon Dioxide 28 mmol/L (20-31); Glucose 97 mg/dL (74-106); Total Protein 7.1 g/dL (5.7-8.2)
[2025-02-18 06:32] LABS: Albumin 3.8 g/dL (3.2-4.8)
[2025-02-18 06:33] LABS: Bilirubin, Total 0.3 mg/dL (0.2-1.0); Blood Urea Nitrogen 79 mg/dL (9-23); Calcium 8.5 mg/dL (8.7-10.4); Chloride 88 mmol/L (98-107); Potassium 5.3 mmol/L (3.5-5.1); Sodium 128 mmol/L (136-145)
--- NOTE | 2025-02-18 12:32 | DVHINCON2 ---
Date Seen: Feb 18, 2025 Reason for Consultation Left foot wound History of Present Illness Patient is 59 years old female with past medical history of hypertension, diabetes mellitus type 2, peripheral artery disease, pacemaker due to cardiac arrhythmia, ESRD on hemodialysis Monday//Monday- Agnes, cirrhosis of liver, peripheral neuropathy, severe pulmonary hypertension- RVSP 65, left foot wound was brought in to the hospital due to diarrhea and vomiting. As per patient she has been having nausea and vomiting for last 10 days, vomitus wqs food and watery, no blood. Patient also endorsed having diarrhea for last 2 days, about 5 times a day, no blood. Patient also complained of left foot pain, sharp, throbbing in nature, 10/10, decreased weight-bearing. Patient was recently discharged from [facility] after being treated for left foot wound, early possible osteomyelitis. Post discharged Patient was on antibiotic doxycycline for 10 days and linezolid 600 mg b.i.d. for 14 days. Patient denied any fever, of breath, dysarthria, palpitation, change in vision. Initial lab workup revealed hemoglobin 8.8, RDW 16.4, sodium 127, , potassium 5.5, BNP 1576, serum creatinine 4.91, BUN 58, lactic acid 0.9, alkaline phosphatase 143, AST/ALT within normal limit, ammonia 12 serum iron 119, ferritin 1032. TIBC 191, CT Scan of the left foot revealed no acute abnormality, severe vascular calcification. CXR revealed mild cardiomegaly, b ilateral pulmonary congestion Past Medical History See H&P Past Surgical History See H&P Family History: Diabetes mellitus Allergies: Coded Allergies: NO KNOWN ALLERGIES (Unverified , 08/03/20) Home Meds Active Scripts Atorvastatin Calcium (ATORVASTATIN CALCIUM) 40 Mg Tab, 40 MG PO DAILY for 30 Days, #30 TAB 0 Refills Prov:MAXI HOLLY RESIDENT 01/29/25 Doxycycline (Monohydrate) (DOXYCYCLINE) 150 Mg Cap, 100 MG PO BID for 10 Days, #20 CAP 0 Refills Prov:MAXI HOLLY RESIDENT 01/29/25 Reported Medications Sevelamer Hydrochloride (Sevelamer Hydrochloride) 800 Mg Tab, 2 TAB PO TID 08/14/22 Glipizide (Glipizide Er) 2.5 Mg Tab, 1 TAB PO DAILY 08/14/22 Calcium Acetate (Phosphate Bin (Calcium Acetate) 667 Mg Cap, 2 CAP PO TID 08/14/22 Amlodipine Besylate (Amlodipine Besylate) 10 Mg Tab, 1 TAB PO DAILY 08/14/22 Aspirin (Aspir-Low) 81 Mg Tab, 81 MG PO DAILY for 30 Days, MG 08/05/20 Hydralazine Hcl (Hydralazine Hcl) 10 Mg Tab, 0 PO BID for 30 Days, MG 08/05/20 Current Medications Current Medications Medications (Trade) Dose Ordered Sig/Raj Route PRN Reason Start Time Stop Time Status Last Admin Famotidine (Pepcid Tablet) 20 mg Q2D PO 02/17/25 17:45 02/17/25 18:26 Sucralfate (Carafate Susp) 1 gm BID@0600,2200 GT 02/17/25 22:00 02/18/25 05:56 Vital Signs Vital Signs Date Time Temp Pulse Resp B/P (MAP) Pulse Ox O2 Delivery O2 Flow Rate FiO2 02/18/25 09:26 114/60 02/18/25 08:37 97.6 65 16 100 97.6 02/18/25 08:00 Nasal Cannula* 24 Physical Exam Dermatological: Skin is dry with mild erythema and some maceration around the wound site No gross deformities noted Mild non-pitting edema present bilaterally Multiple superficial ulcerations on the left distal foot with gentian toy Vascular: Dorsalis pedis and posterior tibial pulses are 1+ bilaterally Capillary refill is under 2 seconds Skin temperature is warm bilaterally Neurologic: Protective sensation is absent on the plantar forefoot bilaterally Monofilament testing reveals decreased sensation in multiple plantar sites Musculoskeletal: Range of motion at the ankle and MTP joints is within normal limits. Strength is 5/5 in all tested muscle groups. Gait is antalgic due to offloading of the affected limb. Labs/Diagnostic Data Labs Test 02/18/25 11:50 02/18/25 11:47 02/18/25 04:57 02/17/25 04:33 Range/Units POC Glucose 127 H 70-106 mg/dl White Blood Count 6.4 4.4-10.8 10^3/uL Red Blood Count 2.60 L 4.0-5.20 10^6/uL Mean Corpuscular Volume 85.6 80.0-100.0 fL Mean Corpuscular Hemoglobin 28.9 28.0-32.0 pg Mean Corpuscular Hemoglobin Concent 33.8 32.0-36.0 g/dL Red Cell Distribution Width 16.7 H 11.8-14.3 % Platelet Count 176 140-450 10^3/uL Mean Platelet Volume 7.3 6.9-10.8 fL Neutrophils (%) (Auto) 64.7 37.0-80.0 % Lymphocytes (%) (Auto) 21.0 10.0-50.0 % Monocytes (%) (Auto) 11.0 0.0-12.0 % Eosinophils (%) (Auto) 2.4 0.0-7.0 % Basophils (%) (Auto) 0.9 0.0-2.0 % Neutrophils # (Auto) 4.2 1.6-8.6 10 ^3/uL Lymphocytes # (Auto) 1.3 0.4-5.4 10 ^3/uL Monocytes # (Auto) 0.7 0-1.3 10 ^3/uL Eosinophils # (Auto) 0.2 0-0.8 10 ^3/uL Basophils # (Auto) 0.1 0-0.2 10 ^3/uL Nucleated Red Blood Cells 0.0 % Sodium Level 128 L 136-145 mmol/L Potassium Level 5.3 H 3.5-5.1 mmol/L Chloride Level 88 L 98-107 mmol/L Carbon Dioxide Level 28 20-31 mmol/L Anion Gap 12 5-15 Blood Urea Nitrogen 79 #H 9-23 mg/dL Creatinine 6.29 #H 0.550-1.02 mg/dL Glomerular Filtration Rate Calc 7 >90 mL/min BUN/Creatinine Ratio 12.6 10.0-20.0 Serum Glucose 97 74-106 mg/dL Calcium Level 8.5 L 8.7-10.4 mg/dL Phosphorus Level 6.9 H 2.4-5.1 mg/dL Total Bilirubin 0.3 0.2-1.0 mg/dL Aspartate Amino Transferase (AST) 32 13-40 U/L Alanine Aminotransferase (ALT) 12 7-40 U/L Alkaline Phosphatase 110 46-116 U/L Total Protein 7.1 5.7-8.2 g/dL Albumin 3.8 3.2-4.8 g/dL Vitamin B12 Level 3549 H 211-911 pg/mL Vitamin D 25-Hydroxy 54.5 30.0-100 ng/mL Folic Acid 20.73 >5.38 ng/mL Test 02/17/25 02:18 02/17/25 00:18 02/16/25 18:50 Range/Units Troponin I High Sensitivity 32 </=34 ng/L Lipase 28 12-53 U/L Stool Occult Blood Positive Negative Stool Occult Blood Sample #3 Negative Stool for White Cells None seen Lactic Acid Level 0.9 0.4-2.0 mmol/L Magnesium Level 2.5 1.6-2.6 mg/dL Iron Level 119 50-170 ug/dL Total Iron Binding Capacity 191 L 250-425 ug/dL Percent Iron Saturation 62.3 H 15-50 % Ferritin 1032.9 H 10-291 ng/mL Ammonia 12 11-32 umol/L B-Type Natriuretic Peptide 1576.82 0-100 pg/mL Microbiology Date/Time Source Procedure Growth Status 02/17/25 00:18 Stool Stool Culture - Preliminary Resulted 02/17/25 00:18 Stool Shiga Toxin I & II Pending Resulted 02/17/25 00:18 Stool Clostridium difficile Toxin Assay - Final Resulted 02/16/25 18:58 Blood Blood Culture - Preliminary NO GROWTH AFTER 24 HOURS OF INCUBATION. Resulted Problems(with codes): (1) Cellulitis of left foot (2) Hyperkalemia (3) Hyperkalemia (4) Anemia (5) Bradycardia (6) Bradycardia (7) Hyperglycemia (8) Renal failure (9) Hypotension (10) Hypotension (11) HTN (hypertension) (12) Chronic kidney disease (13) Uncontrolled diabetes mellitus (14) History of renal failure (15) Blurred vision, left eye (16) Periorbital contusion of left eye (17) Symptomatic bradycardia (18) Left against medical advice (19) Diabetes mellitus due to underlying condition with hyperglycemia (20) History of renal dialysis (21) Vomiting (22) Intractable abdominal pain (23) Left foot infection (24) ESRD (end stage renal disease) on dialysis Plan/Recommendation ASSESSMENT: Patient is a 59 year old seen on the floor for a worsening ulcer PLAN: - The patients chart was reviewed, clinical findings were discussed with the patient, the etiologies of the conditions were discussed in detail, and a treatment plan was agreed to at this time, with both oral and written inst ructions provided. - reviewed advanced imaging - CT appears normal with no deeper infection - patient has gentian toy which appears to make the toes look necrotic - wound is healing appropriately - we will just need outpatient wound care - follow up once discharged All questions were answered and concerns addressed to the patient's satisfaction. The patient was given the phone number to the clinic and was told how to make contact with the clinic should any concerns or questions arise. Patient understands that if any questions or concerns arise prior to the next appointment, we should be contacted immediately. FOLLOW-UP: Continue to follow while inpatient Plan discussed with: Patient Date of Service: Feb 18, 2025 Billing Provider: WILFRID RENTERIA DPM Common Visit Codes: CONSULT ONLY Consultation Codes: [id number] CONSULT <80MIN WILFRID RENTERIA DPM Feb 18, 2025 12:32
[2025-02-18 14:01] LABS: Hematocrit 22.1 % (36.0-46.0); Hemoglobin 7.4 g/dL (12.2-16.2)
--- NOTE | 2025-02-18 15:01 | DVHPNRES ---
Progress Note Date Seen: Feb 18, 2025 Resident Creating Document: ASHLEY VALENCIA RESIDENT Medical Necessity Reason Pt with a Central, PICC or Fol: No Subjective Review of Systems Patient is 59 years old female with past medical history of hypertension, diabetes mellitus type 2, peripheral artery disease, pacemaker due to cardiac arrhythmia, ESRD on hemodialysis Monday//Monday- Agnes, cirrhosis of liver, peripheral neuropathy, severe pulmonary hypertension- RVSP 65. She is brought to the ED with chief complaint of diarrhea and vomiting, pain in left foot wound. She had diarrhea for last 2 days, about 5 times a day, no blood. Associated with nausea, vomiting. She also complained of some chest pain on right side. Patient also complained of left foot pain, sharp, throbbing in nature, 10/10, decreased weight-bearing. She was taking antibiotics for osteomyelitis of left foot. She was discharged with doxycycline, levofloxacin and linezolid. Yesterday she finished her 2 week antibiotic course. Patient denied any fever, shortness of breath. Initial lab workup revealed hemoglobin 8.8, RDW 16.4, sodium 127, potassium 5.5, BNP 1576, serum creatinine 4.91, BUN 58, lactic acid 0.9, alkaline phosphatase 143, AST/ALT within normal limit, ammonia 12 serum iron 119, ferritin 1032. TIBC 191, CT Scan of the left foot revealed no acute abnormality, severe vascular calcification. CXR revealed mild cardiomegaly, bilateral pulmonary congestion. Abdominal x-ray shows nonobstructive bowel gas pattern. Past Medical History: Pacemaker due to cardiac arrhythmia, hyperlipidemia, hyperchloremia, hypertension, diabetes mellitus, CRF, cirrhosis. 02/17/25: He is currently comfortable. She has not had diarrhea episodes since morning today. 02/18/25: Patient is seen at bedside. She complains of intractable vomiting and some regurgitation. While examination she was coughing and regurgitating in the vomit bag. Stool culture negative for C difficile, we will start her on ceftriaxone, metronidazole. Pain in the left foot. We are holding fluids foe now. She will go for dialysis today. We will keep monitoring her on tele. ECG showed QTC elevation, we will stop Zofran. Start a trial of Reglan, gastroparesis possible. Passed a bloody stool today. Will consult GI to evaluate for bleed. Complains of vague MSK pain in back. ROS: Constitutional: Denies weight loss, fever and chills. HEENT: Pallor. Denies changes in vision and hearing. Respiratory: Denies shortness of breath and cough Cardiovascular: Complains of right-sided chest pain. GI: Intractable nausea. Abdominal distress associated with nausea, vomiting. Vomiting has mostly subsided. No complaints of diarrhea. : On dialysis. Musculoskeletal: Denies myalgias and joint pain Neurological: Denies dizziness, headache, vision or hearing problems Objective vital signs Vital Sign Date Time Temp Pulse Resp B/P (MAP) Pulse Ox O2 Delivery O2 Flow Rate FiO2 02/18/25 13:11 98.1 66 16 122/59 (80) 96 98.1 02/18/25 08:00 Nasal Cannula* 1 24 Total Intake and Output 02/17/25 02/17/25 02/18/25 15:00 23:00 07:00 Intake Total 250 ml 50 ml Balance 250 ml 50 ml medications Current Medications Medications Dose Ordered Sig/Raj Route Start Time Stop Time Status Last Admin Dose Admin Enoxaparin Sodium 30 mg DAILY SC 02/17/25 10:00 02/18/25 09:42 30 MG Acetaminophen 650 mg Q6HP PRN PO 02/16/25 23:15 02/17/25 17:34 650 MG Nitroglycerin 0.4 mg Q5MINP PRN SL 02/16/25 23:15 Aspirin 81 mg DAILY PO 02/17/25 10:00 Cancel Sevelamer HCl 1,600 mg TID PO 02/17/25 06:00 02/18/25 05:56 1,600 MG Atorvastatin Calcium 40 mg DAILY PO 02/17/25 10:00 02/17/25 11:26 40 MG Furosemide 40 mg BIDD IV 02/17/25 06:00 02/18/25 05:59 40 MG Acetaminophen/ Hydrocodone Bitart 1 tab Q4HP PRN PO 02/17/25 02:30 02/18/25 05:59 1 TAB Diagnostic Test (Pha) 1 strip ACHS 02/17/25 07:00 02/18/25 11:55 1 STRIP Insulin Human Regular ACHS SC 02/17/25 07:00 Dextrose 50 ml UD PRN IV 02/17/25 04:15 Famotidine 20 mg Q2D PO 02/17/25 17:45 02/17/25 18:26 20 MG Sucralfate 1 gm BID@0600,2200 GT 02/17/25 22:00 02/18/25 05:56 1 GM Ceftriaxone Sodium 50 ml @ 100 mls/hr DAILY@09 IV 02/18/25 13:30 Metronidazole 100 ml @ 100 mls/hr Q8HR IV 02/18/25 14:00 Examination General examination- Pallor present. She is awake, alert, oriented. HEENT- PEERLA, no acute nasal discharge Cardiovascular- Faint systolic murmur heard in the mitral area. Respiratory- Faint bilateral lung crackles. Gastrointestinal- Nontender, bowel sound reduced. Nondistended Musculoskeletal- No acute joint swelling or tenderness or redness Extremity examination- Dry wound dressing on left foot. Weak dorsalis pedis felt it right foot, toes in right foot cooler than left foot. Neurological- Cranial nerves intact, no acute dysarthria or dysphagia laboratory and microbiology Laboratory Tests 02/18/25 13:40 02/18/25 04:57 Test 02/18/25 04:57 Range/Units Serum Glucose 97 74-106 mg/dL Microbiology Date/Time Source Procedure Growth Status 02/17/25 10:40 Foot Left Gram Stain - Final Resulted 02/17/25 10:40 Foot Left Wound Culture - Preliminary Resulted 02/17/25 00:18 Stool Stool Culture - Preliminary Resulted 02/17/25 00:18 Stool Shiga Toxin I & II Pending Resulted 02/17/25 00:18 Stool Clostridium difficile Toxin Assay - Final Resulted 02/16/25 18:58 Blood Blood Culture - Preliminary NO GROWTH AFTER 24 HOURS OF INCUBATION. Resulted Problem List/Assessment/Plan Problem List/Assessment/Plan #Acute diarrhea, likely infectious etiology #Intractable abdominal pain, resolved #Intractable nausea, Possible gastroenteritis, likely infectious etiology #Ruled out C difficile - Will order a CT abdomen if is abdominal if patient's condition do not improve - Stool culture negative for C difficile. Will give IV Ceftriaxone and metronidazole. - Continue Famotidine in 20 mg daily - Continue Carafate suspension BI #Gastroparesis, possible - Trial of Reglan. Will stop Zofran #Acute hypoxic respiratory failure, likely due to volume overload - Tachypnea. O2 supplementation down to 1 L. - CXR shows Cardiomegaly and pulmonary vascular congestion. #Diabetes mellitus #Peripheral arterial disease #Osteomyelitis left foot, DFU - Wound culture negative. - Foot CT shows severe vascular calcification - Completed antibiotics course. Tension Worker advised another two weeks of oral abx and f/u in O/P. #End-stage renal disease on hemodialysis #Anemia of chronic disease, due to end-stage renal disease - Scheduled for hemodialysis today - Epoetin given. - Hb 7.4 Ferritin high. Will monitor Hb. #Hypertension - Currently hypotensive. Discontinued hydralazine. - Administer 250 mL NS bolus #History of pacemaker placement for cardiac bradyarrhythmias #Acute on chronic diastolic heart failure, likely due to volume overload - Monitor on Tele #GI bleed rule out - Hb 7.4 - Occult blood positive. Will consult GI for possible bleed. Goals of care discussion at bedside with patient's for more than 35 minutes Full code Plan discussed with Dr. Tucker Plan discussed with: Patient My Orders My Orders Orders - ASHLEY VALENCIA RESIDENT Procedure Category Date Status Time * Dietary Consult CONS 02/18/25 Transmitted 11:43 Apply/Change Dressing KEVIN 02/18/25 In Process 10:20 Ceftriaxone 1gm/50ml PHA 02/18/25 In Process D5w (Rocephin) 13:30 Metronidazole PHA 02/18/25 In Process 500mg/100ml (Flagyl 14:00 Dietary Evaluation Review Comments: 1) Advance to [facility] 60gm + renal standard diet as medically feasible 2) Nephro-Elie 1 tab daily 3) Pro-stat 1 pk & Corby 1 pk daily 4) Monitor PO intake, lab values, wt trend, I/O Expected Outcomes/Goals: wound to improve to meet at leaast 75% estimated mauricio within 7 days fu 2-3 days Date of Service: Feb 18, 2025 Billing Provider: LEO FREEDMAN MD Common Visit Codes: [id number] INP/OBS CARE(HIGH) ASHLEY VALENCIA Feb 18, 2025 15:01 LEO FREEDMAN MD Feb 24, 2025 02:27
[2025-02-18] MEDS: cefTRIAXone 1GM/50ML D5W 50 ML IV SCH (15:15)
[2025-02-18] MEDS: METOCLOPRAMIDE HCL 5MG/ml INJ 2ml VIAL IV ONE (15:28)
--- NOTE | 2025-02-18 17:33 | DVHPN2 ---
Progress Note - Dictate Date Seen: Feb 18, 2025 Medical Necessity Reason Pt with a Central, PICC or Fol: No Subjective Patient was nauseous this morning vital signs Vital Sign Date Time Temp Pulse Resp B/P (MAP) Pulse Ox O2 Delivery O2 Flow Rate FiO2 02/18/25 16:40 97.9 65 16 114/61 (78) 97 97.9 02/18/25 08:00 Nasal Cannula* 1 24 Total Intake and Output 02/17/25 02/17/25 02/18/25 15:00 23:00 07:00 Intake Total 250 ml 50 ml Balance 250 ml 50 ml medications Current Medications Medications Dose Ordered Sig/Raj Route Start Time Stop Time Status Last Admin Dose Admin Enoxaparin Sodium 30 mg DAILY SC 02/17/25 10:00 02/18/25 09:42 30 MG Acetaminophen 650 mg Q6HP PRN PO 02/16/25 23:15 02/17/25 17:34 650 MG Nitroglycerin 0.4 mg Q5MINP PRN SL 02/16/25 23:15 Aspirin 81 mg DAILY PO 02/17/25 10:00 Cancel Sevelamer HCl 1,600 mg TID PO 02/17/25 06:00 02/18/25 14:07 1,600 MG Atorvastatin Calcium 40 mg DAILY PO 02/17/25 10:00 02/17/25 11:26 40 MG Furosemide 40 mg BIDD IV 02/17/25 06:00 02/18/25 05:59 40 MG Acetaminophen/ Hydrocodone Bitart 1 tab Q4HP PRN PO 02/17/25 02:30 02/18/25 05:59 1 TAB Diagnostic Test (Pha) 1 strip ACHS 02/17/25 07:00 02/18/25 17:25 1 STRIP Insulin Human Regular ACHS SC 02/17/25 07:00 Dextrose 50 ml UD PRN IV 02/17/25 04:15 Famotidine 20 mg Q2D PO 02/17/25 17:45 02/17/25 18:26 20 MG Sucralfate 1 gm BID@0600,2200 GT 02/17/25 22:00 02/18/25 05:56 1 GM Ceftriaxone Sodium 50 ml @ 100 mls/hr DAILY@09 IV 02/18/25 13:30 02/18/25 15:15 100 MLS/HR Metronidazole 100 ml @ 100 mls/hr Q8HR IV 02/18/25 14:00 02/18/25 14:06 100 MLS/HR objective HEENT: No evidence of JVD, no oral ulcers. Pulmonary: Lungs are clear on auscultation bilaterally Cardiovascular S1-S2, no S3 or S4 Abdomen: Bowel sounds positive, soft no rebound tenderness Skin: No rash Neurological: Alert, oriented, no focal weakness Extremities: Left foot dressed, tender to touch laboratory and microbiology Laboratory Tests 02/18/25 13:40 02/18/25 04:57 Test 02/18/25 04:57 Range/Units Serum Glucose 97 74-106 mg/dL Assessment/Plan Assessment: 1. End-stage renal disease on hemodialysis TTS 2. Hyperkalemia managed with dialysis 3. Diarrhea rule out C diff 4. Hypertension 5. Anemia of end-stage renal disease 6. CHF 7. Pulmonary hypertension Plan: Dialysis today and TTS Rule out C diff Antibiotics Antiemetics p.r.n. Rui for goal hemoglobin 10 to 11 grams/deciliter Thank you very much for allowing us to participate in the care of this patient please contact if you have any questions. Dietary Evaluation Review Comments: 1) Advance to [facility] [place] 60gm + renal standard diet as medically feasible 2) Nephro-Elie 1 tab daily 3) Pro-stat 1 pk & Corby 1 pk daily 4) Monitor PO intake, lab values, wt trend, I/O Expected Outcomes/Goals: wound to improve to meet at leaast 75% estimated mauricio within 7 days fu 2-3 days Plan discussed with: Patient NIKOLAS ENGLE MD Feb 18, 2025 17:33
--- NOTE | 2025-02-18 23:03 | DVHINCON2 ---
Date of service: Feb 18, [address] Tucker Reason for Consultation Hemoccult-positive stool rule out GI bleed History of Present Illness Patient is 59 years old female with was brought in to the hospital due to diarrhea and vomiting. As per patient she has been having nausea and vomiting for last 10 days, vomitus wqs food and watery, no blood. Patient also endorsed having diarrhea for last 2 days, about 5 times a day, no blood. Patient also complained of left foot pain, sharp, throbbing in nature, 10/10, decreased weight-bearing. Patient was recently discharged from [facility] after being treated for left foot wound, early possible osteomyelitis. Post discharged Patient was on antibiotic doxycycline for 10 days and linezolid 600 mg b.i.d. for 14 days. CXR revealed mild cardiomegaly, bilateral pulmonary congestion Patient's stool for occult blood was positive and GI was consulted. Patient is feeling better and she was sitting at the edge of the bed in no acute distress She is scheduled for dialysis tonight. Patient stated she had an endoscopy about a year ago at [facility] but does not recall the results. She complains of some epigastric pain and some GERD symptoms. She has not had any prior colonoscopy Past Medical History past medical history of hypertension, diabetes mellitus type 2, peripheral artery disease, pacemaker due to cardiac arrhythmia, ESRD on hemodialysis Monday//Monday- Agnes, cirrhosis of liver, peripheral neuropathy, severe pulmonary hypertension- RVSP 65, left foot wound Past Surgical History Pacemaker EGD or possible MELITA at [facility] Family History: Diabetes mellitus Allergies: Coded Allergies: NO KNOWN ALLERGIES (Unverified , 08/03/20) Home Meds Active Scripts Atorvastatin Calcium (ATORVASTATIN CALCIUM) 40 Mg Tab, 40 MG PO DAILY for 30 Days, #30 TAB 0 Refills Prov:MAXI HOLLY RESIDENT 01/29/25 Doxycycline (Monohydrate) (DOXYCYCLINE) 150 Mg Cap, 100 MG PO BID for 10 Days, #20 CAP 0 Refills Prov:MAXI HOLLY RESIDENT 01/29/25 Reported Medications Sevelamer Hydrochloride (Sevelamer Hydrochloride) 800 Mg Tab, 2 TAB PO TID 08/14/22 Glipizide (Glipizide Er) 2.5 Mg Tab, 1 TAB PO DAILY 08/14/22 Calcium Acetate (Phosphate Bin (Calcium Acetate) 667 Mg Cap, 2 CAP PO TID 08/14/22 Amlodipine Besylate (Amlodipine Besylate) 10 Mg Tab, 1 TAB PO DAILY 08/14/22 Aspirin (Aspir-Low) 81 Mg Tab, 81 MG PO DAILY for 30 Days, MG 08/05/20 Hydralazine Hcl (Hydralazine Hcl) 10 Mg Tab, 0 PO BID for 30 Days, MG 08/05/20 Current Medications Current Medications Medications (Trade) Dose Ordered Sig/Raj Route PRN Reason Start Time Stop Time Status Last Admin Ceftriaxone Sodium 50 ml @ 100 mls/hr DAILY@09 IV 02/18/25 13:30 02/18/25 15:15 Metronidazole 100 ml @ 100 mls/hr Q8HR IV 02/18/25 14:00 02/18/25 14:06 Vital Signs Vital Signs Date Time Temp Pulse Resp B/P (MAP) Pulse Ox O2 Delivery O2 Flow Rate FiO2 02/18/25 21:00 97.9 64 18 143/66 (91) 100 97.9 02/18/25 20:00 Nasal Cannula* 3 32 Physical Exam HEENT: No evidence of JVD, no oral ulcers. Pulmonary: Lungs are clear on auscultation bilaterally Cardiovascular S1-S2, no S3 or S4 Abdomen: Bowel sounds positive, soft no rebound tenderness Skin: No rash Neurological: Alert, oriented, no focal weakness Extremities: Left foot dressed, tender to touch Labs/Diagnostic Data Labs Test 02/18/25 17:22 02/18/25 13:40 02/18/25 04:57 02/17/25 04:33 Range/Units POC Glucose 143 H 70-106 mg/dl Hemoglobin 7.4 L 12.2-16.2 g/dL Hematocrit 22.1 L 36.0-46.0 % White Blood Count 6.4 4.4-10.8 10^3/uL Red Blood Count 2.60 L 4.0-5.20 10^6/uL Mean Corpuscular Volume 85.6 80.0-100.0 fL Mean Corpuscular Hemoglobin 28.9 28.0-32.0 pg Mean Corpuscular Hemoglobin Concent 33.8 32.0-36.0 g/dL Red Cell Distribution Width 16.7 H 11.8-14.3 % Platelet Count 176 140-450 10^3/uL Mean Platelet Volume 7.3 6.9-10.8 fL Neutrophils (%) (Auto) 64.7 37.0-80.0 % Lymphocytes (%) (Auto) 21.0 10.0-50.0 % Monocytes (%) (Auto) 11.0 0.0-12.0 % Eosinophils (%) (Auto) 2.4 0.0-7.0 % Basophils (%) (Auto) 0.9 0.0-2.0 % Neutrophils # (Auto) 4.2 1.6-8.6 10 ^3/uL Lymphocytes # (Auto) 1.3 0.4-5.4 10 ^3/uL Monocytes # (Auto) 0.7 0-1.3 10 ^3/uL Eosinophils # (Auto) 0.2 0-0.8 10 ^3/uL Basophils # (Auto) 0.1 0-0.2 10 ^3/uL Nucleated Red Blood Cells 0.0 % Sodium Level 128 L 136-145 mmol/L Potassium Level 5.3 H 3.5-5.1 mmol/L Chloride Level 88 L 98-107 mmol/L Carbon Dioxide Level 28 20-31 mmol/L Anion Gap 12 5-15 Blood Urea Nitrogen 79 #H 9-23 mg/dL Creatinine 6.29 #H 0.550-1.02 mg/dL Glomerular Filtration Rate Calc 7 >90 mL/min BUN/Creatinine Ratio 12.6 10.0-20.0 Serum Glucose 97 74-106 mg/dL Calcium Level 8.5 L 8.7-10.4 mg/dL Phosphorus Level 6.9 H 2.4-5.1 mg/dL Total Bilirubin 0.3 0.2-1.0 mg/dL Aspartate Amino Transferase (AST) 32 13-40 U/L Alanine Aminotransferase (ALT) 12 7-40 U/L Alkaline Phosphatase 110 46-116 U/L Total Protein 7.1 5.7-8.2 g/dL Albumin 3.8 3.2-4.8 g/dL Vitamin B12 Level 3549 H 211-911 pg/mL Vitamin D 25-Hydroxy 54.5 30.0-100 ng/mL Folic Acid 20.73 >5.38 ng/mL Test 02/17/25 02:18 02/17/25 00:18 02/16/25 18:50 Range/Units Troponin I High Sensitivity 32 </=34 ng/L Lipase 28 12-53 U/L Stool Occult Blood Positive Negative Stool Occult Blood Sample #3 Negative Stool for White Cells None seen Lactic Acid Level 0.9 0.4-2.0 mmol/L Magnesium Level 2.5 1.6-2.6 mg/dL Iron Level 119 50-170 ug/dL Total Iron Binding Capacity 191 L 250-425 ug/dL Percent Iron Saturation 62.3 H 15-50 % Ferritin 1032.9 H 10-291 ng/mL Ammonia 12 11-32 umol/L B-Type Natriuretic Peptide 1576.82 0-100 pg/mL Microbiology Date/Time Source Procedure Growth Status 02/17/25 10:46 Nose MRSA Screen - Final Complete 02/17/25 00:18 Stool Stool Culture - Preliminary Resulted 02/17/25 00:18 Stool Shiga Toxin I & II - Final Resulted 02/17/25 00:18 Stool Clostridium difficile Toxin Assay - Final Resulted 02/16/25 18:58 Blood Blood Culture - Preliminary NO GROWTH AFTER 48 HOURS OF INCUBATION. Resulted Abdominal X RAY IMPRESSION: 1. Nonobstructive bowel gas pattern. Stool throughout the colon. Problems(with codes): (1) Cellulitis of left foot (2) Chronic kidney disease (3) HTN (hypertension) (4) Bradycardia (5) Vomiting (6) Intractable abdominal pain (7) Positive occult stool blood test Plan/Recommendation Plan Patient's stool studies including bacterial culture C diff and WBC have been negative Her stool for occult blood was positive and she has some upper GI symptoms I will consider her for possible endoscopy on 02/19/2025 after the patient has been evaluated and cleared by anesthesia In the meantime continue Protonix 40 mg p.o. q.a.m. and Carafate 1 g p.o. q.h.s. DC aspirin NSAIDs smoking alcohol Outpatient follow up with GI Services to discuss elective screening colonoscopy Overall her prognosis remains guarded and we will monitor her labs, H&H is stable at this time Plan discussed with: Patient, Other (Nurse) MINDY EARLY MD Feb 18, 2025 23:03
[2025-02-18] MEDS: EPOETIN ALFA-EPBX 10,000 UNIT/1ML VIAL SC ONE (23:09)
[2025-02-19] VITALS (13 sets, daily range): BP systolic 111–152; BP diastolic 48–73; PULSE 65–70; RESP 14–20; TEMP 97.4–98.8; O2SAT 90–100
[2025-02-19 07:03] LABS: Hematocrit 19.3 % (36.0-46.0)
[2025-02-19 07:08] LABS: Mean Corpuscular Hemoglobin 28.7 pg (28.0-32.0); Mean Corpuscular Volume 86.4 fL (80.0-100.0); Nucleated Red Blood Cells % 0.1 %
[2025-02-19 07:17] LABS: Alanine Aminotransferase 15 U/L (7-40); Albumin 3.8 g/dL (3.2-4.8); Alkaline Phosphatase 97 U/L (46-116); Anion Gap 11 (5-15); BUN/Creatinine Ratio 12.1 (10.0-20.0); Calcium 9.2 mg/dL (8.7-10.4); Carbon Dioxide 29 mmol/L (20-31); Potassium 4.6 mmol/L (3.5-5.1); Total Protein 7.1 g/dL (5.7-8.2)
[2025-02-19 07:19] LABS: Bilirubin, Total 0.3 mg/dL (0.2-1.0); Blood Urea Nitrogen 61 mg/dL (9-23); Chloride 92 mmol/L (98-107); Glucose 143 mg/dL (74-106); Sodium 132 mmol/L (136-145)
[2025-02-19 07:21] LABS: Hemoglobin 6.4 g/dL (12.2-16.2)
--- NOTE | 2025-02-19 11:24 | DVH ---
INDICATION: bleeding TECHNIQUE: Multiple real-time grayscale transabdominal and TV sonographic images along with color and duplex Doppler of the uterus and ovaries were obtained. COMPARISON: None FINDINGS: The uterus measures 7 x 5 x 3 cm. The endometrial stripe measures 0.3cm. Ovaries not visualized. IMPRESSION: 1. Uterus appears heterogeneous and atrophic with multiple calcifications. 2. Heterogeneous mass in the cervix measuring 1.7 cm. MRI with IV contrast recommended. 3. Small volume ascites.
[2025-02-19 13:23] LABS: INR 1.18 (0.9-1.15); Partial Thromboplastin Time 32.8 SEC (24.5-34.5); Prothrombin Time 12.3 sec (9.3-11.8)
--- NOTE | 2025-02-19 13:53 | DVHPNRES ---
Progress Note Date Seen: Feb 19, 2025 Resident Creating Document: ASHLEY VALENCIA RESIDENT Medical Necessity Reason Pt with a Central, PICC or Fol: No Subjective Review of Systems Patient is 59 years old female with past medical history of hypertension, diabetes mellitus type 2, peripheral artery disease, pacemaker due to cardiac arrhythmia, ESRD on hemodialysis Monday//Monday- Agnes, cirrhosis of liver, peripheral neuropathy, severe pulmonary hypertension- RVSP 65. She is brought to the ED with chief complaint of diarrhea and vomiting, pain in left foot wound. She had diarrhea for last 2 days, about 5 times a day, no blood. Associated with nausea, vomiting. She also complained of some chest pain on right side. Patient also complained of left foot pain, sharp, throbbing in nature, 10/10, decreased weight-bearing. She was taking antibiotics for osteomyelitis of left foot. She was discharged with doxycycline, levofloxacin and linezolid. Yesterday she finished her 2 week antibiotic course. Patient denied any fever, shortness of breath. Initial lab workup revealed hemoglobin 8.8, RDW 16.4, sodium 127, potassium 5.5, BNP 1576, serum creatinine 4.91, BUN 58, lactic acid 0.9, alkaline phosphatase 143, AST/ALT within normal limit, ammonia 12 serum iron 119, ferritin 1032. TIBC 191, CT Scan of the left foot revealed no acute abnormality, severe vascular calcification. CXR revealed mild cardiomegaly, bilateral pulmonary congestion. Abdominal x-ray shows nonobstructive bowel gas pattern. Past Medical History: Pacemaker due to cardiac arrhythmia, hyperlipidemia, hyperchloremia, hypertension, diabetes mellitus, CRF, cirrhosis. 02/17/25: He is currently comfortable. She has not had diarrhea episodes since morning today. 02/18/25: Patient is seen at bedside. She complains of intractable vomiting and some regurgitation. While examination she was coughing and regurgitating in the vomit bag. Stool culture negative for C difficile, we will start her on ceftriaxone, metronidazole. Pain in the left foot. We are holding fluids foe now. She will go for dialysis today. We will keep monitoring her on tele. ECG showed QTC elevation, we will stop Zofran. Start a trial of Reglan, gastroparesis possible. Passed a bloody stool today. Will consult GI to evaluate for bleed. Complains of vague MSK pain in back. 02/19/25: Her hemoglobin is running low at 6.4. Although she complains feeling better after dialysis her nausea persists. She is bleeding per vagina. OBGYN consult placed. TV USG done on her. Blood transfusion done. She also complained of 2 episodes of loose stools. We will continue holding off Lovenox because of bleeding. Advised using sequential compression device ROS: Constitutional: Denies weight loss, fever and chills. HEENT: Pallor. Denies changes in vision and hearing. Respiratory: Denies shortness of breath and cough Cardiovascular: Complains of right-sided chest pain. GI: Intractable nausea. Abdominal distress associated with nausea, vomiting. Vomiting has mostly subsided. No complaints of diarrhea. : On dialysis. Musculoskeletal: Denies myalgias and joint pain Neurological: Denies dizziness, headache, vision or hearing problems Objective vital signs Vital Sign Date Time Temp Pulse Resp B/P (MAP) Pulse Ox O2 Delivery O2 Flow Rate FiO2 02/19/25 10:00 122/49 02/19/25 09:00 97.9 65 16 100 97.9 02/18/25 20:00 Nasal Cannula* 3 32 Total Intake and Output 02/18/25 02/18/25 02/19/25 15:00 23:00 07:00 Intake Total 1100 ml 700 ml Balance 1100 ml 700 ml medications Current Medications Medications Dose Ordered Sig/Raj Route Start Time Stop Time Status Last Admin Dose Admin Acetaminophen 650 mg Q6HP PRN PO 02/16/25 23:15 02/17/25 17:34 650 MG Nitroglycerin 0.4 mg Q5MINP PRN SL 02/16/25 23:15 Aspirin 81 mg DAILY PO 02/17/25 10:00 Cancel Sevelamer HCl 1,600 mg TID PO 02/17/25 06:00 02/18/25 23:09 1,600 MG Atorvastatin Calcium 40 mg DAILY PO 02/17/25 10:00 02/17/25 11:26 40 MG Furosemide 40 mg BIDD IV 02/17/25 06:00 02/18/25 18:05 40 MG Acetaminophen/ Hydrocodone Bitart 1 tab Q4HP PRN PO 02/17/25 02:30 02/19/25 00:56 1 TAB Diagnostic Test (Pha) 1 strip ACHS 02/17/25 07:00 7/9/25 12:39 1 STRIP Insulin Human Regular ACHS SC 02/17/25 07:00 Dextrose 50 ml UD PRN IV 02/17/25 04:15 Famotidine 20 mg Q2D PO 02/17/25 17:45 02/17/25 18:26 20 MG Sucralfate 1 gm BID@0600,2200 GT 02/17/25 22:00 02/18/25 23:09 1 GM Ceftriaxone Sodium 50 ml @ 100 mls/hr DAILY@09 IV 02/18/25 13:30 02/19/25 12:31 100 MLS/HR Metronidazole 100 ml @ 100 mls/hr Q8HR IV 02/18/25 14:00 02/19/25 05:27 100 MLS/HR Pantoprazole Sodium 40 mg BID IV 02/19/25 22:00 Examination General examination- Pallor present. She is awake, alert, oriented. HEENT- PEERLA, no acute nasal discharge Cardiovascular- Faint systolic murmur heard in the mitral area. Respiratory- Faint bilateral lung crackles. Gastrointestinal- Nontender, bowel sound reduced. Nondistended, boggy abdomen. Musculoskeletal- No acute joint swelling or tenderness or redness Extremity examination- Dry wound dressing on left foot. Weak dorsalis pedis felt it right foot, toes in right foot cooler than left foot. Neurological- Cranial nerves intact, no acute dysarthria or dysphagia laboratory and microbiology Laboratory Tests 02/19/25 06:13 Test 02/19/25 06:13 Range/Units Serum Glucose 143 H 74-106 mg/dL Microbiology Date/Time Source Procedure Growth Status 02/17/25 10:46 Nose MRSA Screen - Final Complete 02/17/25 00:18 Stool Stool Culture - Preliminary Resulted 02/17/25 00:18 Stool Shiga Toxin I & II - Final Resulted 02/17/25 00:18 Stool Clostridium difficile Toxin Assay - Final Resulted 02/16/25 18:58 Blood Blood Culture - Preliminary NO GROWTH AFTER 48 HOURS OF INCUBATION. Resulted Problem List/Assessment/Plan Problem List/Assessment/Plan #Acute gastroenteritis, likely infectious etiology #Intractable abdominal pain, resolved #Intractable nausea, Possible gastroenteritis, likely infectious etiology #Ruled out C difficile - Will order a CT abdomen if is abdominal if patient's condition do not improve - Stool culture negative for C difficile. Will give IV Ceftriaxone and metronidazole. - Continue Famotidine in 20 mg daily - Continue Carafate suspension BI #Gastroparesis, possible - continue Reglan. Will stop Zofran #Acute hypoxic respiratory failure, likely due to volume overload - Tachypnea. O2 supplementation down to 1 L. - CXR shows Cardiomegaly and pulmonary vascular congestion. #Diabetes mellitus #Peripheral arterial disease #Osteomyelitis left foot, DFU - Wound culture negative. - Foot CT shows severe vascular calcification - Completed antibiotics course. Comb Fixer advised another two weeks of oral abx and f/u in O/P. #End-stage renal disease on hemodialysis #Anemia of chronic disease, due to end-stage renal disease - Scheduled for hemodialysis today - Epoetin given. - Hb 7.4 Ferritin high. Will monitor Hb. #Hypertension - Currently hypotensive. Discontinued hydralazine. - Administer 250 mL NS bolus #History of pacemaker placement for cardiac bradyarrhythmias #Acute on chronic diastolic heart failure, likely due to volume overload - Monitor on Tele #GI bleed rule out #Bleeding PV -OBGYN consulted -USG- Uterus appears heterogeneous and atrophic with multiple calcifications. Heterogeneous mass in the cervix measuring 1.7 cm. MRI with IV contrast recommended.Small volume ascites. - Hb down to 6.4 from 7.4 - Occult blood positive. Will consult GI for possible bleed. - Stopped Lovenox Goals of care discussion at bedside with patient's for more than 35 minutes Full code Plan discussed with Dr. Tucker Plan discussed with: Patient My Orders My Orders Orders - ASHLEY VALENCIA RESIDENT Procedure Category Date Status Time * Gi Dvh T[employer] Gate Keeper CONS 02/18/25 Transmitted 15:36 Electrocardigram EKG 02/18/25 Logged 17:18 Hemoglobin LAB 02/19/25 Logged Dietary Evaluation Review Comments: 1) Advance to [facility] 60gm + renal standard diet as medically feasible 2) Nephro-Elie 1 tab daily 3) Pro-stat 1 pk & Corby 1 pk daily 4) Monitor PO intake, lab values, wt trend, I/O Expected Outcomes/Goals: wound to improve to meet at leaast 75% estimated mauricio within 7 days fu 2-3 days Date of Service: Feb 19, 2025 Billing Provider: LEO FREEDMAN MD Common Visit Codes: [id number] INP/OBS CARE(HIGH) ASHLEY VALENCIA RESIDENT Feb 19, 2025 13:53 LEO FREEDMAN MD Feb 24, 2025 01:02
--- NOTE | 2025-02-19 14:54 | DVHINCON2 ---
Date of service: Feb 19, 2025 Referring Physician hospitalist Reason for Consultation vag bleeding History of Present Illness pt is admitted for low hgb,fatigue and n/v/diahrrea.pt denies vag bleeding . she has a positive guiac .sono is normal for pelvic findings and there is no evidence of endometrial hyperplasia. Past Medical History liver cirrohosis,ckd,gerd,htn,cardiac arrhythima Past Surgical History pace maker,endoscopy Family History dm,htn Social History 4 Patient Family History: Diabetes mellitus Allergies: Coded Allergies: NO KNOWN ALLERGIES (Unverified , 08/03/20) Home Meds Active Scripts Atorvastatin Calcium (ATORVASTATIN CALCIUM) 40 Mg Tab, 40 MG PO DAILY for 30 Days, #30 TAB 0 Refills Prov:MAXI HOLLY RESIDENT 01/29/25 Doxycycline (Monohydrate) (DOXYCYCLINE) 150 Mg Cap, 100 MG PO BID for 10 Days, #20 CAP 0 Refills Prov:MAXI HOLLY RESIDENT 01/29/25 Reported Medications Sevelamer Hydrochloride (Sevelamer Hydrochloride) 800 Mg Tab, 2 TAB PO TID 08/14/22 Glipizide (Glipizide Er) 2.5 Mg Tab, 1 TAB PO DAILY 08/14/22 Calcium Acetate (Phosphate Bin (Calcium Acetate) 667 Mg Cap, 2 CAP PO TID 08/14/22 Amlodipine Besylate (Amlodipine Besylate) 10 Mg Tab, 1 TAB PO DAILY 08/14/22 Aspirin (Aspir-Low) 81 Mg Tab, 81 MG PO DAILY for 30 Days, MG 08/05/20 Hydralazine Hcl (Hydralazine Hcl) 10 Mg Tab, 0 PO BID for 30 Days, MG 08/05/20 Current Medications Current Medications Medications (Trade) Dose Ordered Sig/Raj Route PRN Reason Start Time Stop Time Status Last Admin Pantoprazole Sodium (Protonix) 40 mg BID IV 02/19/25 22:00 Pantoprazole Sodium (Protonix) 40 mg ONCE STAT IV 02/19/25 13:36 02/19/25 13:44 DC Review of Systems Constitutional: no fever, chill, weight loss HEENT: no eye pain, no hearing loss, no oral lesion, no scleral icterus Heart: no chest pain, no chest pressure Lung: no cough, no dyspnea with exertion Abdomen: see HPI : no pain with urination, normal appearing urine Musculoskeletal: no joint pain, no muscle pain Neurological: no seizure, no loss of sensation, no weakness in extremities Pysch: no depression, no anxiety Derm: no rash, no jaundice Vital Signs Vital Signs Date Time Temp Pulse Resp B/P (MAP) Pulse Ox O2 Delivery O2 Flow Rate FiO2 02/19/25 14:00 98.2 65 18 152/66 98.2 02/19/25 13:00 100 02/18/25 20:00 Nasal Cannula* 3 32 Physical Exam SKIN: [pale ] HEENT: [pale] NECK: [nl] CARDIAC: [rrr] PULMONARY: [cta] ABDOMEN: [soft,nt] pelvic- ext gent wnl,cx nl,no evidence of any blood in vag,uterus small,adenxa nl Labs/Diagnostic Data Labs Test 02/19/25 12:38 02/19/25 10:50 02/19/25 06:13 02/18/25 13:40 Range/Units POC Glucose 125 H 70-106 mg/dl Prothrombin Time 12.3 H 9.3-11.8 sec Prothrombin Time INR 1.18 H 0.9-1.15 Activated Partial Thromboplast Time 32.8 24.5-34.5 SEC White Blood Count 6.4 4.4-10.8 10^3/uL Red Blood Count 2.24 L 4.0-5.20 10^6/uL Hemoglobin 6.4 *L 12.2-16.2 g/dL Hematocrit 19.3 #L 36.0-46.0 % Mean Corpuscular Volume 86.4 80.0-100.0 fL Mean Corpuscular Hemoglobin 28.7 28.0-32.0 pg Mean Corpuscular Hemoglobin Concent 33.2 32.0-36.0 g/dL Red Cell Distribution Width 16.6 H 11.8-14.3 % Platelet Count 160 140-450 10^3/uL Mean Platelet Volume 7.7 6.9-10.8 fL Neutrophils (%) (Auto) 74.7 37.0-80.0 % Lymphocytes (%) (Auto) 14.8 10.0-50.0 % Monocytes (%) (Auto) 8.4 0.0-12.0 % Eosinophils (%) (Auto) 1.2 0.0-7.0 % Basophils (%) (Auto) 0.9 0.0-2.0 % Neutrophils # (Auto) 4.8 1.6-8.6 10 ^3/uL Lymphocytes # (Auto) 0.9 0.4-5.4 10 ^3/uL Monocytes # (Auto) 0.5 0-1.3 10 ^3/uL Eosinophils # (Auto) 0.1 0-0.8 10 ^3/uL Basophils # (Auto) 0.1 0-0.2 10 ^3/uL Nucleated Red Blood Cells 0.1 % Sodium Level 132 L 136-145 mmol/L Potassium Level 4.6 3.5-5.1 mmol/L Chloride Level 92 L 98-107 mmol/L Carbon Dioxide Level 29 20-31 mmol/L Anion Gap 11 5-15 Blood Urea Nitrogen 61 #H 9-23 mg/dL Creatinine 5.04 H 0.550-1.02 mg/dL Glomerular Filtration Rate Calc 9 >90 mL/min BUN/Creatinine Ratio 12.1 10.0-20.0 Serum Glucose 143 H 74-106 mg/dL Calcium Level 9.2 8.7-10.4 mg/dL Total Bilirubin 0.3 0.2-1.0 mg/dL Aspartate Amino Transferase (AST) 37 13-40 U/L Alanine Aminotransferase (ALT) 15 7-40 U/L Alkaline Phosphatase 97 46-116 U/L Total Protein 7.1 5.7-8.2 g/dL Albumin 3.8 3.2-4.8 g/dL Hepatitis B Surface Antigen Negative Negative Test 02/18/25 04:57 02/17/25 04:33 02/17/25 02:18 02/17/25 00:18 Range/Units Phosphorus Level 6.9 H 2.4-5.1 mg/dL Vitamin B12 Level 3549 H 211-911 pg/mL Vitamin D 25-Hydroxy 54.5 30.0-100 ng/mL Folic Acid 20.73 >5.38 ng/mL Troponin I High Sensitivity 32 </=34 ng/L Lipase 28 12-53 U/L Stool Occult Blood Positive Negative Stool Occult Blood Sample #3 Negative Stool for White Cells None seen Test 02/16/25 18:50 Range/Units Lactic Acid Level 0.9 0.4-2.0 mmol/L Magnesium Level 2.5 1.6-2.6 mg/dL Iron Level 119 50-170 ug/dL Total Iron Binding Capacity 191 L 250-425 ug/dL Percent Iron Saturation 62.3 H 15-50 % Ferritin 1032.9 H 10-291 ng/mL Ammonia 12 11-32 umol/L B-Type Natriuretic Peptide 1576.82 0-100 pg/mL Microbiology Date/Time Source Procedure Growth Status 02/17/25 10:46 Nose MRSA Screen - Final Complete 02/17/25 00:18 Stool Stool Culture - Preliminary Resulted 02/17/25 00:18 Stool Shiga Toxin I & II - Final Resulted 02/17/25 00:18 Stool Clostridium difficile Toxin Assay - Final Resulted 02/16/25 18:58 Blood Blood Culture - Preliminary NO GROWTH AFTER 48 HOURS OF INCUBATION. Resulted Primary Diagnosis anemia probably due to GI ,NO EVIDENCE OF POSTMENOPAUSAL BLEEDING NO EVIDENCE OF ENDOMEYTRIAL HYPERPLASIA 2' Diagnosis/Comorbidities HTN,CKD,GERD,DM Plan RECOMMEND GI WK UP,NO FURTHER [employer] TREATING [employer]IT OPERATOR WK UP NEEDED WILL SIGN OFF THANK YOU FOR THIS CONSULTATION Plan discussed with: Patient Visit Coding OBGYN Date of Service: Feb 19, 2025 Billing Provider: AURORA COTA DO GLASS DRILLER Common Visit Codes: [id number] OBS CARE (HIGH), [id number] INP/OBS CARE(HIGH) GLASS DRILLER Consultation Codes: [id number] CONSULT <80MIN AURORA OCTA DO Feb 19, 2025 14:54
--- NOTE | 2025-02-19 16:03 | DVHPN2 ---
Progress Note - Dictate Date Seen: Feb 19, 2025 Medical Necessity Reason Pt with a Central, PICC or Fol: No Subjective Patient no longer nauseous, pain is controlled vital signs Vital Sign Date Time Temp Pulse Resp B/P (MAP) Pulse Ox O2 Delivery O2 Flow Rate FiO2 02/19/25 14:00 98.2 65 18 152/66 98.2 02/19/25 13:00 100 02/18/25 20:00 Nasal Cannula* 3 32 Total Intake and Output 02/18/25 02/18/25 02/19/25 15:00 23:00 07:00 Intake Total 1100 ml 700 ml Balance 1100 ml 700 ml medications Current Medications Medications Dose Ordered Sig/Raj Route Start Time Stop Time Status Last Admin Dose Admin Acetaminophen 650 mg Q6HP PRN PO 02/16/25 23:15 02/17/25 17:34 650 MG Nitroglycerin 0.4 mg Q5MINP PRN SL 02/16/25 23:15 Aspirin 81 mg DAILY PO 02/17/25 10:00 Cancel Sevelamer HCl 1,600 mg TID PO 02/17/25 06:00 02/18/25 23:09 1,600 MG Atorvastatin Calcium 40 mg DAILY PO 02/17/25 10:00 02/17/25 11:26 40 MG Furosemide 40 mg BIDD IV 02/17/25 06:00 02/18/25 18:05 40 MG Acetaminophen/ Hydrocodone Bitart 1 tab Q4HP PRN PO 02/17/25 02:30 02/19/25 00:56 1 TAB Diagnostic Test (Pha) 1 strip ACHS 02/17/25 07:00 02/19/25 12:39 1 STRIP Insulin Human Regular ACHS SC 02/17/25 07:00 Dextrose 50 ml UD PRN IV 02/17/25 04:15 Famotidine 20 mg Q2D PO 02/17/25 17:45 02/17/25 18:26 20 MG Sucralfate 1 gm BID@0600,2200 GT 02/17/25 22:00 02/18/25 23:09 1 GM Ceftriaxone Sodium 50 ml @ 100 mls/hr DAILY@09 IV 02/18/25 13:30 02/19/25 12:31 100 MLS/HR Metronidazole 100 ml @ 100 mls/hr Q8HR IV 02/18/25 14:00 02/19/25 05:27 100 MLS/HR Pantoprazole Sodium 40 mg BID IV 02/19/25 22:00 objective HEENT: No evidence of JVD, no oral ulcers. Pulmonary: Lungs are clear on auscultation bilaterally Cardiovascular S1-S2, no S3 or S4 Abdomen: Bowel sounds positive, soft no rebound tenderness Skin: No rash Neurological: Alert, oriented, no focal weakness Extremities: Left foot dressed, tender to touch laboratory and microbiology Laboratory Tests 02/19/25 06:13 Test 02/19/25 06:13 Range/Units Serum Glucose 143 H 74-106 mg/dL Assessment/Plan Assessment: 1. End-stage renal disease on hemodialysis TTS 2. Hyperkalemia managed with dialysis 3. Diarrhea rule out C diff 4. Hypertension 5. Anemia of blood loss and end-stage renal disease 6. CHF 7. Pulmonary hypertension 8. Concern for GI bleed, positive FOBT Plan: Transfuse PRBC, ppi, possible endoscopy, GI consult Dialysis today and TTS Antibiotics Antiemetics p.r.n. Higher dose of Rui for goal hemoglobin 10 to 11 grams/deciliter Thank you very much for allowing us to participate in the care of this patient please contact if you have any questions. Dietary Evaluation Review Comments: 1) Advance to [facility] 60gm + renal standard diet as medically feasible 2) Nephro-Elie 1 tab daily 3) Pro-stat 1 pk & Corby 1 pk daily 4) Monitor PO intake, lab values, wt trend, I/O Expected Outcomes/Goals: wound to improve to meet at leaast 75% estimated mauricio within 7 days fu 2-3 days Plan discussed with: Patient NIKOLAS ENGLE MD Feb 19, 2025 16:03
[2025-02-19] MEDS: PANTOPRAZOLE 40 MG/10 ML VIAL INJ IV STA (16:13)
[2025-02-19] MEDS: PANTOPRAZOLE 40 MG/10 ML VIAL INJ IV SCH (22:24)
--- NOTE | 2025-02-19 23:04 | DVHPN2 ---
Progress Note - Dictate Date Seen: Feb 19, 2025 Medical Necessity Reason Pt with a Central, PICC or Fol: No Subjective Patient had a moderate amount of bleeding last night and this morning described as dark Initially it was thought to be vaginal bleeding but this has been ruled out by OBGYN consult GI was asked to re-evaluate her for possible endoscopy. Patient was dialyzed yesterday Her hemoglobin had dropped to 6.6 with a low blood pressure and patient was awaiting transfusion this morning vital signs Vital Sign Date Time Temp Pulse Resp B/P (MAP) Pulse Ox O2 Delivery O2 Flow Rate FiO2 02/19/25 21:00 98.2 65 14 131/49 (76) 100 98.2 02/19/25 08:00 Nasal Cannula* 3 32 Total Intake and Output 02/18/25 02/18/25 02/19/25 15:00 23:00 07:00 Intake Total 1100 ml 700 ml Balance 1100 ml 700 ml medications Current Medications Medications Dose Ordered Sig/Raj Route Start Time Stop Time Status Last Admin Dose Admin Acetaminophen 650 mg Q6HP PRN PO 02/16/25 23:15 02/19/25 22:31 650 MG Nitroglycerin 0.4 mg Q5MINP PRN SL 02/16/25 23:15 Aspirin 81 mg DAILY PO 02/17/25 10:00 Cancel Sevelamer HCl 1,600 mg TID PO 02/17/25 06:00 02/19/25 22:23 1,600 MG Atorvastatin Calcium 40 mg DAILY PO 02/17/25 10:00 02/17/25 11:26 40 MG Furosemide 40 mg BIDD IV 02/17/25 06:00 02/19/25 19:55 40 MG Acetaminophen/ Hydrocodone Bitart 1 tab Q4HP PRN PO 02/17/25 02:30 02/19/25 00:56 1 TAB Diagnostic Test (Pha) 1 strip ACHS 02/17/25 07:00 02/19/25 22:00 1 STRIP Insulin Human Regular ACHS SC 02/17/25 07:00 Dextrose 50 ml UD PRN IV 02/17/25 04:15 Famotidine 20 mg Q2D PO 02/17/25 17:45 02/17/25 18:26 20 MG Sucralfate 1 gm BID@0600,2200 GT 02/17/25 22:00 02/19/25 22:23 1 GM Ceftriaxone Sodium 50 ml @ 100 mls/hr DAILY@09 IV 02/18/25 13:30 02/19/25 12:31 100 MLS/HR Metronidazole 100 ml @ 100 mls/hr Q8HR IV 02/18/25 14:00 02/19/25 22:24 100 MLS/HR Pantoprazole Sodium 40 mg BID IV 02/19/25 22:00 02/19/25 22:24 40 MG objective HEENT: No evidence of JVD, no oral ulcers. Pulmonary: Lungs are clear on auscultation bilaterally Cardiovascular S1-S2, no S3 or S4 Abdomen: Bowel sounds positive, soft no rebound tenderness Skin: No rash Neurological: Alert, oriented, no focal weakness Extremities: Left foot dressed, tender to touch laboratory and microbiology Laboratory Tests 02/19/25 06:13 Test 02/19/25 06:13 Range/Units Serum Glucose 143 H 74-106 mg/dL Problems(with codes): (1) Positive occult stool blood test (2) Diabetes mellitus due to underlying condition with hyperglycemia (3) Chronic kidney disease (4) Hypotension (5) Anemia (6) ESRD (end stage renal disease) on dialysis (7) Left foot infection Prognosis Plan Patient's stool studies including bacterial culture C diff and WBC have been negative Her stool for occult blood was positive and she has some upper GI symptoms I will consider her for possible endoscopy on 02/21/2025 after the patient has been evaluated and cleared by anesthesia In the meantime continue Protonix 40 mg IV q 12 hrs and Carafate 1 g p.o. q.i.d DC aspirin NSAIDs smoking alcohol Patient will also benefit from an elective screening colonoscopy Dietary Evaluation Review Comments: 1) Advance to [facility] 60gm + renal standard diet as medically feasible 2) Nephro-Elie 1 tab daily 3) Pro-stat 1 pk & Corby 1 pk daily 4) Monitor PO intake, lab values, wt trend, I/O Expected Outcomes/Goals: wound to improve to meet at leaast 75% estimated mauricio within 7 days fu 2-3 days Plan discussed with: Patient, Other (Dr Tucker and Nurse) MINDY EARLY MD Feb 19, 2025 23:04
[2025-02-20] VITALS (8 sets, daily range): BP systolic 108–137; BP diastolic 50–65; PULSE 65; RESP 14–17; TEMP 97.4–98.4; O2SAT 93–100
[2025-02-20] MEDS: GOLYTELY 4L KIT PO ONE (00:30)
[2025-02-20] MEDS: ONDANSETRON HCL 4 MG/2 ML VIAL IM ONE (04:00)
[2025-02-20 05:56] LABS: Hematocrit 27.6 % (36.0-46.0); Hemoglobin 9.4 g/dL (12.2-16.2); Mean Corpuscular Hemoglobin 29.5 pg (28.0-32.0); Mean Corpuscular Volume 86.8 fL (80.0-100.0); Nucleated Red Blood Cells % 0.2 %
[2025-02-20 06:04] LABS: Alanine Aminotransferase 12 U/L (7-40); Alkaline Phosphatase 86 U/L (46-116); Anion Gap 12 (5-15); BUN/Creatinine Ratio 10.4 (10.0-20.0); Calcium 9.0 mg/dL (8.7-10.4); Carbon Dioxide 26 mmol/L (20-31); Glucose 93 mg/dL (74-106); Potassium 4.9 mmol/L (3.5-5.1)
[2025-02-20 06:05] LABS: Total Protein 6.7 g/dL (5.7-8.2)
[2025-02-20 06:06] LABS: Albumin 3.6 g/dL (3.2-4.8); Bilirubin, Total 0.3 mg/dL (0.2-1.0)
[2025-02-20 06:14] LABS: Blood Urea Nitrogen 64 mg/dL (9-23); Chloride 95 mmol/L (98-107); Sodium 133 mmol/L (136-145)
[2025-02-20] MEDS: FUROSEMIDE 40 MG/4 ML VIAL IV SCH (09:51)
--- NOTE | 2025-02-20 12:58 | DVHPNRES ---
Progress Note Date Seen: Feb 20, 2025 Resident Creating Document: ASHLEY VALENCIA RESIDENT Medical Necessity Reason Pt with a Central, PICC or Fol: No Subjective Review of Systems Yuri Murray is 59 years old female with past medical history of hypertension, diabetes mellitus type 2, peripheral artery disease, pacemaker due to cardiac arrhythmia, ESRD on hemodialysis Monday//Monday- Agnes, cirrhosis of liver, peripheral neuropathy, severe pulmonary hypertension- RVSP 65. She is brought to the ED with chief complaint of diarrhea and vomiting, pain in left foot wound. She had diarrhea for last 2 days, about 5 times a day, no blood. Associated with nausea, vomiting. She also complained of some chest pain on right side. Patient also complained of left foot pain, sharp, throbbing in nature, 10/10, decreased weight-bearing. She was taking antibiotics for osteomyelitis of left foot. She was discharged with doxycycline, levofloxacin and linezolid. Yesterday she finished her 2 week antibiotic course. Patient denied any fever, shortness of breath. Initial lab workup revealed hemoglobin 8.8, RDW 16.4, sodium 127, potassium 5.5, BNP 1576, serum creatinine 4.91, BUN 58, lactic acid 0.9, alkaline phosphatase 143, AST/ALT within normal limit, ammonia 12 serum iron 119, ferritin 1032. TIBC 191, CT Scan of the left foot revealed no acute abnormality, severe vascular calcification. CXR revealed mild cardiomegaly, bilateral pulmonary congestion. Abdominal x-ray shows nonobstructive bowel gas pattern. Past Medical History: Pacemaker due to cardiac arrhythmia, hyperlipidemia, hyperchloremia, hypertension, diabetes mellitus, CRF, cirrhosis. 02/17/25: He is currently comfortable. She has not had diarrhea episodes since morning today. 02/18/25: Patient is seen at bedside. She complains of intractable vomiting and some regurgitation. While examination she was coughing and regurgitating in the vomit bag. Stool culture negative for C difficile, we will start her on ceftriaxone, metronidazole. Pain in the left foot. We are holding fluids foe now. She will go for dialysis today. We will keep monitoring her on tele. ECG showed QTC elevation, we will stop Zofran. Start a trial of Reglan, gastroparesis possible. Passed a bloody stool today. Will consult GI to evaluate for bleed. Complains of vague MSK pain in back. 02/19/25: Her hemoglobin is running low at 6.4. Although she complains feeling better after dialysis her nausea persists. She is bleeding per vagina. OBGYN consult placed. TV USG done on her. Blood transfusion done. She also complained of 2 episodes of loose stools. We will continue holding off Lovenox because of bleeding. Advised using sequential compression device. 02/20/25: Continues to complain of intractable nausea, vomiting, incontinence diarrhea. Two episodes of diarrhea yesterday and today in the morning. She complained of loose stools and having passed loose stools on bed d/t urgency. She has bleeding per vagina, per rectal. GI consulted EGD, colonoscopy tomorrow. Ultrasound pelvis shows heterogeneous mass and cervix. Hemoglobin up from yesterday after 2 bags transfusion. Will continue to monitor and manage. ROS: Constitutional: Denies weight loss, fever and chills. HEENT: Pallor. Denies changes in vision and hearing. Respiratory: Denies shortness of breath and cough Cardiovascular: Complains of right-sided chest pain. GI: Intractable nausea. Abdominal distress associated with nausea, vomiting. Vomiting has mostly subsided. No complaints of diarrhea. : On dialysis. Musculoskeletal: Denies myalgias and joint pain Neurological: Denies dizziness, headache, vision or hearing problems Objective vital signs Vital Sign Date Time Temp Pulse Resp B/P (MAP) Pulse Ox O2 Delivery O2 Flow Rate FiO2 02/20/25 09:51 128/50 02/20/25 08:30 98.4 65 17 94 98.4 02/20/25 08:00 Nasal Cannula* 3 32 Total Intake and Output 02/19/25 02/19/25 02/20/25 15:00 23:00 07:00 Intake Total 750 ml 200 ml Balance 750 ml 200 ml medications Current Medications Medications Dose Ordered Sig/Raj Route Start Time Stop Time Status Last Admin Dose Admin Acetaminophen 650 mg Q6HP PRN PO 02/16/25 23:15 02/19/25 22:31 650 MG Nitroglycerin 0.4 mg Q5MINP PRN SL 02/16/25 23:15 Aspirin 81 mg DAILY PO 02/17/25 10:00 Cancel Sevelamer HCl 1,600 mg TID PO 02/17/25 06:00 02/20/25 05:51 1,600 MG Atorvastatin Calcium 40 mg DAILY PO 02/17/25 10:00 02/20/25 09:50 40 MG Acetaminophen/ Hydrocodone Bitart 1 tab Q4HP PRN PO 02/17/25 02:30 02/20/25 06:05 1 TAB Diagnostic Test (Pha) 1 strip ACHS 02/17/25 07:00 02/20/25 06:12 1 STRIP Insulin Human Regular ACHS SC 02/17/25 07:00 Dextrose 50 ml UD PRN IV 02/17/25 04:15 Famotidine 20 mg Q2D PO 02/17/25 17:45 02/17/25 18:26 20 MG Sucralfate 1 gm BID@0600,2200 GT 02/17/25 22:00 02/20/25 05:51 1 GM Ceftriaxone Sodium 50 ml @ 100 mls/hr DAILY@09 IV 02/18/25 13:30 02/20/25 09:50 100 MLS/HR Metronidazole 100 ml @ 100 mls/hr Q8HR IV 02/18/25 14:00 02/20/25 05:54 100 MLS/HR Pantoprazole Sodium 40 mg BID IV 02/19/25 22:00 02/20/25 09:50 40 MG Furosemide 20 mg DAILY IV 02/20/25 10:00 02/20/25 09:51 20 MG laboratory and microbiology Laboratory Tests 02/20/25 05:00 Test 02/20/25 05:00 Range/Units Serum Glucose 93 74-106 mg/dL Microbiology Date/Time Source Procedure Growth Status 02/17/25 10:46 Nose MRSA Screen - Final Complete 02/17/25 00:18 Stool Stool Culture - Final Complete 02/17/25 00:18 Stool Shiga Toxin I & II - Final Complete 02/17/25 00:18 Stool Clostridium difficile Toxin Assay - Final Complete 02/16/25 18:58 Blood Blood Culture - Preliminary NO GROWTH AFTER 72 HOURS OF INCUBATION. Resulted Problem List/Assessment/Plan Problem List/Assessment/Plan #Acute gastroenteritis, likely infectious etiology #Intractable abdominal pain, resolved #Intractable nausea, Possible gastroenteritis, likely infectious etiology #Ruled out C difficile - Will order a CT abdomen if is abdominal if patient's condition do not improve - Stool culture negative for C difficile. Will give IV Ceftriaxone and metronidazole. - Continue Famotidine in 20 mg daily - Continue Carafate suspension BI #Gastroparesis, possible - continue Reglan. Will continue holding Zofran #Acute hypoxic respiratory failure, likely due to volume overload - Tachypnea. - CXR shows Cardiomegaly and pulmonary vascular congestion. #Diabetes mellitus #Peripheral arterial disease #Osteomyelitis left foot, DFU - Wound culture negative. - Foot CT shows severe vascular calcification - Completed antibiotics course. Postdoctoral Scientist advised another two weeks of oral abx and f/u in O/P. #End-stage renal disease on hemodialysis #Anemia of chronic disease, due to end-stage renal disease #Hyponatremia #Hypochloremia - Scheduled for hemodialysis tomorrow - Epoetin given. - Hb 7.4 Ferritin high. Will monitor Hb. #Hypertension - Currently hypotensive. Discontinued hydralazine. - Administer 250 mL NS bolus #History of pacemaker placement for cardiac bradyarrhythmias #Acute on chronic diastolic heart failure, likely due to volume overload - Monitor on Tele #GI bleed rule out #Bleeding PV -OBGYN consulted -USG- Uterus appears heterogeneous and atrophic with multiple calcifications. Heterogeneous mass in the cervix measuring 1.7 cm. MRI with IV contrast recommended.Small volume ascites. - Hb down to 6.4 from 7.4 - Occult blood positive. Will consult GI for possible bleed. - Stopped Lovenox #Cervical mass, cancer possible -Ultrasound shows cervical mass. -CT with contrast abdomen, pelvis to evaluate source of bleeding. Goals of care discussion at bedside with patient for more than 25 minutes Full code Plan discussed with Dr. Tucker Plan discussed with: Patient My Orders My Orders Orders - ASHLEY VALENCIA RESIDENT Procedure Category Date Status Time Hemoglobin & LAB 02/20/25 Logged Hematocrit 15:00 Complete Blood Count LAB 02/21/25 Verified 04:00 Comprehensive LAB 02/21/25 Verified Metabolic Panel 04:00 Hemoglobin LAB 02/21/25 Verified 15:00 Ct Ab Pel With Iv Con CT 02/20/25 Taken Only 12:09 Dietary Evaluation Review Comments: 1) Advance to [facility] 60gm + renal standard diet as medically feasible 2) Nephro-Elie 1 tab daily 3) Pro-stat 1 pk & Corby 1 pk daily 4) Monitor PO intake, lab values, wt trend, I/O Expected Outcomes/Goals: wound to improve to meet at leaast 75% estimated mauricio within 7 days fu 2-3 days Date of Service: Feb 20, 2025 Billing Provider: LEO FREEDMAN MD Common Visit Codes: [id number] INP/OBS CARE(HIGH) ASHLEY VALENCIA RESIDENT Feb 20, 2025 12:58 LEO FREEDMAN MD Feb 24, 2025 01:10
--- NOTE | 2025-02-20 13:03 | DVH ---
Indication: Bleeding KS, PV. Cervical mass Technique: CT axial images of the abdomen and pelvis are obtained with intravenous contrast. Coronal and sagittal reformats were obtained. Radiation Dose Information: CTDI volume is 8.51 mGy. Dose-length product is 481.79 mGy*cm Comparison: None FINDINGS: Cardiomegaly. Tiny right pleural effusion. Adrenal glands, spleen, pancreas unremarkable. No CT evidence for cholelithiasis. No enhancing hepat ic lesion. Bilateral renal parenchymal atrophy/ cortical thinning. Stomach is partially distended. Small bowel loops are normal in caliber. Moderate volume stool in the colon. No secondary signs for acute appendicitis. Rectal wall thickening . Large volume of ascites fluid. Abdominal aorta normal in caliber. Bladder contracted. Uterine vascular calcifications. Soft tissue edema / anasarca. IMPRESSION: Large volume of ascites fluid. Rectal wall thickening. Correlate for proctocolitis and other etiologies. Tiny right pleural effusion. Renal parenchymal atrophy. Atherosclerotic disease. Cardiomegaly. Other findings as described.
[2025-02-20 15:54] LABS: Hematocrit 28.9 % (36.0-46.0); Hemoglobin 9.7 g/dL (12.2-16.2)
--- NOTE | 2025-02-20 17:18 | DVHPN2 ---
Progress Note - Dictate Date Seen: Feb 20, 2025 Medical Necessity Reason Pt with a Central, PICC or Fol: No Subjective Patient no longer nauseous, pain is controlled vital signs Vital Sign Date Time Temp Pulse Resp B/P (MAP) Pulse Ox O2 Delivery O2 Flow Rate FiO2 02/20/25 12:30 98.3 65 17 131/56 (81) 93 98.3 02/20/25 08:00 Nasal Cannula* 3 32 Total Intake and Output 02/19/25 02/19/25 02/20/25 14:59 22:59 06:59 Intake Total 750 ml 200 ml Balance 750 ml 200 ml medications Current Medications Medications Dose Ordered Sig/Raj Route Start Time Stop Time Status Last Admin Dose Admin Acetaminophen 650 mg Q6HP PRN PO 02/16/25 23:15 02/20/25 15:12 650 MG Nitroglycerin 0.4 mg Q5MINP PRN SL 02/16/25 23:15 Aspirin 81 mg DAILY PO 02/17/25 10:00 Cancel Sevelamer HCl 1,600 mg TID PO 02/17/25 06:00 02/20/25 15:04 1,600 MG Atorvastatin Calcium 40 mg DAILY PO 02/17/25 10:00 02/20/25 09:50 40 MG Acetaminophen/ Hydrocodone Bitart 1 tab Q4HP PRN PO 02/17/25 02:30 02/20/25 06:05 1 TAB Diagnostic Test (Pha) 1 strip ACHS 02/17/25 07:00 02/20/25 17:12 1 STRIP Insulin Human Regular ACHS SC 02/17/25 07:00 Dextrose 50 ml UD PRN IV 02/17/25 04:15 Famotidine 20 mg Q2D PO 02/17/25 17:45 02/17/25 18:26 20 MG Sucralfate 1 gm BID@0600,2200 GT 02/17/25 22:00 02/20/25 05:51 1 GM Ceftriaxone Sodium 50 ml @ 100 mls/hr DAILY@09 IV 02/18/25 13:30 02/20/25 09:50 100 MLS/HR Metronidazole 100 ml @ 100 mls/hr Q8HR IV 02/18/25 14:00 02/20/25 15:04 100 MLS/HR Pantoprazole Sodium 40 mg BID IV 02/19/25 22:00 02/20/25 09:50 40 MG Furosemide 20 mg DAILY IV 02/20/25 10:00 02/20/25 09:51 20 MG objective HEENT: No evidence of JVD, no oral ulcers. Pulmonary: Lungs are clear on auscultation bilaterally Cardiovascular S1-S2, no S3 or S4 Abdomen: Bowel sounds positive, soft no rebound tenderness Skin: No rash Neurological: Alert, oriented, no focal weakness Extremities: Left foot dressed, tender to touch laboratory and microbiology Laboratory Tests 02/20/25 15:31 02/20/25 05:00 Test 02/20/25 05:00 Range/Units Serum Glucose 93 74-106 mg/dL Assessment/Plan Assessment: 1. End-stage renal disease on hemodialysis TTS 2. Hyperkalemia managed with dialysis 3. Was ruled out 4. Hypertension 5. Anemia of blood loss and end-stage renal disease 6. CHF 7. Pulmonary hypertension 8. Concern for GI bleed, positive FOBT Plan: Dialysis today Transfuse PRBC as needed ppi, possible endoscopy, GI consult Antibiotics Antiemetics p.r.n. Higher dose of Rui for goal hemoglobin 10 to 11 grams/deciliter Thank you very much for allowing us to participate in the care of this patient please contact if you have any questions. Dietary Evaluation Review Comments: 1) Advance to [facility] 60gm + renal standard diet as medically feasible 2) Nephro-Elie 1 tab daily 3) Pro-stat 1 pk & Corby 1 pk daily 4) Monitor PO intake, lab values, wt trend, I/O Expected Outcomes/Goals: wound to improve to meet at leaast 75% estimated mauricio within 7 days fu 2-3 days Plan discussed with: Patient NIKOLAS ENGLE MD Feb 20, 2025 17:18
[2025-02-20] MEDS: EPOETIN ALFA-EPBX 10,000 UNIT/1ML VIAL SC ONE (21:56)
--- NOTE | 2025-02-20 22:59 | DVHPN2 ---
Progress Note - Dictate Date Seen: Feb 20, 2025 Medical Necessity Reason Pt with a Central, PICC or Fol: No Subjective Patient had no vaginal bleeding today She did have some dark greenish liquid stools She is scheduled for dialysis today Pelvic ultrasound shows heterogeneous cervical mass Stool tests are negative vital signs Vital Sign Date Time Temp Pulse Resp B/P (MAP) Pulse Ox O2 Delivery O2 Flow Rate FiO2 02/20/25 21:00 97.7 65 17 136/60 (85) 96 97.7 02/20/25 08:00 Nasal Cannula* 3 32 Total Intake and Output 02/19/25 02/19/25 02/20/25 15:00 23:00 07:00 Intake Total 750 ml 200 ml Balance 750 ml 200 ml medications Current Medications Medications Dose Ordered Sig/Raj Route Start Time Stop Time Status Last Admin Dose Admin Acetaminophen 650 mg Q6HP PRN PO 02/16/25 23:15 02/20/25 15:12 650 MG Nitroglycerin 0.4 mg Q5MINP PRN SL 02/16/25 23:15 Aspirin 81 mg DAILY PO 02/17/25 10:00 Cancel Sevelamer HCl 1,600 mg TID PO 02/17/25 06:00 02/20/25 21:56 1,600 MG Atorvastatin Calcium 40 mg DAILY PO 02/17/25 10:00 02/20/25 09:50 40 MG Acetaminophen/ Hydrocodone Bitart 1 tab Q4HP PRN PO 02/17/25 02:30 02/20/25 21:57 1 TAB Diagnostic Test (Pha) 1 strip ACHS 02/17/25 07:00 02/20/25 21:57 1 STRIP Insulin Human Regular ACHS SC 02/17/25 07:00 Dextrose 50 ml UD PRN IV 02/17/25 04:15 Famotidine 20 mg Q2D PO 02/17/25 17:45 02/17/25 18:26 20 MG Sucralfate 1 gm BID@0600,2200 GT 02/17/25 22:00 02/20/25 21:57 1 GM Ceftriaxone Sodium 50 ml @ 100 mls/hr DAILY@09 IV 02/18/25 13:30 02/20/25 09:50 100 MLS/HR Metronidazole 100 ml @ 100 mls/hr Q8HR IV 02/18/25 14:00 02/20/25 21:57 100 MLS/HR Pantoprazole Sodium 40 mg BID IV 02/19/25 22:00 02/20/25 21:55 40 MG Furosemide 20 mg DAILY IV 02/20/25 10:00 02/20/25 09:51 20 MG objective HEENT: No evidence of JVD, no oral ulcers. Pulmonary: Lungs are clear on auscultation bilaterally Cardiovascular S1-S2, no S3 or S4 Abdomen: Bowel sounds positive, soft no rebound tenderness Skin: No rash Neurological: Alert, oriented, no focal weakness Extremities: Left foot dressed, tender to touch laboratory and microbiology Laboratory Tests 02/20/25 15:31 02/20/25 05:00 Test 02/20/25 05:00 Range/Units Serum Glucose 93 74-106 mg/dL ABD PELVIC CT IMPRESSION: Large volume of ascites fluid. Rectal wall thickening. Correlate for proctocolitis and other etiologies. Tiny right pleural effusion. Renal parenchymal atrophy. Atherosclerotic disease. Cardiomegaly. Other findings as described. Pelvic USG IMPRESSION: 1. Uterus appears heterogeneous and atrophic with multiple calcifications. 2. Heterogeneous mass in the cervix measuring 1.7 cm. MRI with IV contrast recommended. 3. Small volume ascites. Problems(with codes): (1) Positive occult stool blood test (2) ESRD (end stage renal disease) on dialysis (3) Anemia (4) Cellulitis of left foot (5) Left against medical advice (6) Diabetes mellitus due to underlying condition with hyperglycemia Prognosis Plan Patient is hemodynamically stable and hemoglobin improved over nine after 2 units PRBC And plan to do an EGD and a colonoscopy tomorrow to rule out any GI source of bleeding Patient also apparently appears to have a cervical mass ; recommend OBGYN follow up Low heparin during dialysis; monitor labs; check CA 125 Dietary Evaluation Review Comments: 1) Advance to [facility] 60gm + renal standard diet as medically feasible 2) Nephro-Elie 1 tab daily 3) Pro-stat 1 pk & Corby 1 pk daily 4) Monitor PO intake, lab values, wt trend, I/O Expected Outcomes/Goals: wound to improve to meet at leaast 75% estimated mauricio within 7 days fu 2-3 days Plan discussed with: Patient, Other (Dr ) MINDY EARLY MD Feb 20, 2025 22:59
[2025-02-21] VITALS (9 sets, daily range): BP systolic 120–153; BP diastolic 48–62; PULSE 64–85; RESP 17–18; TEMP 97.3–98.1; O2SAT 94–100
[2025-02-21] MEDS: ONDANSETRON HCL 4 MG/2 ML VIAL IV ONE (04:01)
[2025-02-21] MEDS: GOLYTELY 4L KIT PO ONE (06:00)
[2025-02-21] MEDS: MAGNESIUM CITRATE SOLUTION 300 ML BTL PO ONE (06:03)
[2025-02-21 07:17] LABS: Hematocrit 29.4 % (36.0-46.0); Hemoglobin 9.8 g/dL (12.2-16.2); Mean Corpuscular Hemoglobin 29.4 pg (28.0-32.0); Mean Corpuscular Volume 87.7 fL (80.0-100.0); Nucleated Red Blood Cells % 0.2 %
[2025-02-21 07:22] LABS: Alanine Aminotransferase 12 U/L (7-40); Alkaline Phosphatase 98 U/L (46-116); Anion Gap 13 (5-15); BUN/Creatinine Ratio 8.9 (10.0-20.0); Carbon Dioxide 27 mmol/L (20-31); Glucose 85 mg/dL (74-106); Potassium 4.3 mmol/L (3.5-5.1); Sodium 136 mmol/L (136-145); Total Protein 7.2 g/dL (5.7-8.2)
[2025-02-21 07:23] LABS: Albumin 3.8 g/dL (3.2-4.8)
[2025-02-21 07:25] LABS: Bilirubin, Total 0.2 mg/dL (0.2-1.0); Blood Urea Nitrogen 42 mg/dL (9-23); Calcium 8.5 mg/dL (8.7-10.4); Chloride 96 mmol/L (98-107)
[2025-02-21] MEDS ORDERED: fentaNYL CITRATE 100 MCG/2 ML VL ONE (11:48)
[2025-02-21] MEDS ORDERED: MIDAZOLAM HCL 2MG/2ML 2ml VIAL (1mg/ml) ONE (11:48)
[2025-02-21] MEDS: LIDOCAINE VISCOUS 2% 15ML UD ONE (11:49)
[2025-02-21] MEDS ORDERED: PROPOFOL 10 MG/ML 20 ML IV ONE (12:07)
--- NOTE | 2025-02-21 12:35 | DVHOP2 ---
Operative Report DATE OF OPERATION: 02/21/25 PROCEDURE: Upper Endoscopy with biopsy. PREOPERATIVE INDICATION: The patient is a 59 -year-old female undergoing endoscopy for history of GI bleed and anemia POSTOPERATIVE DIAGNOSES: 1. 0.5-1 cm sliding-type hiatal hernia with no significant erosive esophagitis 2. Mild gastroduodenitis and gastric and duodenal biopsies were obtained 3. Mild gastroparesis with drain gastric food contents otherwise normal examination of the 2nd and 3rd part of the duodenum PROCEDURE PERFORMED BY: Mindy Osorio GI NURSE: Lolita SCOPE: Olympus videoendoscope. ASA CLASS: 3. PREOPERATIVE MEDICATIONS: Mac sedation, Dr. Lynch PROCEDURE IN DETAIL: After obtaining an informed consent, the patient was placed on left lateral decubitus position. The patient was then sedated with the above medications. A bite block was placed between her teeth. The endoscope was then passed through the oropharynx, into the esophagus, and through the stomach and pylorus up to the second and third part of the duodenum. The endoscope was then withdrawn. Second and 3rd part of the duodenum and the duodenal bulb were normal. Duodenal biopsies were obtained The pre-pyloric area and antrum and body showed mild gastritis. Gastric biopsies were obtained On retroflexion the fundus and cardia were normal. There was mild gastroparesis with retained gastric food contents The endoscope was then withdrawn into the distal esophagus where she had a 0.5-1 cm sliding-type hiatal hernia no esophagitis The remaining distal and proximal esophagus and oropharynx were unremarkable. There was no fresh or old blood in the UGI tract The patient tolerated the procedure well without difficulty. COMPLICATIONS : None SPECIMENS: Duodenal biopsies Gastric biopsies DISPOSITION: Transfer back to the floor Stable PLAN: 1. Await for biopsy result 2. Will place pt on Protonix 40 mg p.o. daily 3. Reglan 5 mg p.o. q.h.s. 3. Carafate 1 g p.o. twice a day 4. Proceed with colonoscopy MINDY OSORIO MD Feb 21, 2025 12:35
--- NOTE | 2025-02-21 12:58 | DVHOP2 ---
Operative Report DATE OF OPERATION: 02/21/25 PROCEDURE: Colonoscopy with hot snare polypectomy. PREOPERATIVE INDICATION: The patient is a 59 -year-old female undergoing colonoscopy for evaluation of anemia GI bleeding colon cancer screening POSTOPERATIVE DIAGNOSES: 1. Patient had a 5 mm benign-appearing proximal transverse colon polyp that was seen and removed by hot snare polypectomy and the specimens were retrieved 2. 1+ internal hemorrhoids otherwise essentially completely normal colonoscopy examination up to the cecum and terminal ileum with no fresh or old blood in the lower GI tract PROCEDURE PERFORMED BY: Mindy Osorio M.D. SCOPE: Olympus videocolonoscope. ASA CLASS: 3. PREOPERATIVE MEDICATIONS: Dr. Cris Milner PROCEDURE IN DETAIL: After obtaining an informed consent, the patient was placed on left lateral decubitus position. She was then sedated with the above medications. A rectal examination was performed that was normal. The colonoscope was then passed through the anus into the rectosigmoid and through the descending, transverse, and ascending colon up to the cecum with visualization of the appendiceal orifice, base of the cecum and the ileocecal valve. The colonoscope was then withdrawn. The distal 5 cm of the terminal ileum were normal No masses or colitis were seen. There was no clear-cut diverticular disease. In the proximal transverse colon there was a 5 mm benign-appearing polyp that was seen and removed by hot snare polypectomy The specimen was retrieved. No other polyps or masses were seen. On retroflexion and straight on view she had 1+ internal hemorrhoids The patient tolerated the procedure well without difficulty. WITHDRAWAL TIME: 8 minutes QUALITY OF THE PREP: [place] Bowel Prep score: 9. COMPLICATIONS : None SPECIMENS: Transverse colon polyp DISPOSITION: Transfer back to the floor Stable PLAN: 1. Repeat colonoscopy base on biopsy result likely in five years 2. Resume GI soft diet renal diet and advance as tolerated 3. No evidence of active GI bleeding, OBGYN follow up for further evaluation of her cervical mass MINDY OSORIO MD Feb 21, 2025 12:58
--- NOTE | 2025-02-21 13:27 | DVHPN2 ---
Chief Complaints Patient reports: No new complaints Nursing reports: No new complaints Objective Vitals Vital Signs Date Time Temp Pulse Resp B/P (MAP) Pulse Ox O2 Delivery O2 Flow Rate FiO2 02/21/25 12:25 Mask 8.0 100 02/21/25 12:25 100 02/21/25 09:00 97.3 64 18 153/48 (83) 97.3 Medications Current Medications Medications (Trade) Dose Ordered Sig/Raj Route PRN Reason Start Time Stop Time Status Last Admin Metoclopramide HCl (Reglan Tablet) 5 mg ACHS PO 02/21/25 17:00 UNV Studies Laboratory Tests 02/21/25 06:30 Test 02/21/25 06:30 Range/Units Serum Glucose 85 74-106 mg/dL Ass/Plan Assessment anemia -s/p colonoscopy by DR EARLY WHO CLEARED PT FROM GI BLEEDING DUE TO CERVICAL MASS ON CT PT SHOULD Have scale manager/onc evaluation Plan recommend scale manager -onc eval of cervical mass Visit Coding OBGYN Date of Service: Feb 21, 2025 Billing Provider: AURORA COTA DO [employer] Common Visit Codes: [id number] INP/OBS CARE(HIGH) [employer] T[employer]ER Consultation Codes: [id number] CONSULT <20MIN AURORA COTA DO Feb 21, 2025 13:27
--- NOTE | 2025-02-21 15:05 | DVHPN2 ---
Progress Note - Dictate Date Seen: Feb 21, 2025 Medical Necessity Reason Pt with a Central, PICC or Fol: No Subjective Patient is no longer nauseous, she underwent EGD colonoscopy today. This daughter is at bedside. vital signs Vital Sign Date Time Temp Pulse Resp B/P (MAP) Pulse Ox O2 Delivery O2 Flow Rate FiO2 02/21/25 13:10 69 14 133/54 (80) 100 02/21/25 12:25 97.0 97.0 02/21/25 12: Mask 8.0 100 Total Intake and Output 02/20/25 02/20/25 02/21/25 15:00 23:00 07:00 Intake Total 50 ml 200 ml 100 ml Balance 50 ml 200 ml 100 ml medications Current Medications Medications Dose Ordered Sig/Raj Route Start Time Stop Time Status Last Admin Dose Admin Acetaminophen 650 mg Q6HP PRN PO 02/16/25 23:15 02/21/25 09:02 650 MG Nitroglycerin 0.4 mg Q5MINP PRN SL 02/16/25 23:15 Aspirin 81 mg DAILY PO 02/17/25 10:00 Cancel Sevelamer HCl 1,600 mg TID PO 02/17/25 06:00 02/21/25 05:59 1,600 MG Atorvastatin Calcium 40 mg DAILY PO 02/17/25 10:00 02/21/25 08:40 40 MG Diagnostic Test (Pha) 1 strip ACHS 02/17/25 07:00 02/21/25 06:37 1 STRIP Insulin Human Regular ACHS SC 02/17/25 07:00 Dextrose 50 ml UD PRN IV 02/17/25 04:15 Famotidine 20 mg Q2D PO 02/17/25 17:45 02/17/25 18:26 20 MG Sucralfate 1 gm BID@0600,2200 GT 02/17/25 22:00 02/21/25 05:59 1 GM Ceftriaxone Sodium 50 ml @ 100 mls/hr DAILY@09 IV 02/18/25 13:30 02/21/25 08:36 100 MLS/HR Pantoprazole Sodium 40 mg BID IV 02/19/25 22:00 02/21/25 08:36 40 MG Furosemide 20 mg DAILY IV 02/20/25 10:00 02/21/25 08:39 20 MG Metoclopramide HCl 5 mg ACHS PO 02/21/25 17:00 Oxycodone/ Acetaminophen 1 tab Q4HP PRN PO 02/21/25 13:45 objective HEENT: No evidence of JVD, no oral ulcers. Pulmonary: Lungs are clear on auscultation bilaterally Cardiovascular S1-S2, no S3 or S4 Abdomen: Bowel sounds positive, soft no rebound tenderness Skin: No rash Neurological: Alert, oriented, no focal weakness Extremities: Left foot dressed, tender to touch laboratory and microbiology Laboratory Tests 02/21/25 06:30 Test 02/21/25 06:30 Range/Units Serum Glucose 85 74-106 mg/dL Assessment/Plan Assessment: 1. End-stage renal disease on hemodialysis TTS 2. Hyperkalemia managed with dialysis 3. Was ruled out 4. Hypertension 5. Anemia of blood loss and end-stage renal disease 6. CHF 7. Pulmonary hypertension 8. Concern for GI bleed, positive FOBT 9. Gastroduodenitis. Plan: Dialysis tomorrow, Monday. Monitor H&H transfuse as needed. Status post endoscopy and colonoscopy. PPI Antibiotics Antiemetics p.r.n. Higher dose of Rui for goal hemoglobin 10 to 11 grams/deciliter Thank you very much for allowing us to participate in the care of this patient please contact if you have any questions. Dietary Evaluation Review Comments: 1) Advance to [facility] 60gm + renal standard diet as medically feasible 2) Nephro-Elie 1 tab daily 3) Pro-stat 1 pk & Corby 1 pk daily 4) Monitor PO intake, lab values, wt trend, I/O Expected Outcomes/Goals: wound to improve to meet at leaast 75% estimated mauricio within 7 days fu 2-3 days Plan discussed with: Patient NIKOLAS ENGLE MD Feb 21, 2025 15:05
[2025-02-21] MEDS: METOCLOPRAMIDE HCL 10 MG TAB PO SCH (16:17)
[2025-02-21 16:42] LABS: Hematocrit 30.5 % (36.0-46.0); Hemoglobin 10.0 g/dL (12.2-16.2)
--- NOTE | 2025-02-21 18:22 | DVHPNRES ---
Progress Note Date Seen: Feb 21, 2025 Resident Creating Document: ASHLEY VALENCIA RESIDENT Medical Necessity Reason Pt with a Central, PICC or Fol: No Subjective Review of Systems Yuri Murray is 59 years old female with past medical history of hypertension, diabetes mellitus type 2, peripheral artery disease, pacemaker due to cardiac arrhythmia, ESRD on hemodialysis Monday//Monday- Agnes, cirrhosis of liver, peripheral neuropathy, severe pulmonary hypertension- RVSP 65. She is brought to the ED with chief complaint of diarrhea and vomiting, pain in left foot wound. She had diarrhea for last 2 days, about 5 times a day, no blood. Associated with nausea, vomiting. She also complained of some chest pain on right side. Patient also complained of left foot pain, sharp, throbbing in nature, 10/10, decreased weight-bearing. She was taking antibiotics for osteomyelitis of left foot. She was discharged with doxycycline, levofloxacin and linezolid. Yesterday she finished her 2 week antibiotic course. Patient denied any fever, shortness of breath. Initial lab workup revealed hemoglobin 8.8, RDW 16.4, sodium 127, potassium 5.5, BNP 1576, serum creatinine 4.91, BUN 58, lactic acid 0.9, alkaline phosphatase 143, AST/ALT within normal limit, ammonia 12 serum iron 119, ferritin 1032. TIBC 191, CT Scan of the left foot revealed no acute abnormality, severe vascular calcification. CXR revealed mild cardiomegaly, bilateral pulmonary congestion. Abdominal x-ray shows nonobstructive bowel gas pattern. Past Medical History: Pacemaker due to cardiac arrhythmia, hyperlipidemia, hyperchloremia, hypertension, diabetes mellitus, CRF, cirrhosis. 02/17/25: He is currently comfortable. She has not had diarrhea episodes since morning today. 02/18/25: Patient is seen at bedside. She complains of intractable vomiting and some regurgitation. While examination she was coughing and regurgitating in the vomit bag. Stool culture negative for C difficile, we will start her on ceftriaxone, metronidazole. Pain in the left foot. We are holding fluids foe now. She will go for dialysis today. We will keep monitoring her on tele. ECG showed QTC elevation, we will stop Zofran. Start a trial of Reglan, gastroparesis possible. Passed a bloody stool today. Will consult GI to evaluate for bleed. Complains of vague MSK pain in back. 02/19/25: Her hemoglobin is running low at 6.4. Although she complains feeling better after dialysis her nausea persists. She is bleeding per vagina. OBGYN consult placed. TV USG done on her. Blood transfusion done. She also complained of 2 episodes of loose stools. We will continue holding off Lovenox because of bleeding. Advised using sequential compression device. 02/20/25: Continues to complain of intractable nausea, vomiting, incontinence diarrhea. Two episodes of diarrhea yesterday and today in the morning. She complained of loose stools and having passed loose stools on bed d/t urgency. She has bleeding per vagina, per rectal. GI consulted EGD, colonoscopy tomorrow. Ultrasound pelvis shows heterogeneous mass and cervix. Hemoglobin up from yesterday after 2 bags transfusion. Will continue to monitor and manage. 02/21/25: Patient examined at bedside. She complains of weakness, nausea, back pain which is 8 on 10 in intensity and generalized discomfort. She had 4 diarrheal episodes yesterday with dark and loose stools. Minimal vaginal bleeding reported. GI we will do EGD, colonoscopy today to rule out GI bleed. Dialysis was done yesterday after CT IV contrast study. Labs show hemoglobin up to 9.7. We will continue evaluating, current treatment and observation. ROS: Constitutional: Denies weight loss, fever and chills. HEENT: Pallor. Denies changes in vision and hearing. Respiratory: Denies shortness of breath and cough Cardiovascular: Complains of right-sided chest pain. GI: Intractable nausea. Abdominal distress associated with nausea, vomiting. Vomiting has mostly subsided. No complaints of diarrhea. : On dialysis. Musculoskeletal: Denies myalgias and joint pain Neurological: Denies dizziness, headache, vision or hearing problems Objective vital signs Vital Sign Date Time Temp Pulse Resp B/P (MAP) Pulse Ox O2 Delivery O2 Flow Rate FiO2 02/21/25 17:00 97.3 67 18 128/56 (80) 99 97.3 02/21/25 12:25 Mask 8.0 100 Total Intake and Output 02/20/25 02/20/25 02/21/25 15:00 23:00 07:00 Intake Total 50 ml 200 ml 100 ml Balance 50 ml 200 ml 100 ml medications Current Medications Medications Dose Ordered Sig/Raj Route Start Time Stop Time Status Last Admin Dose Admin Acetaminophen 650 mg Q6HP PRN PO 02/16/25 23:15 02/21/25 09:02 650 MG Nitroglycerin 0.4 mg Q5MINP PRN SL 02/16/25 23:15 Aspirin 81 mg DAILY PO 02/17/25 10:00 Cancel Sevelamer HCl 1,600 mg TID PO 02/17/25 06:00 02/21/25 16:16 1,600 MG Atorvastatin Calcium 40 mg DAILY PO 02/17/25 10:00 02/21/25 08:40 40 MG Diagnostic Test (Pha) 1 strip ACHS 02/17/25 07:00 02/21/25 17:00 1 STRIP Insulin Human Regular ACHS SC 02/17/25 07:00 02/21/25 17:54 4 UNITS Dextrose 50 ml UD PRN IV 02/17/25 04:15 Famotidine 20 mg Q2D PO 02/17/25 17:45 02/21/25 16:17 20 MG Sucralfate 1 gm BID@0600,2200 GT 02/17/25 22:00 02/21/25 05:59 1 GM Ceftriaxone Sodium 50 ml @ 100 mls/hr DAILY@09 IV 02/18/25 13:30 02/21/25 08:36 100 MLS/HR Pantoprazole Sodium 40 mg BID IV 02/19/25 22:00 02/21/25 08:36 40 MG Furosemide 20 mg DAILY IV 02/20/25 10:00 02/21/25 08:39 20 MG Metoclopramide HCl 5 mg ACHS PO 02/21/25 17:00 02/21/25 16:17 5 MG Oxycodone/ Acetaminophen 1 tab Q4HP PRN PO 02/21/25 13:45 Examination General: Patient alert and oriented in person, place and time. Patient following commands. HEENT: Normocephalic, atraumatic, moist mucous membranes Respiratory/pulmonary: Lungs are clear bilaterally. Cardiovascular: Normal heart sounds S1 and S2 with no associated murmurs Abdomen: Abdomen boggy. Mild generalized tenderness to palpation. Extremities: There is no peripheral edema present at the lower extremities. Neurological: Intact cranial nerves with no focal neurologic deficits laboratory and microbiology Laboratory Tests 02/21/25 15:09 02/21/25 06:30 Test 02/21/25 06:30 Range/Units Serum Glucose 85 74-106 mg/dL Microbiology Date/Time Source Procedure Growth Status 02/17/25 10:46 Nose MRSA Screen - Final Complete 02/17/25 00:18 Stool Stool Culture - Final Complete 02/17/25 00:18 Stool Shiga Toxin I & II - Final Complete 02/17/25 00:18 Stool Clostridium difficile Toxin Assay - Final Complete 02/16/25 18:58 Blood Blood Culture - Preliminary NO GROWTH AFTER 72 HOURS OF INCUBATION. Resulted Problem List/Assessment/Plan Problem List/Assessment/Plan #Acute gastroenteritis, likely infectious etiology #Intractable abdominal pain, resolved #Intractable nausea, Possible gastroenteritis, likely infectious etiology #Ruled out C difficile - Will order a CT abdomen if is abdominal if patient's condition do not improve - Stool culture negative for C difficile. Will give IV Ceftriaxone and metronidazole. - Continue Famotidine in 20 mg daily - Continue Carafate suspension BI -MRSA screen negative, stool culture negative #Gastroparesis, possible - continue Reglan. Will continue holding Zofran #Acute hypoxic respiratory failure, likely due to volume overload - Tachypnea. - CXR shows Cardiomegaly and pulmonary vascular congestion. #Diabetes mellitus #Peripheral arterial disease #Osteomyelitis left foot, DFU - Wound culture negative. - Foot CT shows severe vascular calcification - Completed antibiotics course. Telephone Appointment Clerk advised another two weeks of oral abx and f/u in O/P. -Wound culture negative #End-stage renal disease on hemodialysis #Anemia of chronic disease, due to end-stage renal disease #Hyponatremia #Hypochloremia - Scheduled for hemodialysis tomorrow - Epoetin given. - Hb 7.4 Ferritin high. Will monitor Hb. #Hypertension - Currently hypotensive. Discontinued hydralazine. - Administer 250 mL NS bolus #History of pacemaker placement for cardiac bradyarrhythmias #Acute on chronic diastolic heart failure, likely due to volume overload - Monitor on Tele #GI bleed rule out #Bleeding PV -OBGYN consulted -[facility]- Uterus appears heterogeneous and atrophic with multiple calcifications. Heterogeneous mass in the cervix measuring 1.7 cm. MRI with IV contrast recommended.Small volume ascites. - Hb down to 6.4 from 7.4 - Occult blood positive. - Stopped Lovenox -GI we will to EGD, colonoscopy today #Highly suspected malignancy, unable to confirm to exclude due to follow-up outpatient -Ultrasound shows cervical mass. -CT with contrast abdomen, pelvis to evaluate source of bleeding. #Back pain -Start Percocet p.r.n. Goals of care discussion at bedside with patient for more than 25 minutes Full code Plan discussed with Dr. Tucker Plan discussed with: Patient My Orders My Orders Orders - ASHLEY VALENCIA Procedure Category Date Status Time Complete Blood Count LAB 02/22/25 Verified 04:00 Comprehensive LAB 02/22/25 Verified Metabolic Panel 04:00 Dietary Evaluation Review Comments: 1) Advance to [facility] 60gm + renal standard diet as medically feasible 2) Nephro-Elie 1 tab daily 3) Pro-stat 1 pk & Corby 1 pk daily 4) Monitor PO intake, lab values, wt trend, I/O Expected Outcomes/Goals: wound to improve to meet at leaast 75% estimated mauricio within 7 days fu 2-3 days Date of Service: Feb 21, 2025 Billing Provider: LEO FREEDMAN MD Common Visit Codes: [id number] INP/OBS CARE(HIGH) ASHLEY VALENCIA RESIDENT Feb 21, 2025 18:22 LEO FREEDMAN MD Feb 24, 2025 00:17
[2025-02-21] MEDS: OXYCODONE W/ ACETAMINOPHEN 5/325MG TABLET PO PRN (22:35)
[2025-02-22] VITALS (11 sets, daily range): BP systolic 132–158; BP diastolic 26–66; PULSE 64–65; RESP 14–18; TEMP 36.4; O2SAT 93–100
[2025-02-22 07:00] LABS: Hematocrit 29.3 % (36.0-46.0); Hemoglobin 9.9 g/dL (12.2-16.2); Mean Corpuscular Hemoglobin 29.7 pg (28.0-32.0); Mean Corpuscular Volume 88.0 fL (80.0-100.0); Nucleated Red Blood Cells % 1.2 %
[2025-02-22 07:05] LABS: Alanine Aminotransferase 11 U/L (7-40); Albumin 4.0 g/dL (3.2-4.8); Alkaline Phosphatase 97 U/L (46-116); Anion Gap 14 (5-15); BUN/Creatinine Ratio 7.6 (10.0-20.0); Calcium 9.3 mg/dL (8.7-10.4); Carbon Dioxide 25 mmol/L (20-31); Total Protein 7.4 g/dL (5.7-8.2)
[2025-02-22 07:16] LABS: Bilirubin, Total 0.2 mg/dL (0.2-1.0); Blood Urea Nitrogen 44 mg/dL (9-23); Chloride 94 mmol/L (98-107); Glucose 216 mg/dL (74-106); Sodium 133 mmol/L (136-145)
[2025-02-22 07:17] LABS: Potassium 5.6 mmol/L (3.5-5.1)
[2025-02-22] MEDS ORDERED: ALBUTEROL SULF 2.5 MG/0.5ML(0.5%) NEB SOLN NEB ONE (08:00)
[2025-02-22] MEDS ORDERED: InsuLIN REG 1unit/0.01ml Soln (100units/ml) IV ONE (08:00)
[2025-02-22] MEDS ORDERED: DEXTROSE (50%) 50ML SYRG IV ONE (08:00)
[2025-02-22] MEDS ORDERED: SODIUM ZIRCONIUM CYCL 10 GM PAK PO ONE (08:00)
[2025-02-22] MEDS ORDERED: SODIUM BICARB 8.4% 50Meq/50ml SYR INJ IV ONE (08:00)
[2025-02-22] MEDS: DEXTROSE (50%) 50ML SYRG IV ONE (08:08)
[2025-02-22] MEDS: SODIUM BICARB 8.4% 50Meq/50ml SYR INJ IV ONE (08:08)
[2025-02-22] MEDS: CALCIUM GLUC 1,000mg/50ml-NS 50 ML IV ONE (08:08)
[2025-02-22] MEDS: SODIUM ZIRCONIUM CYCL 10 GM PAK PO ONE (08:09)
[2025-02-22] MEDS: InsuLIN REG 1unit/0.01ml Soln (100units/ml) IV ONE (08:12)
[2025-02-22] MEDS: ALBUTEROL SULF 2.5 MG/0.5ML(0.5%) NEB SOLN ONE (08:23)
--- NOTE | 2025-02-22 11:33 | DVHPNRES ---
Progress Note Date Seen: Feb 22, 2025 Resident Creating Document: KANE AVILEZ RESIDENT Has the PT tested + for MRSA If YES, has PT been informed?: No Medical Necessity Reason Pt with a Central, PICC or Fol: No Objective vital signs Vital Sign Date Time Temp Pulse Resp B/P (MAP) Pulse Ox O2 Delivery O2 Flow Rate FiO2 02/22/25 09:47 137/65 02/22/25 08:35 64 18 100 02/22/25 08:30 98.2 98.2 02/22/25 08:23 Room Air* 0 21 Total Intake and Output 02/21/25 02/21/25 02/22/25 15:00 23:00 07:00 Intake Total 150 ml 0 ml 125 ml Balance 150 ml 0 ml 125 ml medications Current Medications Medications Dose Ordered Sig/Raj Route Start Time Stop Time Status Last Admin Dose Admin Acetaminophen 650 mg Q6HP PRN PO 02/16/25 23:15 02/21/25 09:02 650 MG Nitroglycerin 0.4 mg Q5MINP PRN SL 02/16/25 23:15 Aspirin 81 mg DAILY PO 02/17/25 10:00 Cancel Sevelamer HCl 1,600 mg TID PO 02/17/25 06:00 02/22/25 05:59 1,600 MG Atorvastatin Calcium 40 mg DAILY PO 02/17/25 10:00 02/22/25 09:47 40 MG Diagnostic Test (Pha) 1 strip ACHS 02/17/25 07:00 02/22/25 06:00 1 STRIP Insulin Human Regular ACHS SC 02/17/25 07:00 02/22/25 06:01 3 UNITS Dextrose 50 ml UD PRN IV 02/17/25 04:15 Famotidine 20 mg Q2D PO 02/17/25 17:45 02/21/25 16:17 20 MG Sucralfate 1 gm BID@0600,2200 GT 02/17/25 22:00 02/22/25 05:59 1 GM Ceftriaxone Sodium 50 ml @ 100 mls/hr DAILY@09 IV 02/18/25 13:30 02/22/25 09:47 100 MLS/HR Pantoprazole Sodium 40 mg BID IV 02/19/25 22:00 02/22/25 09:48 40 MG Furosemide 20 mg DAILY IV 02/20/25 10:00 02/22/25 09:47 20 MG Metoclopramide HCl 5 mg ACHS PO 02/21/25 17:00 02/22/25 05:59 5 MG Oxycodone/ Acetaminophen 1 tab Q4HP PRN PO 02/21/25 13:45 02/21/25 22:35 1 TAB Examination General: Skin pallor. Patient alert and oriented in person, place and time. Patient following commands. HEENT: Normocephalic, atraumatic, moist mucous membranes Respiratory/pulmonary: Lungs are clear bilaterally. Cardiovascular: Normal heart sounds S1 and S2 with no associated murmurs GI: no active bleeding. : no active vaginal bleeding. Abdomen: Abdomen boggy. Mild generalized tenderness to palpation. Extremities: There is no peripheral edema present at the lower extremities. Neurological: Intact cranial nerves with no focal neurological deficits laboratory and microbiology Laboratory Tests 02/22/25 06:00 Test 02/22/25 06:00 Range/Units Serum Glucose 216 H 74-106 mg/dL Microbiology Date/Time Source Procedure Growth Status 02/17/25 10:46 Nose MRSA Screen - Final Complete 02/17/25 00:18 Stool Stool Culture - Final Complete 02/17/25 00:18 Stool Shiga Toxin I & II - Final Complete 02/17/25 00:18 Stool Clostridium difficile Toxin Assay - Final Complete 02/16/25 18:58 Blood Blood Culture - Final NO GROWTH AFTER 5 DAYS OF INCUBATION. Complete Problem List/Assessment/Plan Problem List/Assessment/Plan #Acute gastroenteritis, likely infectious etiology #Intractable abdominal pain, resolved #Intractable nausea, Possible gastroenteritis, likely infectious etiology #Ruled out C difficile - Will order a CT abdomen if is abdominal if patient's condition do not improve - Stool culture negative for C difficile. Will give IV Ceftriaxone and metronidazole. - Continue Famotidine in 20 mg daily - Continue Carafate suspension BI -MRSA screen negative, stool culture negative #Gastroparesis, possible - continue Reglan. Will continue holding Zofran #Acute hypoxic respiratory failure, likely due to volume overload - Tachypnea. - CXR shows Cardiomegaly and pulmonary vascular congestion. #Diabetes mellitus #Peripheral arterial disease #Osteomyelitis left foot, DFU - Wound culture negative. - Foot CT shows severe vascular calcification - Completed antibiotics course. Car Tracer advised another two weeks of oral abx and f/u in O/P. -Wound culture negative #End-stage renal disease on hemodialysis #Anemia of chronic disease, due to end-stage renal disease #Hyponatremia #Hypochloremia -Scheduled Hemodyalisis (TTS) - Epoetin given. - Hb 9.9 Ferritin high. Will monitor Hb. #Hypertension - Currently hypotensive. Discontinued hydralazine. - Administer 250 mL NS bolus #History of pacemaker placement for cardiac bradyarrhythmias #Acute on chronic diastolic heart failure, likely due to volume overload - Monitor on Tele #GI bleed rule out #Bleeding PV -OBGYN consulted: follow up with Power Electronics Engineer/Onco -[facility]- Uterus appears heterogeneous and atrophic with multiple calcifications. Heterogeneous mass in the cervix measuring 1.7 cm. MRI with IV contrast recommended.Small volume ascites. - Hb down to 6.4 from 7.4 - Occult blood positive. - Stopped Lovenox -GI we will to EGD: Hiatal hernia #Highly suspected malignancy, unable to confirm to exclude due to follow-up outpatient -Ultrasound shows cervical mass. -CT with contrast abdomen, pelvis to evaluate source of bleeding. #Back pain -Start Percocet p.r.n. Goals of care discussion at bedside with patient for more than 25 minutes Full code Plan discussed with Dr. Tucker Plan discussed with: Patient Plan discussed with: Patient My Orders My Orders Orders - KANE AVILEZ RESIDENT Procedure Category Date Status Time Ca 125 (Serial) LAB 02/22/25 In Process 08:04 Carbohydrate Antigen LAB 02/22/25 In Process 19-9 Afp Serum Tumor Marker LAB 02/22/25 In Process 08:04 Complete Blood Count LAB 02/23/25 Verified 04:00 Comprehensive LAB 02/23/25 Verified Metabolic Panel 04:00 Dietary Evaluation Review Comments: 1) Advance to [facility] 60gm + renal standard diet as medically feasible 2) Nephro-Elie 1 tab daily 3) Pro-stat 1 pk & Corby 1 pk daily 4) Monitor PO intake, lab values, wt trend, I/O Expected Outcomes/Goals: wound to improve to meet at leaast 75% estimated mauricio within 7 days fu 2-3 days KANE AVILEZ RESIDENT Feb 22, 2025 11:33
[2025-02-22] MEDS: IODIXANOL 320MG/ML 100ML BTL IV ONE (13:45)
[2025-02-22] MEDS: SODIUM CHL 0.9% 1000 ML BAG XX ONE ×2 (13:45)
[2025-02-22] MEDS ORDERED: PANT40T PO (13:59)
[2025-02-22] MEDS ORDERED: SUCR1SUS26 GT (13:59)
--- NOTE | 2025-02-22 14:40 | DVHDSRES ---
Discharge Summary Date of Admission Resident Creating Document: KANE AVLIEZ RESIDENT Feb 16, 2025 at 23:10 Date of Discharge: Feb 22, 2025 Labs/Diagnostic Data: Laboratory Results Test 02/22/25 12:42 02/22/25 10:25 02/22/25 06:00 02/19/25 10:50 POC Glucose 277 mg/dl (70-106) White Blood Count 6.5 10^3/uL (4.4-10.8) Red Blood Count 3.33 10^6/uL (4.0-5.20) Hemoglobin 9.9 g/dL (12.2-16.2) Hematocrit 29.3 % (36.0-46.0) Mean Corpuscular Volume 88.0 fL (80.0-100.0) Mean Corpuscular Hemoglobin 29.7 pg (28.0-32.0) Mean Corpuscular Hemoglobin Concent 33.7 g/dL (32.0-36.0) Red Cell Distribution Width 16.0 % (11.8-14.3) Platelet Count 165 10^3/uL (140-450) Mean Platelet Volume 8.2 fL (6.9-10.8) Neutrophils (%) (Auto) 77.2 % (37.0-80.0) Lymphocytes (%) (Auto) 13.0 % (10.0-50.0) Monocytes (%) (Auto) 9.7 % (0.0-12.0) Eosinophils (%) (Auto) 0.0 % (0.0-7.0) Basophils (%) (Auto) 0.1 % (0.0-2.0) Neutrophils # (Auto) 5.0 10 ^3/uL (1.6-8.6) Lymphocytes # (Auto) 0.8 10 ^3/uL (0.4-5.4) Monocytes # (Auto) 0.6 10 ^3/uL (0-1.3) Eosinophils # (Auto) 0 10 ^3/uL (0-0.8) Basophils # (Auto) 0 10 ^3/uL (0-0.2) Nucleated Red Blood Cells 1.2 % Sodium Level 133 mmol/L (136-145) Potassium Level 5.6 mmol/L (3.5-5.1) Chloride Level 94 mmol/L (98-107) Carbon Dioxide Level 25 mmol/L (20-31) Anion Gap 14 (5-15) Blood Urea Nitrogen 44 mg/dL (9-23) Creatinine 5.76 mg/dL (0.550-1.02) Glomerular Filtration Rate Calc 8 mL/min (>90) BUN/Creatinine Ratio 7.6 (10.0-20.0) Serum Glucose 216 mg/dL (74-106) Calcium Level 9.3 mg/dL (8.7-10.4) Magnesium Level 2.9 mg/dL (1.6-2.6) Total Bilirubin 0.2 mg/dL (0.2-1.0) Aspartate Amino Transferase (AST) 28 U/L (13-40) Alanine Aminotransferase (ALT) 11 U/L (7-40) Alkaline Phosphatase 97 U/L (46-116) Total Protein 7.4 g/dL (5.7-8.2) Albumin 4.0 g/dL (3.2-4.8) Prothrombin Time 12.3 sec (9.3-11.8) Prothrombin Time INR 1.18 (0.9-1.15) Activated Partial Thromboplast Time 32.8 SEC (24.5-34.5) Test 02/18/25 13:40 02/18/25 04:57 02/17/25 04:33 02/17/25 02:18 Hepatitis B Surface Antigen Negative (Negative) Phosphorus Level 6.9 mg/dL (2.4-5.1) Vitamin B12 Level 3549 pg/mL (211-911) Vitamin D 25-Hydroxy 54.5 ng/mL (30.0-100) Folic Acid 20.73 ng/mL (>5.38) Troponin I High Sensitivity 32 ng/L (</=34) Lipase 28 U/L (12-53) Test 02/17/25 00:18 02/16/25 18:50 Stool Occult Blood Positive (Negative) Stool Occult Blood Sample #3 (Negative) Stool for White Cells None seen Lactic Acid Level 0.9 mmol/L (0.4-2.0) Iron Level 119 ug/dL (50-170) Total Iron Binding Capacity 191 ug/dL (250-425) Percent Iron Saturation 62.3 % (15-50) Ferritin 1032.9 ng/mL (10-291) Ammonia 12 umol/L (11-32) B-Type Natriuretic Peptide 1576.82 pg/mL (0-100) Other Laboratory Tests 02/22/25 06:00 Brief Hx & Hospital Course: Yuri Murray is 59 years old female with past medical history of hypertension, diabetes mellitus type 2, peripheral artery disease, pacemaker due to cardiac arrhythmia, ESRD on hemodialysis Monday//Monday- Agnes, cirrhosis of liver, peripheral neuropathy, severe pulmonary hypertension- RVSP 65. She is brought to the ED with chief complaint of diarrhea and vomiting, pain in left foot wound. She had diarrhea for last 2 days, about 5 times a day, no blood. Associated with nausea, vomiting. She also complained of some chest pain on right side. Patient also complained of left foot pain, sharp, throbbing in nature, 10/10, decreased weight-bearing. She was taking antibiotics for osteomyelitis of left foot. She was discharged with doxycycline, levofloxacin and linezolid. Yesterday she finished her 2 week antibiotic course. Patient denied any fever, shortness of breath. Initial lab workup revealed hemoglobin 8.8, RDW 16.4, sodium 127, potassium 5.5, BNP 1576, serum creatinine 4.91, BUN 58, lactic acid 0.9, alkaline phosphatase 143, AST/ALT within normal limit, ammonia 12 serum iron 119, ferritin 1032. TIBC 191, CT Scan of the left foot revealed no acute abnormality, severe vascular calcification. CXR revealed mild cardiomegaly, bilateral pulmonary congestion. Abdominal x-ray shows nonobstructive bowel gas pattern. Past Medical History: Pacemaker due to cardiac arrhythmia, hyperlipidemia, hyperchloremia, hypertension, diabetes mellitus, CRF, cirrhosis. 02/17/25: He is currently comfortable. She has not had diarrhea episodes since morning today. 02/18/25: Patient is seen at bedside. She complains of intractable vomiting and some regurgitation. While examination she was coughing and regurgitating in the vomit bag. Stool culture negative for C difficile, we will start her on ceftriaxone, metronidazole. Pain in the left foot. We are holding fluids foe now. She will go for dialysis today. We will keep monitoring her on tele. ECG showed QTC elevation, we will stop Zofran. Start a trial of Reglan, gastroparesis possible. Passed a bloody stool today. Will consult GI to evaluate for bleed. Complains of vague MSK pain in back. 02/19/25: Her hemoglobin is running low at 6.4. Although she complains feeling better after dialysis her nausea persists. She is bleeding per vagina. OBGYN consult placed. TV USG done on her. Blood transfusion done. She also complained of 2 episodes of loose stools. We will continue holding off Lovenox because of bleeding. Advised using sequential compression device. 02/20/25: Continues to complain of intractable nausea, vomiting, incontinence diarrhea. Two episodes of diarrhea yesterday and today in the morning. She complained of loose stools and having passed loose stools on bed d/t urgency. She has bleeding per vagina, per rectal. GI consulted EGD, colonoscopy tomorrow. Ultrasound pelvis shows heterogeneous mass and cervix. Hemoglobin up from yesterday after 2 bags transfusion. Will continue to monitor and manage. 02/21/25: Patient examined at bedside. She complains of weakness, nausea, back pain which is 8 on 10 in intensity and generalized discomfort. She had 4 diarrheal episodes yesterday with dark and loose stools. Minimal vaginal bleeding reported. GI we will do EGD, colonoscopy today to rule out GI bleed. Dialysis was done yesterday after CT IV contrast study. Labs show hemoglobin up to 9.7. We will continue evaluating, current treatment and observation. 02/22/25: Patient examined at bedside. She complains of weakness, fatigue, nausea, back pain which is 2 on 10 in intensity and generalized discomfort. She had 1 formed bowel movement, no blood was noted. Minimal vaginal bleeding reported. GED showed hiatal hernia, not active bleeding; Colonoscopy showed small polyp without active bleeding. GI recommend repeat colonoscopy in 5 years. Gynecology consult recommended follow up with Is Technician/Onco. Patient will go Dialysis today (Schedule:TTS). Today's labs showed hemoglobin up to 9.6mg/dl, Patient will be discharge after dialysis. ROS: Constitutional: Denies weight loss, fever and chills. HEENT: Pallor. Denies changes in vision and hearing. Respiratory: Denies shortness of breath and cough Cardiovascular: Complains of right-sided chest pain. GI: Intractable nausea. Abdominal distress associated with nausea, vomiting. Vomiting has mostly subsided. No complaints of diarrhea. : On dialysis. Musculoskeletal: Back pain 09/23. Physical Exam: General: Patient alert and oriented in person, place and time. Patient following commands. HEENT: Normocephalic, atraumatic, moist mucous membranes Respiratory/pulmonary: Lungs are clear bilaterally. Cardiovascular: Normal heart sounds S1 and S2 with no associated murmurs Abdomen: Abdomen boggy. Mild disconfort to palpation. Extremities: There is no peripheral edema present at the lower extremities. Left foot covered with gauze pads. No secretion Neurological: Intact cranial nerves with no focal neurologic deficits Assessments/Plan: #Acute gastroenteritis, likely infectious etiology #Intractable abdominal pain, resolved #Intractable nausea, Possible gastroenteritis, likely infectious etiology #Ruled out C difficile - Will order a CT abdomen if is abdominal if patient's condition do not improve - Stool culture negative for C difficile. Will give IV Ceftriaxone and metronidazole. - Continue Famotidine in 20 mg daily - Continue Carafate suspension BI -MRSA screen negative, stool culture negative #Gastroparesis, possible - continue Reglan. Will continue holding Zofran #Acute hypoxic respiratory failure, likely due to volume overload - Tachypnea. - CXR shows Cardiomegaly and pulmonary vascular congestion. #Diabetes mellitus #Peripheral arterial disease #Peripheral neuropathy #Osteomyelitis left foot, DFU - Wound culture negative. - Foot CT shows severe vascular calcification - Completed antibiotics course. Registered Dietitian advised another two weeks of oral abx and f/u in O/P. -Wound culture negative -Gabapentin 100 bid for peripheral neuropathy #End-stage renal disease on hemodialysis #Anemia of chronic disease, due to end-stage renal disease #Hyponatremia #Hypochloremia - Scheduled for hemodialysis tomorrow - Epoetin given. - Hb 9.8 Ferritin high. #Hypertension - Currently hypotensive. Discontinued hydralazine. - Administer 250 mL NS bolus #History of pacemaker placement for cardiac bradyarrhythmias #Acute on chronic diastolic heart failure, likely due to volume overload - Monitor on Tele #GI bleed rule out #Bleeding PV -OBGYN consulted: follow up with Is Technician/Onc -USG- Uterus appears heterogeneous and atrophic with multiple calcifications. Heterogeneous mass in the cervix measuring 1.7 cm. MRI with IV contrast recommended.Small volume ascites. - Hb down to 6.4 from 7.4 - Occult blood positive. - Stopped Lovenox -GI we will to EGD, colonoscopy : Hiatal hernia, colon polyp, no active bleeding in neither study. #Highly suspected malignancy, unable to confirm to exclude due to follow-up outpatient -Ultrasound shows cervical mass. -CT with contrast abdomen, pelvis to evaluate source of bleeding. #Back pain -Start Percocet p.r.n. Discharge today after dialysis. Goals of care discussion at bedside with patient for more than 35 minutes Full code Plan discussed with Dr. Tucker Plan discussed with: Patient, patientes agrees with the plan. Condition at Discharge: Stable Final Diagnosis/Problems List #End Stage CKD on dyalisis #Acute gastroenteritis, likely infectious etiology #Intractable abdominal pain, resolved #Intractable nausea, Possible gastroenteritis, likely infectious etiology resolved #Vaginal bleeding Discharge Disposition: Home Discharge Instruct/Medications Diet: Renal, See Comment Diet comment: Low carbohydrate diet Activity: No Restrictions, As Tolerated Follow Up/Referral: F/U with Is Technician/Oncology in 1 week F/U with PCP in 1 week F/U with nephrology in 2 weeks Continue Dyalisis per scheduled Medications: Continue home medications Scheduled Amlodipine Besylate (Amlodipine Besylate), 1 TAB PO DAILY, (Reported) Aspirin (Aspir-Low), 81 MG PO DAILY, (Reported) Atorvastatin Calcium (Atorvastatin Calcium), 40 MG PO DAILY Calcium Acetate (Phosphate Bin (Calcium Acetate), 2 CAP PO TID, (Reported) Gabapentin (Gabapentin), 100 MG PO BID Glipizide (Glipizide Er), 1 TAB PO DAILY, (Reported) Hydralazine Hcl (Hydralazine Hcl), 0 PO BID, (Reported) Pantoprazole Sodium Sesquihydr (Pantoprazole Sodium), 40 MG PO DAILY Sevelamer Hydrochloride (Sevelamer Hydrochloride), 2 TAB PO TID, (Reported) Sucralfate (Carafate Susp), 1 GM GT BID@0600,2200 Discontinued Medications Doxycycline (Monohydrate) (Doxycycline), 100 MG PO BID Discharge Statement: "Patient was advised to return to the ER or call 911 if any headaches, dizziness, shortness of breath, chest pain, abdominal pain, bleeding, fevers, or worsening of medical condition. Patient was counseled about treatment plan, medications, possible side effects, patientverbalized understanding. All questions were answered to the best of my ability. This discharge took greater then 30 minutes in planning, reviewing documentation, counseling the patient, and discussing with other team members." ASSESSMENT ASSESSMENT Assessment #End Stage CKD on dyalisis #Acute gastroenteritis, likely infectious etiology #Intractable abdominal pain, resolved #Intractable nausea, Possible gastroenteritis, likely infectious etiology resolved #Vaginal bleeding Date of Service: Feb 22, 2025 Billing Provider: LEO FREEDMAN MD Common Visit Codes: 90544-NXX/OBS DISCH DAY >30min KANE AVILEZ RESIDENT Feb 22, 2025 14:40 LEO FREEDMAN MD Feb 24, 2025 21:41
[2025-02-22] MEDS ORDERED: GABA-1308 PO (14:43)
--- NOTE | 2025-02-22 15:24 | DVHPN2 ---
Progress Note - Dictate Date Seen: Feb 22, 2025 Has the PT tested + for MRSA If YES, has PT been informed?: No Medical Necessity Reason Pt with a Central, PICC or Fol: No Subjective The patient feels well and she wants to go home. vital signs Vital Sign Date Time Temp Pulse Resp B/P (MAP) Pulse Ox O2 Delivery O2 Flow Rate FiO2 02/22/25 12:30 99.1 65 14 143/50 (81) 97 99.1 02/22/25 08:23 Room Air* 0 21 Total Intake and Output 02/21/25 02/21/25 02/22/25 15:00 23:00 07:00 Intake Total 150 ml 0 ml 125 ml Balance 150 ml 0 ml 125 ml medications Current Medications Medications Dose Ordered Sig/Raj Route Start Time Stop Time Status Last Admin Dose Admin Acetaminophen 650 mg Q6HP PRN PO 02/16/25 23:15 02/21/25 09:02 650 MG Nitroglycerin 0.4 mg Q5MINP PRN SL 02/16/25 23:15 Aspirin 81 mg DAILY PO 02/17/25 10:00 Cancel Sevelamer HCl 1,600 mg TID PO 02/17/25 06:00 02/22/25 05:59 1,600 MG Atorvastatin Calcium 40 mg DAILY PO 02/17/25 10:00 02/22/25 09:47 40 MG Diagnostic Test (Pha) 1 strip ACHS 02/17/25 07:00 02/22/25 11:30 1 STRIP Insulin Human Regular ACHS SC 02/17/25 07:00 02/22/25 13:43 6 UNITS Dextrose 50 ml UD PRN IV 02/17/25 04:15 Famotidine 20 mg Q2D PO 02/17/25 17:45 02/21/25 16:17 20 MG Sucralfate 1 gm BID@0600,2200 GT 02/17/25 22:00 02/22/25 05:59 1 GM Ceftriaxone Sodium 50 ml @ 100 mls/hr DAILY@09 IV 02/18/25 13:30 02/22/25 09:47 100 MLS/HR Pantoprazole Sodium 40 mg BID IV 02/19/25 22:00 02/22/25 09:48 40 MG Furosemide 20 mg DAILY IV 02/20/25 10:00 02/22/25 09:47 20 MG Metoclopramide HCl 5 mg ACHS PO 02/21/25 17:00 02/22/25 13:42 5 MG Oxycodone/ Acetaminophen 1 tab Q4HP PRN PO 02/21/25 13:45 02/21/25 22:35 1 TAB objective HEENT: No evidence of JVD, no oral ulcers. Pulmonary: Lungs are clear on auscultation bilaterally Cardiovascular S1-S2, no S3 or S4 Abdomen: Bowel sounds positive, soft no rebound tenderness Skin: No rash Neurological: Alert, oriented, no focal weakness Extremities: Left foot dressed, tender to touch laboratory and microbiology Laboratory Tests 02/22/25 06:00 Test 02/22/25 06:00 Range/Units Serum Glucose 216 H 74-106 mg/dL Assessment/Plan Assessment: 1. End-stage renal disease on hemodialysis TTS 2. Hyperkalemia managed with dialysis 3. Was ruled out 4. Hypertension 5. Anemia of blood loss and end-stage renal disease 6. CHF 7. Pulmonary hypertension 8. Concern for GI bleed, positive FOBT 9. Gastroduodenitis. Plan: Proceed with dialysis today Monitor H&H transfuse as needed. Status post endoscopy and colonoscopy. PPI Antibiotics p.o. x2 weeks per Podiatry Antiemetics p.r.n. Higher dose of Rui for goal hemoglobin 10 to 11 grams/deciliter Okay to discharge home post dialysis. Thank you very much for allowing us to participate in the care of this patient please contact if you have any questions. Dietary Evaluation Review Comments: 1) Advance to [facility] 60gm + renal standard diet as medically feasible 2) Nephro-Elie 1 tab daily 3) Pro-stat 1 pk & Corby 1 pk daily 4) Monitor PO intake, lab values, wt trend, I/O Expected Outcomes/Goals: wound to improve to meet at leaast 75% estimated mauricio within 7 days fu 2-3 days Plan discussed with: Patient NIKOLAS ENGLE MD Feb 22, 2025 15:24
--- NOTE | 2025-02-22 22:05 | DVHPN2 ---
Progress Note - Dictate Date Seen: Feb 22, 2025 (Late entryPatient seen at 10:00 a.m.) Has the PT tested + for MRSA If YES, has PT been informed?: No Medical Necessity Reason Pt with a Central, PICC or Fol: No Subjective Patient was sleeping comfortably with no acute distress No GI bleeding is reported. Hemoglobin stable at 9.9 vital signs Vital Sign Date Time Temp Pulse Resp B/P (MAP) Pulse Ox O2 Delivery O2 Flow Rate FiO2 02/22/25 21:00 98.1 65 17 158/26 (70) 97 98.1 02/22/25 08:23 Room Air* 0 21 Total Intake and Output 02/21/25 02/21/25 02/22/25 15:00 23:00 07:00 Intake Total 150 ml 0 ml 125 ml Balance 150 ml 0 ml 125 ml medications Current Medications Medications Dose Ordered Sig/Raj Route Start Time Stop Time Status Last Admin Dose Admin Acetaminophen 650 mg Q6HP PRN PO 02/16/25 23:15 02/21/25 09:02 650 MG Nitroglycerin 0.4 mg Q5MINP PRN SL 02/16/25 23:15 Aspirin 81 mg DAILY PO 02/17/25 10:00 Cancel Sevelamer HCl 1,600 mg TID PO 02/17/25 06:00 02/22/25 21:25 1,600 MG Atorvastatin Calcium 40 mg DAILY PO 02/17/25 10:00 02/22/25 09:47 40 MG Diagnostic Test (Pha) 1 strip ACHS 02/17/25 07:00 02/22/25 21:32 1 STRIP Insulin Human Regular ACHS SC 02/17/25 07:00 02/22/25 21:33 3 UNITS Dextrose 50 ml UD PRN IV 02/17/25 04:15 Famotidine 20 mg Q2D PO 02/17/25 17:45 02/21/25 16:17 20 MG Sucralfate 1 gm BID@0600,2200 GT 02/17/25 22:00 02/22/25 21:25 1 GM Ceftriaxone Sodium 50 ml @ 100 mls/hr DAILY@09 IV 02/18/25 13:30 02/22/25 09:47 100 MLS/HR Pantoprazole Sodium 40 mg BID IV 02/19/25 22:00 02/22/25 21:26 40 MG Furosemide 20 mg DAILY IV 02/20/25 10:00 02/22/25 09:47 20 MG Metoclopramide HCl 5 mg ACHS PO 02/21/25 17:00 02/22/25 21:26 5 MG Oxycodone/ Acetaminophen 1 tab Q4HP PRN PO 02/21/25 13:45 02/21/25 22:35 1 TAB objective HEENT: No evidence of JVD, no oral ulcers. Pulmonary: Lungs are clear on auscultation bilaterally Cardiovascular S1-S2, no S3 or S4 Abdomen: Bowel sounds positive, soft no rebound tenderness Skin: No rash Neurological: Alert, oriented, no focal weakness Extremities: Left foot dressed, tender to touch laboratory and microbiology Laboratory Tests 02/22/25 14:44 02/22/25 06:00 Test 02/22/25 06:00 Range/Units Serum Glucose 216 H 74-106 mg/dL Problems(with codes): (1) Left foot infection (2) ESRD (end stage renal disease) on dialysis (3) Anemia (4) Positive occult stool blood test Prognosis Assessment plan GI workup showed no source of active GI bleeding Likely her bleeding was related to a cervical mass Patient has been advised follow up with surgical oncologist and possible referral to [facility] for the same Maintained on PPI, advance diet as tolerated Avoid aspirin and NSAIDs and continue iron supplements Repeat colonoscopy in 4-5 years Dietary Evaluation Review Comments: 1) Advance to [facility] 60gm + renal standard diet as medically feasible 2) Nephro-Elie 1 tab daily 3) Pro-stat 1 pk & Corby 1 pk daily 4) Monitor PO intake, lab values, wt trend, I/O Expected Outcomes/Goals: wound to improve to meet at leaast 75% estimated mauricio within 7 days fu 2-3 days Plan discussed with: Patient, Other (Dr Tucker) MINDY EARLY MD Feb 22, 2025 22:05
[2025-02-23 05:00] VITALS: BP 159/49; PULSE 65; RESP 18; TEMP 98.1; O2SAT 100
[2025-02-23 06:13] LABS: Hematocrit 26.7 % (36.0-46.0); Hemoglobin 9.1 g/dL (12.2-16.2); Mean Corpuscular Hemoglobin 30.1 pg (28.0-32.0); Mean Corpuscular Volume 88.1 fL (80.0-100.0); Nucleated Red Blood Cells % 0.7 %
[2025-02-23 06:29] LABS: Alanine Aminotransferase 11 U/L (7-40); Alkaline Phosphatase 109 U/L (46-116); BUN/Creatinine Ratio 7.5 (10.0-20.0); Potassium 4.2 mmol/L (3.5-5.1); Total Protein 6.9 g/dL (5.7-8.2)
[2025-02-23 06:30] LABS: Albumin 3.8 g/dL (3.2-4.8)
[2025-02-23 06:33] LABS: Bilirubin, Total 0.2 mg/dL (0.2-1.0); Blood Urea Nitrogen 39 mg/dL (9-23); Calcium 8.6 mg/dL (8.7-10.4); Chloride 95 mmol/L (98-107); Glucose 199 mg/dL (74-106); Sodium 135 mmol/L (136-145)
[2025-02-23 06:43] LABS: Anion Gap 14 (5-15); Carbon Dioxide 26 mmol/L (20-31)
[2025-02-23 08:00] VITALS: PULSE 65
[2025-02-23 08:30] VITALS: BP 138/59; PULSE 65; RESP 12; TEMP 98; O2SAT 95
--- NOTE | 2025-02-23 16:37 | DVHPNRES ---
Progress Note Date Seen: Feb 23, 2025 Resident Creating Document: ASHLEY VALENCIA RESIDENT Has the PT tested + for MRSA If YES, has PT been informed?: No Medical Necessity Reason Pt with a Central, PICC or Fol: No Subjective Review of Systems Yuri Murray is 59 years old female with past medical history of hypertension, diabetes mellitus type 2, peripheral artery disease, pacemaker due to cardiac arrhythmia, ESRD on hemodialysis Monday//Monday- Agnes, cirrhosis of liver, peripheral neuropathy, severe pulmonary hypertension- RVSP 65. She is brought to the ED with chief complaint of diarrhea and vomiting, pain in left foot wound. She had diarrhea for last 2 days, about 5 times a day, no blood. Associated with nausea, vomiting. She also complained of some chest pain on right side. Patient also complained of left foot pain, sharp, throbbing in nature, 10/10, decreased weight-bearing. She was taking antibiotics for osteomyelitis of left foot. She was discharged with doxycycline, levofloxacin and linezolid. Yesterday she finished her 2 week antibiotic course. Patient denied any fever, shortness of breath. Initial lab workup revealed hemoglobin 8.8, RDW 16.4, sodium 127, potassium 5.5, BNP 1576, serum creatinine 4.91, BUN 58, lactic acid 0.9, alkaline phosphatase 143, AST/ALT within normal limit, ammonia 12 serum iron 119, ferritin 1032. TIBC 191, CT Scan of the left foot revealed no acute abnormality, severe vascular calcification. CXR revealed mild cardiomegaly, bilateral pulmonary congestion. Abdominal x-ray shows nonobstructive bowel gas pattern. Past Medical History: Pacemaker due to cardiac arrhythmia, hyperlipidemia, hyperchloremia, hypertension, diabetes mellitus, CRF, cirrhosis. 02/17/25: He is currently comfortable. She has not had diarrhea episodes since morning today. 02/18/25: Patient is seen at bedside. She complains of intractable vomiting and some regurgitation. While examination she was coughing and regurgitating in the vomit bag. Stool culture negative for C difficile, we will start her on ceftriaxone, metronidazole. Pain in the left foot. We are holding fluids foe now. She will go for dialysis today. We will keep monitoring her on tele. ECG showed QTC elevation, we will stop Zofran. Start a trial of Reglan, gastroparesis possible. Passed a bloody stool today. Will consult GI to evaluate for bleed. Complains of vague MSK pain in back. 02/19/25: Her hemoglobin is running low at 6.4. Although she complains feeling better after dialysis her nausea persists. She is bleeding per vagina. OBGYN consult placed. TV USG done on her. Blood transfusion done. She also complained of 2 episodes of loose stools. We will continue holding off Lovenox because of bleeding. Advised using sequential compression device. 02/20/25: Continues to complain of intractable nausea, vomiting, incontinence diarrhea. Two episodes of diarrhea yesterday and today in the morning. She complained of loose stools and having passed loose stools on bed d/t urgency. She has bleeding per vagina, per rectal. GI consulted EGD, colonoscopy tomorrow. Ultrasound pelvis shows heterogeneous mass and cervix. Hemoglobin up from yesterday after 2 bags transfusion. Will continue to monitor and manage. 02/21/25: She complains of weakness, nausea, back pain which is 8 on 10 in intensity and generalized discomfort. She had 4 diarrheal episodes yesterday with dark and loose stools. Minimal vaginal bleeding reported. GI we will do EGD, colonoscopy today to rule out GI bleed. Dialysis was done yesterday after CT IV contrast study. Labs show hemoglobin up to 9.7. We will continue evaluating, current treatment and observation. 02/23/25: Patient examined at bedside. No complains of nausea, vomiting, diarrhea. Her vitals are stable. We will discharge her today and she will follow-up with OBGYN, mix mill tender consult and follow with PCP as outpatient. ROS: Constitutional: Denies weight loss, fever and chills. HEENT: Pallor. Denies changes in vision and hearing. Respiratory: Denies shortness of breath and cough Cardiovascular: Complains of right-sided chest pain. GI: Vomiting has subsided. No complaints of diarrhea. : On dialysis. Musculoskeletal: Denies myalgias and joint pain Neurological: Denies dizziness, headache, vision or hearing problems Objective vital signs Vital Sign Date Time Temp Pulse Resp B/P (MAP) Pulse Ox O2 Delivery O2 Flow Rate FiO2 02/23/25 09:37 138/59 02/23/25 08:30 98.0 65 12 95 98.0 02/23/25 08:00 Room Air* 0 21 Total Intake and Output 02/22/25 02/22/25 02/23/25 15:00 23:00 07:00 Intake Total 100 ml 200 ml Output Total 0 ml 0 ml Balance 100 ml 0 ml 200 ml medications Current Medications Medications Dose Ordered Sig/Raj Route Start Time Stop Time Status Last Admin Dose Admin Aspirin 81 mg DAILY PO 02/17/25 10:00 Cancel Examination General: Patient alert and oriented in person, place and time. Patient following commands. HEENT: Normocephalic, atraumatic, moist mucous membranes Respiratory/pulmonary: Lungs are clear bilaterally. Cardiovascular: Normal heart sounds S1 and S2 with no associated murmurs Abdomen: Nontender abdomen. Extremities: There is no peripheral edema present at the lower extremities. Neurological: Intact cranial nerves with no focal neurologic deficits laboratory and microbiology Laboratory Tests 02/23/25 04:54 Test 02/23/25 04:54 Range/Units Serum Glucose 199 H 74-106 mg/dL Microbiology Date/Time Source Procedure Growth Status 02/17/25 10:46 Nose MRSA Screen - Final Complete 02/17/25 00:18 Stool Stool Culture - Final Complete 02/17/25 00:18 Stool Shiga Toxin I & II - Final Complete 02/17/25 00:18 Stool Clostridium difficile Toxin Assay - Final Complete 02/16/25 18:58 Blood Blood Culture - Final NO GROWTH AFTER 5 DAYS OF INCUBATION. Complete Problem List/Assessment/Plan Problem List/Assessment/Plan #Acute gastroenteritis, likely infectious etiology #Intractable abdominal pain, resolved #Intractable nausea, Possible gastroenteritis, likely infectious etiology #Ruled out C difficile - Stool culture negative for C difficile. Will give IV Ceftriaxone and metronidazole. - Managed on Famotidine in 20 mg daily - Managed on Carafate suspension BI - MRSA screen negative, stool culture negative #Gastroparesis, possible -Managed on Reglan. #Acute hypoxic respiratory failure, likely due to volume overload - Tachypnea. - CXR shows Cardiomegaly and pulmonary vascular congestion. #Diabetes mellitus #Peripheral arterial disease #Osteomyelitis left foot, DFU - Wound culture negative. - Foot CT shows severe vascular calcification - Completed antibiotics course. Policy Analyst advised another two weeks of oral abx and f/u in O/P. - Wound culture negative #End-stage renal disease on hemodialysis #Anemia of chronic disease, due to end-stage renal disease #Hyponatremia #Hypochloremia - Scheduled for hemodialysis - Epoetin given. - Hb 9.1 Ferritin high. #Hypertension #History of pacemaker placement for cardiac bradyarrhythmias #Acute on chronic diastolic heart failure, likely due to volume overload - Monitor on Tele #GI bleed rule out #Bleeding PV -OBGYN consulted -USG- Uterus appears heterogeneous and atrophic with multiple calcifications. Heterogeneous mass in the cervix measuring 1.7 cm. MRI with IV contrast recommended.Small volume ascites. - Hb down to 6.4 from 7.4 - Occult blood positive. - Stopped Lovenox -GI we will to EGD, colonoscopy today #Highly suspected malignancy, unable to confirm to exclude due to follow-up outpatient -Ultrasound shows cervical mass. -CT with contrast abdomen, pelvis to evaluate source of bleeding. #Back pain -Managed on Percocet p.r.n. Goals of care discussion at bedside with patient for more than 25 minutes Full code Plan discussed with Dr. Tucker Plan discussed with: Patient Dietary Evaluation Review Comments: 1) Advance to [facility] 60gm + renal standard diet as medically feasible 2) Nephro-Elie 1 tab daily 3) Pro-stat 1 pk & Corby 1 pk daily 4) Monitor PO intake, lab values, wt trend, I/O Expected Outcomes/Goals: wound to improve to meet at leaast 75% estimated mauricio within 7 days fu 2-3 days Date of Service: Feb 23, 2025 Billing Provider: LEO FREEDMAN MD Common Visit Codes: [id number] INP/OBS CARE(HIGH) ASHLEY VALENCIA RESIDENT Feb 23, 2025 16:37 LEO FREEDMAN MD Feb 24, 2025 01:24
--- NOTE | 2025-02-24 07:50 | ECG ---
[facility] Test Date: 2025-02-18 Test Time: 18:08:38 Pat Name: TRISTA AGUILAR Department: Respiratoy Room: [facility]3T A Gender: F Locker Room Manager: : 1965 Requested By: ASHLEY VALENCIA Order Number: [id number] Reading MD: Duncan Patton Measurements Intervals [place] Rate: 65 P: 0 VT: 0 QRS: -28 QRSD: 151 T: 19 QT: 496 QTc: 516 Interpretive Statements Junctional rhythm Right bundle branch block Electronically Signed On 02-24-2025 13:22:56 PDT by Duncan Patton Please click the below link to view image of tracing.
== END 2025-02-23 13:45 | disposition home or self-care (01) | DRG 249 ==
LOC: ER 18:10 → OVERFLOW 23:10 → ER 23:13 → TELE-WESTW 23:13
PROVIDERS: ADMIT Student in an Organized Health Care Education/Training Program; ATTEND Student in an Organized Health Care Education/Training Program
PROC: 5A1D70Z Performance of Urinary Filtration, Intermittent, Less than 6 Hours Per Day (ICD-10-PCS; 2025-02-18)
PROC: 30233N1 Transfusion of Nonautologous Red Blood Cells into Peripheral Vein, Percutaneous Approach (ICD-10-PCS; principal; 2025-02-19)
PROC: 5A1D70Z Performance of Urinary Filtration, Intermittent, Less than 6 Hours Per Day (ICD-10-PCS; 2025-02-20)
PROC: 0DBL8ZZ Excision of Transverse Colon, Via Natural or Artificial Opening Endoscopic (ICD-10-PCS; 2025-02-21)
PROC: 0DB68ZX Excision of Stomach, Via Natural or Artificial Opening Endoscopic, Diagnostic (ICD-10-PCS; 2025-02-21)
PROC: 0DB98ZX Excision of Duodenum, Via Natural or Artificial Opening Endoscopic, Diagnostic (ICD-10-PCS; 2025-02-21 11:50)
PROC: 5A1D70Z Performance of Urinary Filtration, Intermittent, Less than 6 Hours Per Day (ICD-10-PCS; 2025-02-22)
DX: A09 Infectious gastroenteritis and colitis, unspecified (principal); J96.01 Acute respiratory failure with hypoxia; I50.33 Acute on chronic diastolic (congestive) heart failure; K29.71 Gastritis, unspecified, with bleeding; I27.20 Pulmonary hypertension, unspecified; N18.6 End stage renal disease; D63.1 Anemia in chronic kidney disease; E11.22 Type 2 diabetes mellitus with diabetic chronic kidney disease; R18.8 Other ascites; E87.1 Hypo-osmolality and hyponatremia; K29.91 Gastroduodenitis, unspecified, with bleeding; E87.5 Hyperkalemia; M86.8X7 Other osteomyelitis, ankle and foot; E11.69 Type 2 diabetes mellitus with other specified complication; E11.42 Type 2 diabetes mellitus with diabetic polyneuropathy; E11.51 Type 2 diabetes mellitus with diabetic peripheral angiopathy without gangrene; D50.0 Iron deficiency anemia secondary to blood loss (chronic); K74.60 Unspecified cirrhosis of liver; I13.2 Hypertensive heart and chronic kidney disease with heart failure and with stage 5 chronic kidney disease, or end stage renal disease; K21.9 Gastro-esophageal reflux disease without esophagitis; K31.84 Gastroparesis; K44.9 Diaphragmatic hernia without obstruction or gangrene; K63.5 Polyp of colon; K64.8 Other hemorrhoids; E78.5 Hyperlipidemia, unspecified; E87.8 Other disorders of electrolyte and fluid balance, not elsewhere classified; E11.43 Type 2 diabetes mellitus with diabetic autonomic (poly)neuropathy; N93.9 Abnormal uterine and vaginal bleeding, unspecified; Z99.2 Dependence on renal dialysis; Z95.0 Presence of cardiac pacemaker; Z82.49 Family history of ischemic heart disease and other diseases of the circulatory system; Z79.82 Long term (current) use of aspirin; Z79.4 Long term (current) use of insulin; Z83.3 Family history of diabetes mellitus
CPT/HCPCS: 36415; 43239; 45385; 71045; 73700; 74018; 74177; 76830; 76856; 80048; 80053; 82105; 82140; 82270; 82306; 82607; 82728; 82746; 82962; 83540; 83550; 83605; 83690; 83735; 83880; 84100; 84132; 84484; 85014; 85018; 85025; 85048; 85610; 85730; 86301; 86304; 86850; 86900; 86901; 86920; 87040; 87045; 87081; 87177; 87205; 87340; 87427; 87493; 90935; 93005; 94640; 96365; 96375; 99291; G0378; J1100; J1815; J2250; J2405; J2470; J2704; J3490; Q9967

== ENCOUNTER 2025-05-29 10:00 | Inpatient (IN) | payer MEDICAID ==
[~2025-05-29] VITALS: Ht 162.6 cm; Wt 56.9 kg
[~2025-05-29 10:00] MED LIST changes: -DOXY150C6 PO; +GABA-1308 PO; -LEVO750T40 PO; +PANT40T PO; -SILV1CRE82 TOP; +SUCR1SUS26 GT
[2025-05-29 10:42] LABS: Hematocrit 46.9 % (36.0-46.0); Hemoglobin 15.0 g/dL (12.2-16.2); Mean Corpuscular Hemoglobin 26.5 pg (28.0-32.0); Mean Corpuscular Volume 82.5 fL (80.0-100.0); Nucleated Red Blood Cells % 0.1 %
[2025-05-29 10:50] LABS: Calcium 9.6 mg/dL (8.7-10.4); Carbon Dioxide 25 mmol/L (20-31)
[2025-05-29 10:51] LABS: Anion Gap 14 (5-15); Chloride 84 mmol/L (98-107); Potassium 5.1 mmol/L (3.5-5.1); Sodium 123 mmol/L (136-145)
[2025-05-29 10:55] LABS: BUN/Creatinine Ratio 7.9 (10.0-20.0)
[2025-05-29 10:56] LABS: Blood Urea Nitrogen 51 mg/dL (9-23)
[2025-05-29 10:59] LABS: Glucose 555 mg/dL (74-106)
--- NOTE | 2025-05-29 11:06 | ED.PDOC ---
Jaret. trauma (HPI) HPI Comments 59 y/o F, with PMHx of ESRD, DM, HTN, and neuropathy presents to the ED for CC of s/p fall injury. Patient reports, that she has felt overly weak for x1week and yesterday (05/28/25) when trying to move from her bed to a chair suffered an unwitnessed fall. Following trauma, patient c/o 7/10 pain to her right lower ex tremity and being unable to ambulate or bear-weight. Patient further relays, that she is a dialysis patient and receives dialysis every , , Sat and missed her treatment today d/t symptoms. Patient denies frequency, urgency, excessive thirst, nausea, or vomiting. No other symptoms or modifying factors are present at this time. Chief Complaint: General Weakness Time Seen by MD: 10:45 Primary Care Provider: MOHINI Reviewed notes: Nurses Notes, Medications, Allergies Allergies: Coded Allergies: NO KNOWN ALLERGIES (Unverified , 08/03/20) Home Meds Active Scripts Gabapentin (Gabapentin) 100 Mg Cap, 100 MG PO BID for 30 Days, #60 CAP 0 Refills Prov:MAXI HOLLY 02/22/25 Pantoprazole Sodium Sesquihydr (Pantoprazole Sodium) 40 Mg Tab, 40 MG PO DAILY for 30 Days, #30 TAB 0 Refills Prov:MAXI HOLLY 02/22/25 Sucralfate (CARAFATE SUSP) 1 Gm/10 Ml Ss, 1 GM GT BID@0600,2200 for 30 Days, #30 ML Prov:MAXI HOLLY 02/22/25 Atorvastatin Calcium (ATORVASTATIN CALCIUM) 40 Mg Tab, 40 MG PO DAILY for 30 Days, #30 TAB 0 Refills Prov:MAXI HOLLY RESIDENT 01/29/25 Reported Medications Sevelamer Hydrochloride (Sevelamer Hydrochloride) 800 Mg Tab, 2 TAB PO TID 08/14/22 Glipizide (Glipizide Er) 2.5 Mg Tab, 1 TAB PO DAILY 08/14/22 Calcium Acetate (Phosphate Bin (Calcium Acetate) 667 Mg Cap, 2 CAP PO TID 08/14/22 Amlodipine Besylate (Amlodipine Besylate) 10 Mg Tab, 1 TAB PO DAILY 08/14/22 Aspirin (Aspir-Low) 81 Mg Tab, 81 MG PO DAILY for 30 Days, MG 08/05/20 Hydralazine Hcl (Hydralazine Hcl) 10 Mg Tab, 0 PO BID for 30 Days, MG 08/05/20 Information Source: Patient Mode of Arrival: Wheelchair Severity: Moderate Timing: Days Duration: Since onset Prehospital treatment: None Location: (R) Leg Location of laceration: None Mechanism: Fall Associated signs and symtoms: Weakness Past Medical History PAST MEDICAL HISTORY: DM, ESRD, HTN, Liver Surgical History: Pacemaker DIETETIC TECH History: Denies all DIETETIC TECH Hx Family History Family History: Reviewed,noncontributory to illness Social History Smoker: Non-Smoker Alcohol: Denies ETOH Use Drugs: Denies Drug Use Lives In: Home Constitutional: reports: weakness; denies: chills, diaphoresis, fatigue, fever, malaise, sweats, others EENTM: denies: blurred vision, double vision, ear bleeding, ear discharge, ear drainage, ear pain, ear ringing, eye pain, eye redness, hearing loss, mouth pain, mouth swelling, nasal discharge, nose bleeding, nose congestion, nose pain, photophobia, tearing, throat pain, throat swelling, voice changes, others Respiratory: denies: cough, hemoptysis, orthopnea, SOB at rest, shortness of breath, SOB with excertion, stridor, wheezing, others Cardiovascular: denies: chest pain, dizzy spells, diaphoresis, Dyspnea on exertion, edema, irregular heart beat, left arm pain, lightheadedness, palpitations, PND, syncope, others Gastrointestinal: denies: abdomen distended, abdominal pain, blood streaked bowels, constipated, diarrhea, dysphagia, difficulty swallowing, hematemesis, melena, nausea, poor appetite, poor fluid intake, rectal bleeding, rectal pain, vomiting, others Genitourinary: denies: abnormal vagina bleeding, burning, dyspareunia, dysuria, flank pain, frequency, hematuria, incontinence, pain, , vagina discharge, urgency, others Neurological: denies: dizziness, fainting, headache, left sided numbness, left sided weakness, numbness, paresthesia, pre-existing deficit, right sided numbness, right sided weakness, seizure, speech problems, tingling, tremors, weakness, others Musculoskeletal: reports: others (right leg pain); denies: back pain, gout, joint pain, joint swelling, muscle pain, muscle stiffness, neck pain Integumetry: denies: bruises, change in color, change in hair/nails, dryness, laceration, lesions, lumps, rash, wounds, others Allergic/Immunocompromised: denies: Difficulty Healing, Frequent Infections, Hives, Itching, others Hematologic/Lymphatic: denies: anemia, blood clots, easy bleeding, easy brui sing, swollen glands, others Endocrine: denies: excessive hunger, excessive sweating, excessive thirst, ex cessive urination, flushing, intolerance to cold, intolerance to heat, unexplained weight gain, unexplained weight loss, others Psychiatric: denies: anxiety, bipolar disorder, depression, hopeless, panic disorder, schizophrenia, sleepless, suicidal, others All Other Systems: Reviewed and Negative Physical Exam General Appearance: Moderate Distress HEENT: Normal ENT Inspection, Pharynx Normal, TMs Normal Neck: Full Range of Motion, Non-Tender, Normal, Normal Inspection Respiratory: Chest Non-Tender, Lungs Clear, No Accessory Muscle Use, No Respiratory Distress, Normal Breath Sounds Cardiovascular: No Edema, No JVD, No Murmur, No Gallop, Normal Peripheral Pulses, Regular Rate/Rhythm Breast Exam: Deferred Gastrointestinal: No Organomegaly, Non Tender, No Pulsatile Mass, Normal Bowel Sounds, Soft Genitalia: Deferred Pelvic: Deferred Rectal: Deferred Extremities: No calf tenderness, No pedal edema Musculoskeletal : Apperance: Normal Neurologic: Alert, tire cord weaver II-XII nml as Tested, No Motor Deficits, Normal Affect, Normal Mood, No Sensory Deficits Cerebellar Function: NOT DONE Reflexes: NOT DONE Skin: Dry, Normal Color, Warm Peripheral Pulses: 3+ Radial (R), 3+ Radial (L) Lymphatic: No Adenopathy Was a procedure done? Was a procedure done?: No Differential Diagnosis Multiple Trauma: Other (starin, musculoskeletal pain) X-Ray, Labs, Meds, VS Vital Signs Date Time Temp Pulse Resp B/P (MAP) Pulse Ox O2 Delivery O2 Flow Rate FiO2 05/29/25 13:46 97.5 65 16 184/85 (118) 100 97.5 05/29/25 13:46 65 16 100 Room Air 05/29/25 10:11 65 05/29/25 10:03 98.9 66 16 142/70 100 98.9 Lab Test 05/29/25 17:06 05/29/25 17:05 05/29/25 15:30 05/29/25 15:29 Range/Units POC Glucose 507 *H 493 *H 486 *H 488 *H 70-106 mg/dl Test 05/29/25 15:15 05/29/25 14:41 05/29/25 10:20 05/29/25 10:17 Range/Units Blood Gas Specimen Type Arterial Blood Gas Sample Site Right radial Blood Gas Patient Temperature 37.0 Arterial Blood Date Drawn [id number] Arterial Blood pH 7.329 L 7.350-7.450 Arterial Blood Partial Pressure CO2 47.5 H 32.0-45.0 mmHg Arterial Blood Partial Pressure O2 64.3 L 83.0-108.0 mmHg Arterial Blood HCO3 24.4 21.0-28.0 mmol/L Arterial Blood Oxygen Saturation 90.5 L 94.0-98.0 % Arterial Blood Base Excess -1.9 -2.0-3.0 mmol/L Arterial Blood Oxyhemoglobin 88.5 L 94.0-98.0 % Arterial Blood Carboxyhemoglobin 1.7 H 0.5-1.5 % Arterial Blood Methemoglobin 0.5 0.0-1.5 % [place] Test Yes Blood Gas Total Hemoglobin 14.80 12.0-16.0 g/dL Blood Gas Modality Room air FiO2 % 21.0 POC Glucose 536 *H 560 *H 70-106 mg/dl White Blood Count 4.6 4.4-10.8 10^3/uL Red Blood Count 5.68 H 4.0-5.20 10^6/uL Hemoglobin 15.0 12.2-16.2 g/dL Hematocrit 46.9 H 36.0-46.0 % Mean Corpuscular Volume 82.5 80.0-100.0 fL Mean Corpuscular Hemoglobin 26.5 L 28.0-32.0 pg Mean Corpuscular Hemoglobin Concent 32.1 32.0-36.0 g/dL Red Cell Distribution Width 20.9 H 11.8-14.3 % Platelet Count 276 140-450 10^3/uL Mean Platelet Volume 8.3 6.9-10.8 fL Neutrophils (%) (Auto) 63.9 37.0-80.0 % Lymphocytes (%) (Auto) 20.3 10.0-50.0 % Monocytes (%) (Auto) 9.5 0.0-12.0 % Eosinophils (%) (Auto) 5.0 0.0-7.0 % Basophils (%) (Auto) 1.3 0.0-2.0 % Neutrophils # (Auto) 2.9 1.6-8.6 10 ^3/uL Lymphocytes # (Auto) 0.9 0.4-5.4 10 ^3/uL Monocytes # (Auto) 0.4 0-1.3 10 ^3/uL Eosinophils # (Auto) 0.2 0-0.8 10 ^3/uL Basophils # (Auto) 0.1 0-0.2 10 ^3/uL Nucleated Red Blood Cells 0.1 % Sodium Level 123 L 136-145 mmol/L Potassium Level 5.1 3.5-5.1 mmol/L Chloride Level 84 L 98-107 mmol/L Carbon Dioxide Level 25 20-31 mmol/L Anion Gap 14 5-15 Blood Urea Nitrogen 51 H 9-23 mg/dL Creatinine 6.47 H 0.550-1.02 mg/dL Glomerular Filtration Rate Calc 7 >90 mL/min BUN/Creatinine Ratio 7.9 L 10.0-20.0 Serum Glucose 555 *H 74-106 mg/dL Calcium Level 9.6 8.7-10.4 mg/dL Test 05/29/25 10:16 Range/Units POC Glucose 536 *H 70-106 mg/dl Current Medications Medications (Trade) Dose Ordered Sig/Raj Route Start Time Stop Time Status Last Admin Insulin Human Regular (InsuLIN R) 10 units ONCE ONCE IV 05/29/25 15:45 05/29/25 15:46 DC 05/29/25 17:11 Patient alert. Blood sugar elevated. Moving all extremities. Vitals stable. Was given insulin. Can not give fluids because of her kidney function. Dialysis. Hyponatremia from hyperglycemia. WBC within normal limits. Normal gap. Nephrology consultation. Continue to monitor. Time of 1ST Reevaluation: 11:15 Reevaluation 1ST: Unchanged Patient Education/Counseling: Diagnosis, Treatment Family Education/Counseling: No Family Present Departure 1 Departure Time of Disposition: 17:26 Impression: Primary Impression: Uncontrolled diabetes mellitus Qualified Codes: E13.65 - Other specified diabetes mellitus with hyperglycemia Additional Impression: End stage renal disease on dialysis Disposition: 09 ADMITTED INPATIENT Admit to: Med Surg Condition: Guarded Critical Care Note Critical Care Time?: No Stability Stability form required: No Heart Score Heart Score: Heart Score Response (Comments) Value History N/A 0 EKG N/A 0 Age N/A 0 Risk Factors N/A 0 Troponin N/A 0 Total 0 I personally scribed for MARGARITA PATTERSON MD ([email or web address]) on 05/29/25 at 11:06. Electronically submitted by Audrey Chu ([email or web address]). MARGARITA PATTERSON MD May 29, 2025 11:06
--- NOTE | 2025-05-29 14:01 | ECG ---
[facility] Test Date: 2025-05-29 Test Time: 10:11:30 Pat Name: TRISTA AGUILAR Department: ED Room: 0270T Gender: F Activity Specialist: JOAQUIN : 1965 Requested By: MARGARITA PATTERSON Order Number: [id number] Reading MD: Duncan Patton Measurements Intervals [place] Rate: 65 P: -19 RI: 197 QRS: -76 QRSD: 183 T: 106 QT: 529 QTc: 551 Interpretive Statements Sinus rhythm Right bundle branch block LVH with IVCD and secondary repol abnrm Prolonged QT interval Baseline wander in lead(s) V3 Electronically Signed On 05-31-2025 18:44:11 PDT by Duncan Patton Please click the below link to view image of tracing.
[2025-05-29] MEDS ORDERED: INSULIN DRIP 100 UNIT/100ML 100 ML IV SCH (14:30)
[2025-05-29] MEDS ORDERED: INSULIN LANTUS (GLARGINE) 1 /0.01ml (100units/ml) SC ONE (14:30)
[2025-05-29] MEDS ORDERED: DEXTROSE (50%) 50ML SYRG IV PRN ×2 (14:30→17:15)
[2025-05-29] MEDS ORDERED: ACCU-CHEK COMFORT CURVE STRIP VI SCH (15:00)
[2025-05-29 15:10] VITALS: PULSE 65; RESP 17; O2SAT 95
[2025-05-29 15:31] LABS: Base Excess -1.9 mmol/L (-2.0-3.0)
[2025-05-29] MEDS: InsuLIN REG 1unit/0.01ml Soln (100units/ml) IV ONE (17:11)
[2025-05-29] MEDS ORDERED: ONDANSETRON HCL 4 MG/2 ML VIAL IV PRN (17:15)
[2025-05-29] MEDS ORDERED: ACETAMINOPHEN 500 MG TAB or CAP PO PRN (17:15)
[2025-05-29] MEDS ORDERED: NITROGLYCERIN 0.4 MG SL TAB SL PRN (17:15)
[2025-05-29] MEDS ORDERED: MORPHINE SULFATE INJ 2 MG/ml SYRG IV PRN ×2 (17:15)
--- NOTE | 2025-05-29 17:26 | DVHHP2 ---
History of Present Illness Reason for Visit: Right hip pain History of Present Illness Patient is a 59-year-old female brought in by ambulance after having a mechanical fall this a.m.. Patient reports that she has had worsening generalized weakness as well as right lower extremity numbness which she attributes to her fall. Patient denies having any further trauma to her head or other bodily injury. She denies having any syncopal type of episodes. Si gnificant history of the patient includes diabetes mellitus for which the patient's blood sugar has been repeatedly over 500 while in the emergency room, hypertension, end-stage renal disease with hemodialysis, coronary artery disease and permanent pacemaker implant. Cardiovascular: CHF, HTN Renal/: Chronic renal failure Endocrine: Diabetes Past Surgical History: Other (Pacemaker) Smoke: No ALCOHOL: none Drugs: None Review of Systems Constitutional: Yes: Weakness Eyes: No: Pain, Vision change, Conjunctivae inflammation, Eyelid inflammation, Other, Redness ENT: No: Ear pain, Ear discharge, Nose pain, Nose discharge, Nose congestion, Mouth pain, Mouth swelling, Throat pain, Throat swelling, Other Respiratory: No: Cough, Dry, Shortness of breath, SOB with excertion, Wheezing, Hemoptysis, Pleuritic Pain, Sputum, Wheezing, Other Cardiovascular: No: Chest Pain, Palpitations, Orthopnea, Paroxysmal Noc. Dyspnea, Edema, Lt Headedness, Other Gastrointestinal: No: Nausea, Vomiting, Abdominal Pain, Diarrhea, Constipation, Melena, Hematochezia, Other Genitourinary: No Dysuria, No Frequency, No Incontinence, No Hematuria, No Retention, No Other Musculoskeletal: leg pain Skin: No: Rash, Lesions, Jaundice, Bruising, Other Neurological: No: Weakness, Numbness, Incoordination, Change in speech, Confusion, Seizures, Other Allergies: Coded Allergies: NO KNOWN ALLERGIES (Unverified , 08/03/20) Medications Current Medications Medications Dose Ordered Sig/Raj Route Start Time Stop Time Status Last Admin Dose Admin Dextrose 50 ml PRN PRN IV 05/29/25 14:30 Insulin Glargine 15 units DAILY SC 05/30/25 10:00 Exam Vital Signs Vital Signs Date Time Temp Pulse Resp B/P (MAP) Pulse Ox O2 Delivery O2 Flow Rate FiO2 05/29/25 13:46 97.5 65 16 184/85 (118) 100 97.5 05/29/25 13:46 Room Air General Appearance: Alert, Oriented X3, Cooperative, mild distress HEENT: Atraumatic, PERRLA Respiratory: Clear to auscultation, Normal air movement Cardiovascular: Normal S1, Normal S2 Abdominal: Normal bowel sounds, Soft, No tenderness Extremities: No clubbing, No cyanosis Neuro: Normal gait, Normal speech, Cranial nerves 3-12 NL Psych/Mental Status: Mental status NL, Mood NL Labs/Xrays Labs Test 05/29/25 15:30 05/29/25 15:15 05/29/25 10:20 Range/Units POC Glucose 486 *H 70-106 mg/dl Blood Gas Specimen Type Arterial Blood Gas Sample Site Right radial Blood Gas Patient Temperature 37.0 Arterial Blood Date Drawn [id number] Arterial Blood pH 7.329 L 7.350-7.450 Arterial Blood Partial Pressure CO2 47.5 H 32.0-45.0 mmHg Arterial Blood Partial Pressure O2 64.3 L 83.0-108.0 mmHg Arterial Blood HCO3 24.4 21.0-28.0 mmol/L Arterial Blood Oxygen Saturation 90.5 L 94.0-98.0 % Arterial Blood Base Excess -1.9 -2.0-3.0 mmol/L Arterial Blood Oxyhemoglobin 88.5 L 94.0-98.0 % Arterial Blood Carboxyhemoglobin 1.7 H 0.5-1.5 % Arterial Blood Methemoglobin 0.5 0.0-1.5 % Wilmar Test Yes Blood Gas Total Hemoglobin 14.80 12.0-16.0 g/dL Blood Gas Modality Room air FiO2 % 21.0 White Blood Count 4.6 4.4-10.8 10^3/uL Red Blood Count 5.68 H 4.0-5.20 10^6/uL Hemoglobin 15.0 12.2-16.2 g/dL Hematocrit 46.9 H 36.0-46.0 % Mean Corpuscular Volume 82.5 80.0-100.0 fL Mean Corpuscular Hemoglobin 26.5 L 28.0-32.0 pg Mean Corpuscular Hemoglobin Concent 32.1 32.0-36.0 g/dL Red Cell Distribution Width 20.9 H 11.8-14.3 % Platelet Count 276 140-450 10^3/uL Mean Platelet Volume 8.3 6.9-10.8 fL Neutrophils (%) (Auto) 63.9 37.0-80.0 % Lymphocytes (%) (Auto) 20.3 10.0-50.0 % Monocytes (%) (Auto) 9.5 0.0-12.0 % Eosinophils (%) (Auto) 5.0 0.0-7.0 % Basophils (%) (Auto) 1.3 0.0-2.0 % Neutrophils # (Auto) 2.9 1.6-8.6 10 ^3/uL Lymphocytes # (Auto) 0.9 0.4-5.4 10 ^3/uL Monocytes # (Auto) 0.4 0-1.3 10 ^3/uL Eosinophils # (Auto) 0.2 0-0.8 10 ^3/uL Basophils # (Auto) 0.1 0-0.2 10 ^3/uL Nucleated Red Blood Cells 0.1 % Sodium Level 123 L 136-145 mmol/L Potassium Level 5.1 3.5-5.1 mmol/L Chloride Level 84 L 98-107 mmol/L Carbon Dioxide Level 25 20-31 mmol/L Anion Gap 14 5-15 Blood Urea Nitrogen 51 H 9-23 mg/dL Creatinine 6.47 H 0.550-1.02 mg/dL Glomerular Filtration Rate Calc 7 >90 mL/min BUN/Creatinine Ratio 7.9 L 10.0-20.0 Serum Glucose 555 *H 74-106 mg/dL Calcium Level 9.6 8.7-10.4 mg/dL SEPSIS Sepsis Screen Date sepsis recognized/suspect: May 29, 2025 Time Sepsis recognized/suspect: 1006 Recent Procedure: No On Antibiotic Therapy: No Respiratory Rate >20: No Heart Rate >90: No Temp<36 C (96.8 F) or >38.3 C: No SBP <90 or MAP <65 mmHG: No New Acute Mental Status Change: No Is the patient on CPAP, BIPAP,: No Physician Orders Urinalysis (05/29/25 10:09) D/C All Diabetic Medications (05/29/25 14:28) Insulin Drip Protocol (05/29/25 14:28) Dextrose 50% Syringe (05/29/25 14:30) Insulin Lantus (Glargine) (Lantus) (05/30/25 10:00) Abg W/ Co-Ox (05/29/25 14:29) Admit (05/29/25 17:06) Nitroglycerin Sublingual (Ntrostat Subli (05/29/25 17:15) Morphine Sulfate Injection (05/29/25 17:15) Stat Ekg For Chest Pain (05/29/25 17:06) Notify Of Changes From Base (05/29/25 17:06) Horse Riding Coach Or Instructor For 24 Hours (05/29/25 17:06) Emergency Dysrhythmia Protocol (05/29/25 17:06) Rhythm Strips Once Every Shift (05/29/25 17:06) Oxygen By Nasal Cannula (05/29/25 17:06) *Dr. Lily Colin -Da Jossie (05/29/25 17:06) R Hip Complete Xray (05/29/25 17:06) Glucose Blood (Accu-Chek Comfort Curve T (05/29/25 20:00) Moderate Insulin Ss (05/29/25 20:00) Dextrose 50% Syringe (05/29/25 17:15) Consistent Carb(Ccho)Diabetes (05/29/25 Dinner) Basic Metabolic Panel (05/30/25 04:00) Complete Blood Count (05/30/25 04:00) Morphine Sulfate Injection (05/29/25 17:15) Hydrocodone-Acet 5/325mg Tab ([place] 5/32 (05/29/25 17:15) Acetaminophen Tab Or Cap (Tylenol Tablet (05/29/25 17:15) Ondansetron Hcl (Zofran) (05/29/25 17:15) Calcium Acetate Capsule (Phoslo Capsule) (05/29/25 22:00) Gabapentin Capsule (Neurontin Capsule) (05/29/25 22:00) (Nf) Amlodipine Besylate (05/30/25 10:00) Hemoglobin A1c (05/30/25 04:00) Vital Signs Date Time Temp Pulse Resp B/P (MAP) Pulse Ox O2 Delivery O2 Flow Rate FiO2 05/29/25 13:46 97.5 65 16 184/85 (118) 100 97.5 05/29/25 13:46 65 16 100 Room Air 05/29/25 10:11 65 05/29/25 10:03 98.9 66 16 142/70 100 98.9 Laboratory Tests Test 05/29/25 10:20 White Blood Count 4.6 10^3/uL (4.4-10.8) Medications Medications Dose Ordered Sig/Raj Route Start Time Stop Time Status Last Admin Dose Admin Insulin Human Regular 10 units ONCE ONCE IV 05/29/25 15:45 05/29/25 15:46 DC 05/29/25 17:11 10 UNITS Assessment/Plan Assessment/Plan Impression: -mechanical fall, rule out right hip fracture -uncontrolled diabetes mellitus -end-stage renal disease with hemodialysis -accelerated hypertension -coronary artery disease Plan: -admit to telemetry unit -right hip x-ray -nephrology consultation -regular insulin sliding scale -pain management -medication reconciliation with home meds -repeat labs in a.m. Total time spent with patient discussing and formulating plan of care: 35 minute s. This medical document was created using an electronic medical record system with [employer] dictation system. Although this document has been carefully reviewed, there may still be some phonetic and typographical errors. These areas are purely typographical due to imperfections of the software programs, and do not reflect any compromise in the patient's medical care. Plan discussed with: Patient, Other (RN) My Orders Orders - RACHEL CONCEPCION ENVIRONMENTAL ENGINEER Procedure Category Date Status Time Admit ADMIT 05/29/25 Transmitted 17:06 Nitroglycerin PHA 05/29/25 Transmitted Sublingual (Ntrostat 17:15 Morphine Sulfate PHA 05/29/25 Transmitted Injection 17:15 Stat Ekg For Chest KEVIN 05/29/25 Transmitted Pain 17:06 Notify Of Changes [facility] 05/29/25 Transmitted From Base 17:06 Horse Riding Coach Or Instructor For KEVIN 05/29/25 Transmitted 24 Hours 17:06 Emergency Dysrhythmia KEVIN 05/29/25 Transmitted Protocol 17:06 Rhythm Strips Once KEVIN 05/29/25 Transmitted Every Shift 17:06 Oxygen By Nasal RT 05/29/25 Transmitted Cannula 17:06 *Dr. Lily Colin -Da CONS 05/29/25 Transmitted Jossie 17:06 R Hip Complete Xray XY 05/29/25 Transmitted 17:06 Glucose Blood PHA 05/29/25 Transmitted (Accu-Chek Comfort 20:00 Moderate Insulin Ss PHA 05/29/25 Transmitted 20:00 Dextrose 50% Syringe PHA 05/29/25 Transmitted 17:15 Consistent DIET 05/29/25 Transmitted Carb(Ccho)Diabetes Dinner Basic Metabolic Panel LAB 05/30/25 Verified 04:00 Complete Blood Count LAB 05/30/25 Verified 04:00 Morphine Sulfate PHA 05/29/25 Transmitted Injection 17:15 Hydrocodone-Acet PHA 05/29/25 Transmitted 5/325mg Tab ([place] 17:15 Acetaminophen Tab Or PHA 05/29/25 Transmitted Cap (Tylenol Tablet 17:15 Ondansetron Hcl PHA 05/29/25 Transmitted (Zofran) 17:15 Calcium Acetate PHA 05/29/25 Transmitted Capsule (Phoslo 22:00 Gabapentin Capsule PHA 05/29/25 Transmitted (Neurontin Capsule) 22:00 (Nf) Amlodipine PHA 05/30/25 Transmitted Besylate 10:00 Hemoglobin A1c LAB 05/30/25 Verified 04:00 Date of Service: May 29, 2025 Billing Provider: RACHEL CONCEPCION NP Common Visit Codes: [id number] INP/OBS CARE (HIGH) RACHEL CONCEPCION NP May 29, 2025 17:26
[2025-05-29] MEDS ORDERED: LABETALOL HCL 20 MG/4 ML VL IV PRN (17:30)
--- NOTE | 2025-05-29 17:48 | DVH ---
Indication: Mechanical fall with right hip pain Technique: XY R HIP COMPLETE XRAYXY Comparison: None FINDINGS/IMPRESSION: No radiographic evidence for acute fracture or dislocation. [id number] degenerate changes bila teral hips. Atherosclerotic calcification disease.
[2025-05-29] MEDS: InsuLIN REG 1unit/0.01ml Soln (100units/ml) SC ONE (19:09)
[2025-05-29] MEDS: ACCU-CHEK COMFORT CURVE STRIP VI SCH (20:35)
[2025-05-29] MEDS: InsuLIN REG 1unit/0.01ml Soln (100units/ml) SC SCH (20:41)
[2025-05-29 21:00] VITALS: BP 162/86; PULSE 65; RESP 18; TEMP 97.8; O2SAT 97
[2025-05-29 22:53] VITALS: BP 147/85; PULSE 65; RESP 18
[2025-05-29] MEDS: CALCIUM ACETATE 667 MG CAP PO SCH (22:58)
[2025-05-29] MEDS: GABAPENTIN 100 MG CAP PO SCH (22:58)
[2025-05-30] VITALS (9 sets, daily range): BP systolic 121–163; BP diastolic 63–93; PULSE 63–65; RESP 16–18; TEMP 97.5–98.3; O2SAT 93–99
[2025-05-30 06:52] LABS: Hemoglobin 13.4 g/dL (12.2-16.2); Nucleated Red Blood Cells % 0.1 %
[2025-05-30 06:55] LABS: Hematocrit 40.7 % (36.0-46.0); Mean Corpuscular Hemoglobin 26.7 pg (28.0-32.0); Mean Corpuscular Volume 81.1 fL (80.0-100.0)
[2025-05-30 07:01] LABS: Anion Gap 13 (5-15); Carbon Dioxide 24 mmol/L (20-31)
[2025-05-30 07:02] LABS: Calcium 9.9 mg/dL (8.7-10.4)
[2025-05-30 07:06] LABS: Glucose 94 mg/dL (74-106)
[2025-05-30 07:07] LABS: BUN/Creatinine Ratio 8.3 (10.0-20.0)
[2025-05-30 07:34] LABS: Sodium 125 mmol/L (136-145)
[2025-05-30 07:45] LABS: Blood Urea Nitrogen 53 mg/dL (9-23); Chloride 88 mmol/L (98-107); Potassium 5.8 mmol/L (3.5-5.1)
[2025-05-30] MEDS: INSULIN LANTUS (GLARGINE) 1 /0.01ml (100units/ml) SC SCH (09:30)
[2025-05-30] MEDS ORDERED: INSULIN LANTUS (GLARGINE) 1 /0.01ml (100units/ml) SC SCH (10:00)
--- NOTE | 2025-05-30 13:08 | DVHPN2 ---
Subjective Patient continues to report having generalized weakness. Reviewed: Care Plan, H&P, Labs, Medications, Previous Orders Changes from previous H/P or p: No Changes General: Per HPI Eyes: No Pain, No Vision change, No Conjunctivae inflammation, No Eyelid inflammation, No Other, No Redness ENT: No Ear pain, No Ear discharge, No Nose pain, No Nose discharge, No Nose congestion, No Mouth pain, No Mouth swelling, No Throat pain, No Throat swelling, No Other Cardiovascular: No Chest Pain, No Palpitations, No Orthopnea, No Paroxysmal Noc. Dyspnea, No Edema, No Lt Headedness, No Other Respiratory: No Cough, No Dry, No Shortness of breath, No SOB with excertion, No Wheezing, No Hemoptysis, No Pleuritic Pain, No Sputum, No Other Gastrointestinal: No Nausea, No Vomiting, No Abdominal Pain, No Diarrhea, No Constipation, No Melena, No Hematochezia, No Other Genitourinary: No Dysuria, No Frequency, No Incontinence, No Hematuria, No Retention, No Other Musculoskeletal: leg pain Skin: No Rash, No Lesions, No Jaundice, No Bruising, No Other Objective Vitals Vital Signs Date Time Temp Pulse Resp B/P (MAP) Pulse Ox O2 Delivery O2 Flow Rate FiO2 05/30/25 09:27 159/93 05/30/25 08:31 97.5 65 16 93 97.5 05/30/25 08:00 Room Air* 0 21 Intake/Output Intake and Output 05/30/25 06:59 Intake Total 200 ml Balance 200 ml Intake Oral 200 ml General Appearance: Alert, Oriented X3, Cooperative, mild distress HEENT: Atraumatic, PERRLA Lungs: Clear to auscultation, Normal air movement Cardiovascular: Normal S1, Normal S2 Abdomen: Normal bowel sounds, Soft, No tenderness, No masses Musculoskeletal: Normal sensory function, Normal motor function Skin: Dry, Intact Psych/Mental Status: Mental status NL, Mood NL Medications Current Medications Medications Dose Ordered Sig/Raj Route Start Time Stop Time Status Last Admin Dose Admin Nitroglycerin 0.4 mg Q5MINP PRN SL 05/29/25 17:15 Morphine Sulfate 2 mg Q30M PRN IV 05/29/25 17:15 Diagnostic Test (Pha) 1 strip IQ4HR 05/29/25 20:00 05/30/25 12:06 1 STRIP Insulin Human Regular IQ4HR SC 05/29/25 20:00 05/30/25 12:08 6 UNITS Dextrose 50 ml UD PRN IV 05/29/25 17:15 Morphine Sulfate 1 mg Q4HPRN PRN IV 05/29/25 17:15 Acetaminophen/ Hydrocodone Bitart 1 tab Q6HPRN PRN PO 05/29/25 17:15 Acetaminophen 500 mg Q8HP PRN PO 05/29/25 17:15 Ondansetron HCl 4 mg Q6HP PRN IV 05/29/25 17:15 Calcium Acetate 667 mg TID PO 05/29/25 22:00 05/30/25 05:25 667 MG Gabapentin 100 mg BID PO 05/29/25 22:00 05/30/25 09:26 100 MG Amlodipine Besylate 10 mg DAILY PO 05/30/25 10:00 05/30/25 09:27 10 MG Labetalol HCl 10 mg Q2HPRN PRN IV 05/29/25 17:30 Insulin Glargine 15 units DAILY SC 05/30/25 10:00 05/30/25 09:30 15 UNITS Laboratory Results Laboratory Tests 05/30/25 05:51 Chemistry Test 05/30/25 05:51 Calcium Level 9.9 mg/dL (8.7-10.4) HgA1c, TSH Test 05/30/25 05:51 Hemoglobin A1c > 14.0 % A1C (<5.7) H Blood Gas Results Test 05/29/25 15:15 Arterial Blood pH 7.329 (7.350-7.450) FiO2 % 21.0 Labs and/or images reviewed: Labs reviewed by me, Image(s) reviewed by me Assessment/Plan Assessment/Plan Impression: -mechanical fall, rule out right hip fracture -uncontrolled diabetes mellitus, A1c greater than 14 -end-stage renal disease with hemodialysis -accelerated hypertension -coronary artery disease Plan: Events: Blood sugars improved. Patient potassium 5.8 -right hip x-ray: No fracture -nephrology consultation: Recommendations appreciated -regular insulin sliding scale , Lantus -pain management -repeat labs in a.m. Total time spent with patient discussing and formulating plan of care: 35 minutes. This medical document was created using an electronic medical record system with [employer] system. Although this document has been carefully reviewed, there may still be some phonetic and typographical errors. These areas are purely typographical due to imperfections of the software programs, and do not reflect any compromise in the patient's medical care. Plan discussed with: Patient, Other (RN) My Orders Orders - RACHEL CONCEPCION SHRIMP PEELER Procedure Category Date Status Time Admit ADMIT 05/29/25 Transmitted 17:06 Nitroglycerin PHA 05/29/25 In Process Sublingual (Ntrostat 17:15 Morphine Sulfate PHA 05/29/25 In Process Injection 17:15 Stat Ekg For Chest KEVIN 05/29/25 In Process Pain 17:06 Notify Md Of Changes KEVIN 05/29/25 In Process From Base 17:06 A/C Technician For KEVIN 05/29/25 In Process 24 Hours 17:06 Emergency Dysrhythmia KEVIN 05/29/25 In Process Protocol 17:06 Rhythm Strips Once KEVIN 05/29/25 In Process Every Shift 17:06 Oxygen By Nasal RT 05/29/25 Transmitted Cannula 17:06 *Dr. Lily Colin -Da CONS 05/29/25 Transmitted Jossie 17:06 R Hip Complete Xray XY 05/29/25 Resulted 17:06 Glucose Blood PHA 05/29/25 In Process (Accu-Chek Comfort 20:00 Insulin R (Human) PHA 05/29/25 In Process (Insulin R) 20:00 Dextrose 50% Syringe PHA 05/29/25 In Process 17:15 Consistent DIET 05/29/25 Transmitted Carb(Ccho)Diabetes Dinner Morphine Sulfate PHA 05/29/25 In Process Injection 17:15 Hydrocodone-Acet PHA 05/29/25 In Process 5/325mg Tab ([place] 17:15 Acetaminophen Tab Or PHA 05/29/25 In Process Cap (Tylenol Tablet 17:15 Ondansetron Hcl PHA 05/29/25 In Process (Zofran) 17:15 Calcium Acetate PHA 05/29/25 In Process Capsule (Phoslo 22:00 Gabapentin Capsule PHA 05/29/25 In Process (Neurontin Capsule) 22:00 Amlodipine Tablet PHA 05/30/25 In Process (Norvasc Tablet) 10:00 Labetalol Hcl PHA 05/29/25 In Process (Labetalol Hcl) 17:30 * Ferryboat Pilot CONS 05/30/25 Transmitted Consult 01:06 * Wound Consult CONS 05/30/25 Transmitted Sodium Zirconium PHA 05/30/25 Logged Cyclosilicate 13:00 Basic Metabolic Panel LAB 05/31/25 Verified 04:00 * Ferryboat Pilot CONS 05/30/25 Verified Consult Date of Service: May 30, 2025 Billing Provider: RACHEL CONCEPCION NP Common Visit Codes: [id number] INP/OBS CARE(HIGH) RACHEL CONCEPCION NP May 30, 2025 13:08
[2025-05-30] MEDS: HYDROcodone-ACET 5/325MG TAB PO PRN (14:13)
[2025-05-30] MEDS: SODIUM ZIRCONIUM CYCL 10 GM PAK PO ONE (14:13)
--- NOTE | 2025-05-30 17:59 | DVHINCON2 ---
Date of service: May 30, [address] Garcia Reason for Consultation End-stage renal disease History of Present Illness 59-year-old patient with significant history of end-stage renal disease on hemodialysis Monday, diabetes type 2, hypertension, retinopathy who missed her dialysis yesterday due to generalized weakness worsening for the last week and fell when she was trying to move from her bed to the chair suffering a contusion to the right lower extremity associated with inability to weight-bearing. She denies headache dizziness chest pain orthopnea PND. She has a history of pacemaker placement as well. Laboratory data revealed hyperkalemia today Past Medical History End-stage renal disease, hypertension, hyperlipidemia, diabetes type 2, foot infection Past Surgical History Av fistula creation, incision and drainage of the wound in his feet Allergies: Coded Allergies: NO KNOWN ALLERGIES (Unverified , 08/03/20) Home Meds Active Scripts Gabapentin (Gabapentin) 100 Mg Cap, 100 MG PO BID for 30 Days, #60 CAP 0 Refills Prov:MAXI HOLLY 02/22/25 Pantoprazole Sodium Sesquihydr (Pantoprazole Sodium) 40 Mg Tab, 40 MG PO DAILY for 30 Days, #30 TAB 0 Refills Prov:MAXI HOLLY 02/22/25 Sucralfate (CARAFATE SUSP) 1 Gm/10 Ml Ss, 1 GM GT BID@0600,2200 for 30 Days, #30 ML Prov:MAXI HOLLY 02/22/25 Atorvastatin Calcium (ATORVASTATIN CALCIUM) 40 Mg Tab, 40 MG PO DAILY for 30 Days, #30 TAB 0 Refills Prov:MAXI HOLLY 01/29/25 Reported Medications Sevelamer Hydrochloride (Sevelamer Hydrochloride) 800 Mg Tab, 2 TAB PO TID 08/14/22 Glipizide (Glipizide Er) 2.5 Mg Tab, 1 TAB PO DAILY 08/14/22 Calcium Acetate (Phosphate Bin (Calcium Acetate) 667 Mg Cap, 2 CAP PO TID 08/14/22 Amlodipine Besylate (Amlodipine Besylate) 10 Mg Tab, 1 TAB PO DAILY 08/14/22 Aspirin (Aspir-Low) 81 Mg Tab, 81 MG PO DAILY for 30 Days, MG 08/05/20 Hydralazine Hcl (Hydralazine Hcl) 10 Mg Tab, 0 PO BID for 30 Days, MG 08/05/20 Current Medications Current Medications Medications (Trade) Dose Ordered Sig/Raj Route PRN Reason Start Time Stop Time Status Last Admin Insulin Glargine (Lantus) 15 units DAILY SC 05/30/25 10:00 05/29/25 18:08 DC Diagnostic Test (Pha) (Accu-Chek Comfort Curve T) 1 strip IQ4HR 05/29/25 20:00 05/30/25 16:00 Insulin Human Regular (InsuLIN R) IQ4HR SC 05/29/25 20:00 05/30/25 12:08 Calcium Acetate (Phoslo Capsule) 667 mg TID PO 05/29/25 22:00 05/30/25 14:12 Gabapentin (Neurontin Capsule) 100 mg BID PO 05/29/25 22:00 05/30/25 09:26 Amlodipine Besylate (Norvasc Tablet) 10 mg DAILY PO 05/30/25 10:00 05/30/25 09:27 Insulin Glargine (Lantus) 15 units DAILY SC 05/30/25 10:00 05/30/25 09:30 Family History: Diabetes mellitus Social History She denies smoking alcohol or drug abuse Review of Systems HEENT: Oral mucosa dry Neck no JVD Cardiovascular: Denies for chest pain denies orthopnea or PND Respiratory: Denies cough or shortness of breath Gastrointestinal: Denies for nausea vomiting Musculoskeletal: Denies myalgias Neurological: Denies focal weakness Dermatological: Denies any rash Pain in the right side of her leg The rest of the review of systems were reviewed pertinent positives and pertinent negatives are as per HPI up to 12 points review of systems H&P Exam Vital Signs/I&O Vital Sign Date Time Temp Pulse Resp B/P (MAP) Pulse Ox O2 Delivery O2 Flow Rate FiO2 05/30/25 16:50 98.0 64 16 129/74 (92) 96 98.0 05/30/25 08:00 Room Air* 0 21 Intake and Output 05/29/25 05/30/25 19:00 07:00 Intake Total 200 ml Balance 200 ml Intake Oral 200 ml Physical Exam HEENT: No evidence of JVD, no oral ulcers. Pulmonary: Lungs are clear on auscultation bilaterally Cardiovascular S1-S2, no S3 or S4 Abdomen: Bowel sounds positive, soft no rebound tenderness Skin: No rash Neurological: Alert, oriented, no focal weakness Access of dialysis: No signs of complication Labs/Diagnostic Data Labs/Diagnostic Data Laboratory Tests Test 05/30/25 16:25 05/30/25 11:31 05/30/25 08:07 05/30/25 05:51 Range/Units POC Glucose 86 217 H 125 H 70-106 mg/dl White Blood Count 6.2 # 4.4-10.8 10^3/uL Red Blood Count 5.02 4.0-5.20 10^6/uL Hemoglobin 13.4 12.2-16.2 g/dL Hematocrit 40.7 # 36.0-46.0 % Mean Corpuscular Volume 81.1 80.0-100.0 fL Mean Corpuscular Hemoglobin 26.7 L 28.0-32.0 pg Mean Corpuscular Hemoglobin Concent 33.0 32.0-36.0 g/dL Red Cell Distribution Width 21.0 H 11.8-14.3 % Platelet Count 265 140-450 10^3/uL Mean Platelet Volume 8.2 6.9-10.8 fL Neutrophils (%) (Auto) 78.8 37.0-80.0 % Lymphocytes (%) (Auto) 14.1 10.0-50.0 % Monocytes (%) (Auto) 5.0 0.0-12.0 % Eosinophils (%) (Auto) 1.4 0.0-7.0 % Basophils (%) (Auto) 0.7 0.0-2.0 % Neutrophils # (Auto) 4.9 1.6-8.6 10 ^3/uL Lymphocytes # (Auto) 0.9 0.4-5.4 10 ^3/uL Monocytes # (Auto) 0.3 0-1.3 10 ^3/uL Eosinophils # (Auto) 0.1 0-0.8 10 ^3/uL Basophils # (Auto) 0 0-0.2 10 ^3/uL Nucleated Red Blood Cells 0.1 % Sodium Level 125 L 136-145 mmol/L Potassium Level 5.8 *H 3.5-5.1 mmol/L Chloride Level 88 L 98-107 mmol/L Carbon Dioxide Level 24 20-31 mmol/L Anion Gap 13 5-15 Blood Urea Nitrogen 53 H 9-23 mg/dL Creatinine 6.42 H 0.550-1.02 mg/dL Glomerular Filtration Rate Calc 7 >90 mL/min BUN/Creatinine Ratio 8.3 L 10.0-20.0 Serum Glucose 94 74-106 mg/dL Hemoglobin A1c > 14.0 H <5.7 % A1C Calcium Level 9.9 8.7-10.4 mg/dL Test 05/30/25 04:25 05/30/25 00:12 05/29/25 20:34 05/29/25 17:46 Range/Units POC Glucose 88 68 L 291 H 429 *H 70-106 mg/dl Test 05/29/25 17:45 05/29/25 17:06 05/29/25 17:05 05/29/25 15:30 Range/Units POC Glucose 430 *H 507 *H 493 *H 486 *H 70-106 mg/dl Test 05/29/25 15:29 05/29/25 15:15 05/29/25 14:41 05/29/25 10:20 Range/Units POC Glucose 488 *H 536 *H 70-106 mg/dl Blood Gas Specimen Type Arterial Blood Gas Sample Site Right radial Blood Gas Patient Temperature 37.0 Arterial Blood Date Drawn [id number] Arterial Blood pH 7.329 L 7.350-7.450 Arterial Blood Partial Pressure CO2 47.5 H 32.0-45.0 mmHg Arterial Blood Partial Pressure O2 64.3 L 83.0-108.0 mmHg Arterial Blood HCO3 24.4 21.0-28.0 mmol/L Arterial Blood Oxygen Saturation 90.5 L 94.0-98.0 % Arterial Blood Base Excess -1.9 -2.0-3.0 mmol/L Arterial Blood Oxyhemoglobin 88.5 L 94.0-98.0 % Arterial Blood Carboxyhemoglobin 1.7 H 0.5-1.5 % Arterial Blood Methemoglobin 0.5 0.0-1.5 % [place] Test Yes Blood Gas Total Hemoglobin 14.80 12.0-16.0 g/dL Blood Gas Modality Room air FiO2 % 21.0 White Blood Count 4.6 4.4-10.8 10^3/uL Red Blood Count 5.68 H 4.0-5.20 10^6/uL Hemoglobin 15.0 12.2-16.2 g/dL Hematocrit 46.9 H 36.0-46.0 % Mean Corpuscular Volume 82.5 80.0-100.0 fL Mean Corpuscular Hemoglobin 26.5 L 28.0-32.0 pg Mean Corpuscular Hemoglobin Concent 32.1 32.0-36.0 g/dL Red Cell Distribution Width 20.9 H 11.8-14.3 % Platelet Count 276 140-450 10^3/uL Mean Platelet Volume 8.3 6.9-10.8 fL Neutrophils (%) (Auto) 63.9 37.0-80.0 % Lymphocytes (%) (Auto) 20.3 10.0-50.0 % Monocytes (%) (Auto) 9.5 0.0-12.0 % Eosinophils (%) (Auto) 5.0 0.0-7.0 % Basophils (%) (Auto) 1.3 0.0-2.0 % Neutrophils # (Auto) 2.9 1.6-8.6 10 ^3/uL Lymphocytes # (Auto) 0.9 0.4-5.4 10 ^3/uL Monocytes # (Auto) 0.4 0-1.3 10 ^3/uL Eosinophils # (Auto) 0.2 0-0.8 10 ^3/uL Basophils # (Auto) 0.1 0-0.2 10 ^3/uL Nucleated Red Blood Cells 0.1 % Sodium Level 123 L 136-145 mmol/L Potassium Level 5.1 3.5-5.1 mmol/L Chloride Level 84 L 98-107 mmol/L Carbon Dioxide Level 25 20-31 mmol/L Anion Gap 14 5-15 Blood Urea Nitrogen 51 H 9-23 mg/dL Creatinine 6.47 H 0.550-1.02 mg/dL Glomerular Filtration Rate Calc 7 >90 mL/min BUN/Creatinine Ratio 7.9 L 10.0-20.0 Serum Glucose 555 *H 74-106 mg/dL Calcium Level 9.6 8.7-10.4 mg/dL Test 05/29/25 10:17 05/29/25 10:16 Range/Units POC Glucose 560 *H 536 *H 70-106 mg/dl X-ray of the hip no evidence of fracture Assessment Assessment: End-stage renal disease on hemodialysis TTS Hypertension Contusion of the right hip Diabetes type 2 Anemia of chronic kidney disease Hyperkalemia Secondary hyperparathyroidism Plan: Dialysis today stat then Monday then TTS Fluid restriction less than 1 L per day Continue antihypertensive med Rui for goal hemoglobin 10 to 11 grams/deciliter Renal diet Continue phosphate binders Thank you very much for allowing us to participate in the care of this patient please contact if you have any questions. Plan discussed with: Patient NIKOLAS ENGLE MD May 30, 2025 17:59
[2025-05-31] VITALS (8 sets, daily range): BP systolic 129–153; BP diastolic 64–84; PULSE 64–65; RESP 16–18; TEMP 97.8–98.8; O2SAT 90–99
[2025-05-31 05:26] LABS: Potassium 5.1 mmol/L (3.5-5.1)
[2025-05-31 05:27] LABS: Anion Gap 13 (5-15); Calcium 9.3 mg/dL (8.7-10.4); Carbon Dioxide 27 mmol/L (20-31); Chloride 88 mmol/L (98-107); Sodium 128 mmol/L (136-145)
[2025-05-31 05:32] LABS: BUN/Creatinine Ratio 6.9 (10.0-20.0)
[2025-05-31 05:33] LABS: Blood Urea Nitrogen 44 mg/dL (9-23); Glucose 60 mg/dL (74-106)
[2025-05-31] MEDS: SODIUM CHL 0.9% 1000 ML BAG XX ONE (06:55)
[2025-05-31] MEDS ORDERED: INSULIN LANTUS (GLARGINE) 1 /0.01ml (100units/ml) SC SCH (12:45)
[2025-05-31] MEDS ORDERED: DEXTROSE (50%) 50ML SYRG IV PRN (13:00)
--- NOTE | 2025-05-31 16:10 | DVHPN2 ---
Progress Note - Dictate Date Seen: May 31, 2025 Has the PT tested + for MRSA If YES, has PT been informed?: No Medical Necessity Reason Pt with a Central, PICC or Fol: Yes Subjective Patient complains of new right lower leg weakness vital signs Vital Sign Date Time Temp Pulse Resp B/P (MAP) Pulse Ox O2 Delivery O2 Flow Rate FiO2 05/31/25 13:00 98.8 65 18 140/75 (96) 99 98.8 05/31/25 08:00 Room Air* 0 21 Total Intake and Output 05/30/25 05/30/25 05/31/25 15:00 23:00 07:00 Intake Total 600 ml 400 ml Balance 600 ml 400 ml medications Current Medications Medications Dose Ordered Sig/Raj Route Start Time Stop Time Status Last Admin Dose Admin Acetaminophen/ Hydrocodone Bitart 1 tab Q6HPRN PRN PO 05/29/25 17:15 05/30/25 14:13 1 TAB Acetaminophen 500 mg Q8HP PRN PO 05/29/25 17:15 Calcium Acetate 667 mg TID PO 05/29/25 22:00 05/31/25 13:57 667 MG Gabapentin 100 mg BID PO 05/29/25 22:00 05/31/25 10:03 100 MG Amlodipine Besylate 10 mg DAILY PO 05/30/25 10:00 05/31/25 10:04 10 MG Labetalol HCl 10 mg Q2HPRN PRN IV 05/29/25 17:30 Diagnostic Test (Pha) 1 strip ACHS 05/31/25 17:00 UNV Insulin Glargine 12 units DAILY SC 06/01/25 10:00 Diagnostic Test (Pha) 1 strip ACHS 05/31/25 17:00 Insulin Human Regular ACHS SC 05/31/25 17:00 Dextrose 50 ml UD PRN IV 05/31/25 13:00 objective HEENT: No evidence of JVD, no oral ulcers. Pulmonary: Lungs are clear on auscultation bilaterally Cardiovascular S1-S2, no S3 or S4 Abdomen: Bowel sounds positive, soft no rebound tenderness Skin: No rash Neurological: Alert, oriented, lower leg weakness laboratory and microbiology Laboratory Tests 05/31/25 03:32 05/30/25 05:51 Test 05/31/25 03:32 Range/Units Serum Glucose 60 L 74-106 mg/dL Assessment/Plan Assessment: End-stage renal disease on hemodialysis TTS Hypertension Contusion of the right hip Right leg weakness, concerns for severe neuropathy versus myelopathy versus other etiology Diabetes type 2 Anemia of chronic kidney disease Hyperkalemia chronic nonhealing wound left foot Secondary hyperparathyroidism Plan: Continue dialysis tomorrow and TTS Neurology consult Wound care consult and Podiatry Fluid restriction less than 1 L per day Continue antihypertensive med Rui for goal hemoglobin 10 to 11 grams/deciliter Renal diet Continue phosphate binders Thank you very much for allowing us to participate in the care of this patient please contact if you have any questions. Plan discussed with: Patient NIKOLAS ENGLE MD May 31, 2025 16:10
[2025-05-31] MEDS: NITROGLYCERIN 0.4 MG SL TAB SL ONE (16:22)
--- NOTE | 2025-05-31 16:31 | DVHPN2 ---
Subjective was examining/c/o lt sised pressure like chest pain/evaluated and given nitro and subsided/ekg no new changes Reviewed: Care Plan, H&P, Labs, Medications, Previous Orders Changes from previous H/P or p: No Changes General: Per HPI Eyes: No Pain, No Vision change, No Conjunctivae inflammation, No Eyelid inflammation, No Other, No Redness ENT: No Ear pain, No Ear discharge, No Nose pain, No Nose discharge, No Nose congestion, No Mouth pain, No Mouth swelling, No Throat pain, No Throat swelling, No Other Cardiovascular: No Chest Pain, No Palpitations, No Orthopnea, No Paroxysmal Noc. Dyspnea, No Edema, No Lt Headedness, No Other Respiratory: No Cough, No Dry, No Shortness of breath, No SOB with excertion, No Wheezing, No Hemoptysis, No Pleuritic Pain, No Sputum, No Other Gastrointestinal: No Nausea, No Vomiting, No Abdominal Pain, No Diarrhea, No Constipation, No Melena, No Hematochezia, No Other Genitourinary: No Dysuria, No Frequency, No Incontinence, No Hematuria, No Retention, No Other Musculoskeletal: leg pain Skin: No Rash, No Lesions, No Jaundice, No Bruising, No Other Objective Vitals Vital Signs Date Time Temp Pulse Resp B/P (MAP) Pulse Ox O2 Delivery O2 Flow Rate FiO2 05/31/25 13:00 98.8 65 18 140/75 (96) 99 98.8 05/31/25 08:00 Room Air* 0 21 Intake/Output Intake and Output 05/31/25 07:00 Intake Total 1000 ml Balance 1000 ml Intake Oral 1000 ml # Voids 2 # Bowel Movements 2 General Appearance: Alert, Oriented X3, Cooperative, mild distress HEENT: Atraumatic, PERRLA Lungs: Clear to auscultation, Normal air movement Cardiovascular: Normal S1, Normal S2 Abdomen: Normal bowel sounds, Soft, No tenderness, No masses Musculoskeletal: Normal sensory function, Normal motor function Extremities: Other (in left feet has ulcers on medial side of 3/4/5th toe- clean stage 2-3/has gentian toy on feet) Skin: Dry, Intact Psych/Mental Status: Mental status NL, Mood NL Medications Current Medications Medications Dose Ordered Sig/Raj Route Start Time Stop Time Status Last Admin Dose Admin Acetaminophen/ Hydrocodone Bitart 1 tab Q6HPRN PRN PO 10/16/25 17:15 05/30/25 14:13 1 TAB Acetaminophen 500 mg Q8HP PRN PO 05/29/25 17:15 Calcium Acetate 667 mg TID PO 05/29/25 22:00 05/31/25 13:57 667 MG Gabapentin 100 mg BID PO 05/29/25 22:00 05/31/25 10:03 100 MG Amlodipine Besylate 10 mg DAILY PO 05/30/25 10:00 05/31/25 10:04 10 MG Labetalol HCl 10 mg Q2HPRN PRN IV 05/29/25 17:30 Diagnostic Test (Pha) 1 strip ACHS 05/31/25 17:00 UNV Insulin Glargine 12 units DAILY SC 06/01/25 10:00 Diagnostic Test (Pha) 1 strip ACHS 05/31/25 17:00 Insulin Human Regular ACHS SC 05/31/25 17:00 Dextrose 50 ml UD PRN IV 05/31/25 13:00 Laboratory Results Laboratory Tests 05/30/25 05:51 05/31/25 03:32 Chemistry Test 05/31/25 03:32 Calcium Level 9.3 mg/dL (8.7-10.4) Labs and/or images reviewed: Labs reviewed by me Assessment/Plan Assessment/Plan s/p fall with hip contusion no fracture ulcers toes dm with labile sugars- adjusted meds htn ulcers feet/evaluate/treat/see orders diabetic neuropathy/amotrophy- will see neurology as op/on gabapentin Plan discussed with: Patient, Other (daughter) My Orders Orders - ANKIT COURTNEY MD Procedure Category Date Status Time Insulin Lantus PHA 06/01/25 In Process (Glargine) (Lantus) 10:00 Glucose Blood PHA 05/31/25 In Process (Accu-Chek Comfort 17:00 Insulin R (Human) PHA 05/31/25 In Process (Insulin R) 17:00 Dextrose 50% Syringe PHA 05/31/25 In Process 13:00 Date of Service: May 31, 2025 Billing Provider: ANKIT COURTNEY MD Common Visit Codes: [id number] INP/OBS CARE(HIGH) ANKIT COURTNEY MD May 31, 2025 16:31
--- NOTE | 2025-05-31 16:39 | ECG ---
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
[2025-05-31] MEDS ORDERED: NITROGLYCERIN 0.4 MG SL TAB SL PRN (16:45)
[2025-05-31] MEDS ORDERED: ACCU-CHEK COMFORT CURVE STRIP VI SCH (17:00)
[2025-05-31] MEDS: METOPROLOL TARTRATE 25 MG TAB PO ONE (17:14)
[2025-05-31] MEDS: ACCU-CHEK COMFORT CURVE STRIP VI SCH (17:14)
[2025-05-31] MEDS: ceFAZolin 1GM/50ML 50 ML IV ONE (17:27)
[2025-05-31] MEDS: InsuLIN REG 1unit/0.01ml Soln (100units/ml) SC SCH (17:27)
--- NOTE | 2025-05-31 18:22 | DVH ---
EXAM: CT CT L FOOT WO CONTRAST HISTORY: ulcers on toes COMPARISON: CT CT L FOOT WO CONTRAST on DOS: 02/16/25, report from MRI MRI L FOOT WO CONTRAST on DOS: TECHNIQUE: Noncontrast axial CT images of the left foot were performed. Sagittal and coronal reformat lani images were obtained. This CT exam was performed using one or more of the following dose reductio n techniques: Automated exposure control, adjustment of the mA and/or kv according to patient size, o r the use of iterative reconstruction techniques. Radiation Dose Information: CT Dose: CTDI volume is 24.84 mGy. Dose-length product is 653.23 mGy*cm FINDINGS: There is bony demineralization. No focal osteopenia or cortical destruction to suggest osteomyelitis. No displaced fracture. Normal alignment. There is mild subcutaneous edema in the left foot. There is no soft tissue gas or well-formed fluid collection. There is calcified athero sclerosis. The visuali zed tendons and ligaments are grossly intact although not optimally evaluated by CT. IMPRESSION: 1. Bony demineralization. No acute fracture or CT evidence of osteomyelitis. 2. Mild subcutaneous edema in the left foot. 3. Calcified athero sclerosis.
[2025-05-31] MEDS: METOPROLOL TARTRATE 25 MG TAB PO SCH (21:53)
[2025-05-31] MEDS ORDERED: ceFAZolin 1GM/50ML 50 ML IV SCH (22:00)
[2025-06-01] VITALS (8 sets, daily range): BP systolic 111–146; BP diastolic 63–79; PULSE 64–66; RESP 16–20; TEMP 97.6–98.8; O2SAT 92–97
[2025-06-01] MEDS: INSULIN LANTUS (GLARGINE) 1 /0.01ml (100units/ml) SC SCH (10:00)
--- NOTE | 2025-06-01 11:48 | DVHINCON2 ---
Date Seen: Jun 01, 2025 Referring Physician Fabricio Reason for Consultation Chest Pain, CAD History of Present Illness 59-year-old female with PMH for ESRD on HD, liver cirrhosis, bradycardia s/p ppm, severe TR, moderate MR, CAD with mid LAD 60% stenosis negative IFR on last coronary angiogram 04/12/2024 with no change from previous angiogram few years prior presents to the hospital with fall. Patient states she felt fairly weak her legs gave out and ended up falling hitting her head. No loss of consciousness, denies lightheadedness syncope palpitations. Patient states her legs has been feeling fairly weak recently. Upon evaluation in the ER patient found to be hypokalemic with potassium up to 5.8. Hemoglobin A1c greater than 14. Patient admitted for continued management. During admission on tele patient ended up having episode of chest pain, states has been having intermittent episodes of chest pain left-sided at times pressure at times sharp in nature at times with exertion at times at rest, does not radiate, worsens with deep inhalation. EKG reviewed and shows AV paced rhythm at 65 beats per minute, RBBB, no significant ST and T-wave abnormalities. Past Medical History As stated above. Past Surgical History As stated above. Family History: Diabetes mellitus Social History Denies alcohol, tobacco or illicit drug use Allergies: Coded Allergies: NO KNOWN ALLERGIES (Unverified , 08/03/20) Home Meds Active Scripts Gabapentin (Gabapentin) 100 Mg Cap, 100 MG PO BID for 30 Days, #60 CAP 0 Refills Prov:MAXI HOLLY RESIDENT 02/22/25 Pantoprazole Sodium Sesquihydr (Pantoprazole Sodium) 40 Mg Tab, 40 MG PO DAILY for 30 Days, #30 TAB 0 Refills Prov:MAXI HOLLY [facility] 02/22/25 Sucralfate (CARAFATE SUSP) 1 Gm/10 Ml Ss, 1 GM GT BID@0600,2200 for 30 Days, #30 ML Prov:MAXI HOLLY [facility] 02/22/25 Atorvastatin Calcium (ATORVASTATIN CALCIUM) 40 Mg Tab, 40 MG PO DAILY for 30 Days, #30 TAB 0 Refills Prov:MAXI HOLLY RESIDENT 01/29/25 Reported Medications Sevelamer Hydrochloride (Sevelamer Hydrochloride) 800 Mg Tab, 2 TAB PO TID 08/14/22 Glipizide (Glipizide Er) 2.5 Mg Tab, 1 TAB PO DAILY 08/14/22 Calcium Acetate (Phosphate Bin (Calcium Acetate) 667 Mg Cap, 2 CAP PO TID 08/14/22 Amlodipine Besylate (Amlodipine Besylate) 10 Mg Tab, 1 TAB PO DAILY 08/14/22 Aspirin (Aspir-Low) 81 Mg Tab, 81 MG PO DAILY for 30 Days, MG 08/05/20 Hydralazine Hcl (Hydralazine Hcl) 10 Mg Tab, 0 PO BID for 30 Days, MG 08/05/20 Current Medications Current Medications Medications (Trade) Dose Ordered Sig/Raj Route PRN Reason Start Time Stop Time Status Last Admin Insulin Glargine (Lantus) 12 units DAILY SC 05/31/25 12:45 05/31/25 12:55 DC Diagnostic Test (Pha) (Accu-Chek Comfort Curve T) 1 strip ACHS 05/31/25 17:00 UNV Insulin Glargine (Lantus) 12 units DAILY SC 06/01/25 10:00 06/01/25 10:00 Diagnostic Test (Pha) (Accu-Chek Comfort Curve T) 1 strip ACHS 05/31/25 17:00 06/01/25 06:02 Insulin Human Regular (InsuLIN R) ACHS SC 05/31/25 17:00 06/01/25 06:03 Dextrose 50 ml UD PRN IV Blood Sugar LESS THAN 60 05/31/25 13:00 Cefazolin Sodium 50 ml @ 100 mls/hr Q8HR IV 05/31/25 22:00 Hold Aspirin 81 mg DAILY PO 06/01/25 10:00 06/01/25 10:00 Metoprolol Tartrate (Lopressor Tablet) 25 mg BID PO 05/31/25 22:00 05/31/25 21:53 Nitroglycerin (Ntrostat Sublingual) 0.4 mg Q5MINP PRN SL FOR CHEST PAIN 05/31/25 16:45 Review of Systems Constitutional: No: Fever, Chills, Sweats, Weakness, Malaise, Other Eyes: No: Pain, Vision change, Conjunctivae inflammation, Eyelid inflammation, Other, Redness ENT: No: Ear pain, Ear discharge, Nose pain, Nose discharge, Nose congestion, Mouth pain, Mouth swelling, Throat pain, Throat swelling, Other Respiratory: No: Cough, Dry, Shortness of breath, SOB with exertion, Wheezing, Hemoptysis, Pleuritic Pain, Sputum, Wheezing, Other Cardiovascular: ; No: Chest Pain Palpitations, Orthopnea, Paroxysmal Noc. Dyspnea, Edema, Lt Headedness, Other Gastrointestinal: No: Nausea, Vomiting, Abdominal Pain, Diarrhea, Constipation, Melena, Hematochezia, Other Genitourinary: No Dysuria, No Frequency, No Incontinence, No Hematuria, No Retention, No Other Musculoskeletal: neck pain; No: other, shoulder pain, arm pain, back pain, hand pain, leg pain, foot pain Skin: No: Rash, Lesions, Jaundice, Bruising, Other Neurological: Other (Dizziness, headache.); No: Weakness, Numbness, Incoordination, Change in speech, Confusion, Seizures Vital Signs Vital Signs Date Time Temp Pulse Resp B/P (MAP) Pulse Ox O2 Delivery O2 Flow Rate FiO2 06/01/25 09:00 98.5 65 20 111/63 (79) 93 98.5 06/01/25 08:00 Room Air* 0 21 Physical Exam General appearance: Ill-appearing, in no acute distress. HEENT: Exam shows: Normocephalic, atraumatic, PERRLA, EOMI Neck: Supple, no bruits Chest: Equal chest excursion bilaterally. Breath sounds normal-no rales or wh eezes. Heart: Rhythm: Regular rate; no murmur or gallop Abdomen: Exam shows: Soft, nontender, distended Musculoskeletal: No clubbing, no cyanosis, trace lower extremity edema Dermatology: Skin warm, moist. Neurological: Exam shows: Alert and oriented x4, normal speech Available prior records, labs, EKG, rhythm strips reviewed and interpreted Labs/Diagnostic Data Labs Test 06/01/25 10:57 06/01/25 05:26 05/31/25 03:32 05/30/25 05:51 Range/Units POC Glucose 143 H 70-106 mg/dl Sodium Level 128 L 136-145 mmol/L Potassium Level 5.1 3.5-5.1 mmol/L Chloride Level 88 L 98-107 mmol/L Carbon Dioxide Level 27 20-31 mmol/L Anion Gap 13 5-15 Blood Urea Nitrogen 44 H 9-23 mg/dL Creatinine 6.41 H 0.550-1.02 mg/dL Glomerular Filtration Rate Calc 7 >90 mL/min BUN/Creatinine Ratio 6.9 L 10.0-20.0 Serum Glucose 60 L 74-106 mg/dL Calcium Level 9.3 8.7-10.4 mg/dL White Blood Count 6.2 # 4.4-10.8 10^3/uL Red Blood Count 5.02 4.0-5.20 10^6/uL Hemoglobin 13.4 12.2-16.2 g/dL Hematocrit 40.7 # 36.0-46.0 % Mean Corpuscular Volume 81.1 80.0-100.0 fL Mean Corpuscular Hemoglobin 26.7 L 28.0-32.0 pg Mean Corpuscular Hemoglobin Concent 33.0 32.0-36.0 g/dL Red Cell Distribution Width 21.0 H 11.8-14.3 % Platelet Count 265 140-450 10^3/uL Mean Platelet Volume 8.2 6.9-10.8 fL Neutrophils (%) (Auto) 78.8 37.0-80.0 % Lymphocytes (%) (Auto) 14.1 10.0-50.0 % Monocytes (%) (Auto) 5.0 0.0-12.0 % Eosinophils (%) (Auto) 1.4 0.0-7.0 % Basophils (%) (Auto) 0.7 0.0-2.0 % Neutrophils # (Auto) 4.9 1.6-8.6 10 ^3/uL Lymphocytes # (Auto) 0.9 0.4-5.4 10 ^3/uL Monocytes # (Auto) 0.3 0-1.3 10 ^3/uL Eosinophils # (Auto) 0.1 0-0.8 10 ^3/uL Basophils # (Auto) 0 0-0.2 10 ^3/uL Nucleated Red Blood Cells 0.1 % Hemoglobin A1c > 14.0 H <5.7 % A1C Test 05/29/25 15:15 Range/Units Blood Gas Specimen Type Arterial Blood Gas Sample Site Right radial Blood Gas Patient Temperature 37.0 Arterial Blood Date Drawn [id number] Arterial Blood pH 7.329 L 7.350-7.450 Arterial Blood Partial Pressure CO2 47.5 H 32.0-45.0 mmHg Arterial Blood Partial Pressure O2 64.3 L 83.0-108.0 mmHg Arterial Blood HCO3 24.4 21.0-28.0 mmol/L Arterial Blood Oxygen Saturation 90.5 L 94.0-98.0 % Arterial Blood Base Excess -1.9 -2.0-3.0 mmol/L Arterial Blood Oxyhemoglobin 88.5 L 94.0-98.0 % Arterial Blood Carboxyhemoglobin 1.7 H 0.5-1.5 % Arterial Blood Methemoglobin 0.5 0.0-1.5 % Wilmar Test Yes Blood Gas Total Hemoglobin 14.80 12.0-16.0 g/dL Blood Gas Modality Room air FiO2 % 21.0 Assessment * Chest Pain - patient with known nonobstructive CAD with negative IFR on coronary angiogram 03/2024. Troponin negative. EKG negative for acute ischemic changes. Continue medical management. Previous multiple echoes with last 10/2024 showing normal EF, severe TR and moderate MR unchanged. No further cardiac workup indicated at this time. Continue outpatient follow up with a finished hardware erector * CAD - continue aspirin and statin, continue antianginals as tolerated. * ESRD on HD - management per Nephrology. * Presence of ppm - normal functioning on telemetry review. Continue outpatient monitoring. * HX Liver cirrhosis assessment with a GI bleed, pauses of FOBT- patient gets recurrent paracentesis once or twice a month. GI on board suspect possible bleeding from cervical mass patient with possible referral to [facility]. Case Discussed with Dr Patton. Patient with known CAD, continue antianginals. Given Troponin negative, and no significant ST and T-wave abnormality on EKG there is no further cardiac work-up indicated at this time. Thank you for allowing us to participate in this patient's care. Will sign off. Critical care, time spent: 40 minutes This medical document was created using an electronic medical record system with voice recognition software and computerized dictation system. Although this document has been carefully reviewed, there might still be some phonetic and typographical errors. Occasional wrong-word or ``sound-alike substitutions may have occurred due to the inherent limitations of voice recognition software. These areas are purely typographical due to imperfections of the software programs and do not reflect any compromise in the patient's medical care. Please read the chart carefully and recognize, using context, where these substitutions have occurred. Thank you for allowing me to participate in the management of this patient. The treatment plan was discussed with and agreed upon by patient/family including requesting consultants and ordering of imaging/procedures. Plan discussed with: Patient NYHA Physical activity limitations: Class2(Slight)fatigue,sob Date of Service: Jun 01, 2025 Billing Provider: TANK ARRINGTON Cardiology Common Codes: [id number] INP/OBS CARE (High), [id number] CARE 30-74 MIN TANK ARRINGTON Jun 01, 2025 11:48
--- NOTE | 2025-06-01 15:46 | DVHPN2 ---
Progress Note - Dictate Date Seen: Jun 01, 2025 Has the PT tested + for MRSA If YES, has PT been informed?: No Medical Necessity Reason Pt with a Central, PICC or Fol: Yes Subjective Patient complains of new right lower leg weakness vital signs Vital Sign Date Time Temp Pulse Resp B/P (MAP) Pulse Ox O2 Delivery O2 Flow Rate FiO2 06/01/25 13:00 98.8 65 18 141/79 (99) 96 98.8 06/01/25 08:00 Room Air* 0 21 Total Intake and Output 05/31/25 05/31/25 06/01/25 15:00 23:00 07:00 Intake Total 298 ml 1000 ml 0 ml Output Total 100 ml Balance 298 ml 900 ml 0 ml medications Current Medications Medications Dose Ordered Sig/Raj Route Start Time Stop Time Status Last Admin Dose Admin Acetaminophen/ Hydrocodone Bitart 1 tab Q6HPRN PRN PO 05/29/25 17:15 05/30/25 14:13 1 TAB Acetaminophen 500 mg Q8HP PRN PO 05/29/25 17:15 Calcium Acetate 667 mg TID PO 05/29/25 22:00 06/01/25 14:15 667 MG Gabapentin 100 mg BID PO 05/29/25 22:00 06/01/25 10:00 100 MG Amlodipine Besylate 10 mg DAILY PO 05/30/25 10:00 05/31/25 10:04 10 MG Labetalol HCl 10 mg Q2HPRN PRN IV 05/29/25 17:30 Diagnostic Test (Pha) 1 strip ACHS 05/31/25 17:00 UNV Insulin Glargine 12 units DAILY SC 06/01/25 10:00 06/01/25 10:00 12 UNITS Diagnostic Test (Pha) 1 strip ACHS 05/31/25 17:00 06/01/25 11:30 1 STRIP Insulin Human Regular ACHS SC 05/31/25 17:00 06/01/25 06:03 2 UNITS Dextrose 50 ml UD PRN IV 05/31/25 13:00 Cefazolin Sodium 50 ml @ 100 mls/hr Q8HR IV 05/31/25 22:00 Hold Aspirin 81 mg DAILY PO 06/01/25 10:00 06/01/25 10:00 81 MG Metoprolol Tartrate 25 mg BID PO 05/31/25 22:00 05/31/25 21:53 25 MG Nitroglycerin 0.4 mg Q5MINP PRN SL 05/31/25 16:45 objective HEENT: No evidence of JVD, no oral ulcers. Pulmonary: Lungs are clear on auscultation bilaterally Cardiovascular S1-S2, no S3 or S4 Abdomen: Bowel sounds positive, soft no rebound tenderness Skin: No rash Neurological: Alert, oriented, lower leg weakness laboratory and microbiology Laboratory Tests 05/31/25 03:32 05/30/25 05:51 Test 05/31/25 03:32 Range/Units Serum Glucose 60 L 74-106 mg/dL Assessment/Plan Assessment: End-stage renal disease on hemodialysis TTS Hypertension Contusion of the right hip Right leg weakness, concerns for severe neuropathy versus myelopathy versus other etiology Diabetes type 2 Anemia of chronic kidney disease Hyperkalemia chronic nonhealing wound left foot Secondary hyperparathyroidism Plan and recommendations Patient undergoing dialysis today, continue TTS Neurology consult Wound care consult and Podiatry Fluid restriction less than 1 L per day Continue antihypertensive med Rui for goal hemoglobin 10 to 11 grams/deciliter Renal diet Continue phosphate binders Thank you very much for allowing us to participate in the care of this patient please contact if you have any questions. Dietary Evaluation Review Recommendations by RD: Dietary education by RD Comments: 1) Initiate Nephro-Elie @ 1 tb qd 2) Add cardiac restriction to 60g CCHO renal diet 3) Encourage optimal PO intake 4) Refer to outpatient RD/CD[facility] for diabetes education 5) Follow-up with cardiology and nephrology 6) Continue to monitor I&O, labs, and skin integrity Expected Outcomes/Goals: 1) appetite and labs to improve 2) wounds to improve 3) f/u in 3-5 days Plan discussed with: Patient NIKOLAS EGNLE MD Jun 01, 2025 15:46
[2025-06-01] MEDS: SODIUM CHL 0.9% 1000 ML BAG XX ONE (16:25)
--- NOTE | 2025-06-01 17:19 | DVHPN2 ---
Subjective no complaints /no more chest pain Reviewed: Care Plan, H&P, Labs, Medications, Previous Orders Changes from previous H/P or p: No Changes General: Per HPI Eyes: No Pain, No Vision change, No Conjunctivae inflammation, No Eyelid inflammation, No Other, No Redness ENT: No Ear pain, No Ear discharge, No Nose pain, No Nose discharge, No Nose congestion, No Mouth pain, No Mouth swelling, No Throat pain, No Throat swelling, No Other Cardiovascular: No Chest Pain, No Palpitations, No Orthopnea, No Paroxysmal Noc. Dyspnea, No Edema, No Lt Headedness, No Other Respiratory: No Cough, No Dry, No Shortness of breath, No SOB with excertion, No Wheezing, No Hemoptysis, No Pleuritic Pain, No Sputum, No Other Gastrointestinal: No Nausea, No Vomiting, No Abdominal Pain, No Diarrhea, No Constipation, No Melena, No Hematochezia, No Other Genitourinary: No Dysuria, No Frequency, No Incontinence, No Hematuria, No Retention, No Other Musculoskeletal: leg pain Skin: No Rash, No Lesions, No Jaundice, No Bruising, No Other Objective Vitals Vital Signs Date Time Temp Pulse Resp B/P (MAP) Pulse Ox O2 Delivery O2 Flow Rate FiO2 06/01/25 13:00 98.8 65 18 141/79 (99) 96 98.8 06/01/25 08:00 Room Air* 0 21 Intake/Output Intake and Output 06/01/25 07:00 Intake Total 1298 ml Output Total 100 ml Balance 1198 ml Intake Oral 1298 ml Output Urine Total 100 ml # Voids 2 # Bowel Movements 2 General Appearance: Alert, Oriented X3, Cooperative, mild distress HEENT: Atraumatic, PERRLA Lungs: Clear to auscultation, Normal air movement Cardiovascular: Normal S1, Normal S2 Abdomen: Normal bowel sounds, Soft, No tenderness, No masses Musculoskeletal: Normal sensory function, Normal motor function Extremities: Other (in left feet has ulcers on medial side of 3/4/5th toe- clean stage 2-3/has gentian toy on feet) Skin: Dry, Intact Psych/Mental Status: Mental status NL, Mood NL Medications Current Medications Medications Dose Ordered Sig/Raj Route Start Time Stop Time Status Last Admin Dose Admin Acetaminophen/ Hydrocodone Bitart 1 tab Q6HPRN PRN PO 05/29/25 17:15 10/17/25 14:13 1 TAB Acetaminophen 500 mg Q8HP PRN PO 05/29/25 17:15 Calcium Acetate 667 mg TID PO 05/29/25 22:00 06/01/25 14:15 667 MG Gabapentin 100 mg BID PO 05/29/25 22:00 06/01/25 10:00 100 MG Amlodipine Besylate 10 mg DAILY PO 05/30/25 10:00 05/31/25 10:04 10 MG Labetalol HCl 10 mg Q2HPRN PRN IV 05/29/25 17:30 Diagnostic Test (Pha) 1 strip ACHS 05/31/25 17:00 UNV Insulin Glargine 12 units DAILY SC 06/01/25 10:00 06/01/25 10:00 12 UNITS Diagnostic Test (Pha) 1 strip ACHS 05/31/25 17:00 06/01/25 16:58 1 STRIP Insulin Human Regular ACHS SC 05/31/25 17:00 06/01/25 16:59 4 UNITS Dextrose 50 ml UD PRN IV 05/31/25 13:00 Cefazolin Sodium 50 ml @ 100 mls/hr Q8HR IV 05/31/25 22:00 Hold Aspirin 81 mg DAILY PO 06/01/25 10:00 06/01/25 10:00 81 MG Metoprolol Tartrate 25 mg BID PO 05/31/25 22:00 05/31/25 21:53 25 MG Nitroglycerin 0.4 mg Q5MINP PRN SL 05/31/25 16:45 Laboratory Results Laboratory Tests 05/30/25 05:51 05/31/25 03:32 Labs and/or images reviewed: Labs reviewed by me, Image(s) reviewed by me Assessment/Plan Assessment/Plan s/p fall with hip contusion no fracture ulcers toes angina- cardiology consulted dm with labile sugars- adjusted meds esrd on dialyss- f/by davita htn ulcers feet/evaluate/treat/see orders diabetic neuropathy/amotrophy- will see neurology as op/on gabapentin Plan discussed with: Patient, Other Date of Service: Jun 01, 2025 Billing Provider: ANKIT COURTNEY MD Common Visit Codes: [id number] INP/OBS CARE(MOD) ANKIT COURTNEY MD Jun 01, 2025 17:19
[2025-06-01] MEDS ORDERED: EPOETIN ALFA-EPBX 4,000 UNIT/ML VIAL SC ONE (21:00)
[2025-06-02] VITALS (10 sets, daily range): BP systolic 126–175; BP diastolic 75–97; PULSE 64–65; RESP 15–18; TEMP 97.1–98.4; O2SAT 95–99
--- NOTE | 2025-06-02 12:32 | DVH ---
EXAM: CT LS SPINE WO CONTRAST INDICATION: lumbar stenosis with RLE weakness COMPARISON: None TECHNIQUE: Multiple axial CT images of the lumbar spine were obtained using bone algorithm. Axial an d coronal reformatting was done. Bone and soft tissue windows were reviewed. Radiation Dose Information: CT Dose: CTDI volume is 30.38 mGy. Dose-length product is 1049.74 mGy*cm FINDINGS: No CT evidence of acute fracture or traumatic mal-alignment. The visualized paraspinal soft tissues a re grossly unremarkable. There is multilevel degenerative change of the spine, with disc space narrowing, subchondral scleros is, and marginal osteophyte formation L4-L5 through L5-S1.. IMPRESSION: No CT evidence of acute fracture or traumatic mal-alignment of the bony lumbar spine. Radiation optimization: All CT scans at this facility use at least one of these dose optimization chhaya hniques: automated exposure control mA and/or kV adjustment per patient size (includes targeted exam s where dose is matched to clinical indication) or iterative reconstruction.
--- NOTE | 2025-06-02 15:20 | DVHCONRES ---
Date Seen: Jun 02, 2025 Reason for Consultation Left foot wound History of Present Illness Patient is a 59-year-old female brought in by ambulance after having a mechanical fall this a.m.. Patient reports that she has had worsening generalized weakness as well as right lower extremity numbness which she attributes to her fall. Patient denies having any further trauma to her head or other bodily injury. She denies having any syncopal type of episodes. Significant history of the patient includes diabetes mellitus for which the patient's blood sugar has been repeatedly over 500 while in the emergency room, hypertension, end-stage renal disease with hemodialysis, coronary artery disease and permanent pacemaker implant. Past Medical History See H&P Past Surgical History See H&P Family History: Diabetes mellitus Allergies: Coded Allergies: NO KNOWN ALLERGIES (Unverified , 08/03/20) Home Meds Active Scripts Gabapentin (Gabapentin) 100 Mg Cap, 100 MG PO BID for 30 Days, #60 CAP 0 Refills Prov:MAXI HOLLY [facility] 02/22/25 Pantoprazole Sodium Sesquihydr (Pantoprazole Sodium) 40 Mg Tab, 40 MG PO DAILY for 30 Days, #30 TAB 0 Refills Prov:AVNIMAXI RESIDENT 02/22/25 Sucralfate (CARAFATE SUSP) 1 Gm/10 Ml Ss, 1 GM GT BID@0600,2200 for 30 Days, #30 ML [facility] 02/22/25 Atorvastatin Calcium (ATORVASTATIN CALCIUM) 40 Mg Tab, 40 MG PO DAILY for 30 Days, #30 TAB 0 [facility] 01/29/25 Reported Medications Sevelamer Hydrochloride (Sevelamer Hydrochloride) 800 Mg Tab, 2 TAB PO TID 08/14/22 Glipizide (Glipizide Er) 2.5 Mg Tab, 1 TAB PO DAILY 08/14/22 Calcium Acetate (Phosphate Bin (Calcium Acetate) 667 Mg Cap, 2 CAP PO TID 08/14/22 Amlodipine Besylate (Amlodipine Besylate) 10 Mg Tab, 1 TAB PO DAILY 08/14/22 Aspirin (Aspir-Low) 81 Mg Tab, 81 MG PO DAILY for 30 Days, MG 08/05/20 Hydralazine Hcl (Hydralazine Hcl) 10 Mg Tab, 0 PO BID for 30 Days, MG 08/05/20 Vital Signs Vital Signs Date Time Temp Pulse Resp B/P (MAP) Pulse Ox O2 Delivery O2 Flow Rate FiO2 06/02/25 13:00 97.4 64 16 175/97 (123) 95 97.4 06/02/25 07:45 Room Air* 0 21 Physical Exam Dermatological: Skin is dry with mild erythema and some maceration around the wound site No gross deformities noted Mild non-pitting edema present bilaterally Left foot interdigital maceration with wounds Vascular: Dorsalis pedis and posterior tibial pulses are 1+ bilaterally Capillary refill is under 2 seconds Skin temperature is warm bilaterally Neurologic: Protective sensation is absent on the plantar forefoot bilaterally Monofilament testing reveals decreased sensation in multiple plantar sites Musculoskeletal: Range of motion at the ankle and MTP joints is within normal limits. Strength is 5/5 in all tested muscle groups. Gait is antalgic due to offloading of the affected limb. Labs/Diagnostic Data Labs Test 06/02/25 11:05 06/01/25 10:57 05/31/25 03:32 05/30/25 05:51 Range/Units POC Glucose 248 H 70-106 mg/dl Troponin I High Sensitivity 34 </=34 ng/L Hepatitis B Surface Antigen Negative Negative Sodium Level 128 L 136-145 mmol/L Potassium Level 5.1 3.5-5.1 mmol/L Chloride Level 88 L 98-107 mmol/L Carbon Dioxide Level 27 20-31 mmol/L Anion Gap 13 5-15 Blood Urea Nitrogen 44 H 9-23 mg/dL Creatinine 6.41 H 0.550-1.02 mg/dL Glomerular Filtration Rate Calc 7 >90 mL/min BUN/Creatinine Ratio 6.9 L 10.0-20.0 Serum Glucose 60 L 74-106 mg/dL Calcium Level 9.3 8.7-10.4 mg/dL White Blood Count 6.2 # 4.4-10.8 10^3/uL Red Blood Count 5.02 4.0-5.20 10^6/uL Hemoglobin 13.4 12.2-16.2 g/dL Hematocrit 40.7 # 36.0-46.0 % Mean Corpuscular Volume 81.1 80.0-100.0 fL Mean Corpuscular Hemoglobin 26.7 L 28.0-32.0 pg Mean Corpuscular Hemoglobin Concent 33.0 32.0-36.0 g/dL Red Cell Distribution Width 21.0 H 11.8-14.3 % Platelet Count 265 140-450 10^3/uL Mean Platelet Volume 8.2 6.9-10.8 fL Neutrophils (%) (Auto) 78.8 37.0-80.0 % Lymphocytes (%) (Auto) 14.1 10.0-50.0 % Monocytes (%) (Auto) 5.0 0.0-12.0 % Eosinophils (%) (Auto) 1.4 0.0-7.0 % Basophils (%) (Auto) 0.7 0.0-2.0 % Neutrophils # (Auto) 4.9 1.6-8.6 10 ^3/uL Lymphocytes # (Auto) 0.9 0.4-5.4 10 ^3/uL Monocytes # (Auto) 0.3 0-1.3 10 ^3/uL Eosinophils # (Auto) 0.1 0-0.8 10 ^3/uL Basophils # (Auto) 0 0-0.2 10 ^3/uL Nucleated Red Blood Cells 0.1 % Hemoglobin A1c > 14.0 H <5.7 % A1C Test 05/29/25 15:15 Range/Units Blood Gas Specimen Type Arterial Blood Gas Sample Site Right radial Blood Gas Patient Temperature 37.0 Arterial Blood Date Drawn [id number] Arterial Blood pH 7.329 L 7.350-7.450 Arterial Blood Partial Pressure CO2 47.5 H 32.0-45.0 mmHg Arterial Blood Partial Pressure O2 64.3 L 83.0-108.0 mmHg Arterial Blood HCO3 24.4 21.0-28.0 mmol/L Arterial Blood Oxygen Saturation 90.5 L 94.0-98.0 % Arterial Blood Base Excess -1.9 -2.0-3.0 mmol/L Arterial Blood Oxyhemoglobin 88.5 L 94.0-98.0 % Arterial Blood Carboxyhemoglobin 1.7 H 0.5-1.5 % Arterial Blood Methemoglobin 0.5 0.0-1.5 % Wilmar Test Yes Blood Gas Total Hemoglobin 14.80 12.0-16.0 g/dL Blood Gas Modality Room air FiO2 % 21.0 Problems(with codes): (1) Vomiting (2) Hyperkalemia (3) Bradycardia (4) Bradycardia (5) Hyperglycemia (6) Renal failure (7) Hypotension (8) Hypotension (9) HTN (hypertension) (10) History of renal failure (11) Blurred vision, left eye (12) Periorbital contusion of left eye (13) Cellulitis of left foot (14) Symptomatic bradycardia (15) Left against medical advice (16) History of renal dialysis (17) Positive occult stool blood test (18) Hyperkalemia (19) Chronic kidney disease (20) Diabetes mellitus due to underlying condition with hyperglycemia (21) Intractable abdominal pain (22) Anemia (23) ESRD (end stage renal disease) on dialysis (24) Left foot infection (25) End stage renal disease on dialysis (26) Uncontrolled diabetes mellitus Plan/Recommendation ASSESSMENT: Patient is a 59 year old seen on the floor for a worsening ulcer PLAN: - The patients chart was reviewed, clinical findings were discussed with the patient, the etiologies of the conditions were discussed in detail, and a treatment plan was agreed to at this time, with both oral and written instructions provided. - reviewed advanced imaging - wounds appear to be stable at this point as we just saw her in clinic - keep interspace is dry with gauze - she can continue using the gentian toy - follow up with me with a regular appointment All questions were answered and concerns addressed to the patient's satisfaction. The patient was given the phone number to the clinic and was told how to make contact with the clinic should any concerns or questions arise. Patient understands that if any questions or concerns arise prior to the next appointment, we should be contacted immediately. FOLLOW-UP: Continue to follow while inpatient Plan discussed with: Patient Visit Coding Podiatry Date of Service if different f: Jun 02, 2025 Billing Provider: WILFRID RENTERIA DPM Podiatry Common Visit Codes: CONSULT ONLY Podiatry Consult Codes: 93996-KA/OBS CONSLTJ NEW/EST HI 80 WILFRID RENTERIA DPM Jun 02, 2025 15:20
--- NOTE | 2025-06-02 17:31 | DVHPN2 ---
Progress Note - Dictate Date Seen: Jun 02, 2025 Has the PT tested + for MRSA If YES, has PT been informed?: No Medical Necessity Reason Pt with a Central, PICC or Fol: Yes Subjective No acute issues overnight. Podiatry evaluation was done. vital signs Vital Sign Date Time Temp Pulse Resp B/P (MAP) Pulse Ox O2 Delivery O2 Flow Rate FiO2 06/02/25 16:41 98.4 65 15 138/81 (100) 97 98.4 06/02/25 07:45 Room Air* 0 21 Total Intake and Output 06/01/25 06/01/25 06/02/25 15:00 23:00 07:00 Intake Total 560 ml 560 ml 500 ml Output Total 100 ml Balance 560 ml 460 ml 500 ml medications Current Medications Medications Dose Ordered Sig/Raj Route Start Time Stop Time Status Last Admin Dose Admin Acetaminophen/ Hydrocodone Bitart 1 tab Q6HPRN PRN PO 05/29/25 17:15 06/01/25 21:54 1 TAB Acetaminophen 500 mg Q8HP PRN PO 05/29/25 17:15 Calcium Acetate 667 mg TID PO 05/29/25 22:00 06/02/25 06:20 667 MG Gabapentin 100 mg BID PO 05/29/25 22:00 06/02/25 09:35 100 MG Amlodipine Besylate 10 mg DAILY PO 05/30/25 10:00 06/02/25 09:34 10 MG Labetalol HCl 10 mg Q2HPRN PRN IV 05/29/25 17:30 Diagnostic Test (Pha) 1 strip ACHS 05/31/25 17:00 UNV Insulin Glargine 12 units DAILY SC 06/01/25 10:00 06/02/25 09:42 12 UNITS Diagnostic Test (Pha) 1 strip ACHS 05/31/25 17:00 06/02/25 12:14 1 STRIP Insulin Human Regular ACHS SC 05/31/25 17:00 06/02/25 12:15 4 UNITS Dextrose 50 ml UD PRN IV 05/31/25 13:00 Aspirin 81 mg DAILY PO 06/01/25 10:00 06/02/25 09:34 81 MG Metoprolol Tartrate 25 mg BID PO 05/31/25 22:00 06/02/25 09:34 25 MG Nitroglycerin 0.4 mg Q5MINP PRN SL 10/18/25 16:45 objective HEENT: No evidence of JVD, no oral ulcers. Pulmonary: Lungs are clear on auscultation bilaterally Cardiovascular S1-S2, no S3 or S4 Abdomen: Bowel sounds positive, soft no rebound tenderness Skin: No rash Neurological: Alert and oriented laboratory and microbiology Laboratory Tests 05/31/25 03:32 05/30/25 05:51 Test 05/31/25 03:32 Range/Units Serum Glucose 60 L 74-106 mg/dL Problem List End-stage renal disease on hemodialysis TTS Hypertension Contusion of the right hip Right leg weakness Diabetes type 2 Anemia of chronic kidney disease Hyperkalemia chronic nonhealing wound left foot Secondary hyperparathyroidism Assessment/Plan We will continue dialysis on TTS schedule. Ultrafiltration up to 3 L as tolerated. No indication for FRANCHESKA. Dietary Evaluation Review Recommendations by RD: Dietary education by RD Comments: 1) Initiate Nephro-Elie @ 1 tb qd 2) Add cardiac restriction to 60g CCHO renal diet 3) Encourage optimal PO intake 4) Refer to outpatient RD/CD[facility] for diabetes education 5) Follow-up with cardiology and nephrology 6) Continue to monitor I&O, labs, and skin integrity Expected Outcomes/Goals: 1) appetite and labs to improve 2) wounds to improve 3) f/u in 3-5 days Plan discussed with: FLORES Caballero MD Jun 02, 2025 17:31
[2025-06-03] VITALS (7 sets, daily range): BP systolic 128–146; BP diastolic 65–85; PULSE 64–66; RESP 16–18; TEMP 97.5–98.2; O2SAT 96–98
--- NOTE | 2025-06-03 11:06 | DVHDS2 ---
Discharge Summary Date of Admission May 29, 2025 at 17:06 Date of Discharge: Jun 03, 2025 Admitting Diagnosis Mechanical fall, rule out right hip fracture Labs/Diagnostic Data: Laboratory Results Test 06/03/25 06:13 06/01/25 10:57 05/31/25 03:32 05/30/25 05:51 POC Glucose 80 mg/dl (70-106) Troponin I High Sensitivity 34 ng/L (</=34) Hepatitis B Surface Antigen Negative (Negative) Sodium Level 128 mmol/L (136-145) Potassium Level 5.1 mmol/L (3.5-5.1) Chloride Level 88 mmol/L (98-107) Carbon Dioxide Level 27 mmol/L (20-31) Anion Gap 13 (5-15) Blood Urea Nitrogen 44 mg/dL (9-23) Creatinine 6.41 mg/dL (0.550-1.02) Glomerular Filtration Rate Calc 7 mL/min (>90) BUN/Creatinine Ratio 6.9 (10.0-20.0) Serum Glucose 60 mg/dL (74-106) Calcium Level 9.3 mg/dL (8.7-10.4) White Blood Count 6.2 10^3/uL (4.4-10.8) Red Blood Count 5.02 10^6/uL (4.0-5.20) Hemoglobin 13.4 g/dL (12.2-16.2) Hematocrit 40.7 % (36.0-46.0) Mean Corpuscular Volume 81.1 fL (80.0-100.0) Mean Corpuscular Hemoglobin 26.7 pg (28.0-32.0) Mean Corpuscular Hemoglobin Concent 33.0 g/dL (32.0-36.0) Red Cell Distribution Width 21.0 % (11.8-14.3) Platelet Count 265 10^3/uL (140-450) Mean Platelet Volume 8.2 fL (6.9-10.8) Neutrophils (%) (Auto) 78.8 % (37.0-80.0) Lymphocytes (%) (Auto) 14.1 % (10.0-50.0) Monocytes (%) (Auto) 5.0 % (0.0-12.0) Eosinophils (%) (Auto) 1.4 % (0.0-7.0) Basophils (%) (Auto) 0.7 % (0.0-2.0) Neutrophils # (Auto) 4.9 10 ^3/uL (1.6-8.6) Lymphocytes # (Auto) 0.9 10 ^3/uL (0.4-5.4) Monocytes # (Auto) 0.3 10 ^3/uL (0-1.3) Eosinophils # (Auto) 0.1 10 ^3/uL (0-0.8) Basophils # (Auto) 0 10 ^3/uL (0-0.2) Nucleated Red Blood Cells 0.1 % Hemoglobin A1c > 14.0 % A1C (<5.7) Test 05/29/25 15:15 Blood Gas Specimen Type Arterial Blood Gas Sample Site Right radial Blood Gas Patient Temperature 37.0 Arterial Blood Date Drawn [id number] Arterial Blood pH 7.329 (7.350-7.450) Arterial Blood Partial Pressure CO2 47.5 mmHg (32.0-45.0) Arterial Blood Partial Pressure O2 64.3 mmHg (83.0-108.0) Arterial Blood HCO3 24.4 mmol/L (21.0-28.0) Arterial Blood Oxygen Saturation 90.5 % (94.0-98.0) Arterial Blood Base Excess -1.9 mmol/L (-2.0-3.0) Arterial Blood Oxyhemoglobin 88.5 % (94.0-98.0) Arterial Blood Carboxyhemoglobin 1.7 % (0.5-1.5) Arterial Blood Methemoglobin 0.5 % (0.0-1.5) Wilmar Test Yes Blood Gas Total Hemoglobin 14.80 g/dL (12.0-16.0) Blood Gas Modality Room air FiO2 % 21.0 Other Laboratory Tests 05/31/25 03:32 05/30/25 05:51 Brief Hx & Hospital Course: History of Present Illness Patient is a 59-year-old female brought in by ambulance after having a mechanical fall this a.m.. Patient reports that she has had worsening generalized weakness as well as right lower extremity numbness which she attributes to her fall. Patient denies having any further trauma to her head or other bodily injury. She denies having any syncopal type of episodes. Significant history of the patient includes diabetes mellitus for which the patient's blood sugar has been repeatedly over 500 while in the emergency room, hypertension, end-stage renal disease with hemodialysis, coronary artery disease and permanent pacemaker implant. Course of hospitalization: Patient had x-ray of right hip which was negative for fracture. Patient was started on long-acting insulin as well as sliding scale with patient's blood sugar well controlled while in the hospital. Hemoglobin A1c was greater than 14. Nephrology consultation was obtained for hemodialysis while in the hospital. Patient continued to have right lower extremity weakness, numbness. CT scan of the L-spine was negative for any acute pathology. Physical therapy was initiated while in the hospital. Patient will be discharged home and is instructed to follow up with her PCP in 1-2 weeks and continue with established hemodialysis chair time. Given patient's poor glucose control at home, and weakness home health services we will be established to assess dietary restriction adherence, blood sugars at home, as well as physical therapy assist with the patient with per right lower extremity weakness. Patient was agreeable with discharge plan. All questions answered. Physical examination General: Alert and Oriented x3. No acute distress. Well-nourished. Eyes: EOMI. Anicteric. HENT: Moist mucous membranes. Lungs: Clear to auscultation bilaterally. No accessory muscle use. Cardiovascular: Regular rate and rhythm. No murmur. No JVD. Abdomen: Soft, non-tender and non-distended. No palpable masses. Extremities: No edema. Non-tender. Skin: No rashes or lesions. Warm. Neurologic: No focal neurological deficits. CN II-XII grossly intact, but not individually tested. Psychiatric: Cooperative. Appropriate mood and affect. Total time spent with patient discussing and formulating plan of care: 35 minutes. This medical document was created using an electronic medical record system with [employer] dictation system. Although this document has been carefully reviewed, there may still be some phonetic and typographical errors. These areas are purely typographical due to imperfections of the software programs, and do not reflect any compromise in the patient's medical care. Consults/Reason for consult Nephrology: Hemodialysis Cardiology: History of CAD Podiatry: Right foot wound Condition at Discharge: Guarded Final Diagnosis/Problems List Hyperglycemia, mechanical fall -mechanical fall, rule out right hip fracture -uncontrolled diabetes mellitus, A1c greater than 14 -end-stage renal disease with hemodialysis -accelerated hypertension -coronary artery disease Discharge Disposition: Home with Health Services Discharge Instruct/Medications Diet: Consistent carbohydrate Activity: No Restrictions, As Tolerated Follow Up/Referral: Follow up with established hemodialysis chair time Follow up with PCP in 1-2 weeks Medications: Continue all previous home medications Scheduled Amlodipine Besylate (Amlodipine Besylate), 1 TAB PO DAILY, (Reported) Aspirin (Aspir-Low), 81 MG PO DAILY, (Reported) Atorvastatin Calcium (Atorvastatin Calcium), 40 MG PO DAILY Calcium Acetate (Phosphate Bin (Calcium Acetate), 2 CAP PO TID, (Reported) Gabapentin (Gabapentin), 100 MG PO BID Glipizide (Glipizide Er), 1 TAB PO DAILY, (Reported) Hydralazine Hcl (Hydralazine Hcl), 0 PO BID, (Reported) Pantoprazole Sodium Sesquihydr (Pantoprazole Sodium), 40 MG PO DAILY Sevelamer Hydrochloride (Sevelamer Hydrochloride), 2 TAB PO TID, (Reported) Sucralfate (Carafate Susp), 1 GM GT BID@0600,2200 36 Discharge Statement: "Patient was advised to return to the ER or call 911 if any headaches, dizziness, shortness of breath, chest pain, abdominal pain, bleeding, fevers, or worsening of medical condition. Patient was counseled about treatment plan, medications, possible side effects, patientverbalized understanding. All questions were answered to the best of my ability. This discharge took greater then 30 minutes in planning, reviewing documentation, counseling the patient, and discussing with other team members." ASSESSMENT ASSESSMENT Assessment Hyperglycemia, mechanical fall Date of Service: Jun 03, 2025 Billing Provider: RACHEL CONCEPCION NP Common Visit Codes: 10977-CUP/OBS DISCH DAY >30min RACHEL CONCEPCION NP Jun 03, 2025 11:06
--- NOTE | 2025-06-03 11:10 | DVHPN2 ---
Subjective Patient continues to report having generalized weakness. Reviewed: Care Plan, H&P, Labs, Medications, Previous Orders Changes from previous H/P or p: No Changes General: Per HPI Eyes: No Pain, No Vision change, No Conjunctivae inflammation, No Eyelid inflammation, No Other, No Redness ENT: No Ear pain, No Ear discharge, No Nose pain, No Nose discharge, No Nose congestion, No Mouth pain, No Mouth swelling, No Throat pain, No Throat swelling, No Other Cardiovascular: No Chest Pain, No Palpitations, No Orthopnea, No Paroxysmal Noc. Dyspnea, No Edema, No Lt Headedness, No Other Respiratory: No Cough, No Dry, No Shortness of breath, No SOB with excertion, No Wheezing, No Hemoptysis, No Pleuritic Pain, No Sputum, No Other Gastrointestinal: No Nausea, No Vomiting, No Abdominal Pain, No Diarrhea, No Constipation, No Melena, No Hematochezia, No Other Genitourinary: No Dysuria, No Frequency, No Incontinence, No Hematuria, No Retention, No Other Musculoskeletal: leg pain Skin: No Rash, No Lesions, No Jaundice, No Bruising, No Other Objective Vitals Vital Signs Date Time Temp Pulse Resp B/P (MAP) Pulse Ox O2 Delivery O2 Flow Rate FiO2 06/03/25 08:37 98.2 65 16 135/77 (96) 98 98.2 06/02/25 20:10 Room Air* 0 21 Intake/Output Intake and Output 06/03/25 07:00 Intake Total 1050 ml Output Total 400 ml Balance 650 ml Intake Oral 1050 ml Output Urine Total 400 ml # Bowel Movements 2 General Appearance: Alert, Oriented X3, Cooperative, mild distress HEENT: Atraumatic, PERRLA Lungs: Clear to auscultation, Normal air movement Cardiovascular: Normal S1, Normal S2 Abdomen: Normal bowel sounds, Soft, No tenderness, No masses Musculoskeletal: Normal sensory function, Normal motor function Extremities: Other (in left feet has ulcers on medial side of 3/4/5th toe- clean stage 2-3/has gentian toy on feet) Skin: Dry, Intact Psych/Mental Status: Mental status NL, Mood NL Medications Current Medications Medications Dose Ordered Sig/Raj Route Start Time Stop Time Status Last Admin Dose Admin Acetaminophen/ Hydrocodone Bitart 1 tab Q6HPRN PRN PO 05/29/25 17:15 06/01/25 21:54 1 TAB Acetaminophen 500 mg Q8HP PRN PO 05/29/25 17:15 Calcium Acetate 667 mg TID PO 05/29/25 22:00 06/03/25 06:11 667 MG Gabapentin 100 mg BID PO 05/29/25 22:00 06/02/25 21:29 100 MG Amlodipine Besylate 10 mg DAILY PO 05/30/25 10:00 06/02/25 09:34 10 MG Labetalol HCl 10 mg Q2HPRN PRN IV 05/29/25 17:30 Diagnostic Test (Pha) 1 strip ACHS 05/31/25 17:00 UNV Insulin Glargine 12 units DAILY SC 06/01/25 10:00 06/02/25 09:42 12 UNITS Diagnostic Test (Pha) 1 strip ACHS 05/31/25 17:00 06/03/25 06:11 1 STRIP Insulin Human Regular ACHS SC 05/31/25 17:00 06/02/25 17:34 4 UNITS Dextrose 50 ml UD PRN IV 05/31/25 13:00 Aspirin 81 mg DAILY PO 06/01/25 10:00 06/02/25 09:34 81 MG Metoprolol Tartrate 25 mg BID PO 05/31/25 22:00 06/02/25 21:29 25 MG Nitroglycerin 0.4 mg Q5MINP PRN SL 05/31/25 16:45 Laboratory Results Laboratory Tests 05/30/25 05:51 05/31/25 03:32 Labs and/or images reviewed: Labs reviewed by me, Image(s) reviewed by me Assessment/Plan Assessment/Plan Impression: -mechanical fall, rule out right hip fracture -uncontrolled diabetes mellitus, A1c greater than 14 -end-stage renal disease with hemodialysis -accelerated hypertension -coronary artery disease Plan: Events: Blood sugars improved. Continues to have RLE weakness -L-spine CT -right hip x-ray: No fracture -nephrology consultation: Recommendations appreciated -regular insulin sliding scale , Lantus -pain management -repeat labs in a.m. Total time spent with patient discussing and formulating plan of care: 35 minutes. This medical document was created using an electronic medical record system with [employer] dictation system. Although this document has been carefully reviewed, there may still be some phonetic and typographical errors. These areas are purely typographical due to imperfections of the software programs, and do not reflect any compromise in the patient's medical care. Plan discussed with: Patient, Other (RN) My Orders Orders - RACHEL CONCEPCION NP Procedure Category Date Status Time Discharge DISCHARGE 06/03/25 Transmitted 10:58 * Mailing Section Clerk CONS 06/03/25 Transmitted Consult Date of Service: Jun 02, 2025 Billing Provider: RACHEL CONCEPCION NP Common Visit Codes: [id number] INP/OBS CARE(HIGH) RACHEL CONCEPCION NP Jun 03, 2025 11:10
[2025-06-03] MEDS: SODIUM CHL 0.9% 1000 ML BAG XX ONE (12:25)
--- NOTE | 2025-06-03 17:19 | DVHPN2 ---
Progress Note - Dictate Date Seen: Jun 03, 2025 Has the PT tested + for MRSA If YES, has PT been informed?: No Medical Necessity Reason Pt with a Central, PICC or Fol: Yes Subjective No acute issues overnight. Underwent HD today . Results of CT lumbar spine noted vital signs Vital Sign Date Time Temp Pulse Resp B/P (MAP) Pulse Ox O2 Delivery O2 Flow Rate FiO2 06/03/25 16:38 98.0 64 17 146/85 (105) 98 98.0 06/03/25 08:00 Room Air* 0 21 Total Intake and Output 06/02/25 06/02/25 06/03/25 14:59 22:59 06:59 Intake Total 650 ml 400 ml Output Total 200 ml 200 ml Balance 450 ml 200 ml medications Current Medications Medications Dose Ordered Sig/Raj Route Start Time Stop Time Status Last Admin Dose Admin Acetaminophen/ Hydrocodone Bitart 1 tab Q6HPRN PRN PO 05/29/25 17:15 06/01/25 21:54 1 TAB Acetaminophen 500 mg Q8HP PRN PO 05/29/25 17:15 Calcium Acetate 667 mg TID PO 05/29/25 22:00 06/03/25 06:11 667 MG Gabapentin 100 mg BID PO 05/29/25 22:00 06/03/25 12:17 100 MG Amlodipine Besylate 10 mg DAILY PO 05/30/25 10:00 06/02/25 09:34 10 MG Labetalol HCl 10 mg Q2HPRN PRN IV 05/29/25 17:30 Diagnostic Test (Pha) 1 strip ACHS 05/31/25 17:00 UNV Insulin Glargine 12 units DAILY SC 06/01/25 10:00 06/03/25 11:26 12 UNITS Diagnostic Test (Pha) 1 strip ACHS 05/31/25 17:00 06/03/25 11:27 1 STRIP Insulin Human Regular ACHS SC 05/31/25 17:00 06/03/25 12:18 2 UNITS Dextrose 50 ml UD PRN IV 05/31/25 13:00 Aspirin 81 mg DAILY PO 06/01/25 10:00 06/02/25 09:34 81 MG Metoprolol Tartrate 25 mg BID PO 05/31/25 22:00 06/02/25 21:29 25 MG Nitroglycerin 0.4 mg Q5MINP PRN SL 05/31/25 16:45 objective HEENT: No evidence of JVD, no oral ulcers. Pulmonary: Lungs are clear on auscultation bilaterally Cardiovascular S1-S2, no S3 or S4 Abdomen: Bowel sounds positive, soft no rebound tenderness Skin: No rash Neurological: Alert and oriented laboratory and microbiology Laboratory Tests 05/31/25 03:32 05/30/25 05:51 Test 05/31/25 03:32 Range/Units Serum Glucose 60 L 74-106 mg/dL Problem List End-stage renal disease on hemodialysis TTS Hypertension Contusion of the right hip Right leg weakness Diabetes type 2 Anemia of chronic kidney disease Hyperkalemia chronic nonhealing wound left foot Secondary hyperparathyroidism Assessment/Plan We will continue dialysis on TTS schedule. outpatient vascular evaluation for prolonged bleeding from access site No indication for FRANCHESKA. Dietary Evaluation Review Recommendations by RD: Dietary education by RD Comments: 1) Initiate Nephro-Elie @ 1 tb qd 2) Add cardiac restriction to 60g CCHO renal diet 3) Encourage optimal PO intake 4) Refer to outpatient RD/[facility] for diabetes education 5) Follow-up with cardiology and nephrology 6) Continue to monitor I&O, labs, and skin integrity Expected Outcomes/Goals: 1) appetite and labs to improve 2) wounds to improve 3) f/u in 3-5 days Plan discussed with: FLORES Caballero MD Jun 03, 2025 17:19
== END 2025-06-03 19:35 | disposition home health service (06) | DRG 384 ==
LOC: ER 10:00 → OVERFLOW 17:06 → TELE-WESTW 21:00
PROVIDERS: ADMIT Nurse Practitioner Acute Care; ATTEND Nurse Practitioner Acute Care
PROC: 5A1D70Z Performance of Urinary Filtration, Intermittent, Less than 6 Hours Per Day (ICD-10-PCS; principal; 2025-05-30)
PROC: 5A1D70Z Performance of Urinary Filtration, Intermittent, Less than 6 Hours Per Day (ICD-10-PCS; 2025-06-01)
PROC: 5A1D70Z Performance of Urinary Filtration, Intermittent, Less than 6 Hours Per Day (ICD-10-PCS; 2025-06-03)
DX: S70.01XA Contusion of right hip, initial encounter (principal); I13.2 Hypertensive heart and chronic kidney disease with heart failure and with stage 5 chronic kidney disease, or end stage renal disease; N18.6 End stage renal disease; D63.1 Anemia in chronic kidney disease; N25.81 Secondary hyperparathyroidism of renal origin; I50.9 Heart failure, unspecified; Z99.2 Dependence on renal dialysis; E11.22 Type 2 diabetes mellitus with diabetic chronic kidney disease; E11.40 Type 2 diabetes mellitus with diabetic neuropathy, unspecified; E11.65 Type 2 diabetes mellitus with hyperglycemia; E87.5 Hyperkalemia; I25.119 Atherosclerotic heart disease of native coronary artery with unspecified angina pectoris; E78.5 Hyperlipidemia, unspecified; E87.6 Hypokalemia; L97.528 Non-pressure chronic ulcer of other part of left foot with other specified severity; Z83.3 Family history of diabetes mellitus; Z95.0 Presence of cardiac pacemaker; Z79.82 Long term (current) use of aspirin; Z79.899 Other long term (current) drug therapy; W19.XXXA Unspecified fall, initial encounter; Y93.89 Activity, other specified; Y92.89 Other specified places as the place of occurrence of the external cause; Y99.8 Other external cause status
CPT/HCPCS: 36415; 36600; 72131; 73502; 73700; 80048; 82805; 82962; 83036; 84484; 85025; 87340; 90935; 93005; G0378; J1642; J1815